=== PATIENT | female | born 1950 | race Caucasian/White ===

== ENCOUNTER → 2018-01-09 08:54 | Outpatient (CLI) | payer MEDICARE, OTHER, SELFPAY ==
--- NOTE | 2018-01-09 08:55 | RAD_ITS ---
STUDY: X-RAY - LEFT KNEE REASON FOR EXAM: Female, 67 years old. Pain after fall TECHNIQUE: Four view(s) of the knee were obtained. COMPARISON: None. FINDINGS: The distal femur is unremarkable. The proximal tibia is unremarkable. There is mild narrowing of the medial femorotibial compartment. Normal lateral femorotibial compartment. Normal patellofemoral articulation. There is no fullness above the patella. The soft tissue structures are unremarkable. RAD/Knee 4 or More Views IMPRESSION: No acute abnormalities are seen in the left knee. There are mild degenerative changes in the medial compartment. Electronically Signed: Yessi Scales MD at 20:01 EDT Tel Direct: [phone], Service support ,
== END ==
PROVIDERS: Family Provider Internal Medicine; PCP Internal Medicine; Visit Provider Physician Assistant
DX: M17.12 Unilateral primary osteoarthritis, left knee (principal)
CPT/HCPCS: 73564

== ENCOUNTER 2021-08-29 14:46 | Emergency (ER) | payer MEDICARE, OTHER, SELFPAY ==
[2021-08-29 14:46] VITALS: BP 181/82; PULSE 114; RESP 20; TEMP 36.3; O2SAT 100; BMI 19.8
--- NOTE | 2021-08-29 15:04 | RAD_ITS ---
STUDY: X-RAY CHEST REASON FOR EXAM: Female, 71 years old. cough TECHNIQUE: PA and lateral views of the chest. COMPARISON: None. FINDINGS: The lungs are clear and expanded. There is no demonstrated pleural abnormality. Normal size heart. Normal mediastinum and katherin. Normal visualized pulmonary arteries. Normal visualized aortic arch and descending thoracic aorta. Normal visualized thoracic spine. Normal visualized ribs, clavicles, and shoulders. There is no demonstrated abnormality of the visualized soft tissue structures of the upper abdomen. RAD/Chest PA and Lateral IMPRESSION: Normal x-ray examination of the chest. Electronically Signed: Bill Salcido MD at 16:09 EDT ,
--- NOTE | 2021-08-29 15:04 | EKG12_ITS ---
Test Reason : SOB Blood Pressure : / mmHG Vent. Rate : 103 BPM Atrial Rate : 103 BPM P-R Int : 170 ms QRS Dur : 090 ms QT Int : 326 ms P-R-T Axes : 039 046 045 degrees QTc Int : 427 ms Sinus tachycardia Abnormal ECG Confirmed by TABATHA DE LEON, LAM ([id number]), features editor NEVA CANNON ([id number]) on 09/02/2021 9:19:08 AM Referred By: ES/PL Confirmed By:LAM MAYS MD
--- NOTE | 2021-08-29 15:07 | EX.ED.DYSGE1 ---
HPI History of Present Illness Chief Complaint: Shortness of Breath Informant: patient Narrative Narrative: Patient presents with cough. 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 The child and siblings have a cold with nasal congestion runny nose and cough. She caught this about a week ago. She felt as though she was getting better. But the last few days she has had sense of fever. She has not checked her temperature. She is coughing occasionally. But she is not actually short of breath. She is bringing up a small amount of clear phlegm only. No blood. No chest pain. She states she has some soreness of the muscles but it is very mild. No leg swelling or pain. No recent travel, surgery, immobilization, personal family history of DVT or PE. She does report a history of bronchiectasis for which she takes guaifenesin routinely. She has had 2 episodes of pneumonia. One was in May 2019 that they think may have been Covid. The other was in 2017. Patient does not feel acutely ill. She is not having any trouble eating or drinking or carrying on ADLs. She saw a nurse practitioner earlier today who stated they would just be more comfortable with her being seen and may be getting a chest x-ray. [facility] Medical History Arthritis Cataracts, bilateral Chronic bronchiectasis not affecting current episode of care Coronary atherosclerosis due to severely calcified coronary lesion Depression GERD (gastroesophageal reflux disease) Hiatal hernia Kidney stones Osteopenia Pneumonia Von Willebrand disease Home Medications calcium carbonate 600 mg calcium (1,500 mg) tablet 600 mg PO DAILY 01/22/21 [History Last Taken Unknown] multivitamin 1 tab PO DAILY 01/22/21 [History Last Taken Unknown] Lactobacillus acidophil,plantar-Bifido no.7 25 billion cell capsule cap PO DAILY 01/25/21 [History Last Taken Unknown] acetaminophen 500 mg tablet 500 mg PO Q6H PRN 01/25/21 [History Last Taken Unknown] guaifenesin 600 mg tablet, extended release 12 hr 600 mg PO Q12H PRN 01/25/21 [History Last Taken Unknown] sertraline 50 mg tablet 75 mg PO DAILY tab 01/25/21 [History Last Taken Unknown] tumeric curcumin PO DAILY 01/25/21 [History Last Taken Unknown] albuterol sulfate [Ventolin HFA] 2 puff INHALATION Q4H PRN PRN #1 inhaler 08/29/21 [Rx Last Taken Unknown] doxycycline monohydrate 100 mg PO BID #20 cap 08/29/21 [Rx Last Taken Unknown] Allergy/AdvReac Type Severity Reaction Status Date / Time latex Allergy unknown Verified 08/29/21 14:48 Penicillins Allergy Unknown Verified 08/29/21 14:48 Sulfa (Sulfonamide Allergy unknown Verified 08/29/21 14:48 Antibiotics) Family History Father Cancer Brother CVA (cerebral vascular accident) Cancer Mother H/O ulcer disease Alzheimer disease Other Bleeding disorder COPD (chronic obstructive pulmonary disease) Cancer of bone Hypertension Myocardial infarction Osteoporosis Surgical History bilateral trigger finger release H/O: hysterectomy Hx of cholecystectomy Social History Smoking Status: Never smoker alcohol intake: current substance use type: does not use what type of physical activity do you participate in: walking frequency: 5-6 times per week ROS ROS ED Constitutional Constitutional ED: Reports subjective Eyes Eyes: Denies blurry vision ENT ENT ED: Denies rhinorrhea or sore throat Cardiovascular Cardiovascular: Denies chest pain, palpitations or racing heartbeat Respiratory/Chest Respiratory/Chest: Reports cough, sputum and other Details: Clear sputum only. ; Denies dyspnea or dyspnea on exertion Gastrointestinal Gastrointestinal: Denies abdominal pain, diarrhea, nausea or vomiting Musculoskeletal Musculoskeletal: Reports myalgias Integumentary Denies rash Neurologic Neurologic: Denies headache(s) Psychiatric Psychiatric: Denies depression Endocrine Endocrinology: Denies polydipsia or polyuria Allergic/Immunologic Allergic/Immunologic ED: Denies urticaria EXAM Physical Exam Const Vital Signs: 08/29/21 14:46 08/29/21 15:13 08/29/21 15:34 Temperature 97.4 F L Temperature Source Temporal Pulse Rate 114 H 103 H Respiratory Rate 20 H 18 Respiratory Effort Normal Non-Labored Respiratory Depth Normal Respiratory Pattern Normal Blood Pressure 181/82 H Blood Pressure Mean 115 Pulse Ox 100 Oxygen Delivery Method Room Air Positive well nourished and well developed General Appearance ED: well developed and NAD; Negative for cyanotic or diaphoretic HEENT Reports moist mucous membranes Eyes General Eye ED: Negative for pale conjunctiva or scleral icterus Chest Wall inspection of chest normal and palpation of chest normal Resp normal respiratory effort Resp Narrative: No pain to deep breaths. Breath sounds are overall clear but she does have prolonged expiration and slightly reduced breath sounds throughout. No actual wheezes. No rhonchi. Deep breath does occasionally produce a dry cough. Auscultation: Negative for rales, rhonchi or wheezes Cardio regular rate and regular rhythm GI normal to inspection, nondistended, normoactive bowel sounds and non-tender Back/Spine no CVA tenderness Extremity normal to inspection General Extremety ED: Negative for edema or tenderness General Extremity: Negative for edema Neuro Sensorium / Orientation: alert Psych mental status grossly normal Skin no rashes or lesions noted MDM MDM MDM Narrative Medical decision making narrative: Patient's electrolytes show no marked abnormalities. Troponin is negative. CBC does show elevated white count at 14.9. X-ray is not showing focal pneumonia. Patient is rechecked. She feels much better after the DuoNeb. She felt that that opened her up quite a bit. My concern is that she has been having now fevers chills worsening cough and a white count. She has responded well to doxycycline. This patient is higher risk with a history of bronchiectasis. Lab Data Attestation: I reviewed the patient's lab results. Labs: Laboratory Results - last 24 hr 08/29/21 08/29/21 15:30 15:30 WBC 14.9 H RBC 4.30 Hgb 14.2 Hct 42.0 MCV 97.7 MCH 33.0 H MCHC 33.8 RDW Std Deviation 46.5 H RDW Coeff of Darin 12.9 Plt Count 390 MPV 9.5 Immature Gran % (Auto) 0.500 Neut % (Auto) 79.8 H Lymph % (Auto) 12.3 L [place] % (Auto) 6.8 Eos % (Auto) 0.3 Baso % (Auto) 0.3 Absolute Neuts (auto) 11.9 H Absolute Lymphs (auto) 1.83 Nucleated RBC % 0 Sodium 135 L Potassium 3.8 Chloride 102 Carbon Dioxide 28.0 Anion Gap 5 BUN 11 Creatinine 0.54 L Estim Creat Clear Calc 35.72 Est GFR (MDRD) Af Amer 142 Est GFR (MDRD) Non-Af 117 BUN/Creatinine Ratio 20.3 H Glucose 126 H Calcium 9.4 Troponin I High Sens 6 Radiography Diagnostic Testing: Clinical Impression(s) from Imaging Studies Chest X-Ray 08/29/21 15:04 IMPRESSION: Normal x-ray examination of the chest. Electronically Signed: Bill Salcido MD at 16:09 EDT , EKG Initial EKG: Comments: EKG done for cough and borderline quick heart rate. EKG read by me shows sinus rhythm with mildly tachycardic rate at 103. No ventricular ectopy. There is some J-point elevation mostly in V2. It is not seen in V3. There is minimal in V1. No reciprocal change. HI interval, QRS duration, QTc normal. There is no old for comparison. With this EKG and symptoms, we have added further blood work. Discharge Plan Triage Chief Complaint: Shortness of Breath ED Provider: Golden Kay Dx/Rx/DC Orders Clinical Impression: Community acquired pneumonia Instructions: ED Pneumonia (Adult) Prescriptions: New albuterol sulfate [Ventolin HFA] 1 INHALER inhaler 2 puff inhalation Q4H PRN PRN (Reason: Wheezing) Qty: 1 RF: 0 doxycycline monohydrate 100 MG capsule 100 mg PO BID Qty: 20 RF: 0 No Action calcium carbonate 600 mg calcium (1,500 mg) tablet 600 mg PO DAILY RF: 0 multivitamin Tablet 1 tab PO DAILY RF: 0 sertraline [Zoloft] 50 mg tablet 75 mg PO DAILY RF: 0 tumeric curcumin 500 mg tablet PO DAILY RF: 0 guaifenesin [Mucinex] 600 mg tablet extended release 12hr 600 mg PO Q12H PRN (Reason: Congestion) RF: 0 acetaminophen [Tylenol Extra Strength] 500 mg tablet 500 mg PO Q6H PRN (Reason: Pain) RF: 0 up4 Probiotics Adult 50 Plus 25 billion cell capsule PO DAILY RF: 0 Primary Care Provider: Jennifer Solorio Referrals: Jennifer Solorio MD [Primary Care Provider] - 1 Week if not improving Disposition Disposition: Home, Self Care
[2021-08-29] MEDS: Ipratropium/Albuterol Sulfate 3 ML AMPUL.NEB INHALATION (15:12)
[2021-08-29 15:13] VITALS: PULSE 103; RESP 18
[2021-08-29 15:34] VITALS: O2SAT 98
[2021-08-29 15:38] LABS: Absolute Lymphocyte Count 1.83 X10^3/uL (0.83-4.51); Absolute Neutrophil Count 11.9 X10^3/uL (2.0-7.7); Basophil# 0.04 X10^3/uL; Basophil% 0.3 % (0-1); Eosinophil# 0.04 X10^3/uL; Eosinophils% 0.3 % (0-5); Hemoglobin 14.2 g/dL (12.0-15.0); Lymphocyte # 1.83 X10^3/ul (0.83-4.51); Lymphocyte % 12.3 % (19-41); Mean Corp Hgb Conc 33.8 g/dL (32-36); Mean Corpuscular Volume 97.7 fL (81-99); Mean Platelet Vol. 9.5 fl (6.2-12.0); Monocyte# 1.02 X10^3/uL; Monocyte% 6.8 % (0-10); NRBC Flagged by Analyzer 0 % (0-5); Neutrophil % 79.8 % (47-70); Platelet Count 390 K/mm3 (150-450); RBC Distribution Width CV 12.9 % (11.6-14.6); RBC Distribution Width SD 46.5 fl (35.1-43.9); White Blood Count 14.9 K/mm3 (4.4-11.0)
[2021-08-29 15:57] LABS: Anion Gap 5 (5-15); BUN 11 mg/dL (7-18); BUN/Creat Ratio 20.3 RATIO (10-20); Calcium,Total 9.4 mg/dL (8.5-10.1); Chloride 102 mmol/L (98-107); Creatinine, Serum 0.54 mg/dL (0.55-1.02); EST Glomerular Filtration Rate 117 mL/min (>60); Est Glom Filt Rate - Afr Amer 142 mL/min (>60); Estimated Creatinine Clearance 35.72 ml/min; Glucose 126 mg/dL (74-106); Potassium 3.8 mmol/L (3.5-5.1); Sodium Level 135 mmol/L (136-145); Troponin-I HS 6 pg/mL (3.0-54.0)
[2021-08-29 17:21] VITALS: BP 124/88; PULSE 76; RESP 14; O2SAT 99
--- NOTE | 2021-09-01 11:56 | CM.ED ---
ER RNCM DC F/u Call: Called patient listed cell phone number, patient answered and this jingle writer introduced self/role. Patient states not feeling worse but not a whole lot better and going to take time. Has a f/u with [facility] 3 and Internal Med doctor 09.09.21. No further issues or concerns voiced at this time. Lizbeth Carter RNCM
== END 2021-08-29 17:22 | disposition home or self-care (01) ==
PROVIDERS: Emergency Provider Emergency Medicine; PCP Internal Medicine; Visit Provider Emergency Medicine
DX: J18.9 Pneumonia, unspecified organism (principal); I25.10 Atherosclerotic heart disease of native coronary artery without angina pectoris; F32.A Depression, unspecified; M19.90 Unspecified osteoarthritis, unspecified site; Z79.899 Other long term (current) drug therapy
CPT/HCPCS: 71046; 80048; 84484; 85025; 93005; 94640; 99284

== ENCOUNTER 2022-04-20 10:09 | Emergency (ER) | payer MEDICARE, OTHER, SELFPAY ==
[2022-04-20 10:10] VITALS: BP 187/91; PULSE 101; RESP 18; TEMP 36.6; O2SAT 99; BMI 19.5
--- NOTE | 2022-04-20 10:40 | EKG12_ITS ---
Test Reason : PALPS Blood Pressure : / mmHG Vent. Rate : 097 BPM Atrial Rate : 097 BPM P-R Int : 158 ms QRS Dur : 092 ms QT Int : 338 ms P-R-T Axes : 047 042 056 degrees QTc Int : 429 ms Sinus rhythm with frequent Premature ventricular complexes Possible Left atrial enlargement Possible Anterior infarct , age undetermined Abnormal ECG Confirmed by FADIA DE LEON, RICKY ([id number]), editor department NEVA CANNON ([id number]) on 04/26/2022 9:27:38 A M Referred By: BLAKE Confirmed By:ELADIO LOAIZA MD
--- NOTE | 2022-04-20 10:40 | EX.ED.DYSGE1 ---
HPI History of Present Illness Chief Complaint: Weakness Detail of Chief Complaint: Generalized weakness, palpitations, bradycardia Informant: patient Narrative Narrative: Patient presents to the emergency department with complaint of not feeling well for about 3 days. Patient states that she started feeling an irregular heartbeat and palpitations about 2 nights ago. Patient was seen at urgent care because she thought maybe she had COVID because she did not feel well and they noted that her heart rate was in the 40s so they referred her to the emergency department. Patient denies fever or cough. She denies chest pain. She denies dyspnea. She denies blood in her stool or black tarry stool. She denies urinary symptoms. Patient denies excessive caffeine intake. [facility] Medical History (Updated 04/20/22 @ 12:[address] Yuliya Mackey, ) Arthritis Cataracts, bilateral Chronic bronchiectasis not affecting current episode of care Coronary atherosclerosis due to severely calcified coronary lesion Depression GERD (gastroesophageal reflux disease) Hiatal hernia Kidney stones Osteopenia Pneumonia Von Willebrand disease Home Medications calcium carbonate 600 mg calcium (1,500 mg) tablet 600 mg PO DAILY 01/22/21 [History Last Taken Unknown] multivitamin 1 tab PO DAILY 01/22/21 [History Last Taken Unknown] Lactobacillus acidophil,plantar-Bifido no.7 25 billion cell capsule (up4 Probiotics Adult 50 Plus) cap PO DAILY 01/25/21 [History Last Taken Unknown] acetaminophen 500 mg tablet (Tylenol Extra Strength) 500 mg PO Q6H PRN Pain 01/25/21 [History Last Taken Unknown] guaifenesin 600 mg tablet, extended release 12 hr (Mucinex) 600 mg PO Q12H PRN Congestion 01/25/21 [History Last Taken Unknown] sertraline 50 mg tablet (Zoloft) 75 mg PO DAILY 01/25/21 [History Last Taken Unknown] tumeric curcumin PO DAILY 01/25/21 [History Last Taken Unknown] albuterol sulfate 90 mcg/actuation aerosol inhaler (Ventolin HFA) 2 puff inhalation Q4H PRN PRN Wheezing ##1 08/29/21 [Rx Last Taken Unknown] doxycycline monohydrate 100 mg capsule 100 mg PO BID #20 caps 08/29/21 [Rx Last Taken Unknown] Allergy/AdvReac Type Severity Reaction Status Date / Time latex Allergy unknown Verified 04/20/22 10:12 Penicillins Allergy Unknown Verified 04/20/22 10:12 Sulfa (Sulfonamide Allergy unknown Verified 04/20/22 10:12 Antibiotics) Family History Father Cancer Brother CVA (cerebral vascular accident) Cancer Mother H/O ulcer disease Alzheimer disease Other Bleeding disorder COPD (chronic obstructive pulmonary disease) Cancer of bone Hypertension Myocardial infarction Osteoporosis Surgical History bilateral trigger finger release H/O: hysterectomy Hx of cholecystectomy Social History Smoking Status: Never smoker alcohol intake: current substance use type: does not use what type of physical activity do you participate in: walking frequency: 5-6 times per week ROS ROS ED Review of Systems ROS Unobtainable: other Constitutional Constitutional ED: Reports lethargy; Denies chills, fever(s), sweats or weight loss Eyes Eyes: Denies blurry vision, change in vision or diplopia ENT ENT ED: Denies rhinorrhea or sore throat Cardiovascular Cardiovascular: Reports palpitations; Denies chest pain, orthopnea or racing heartbeat Respiratory/Chest Respiratory/Chest: Denies cough, dyspnea, dyspnea on exertion, orthopnea or sputum Gastrointestinal Gastrointestinal: Denies abdominal pain, diarrhea, nausea or vomiting Genitourinary Genitourinary ED: Denies dysuria, hematuria or urinary frequency Musculoskeletal Musculoskeletal: Denies arthralgias, back pain, myalgias or neck pain Integumentary Denies abscess, Abrasions or rash Neurologic Neurologic: Denies headache(s) or weakness Psychiatric Psychiatric: Denies anxiety, depression or suicidal thoughts Endocrine Endocrinology: Denies polydipsia, polyphagia or polyuria Hematologic/Lymphatic Hematologic/Lymphatic: Denies easy bleeding, easy bruising or lymphadenopathy Allergic/Immunologic Allergic/Immunologic ED: Denies mouth swelling, tongue swelling or urticaria EXAM Physical Exam Const Vital Signs: 04/20/22 10:10 04/20/22 10:18 Temperature 98 F Temperature Source Temporal Pulse Rate 101 H Respiratory Rate 18 Respiratory Pattern Irregular Blood Pressure 187/91 H Blood Pressure Mean 123 Pulse Ox 99 Oxygen Delivery Method Room Air Positive well nourished and well developed General Appearance ED: well developed and NAD HEENT Reports TM's clear and moist mucous membranes normocephalic and atraumatic; Negative for trauma or tenderness Tympanic Membrane ED: Yes TM's clear Eyes PERRL and EOMs intact bilaterally General Eye ED: Negative for pale conjunctiva or scleral icterus Neck no lymphadenopathy, supple and no JVD General: Negative for tenderness Chest Wall inspection of chest normal and palpation of chest normal Chest: Negative for tenderness Resp normal respiratory effort and clear to auscultation bilaterally Effort and Inspection: Negative for respiratory distress or pain with movement Auscultation: Negative for rhonchi, wheezes or diminished lung sounds Cardio regular rate, regular rhythm, S1 normal heart sound, S2 normal heart sound and no murmurs Rate: other Other Details: Ectopy Peripheral Pulses: pulses 2+ throughout GI normal to inspection, nondistended, normoactive bowel sounds, soft to palpation, non-tender, non-distended and no masses Back/Spine no CVA tenderness and no thoracic nor lumbar tenderness Extremity normal to inspection General Extremety ED: Negative for edema General Extremity: Negative for edema Neuro oriented x3, CN's II-XII intact bilaterally, no sensory deficits noted and gait normal Sensorium / Orientation: awake, alert, oriented to person, oriented to place and oriented to time Motor Exam: strength 5/5 throughout and strength abnormal Psych mental status grossly normal Skin no rashes or lesions noted and no wounds MDM MDM MDM Narrative Medical decision making narrative: IV line established on arrival. EKG obtained showed a sinus rhythm with no acute ST segment changes. Patient has slightly elevated white count of 13.6. Chemistries were unremarkable. Troponin was normal and TSH was normal at 1.45. Urinalysis was normal. At this point I suspect the palpitations she is feeling are secondary to PVCs although the etiology is unclear. Patient will be referred to cardiology for follow-up. I do not feel she is having acute coronary syndrome. I advised to decrease caffeine intake. Lab Data Attestation: I reviewed the patient's lab results. Labs: Laboratory Results - last 24 hr 04/20/22 04/20/22 04/20/22 11:25 11:25 11:33 WBC 13.6 H RBC 4.49 Hgb 14.3 Hct 43.6 MCV 97.1 MCH 31.8 MCHC 32.8 RDW Std Deviation 46.3 H RDW Coeff of Darin 12.9 Plt Count 457 H MPV 9.7 Immature Gran % (Auto) 0.700 Neut % (Auto) 78.4 H Lymph % (Auto) 13.5 L [place] % (Auto) 6.6 Eos % (Auto) 0.4 Baso % (Auto) 0.4 Absolute Neuts (auto) 10.6 H Absolute Lymphs (auto) 1.83 Nucleated RBC % 0 Sodium 137 Potassium 4.5 Chloride 104 Carbon Dioxide 29.0 Anion Gap 4 L BUN 10 Creatinine 0.61 Estim Creat Clear Calc 34.80 Est GFR (MDRD) Af Amer 124 Est GFR (MDRD) Non-Af 102 BUN/Creatinine Ratio 16.4 Glucose 87 Calcium 10.0 Troponin I High Sens 8 TSH 1.45 Urine Color Yellow Urine Clarity Sl. Cloudy Urine pH 7.0 Ur Specific [place] 1.005 Urine Protein Negative Urine Glucose (UA) Normal Urine Ketones Negative Urine Occult Blood Negative Urine Nitrite Negative Urine Bilirubin Negative Urine Urobilinogen Normal Ur Leukocyte Esterase Negative Urine RBC 0 SEEN Urine WBC 0 SEEN Ur Squamous Epith Cells 0-5 SEEN Urine Bacteria 0 SEEN Urine Mucus 0 SEEN EKG Initial EKG: Attestation: I personally reviewed and interpreted this EKG as follows: Comments: Sinus rhythm with a rate of 97 bpm with frequent PVCs Discharge Plan Triage Chief Complaint: Weakness ED Provider: Yuliya Mackey Dx/Rx/DC Orders Clinical Impression: Palpitation, Frequent PVCs Instructions: PVCs, ED Palpitations Prescriptions: No Action calcium carbonate 600 mg calcium (1,500 mg) tablet 600 mg PO DAILY multivitamin Tablet 1 tab PO DAILY sertraline [Zoloft] 50 mg tablet 75 mg PO DAILY tumeric curcumin 500 mg tablet PO DAILY guaifenesin [Mucinex] 600 mg tablet extended release 12hr 600 mg PO Q12H PRN (Reason: Congestion) acetaminophen [Tylenol Extra Strength] 500 mg tablet 500 mg PO Q6H PRN (Reason: Pain) up4 Probiotics Adult 50 Plus 25 billion cell capsule PO DAILY albuterol sulfate [Ventolin HFA] 1 INHALER inhaler 2 puff inhalation Q4H PRN PRN (Reason: Wheezing) Qty: 1 0RF Rx Instructions: Dispense with spacer doxycycline monohydrate 100 MG capsule 100 mg PO BID Qty: 20 0RF Primary Care Provider: Jennifer Solorio Referrals: Jennifer Solorio MD [Primary Care Provider] - Will Perez MD [Med Staff - Active Staff] - 3-5 Days Disposition Disposition: Home, Self Care
[2022-04-20] MEDS: 0.9% Normal Saline 1,000 ML 150 ML IV (11:30)
[2022-04-20 11:37] LABS: Bacteria 0 SEEN /hpf (None Seen); Mucous, Urine 0 SEEN /hpf (<or=2+); Red Blood Cells-Urine 0 SEEN /hpf (0-5); White Blood Cells 0 SEEN /hpf (0-5)
[2022-04-20 11:38] LABS: Color, Urine Yellow (Yellow); Glucose, Dipstick Normal (Normal); Ketone-Dipstick Negative (Negative); Leukocyte Esterase-Dipstick Negative /ul (Negative); Nitrite-Dipstick Negative (Negative); Occult Blood-Urine Negative /ul (Negative); Protein-Dipstick Negative (Negative); Specific Gravity, Urine 1.005 (1.002-1.030); Urine Bilirubin Dipstick Negative (Negative); Urine Clarity Sl. Cloudy (Clear); Urine Urobilinogen Normal (Normal)
[2022-04-20 11:42] LABS: Absolute Lymphocyte Count 1.83 X10^3/uL (0.83-4.51); Absolute Neutrophil Count 10.6 X10^3/uL (2.0-7.7); Basophil# 0.05 X10^3/uL; Basophil% 0.4 % (0-1); Eosinophil# 0.06 X10^3/uL; Eosinophils% 0.4 % (0-5); Hematocrit 43.6 % (37-47); Hemoglobin 14.3 g/dL (12.0-15.0); Lymphocyte # 1.83 X10^3/ul (0.83-4.51); Lymphocyte % 13.5 % (19-41); Mean Corp Hgb Conc 32.8 g/dL (32-36); Mean Corpuscular Hgb 31.8 pg (27.0-32.0); Mean Corpuscular Volume 97.1 fL (81-99); Mean Platelet Vol. 9.7 fl (6.2-12.0); Monocyte% 6.6 % (0-10); NRBC Flagged by Analyzer 0 % (0-5); Neutrophil # 10.64 X10^3/uL (2.7-7.7); Neutrophil % 78.4 % (47-70); Platelet Count 457 K/mm3 (150-450); RBC Distribution Width CV 12.9 % (11.6-14.6); RBC Distribution Width SD 46.3 fl (35.1-43.9); Red Blood Count 4.49 M/mm3 (4.2-5.4); White Blood Count 13.6 K/mm3 (4.4-11.0)
[2022-04-20 11:44] LABS: Squamous Epithelial Cells - UA 0-5 SEEN /hpf (5-10)
[2022-04-20 12:03] LABS: Anion Gap 4 (5-15); BUN 10 mg/dL (7-18); BUN/Creat Ratio 16.4 RATIO (10-20); Chloride 104 mmol/L (98-107); Creatinine, Serum 0.61 mg/dL (0.55-1.02); EST Glomerular Filtration Rate 102 mL/min (>60); Est Glom Filt Rate - Afr Amer 124 mL/min (>60); Glucose 87 mg/dL (74-106); Potassium 4.5 mmol/L (3.5-5.1); Sodium Level 137 mmol/L (136-145); Thyroid Stim Hormone (TSH) 1.45 uIU/mL (0.358-3.74); Troponin-I HS 8 pg/mL (3.0-54.0)
[2022-04-20 12:28] VITALS: BP 118/67; PULSE 78; RESP 18; O2SAT 98
== END 2022-04-20 12:30 | disposition home or self-care (01) ==
PROVIDERS: Emergency Provider Emergency Medicine; PCP Internal Medicine; Visit Provider Emergency Medicine
DX: R00.2 Palpitations (principal); I49.3 Ventricular premature depolarization; I25.10 Atherosclerotic heart disease of native coronary artery without angina pectoris
CPT/HCPCS: 80048; 81001; 84443; 84484; 85025; 93005; 99283; J7030

== ENCOUNTER → 2022-06-23 | Outpatient (CLI) | payer MEDICARE, OTHER, SELFPAY ==
--- NOTE | 2022-06-23 08:52 | AAVD_ITS ---
Reason For Study: Abdominal Bruit Aorta Measurements Aorta Doppler Measurements Proximal aorta measures1.70 x 1.67cm. in cross- Peak systolic flow velocities within the proximal sectional axis. aorta measure 100.8 cm/sec. Proximal aorta measures1.65cm. in longitudinal Peak systolic flow velocities within the mid aorta axis. measure 103.1 cm/sec. Mid aorta measures1.28 x 1.35cm. in cross- Peak systolic flow velocities within the distal sectional axis. aorta measure 112.7 cm/sec. Mid aorta measures1.34cm. in longitudinal axis. Distal aorta measures1.09 x 1.09cm. in cross- sectional axis. Distal aorta measures1.08cm. in longitudinal axis. Left Iliac Artery Left iliac artery measures 0.87 x 0.90 cm. in the cross-sectional axis. Left iliac artery measures 0.81 cm. in the longitudinal axis. Peak systolic velocity in the left iliac artery measures 104.9 cm/sec. Right Iliac Artery Right iliac artery measures 0.74 x 0.80 cm. in the cross-sectional axis. Right iliac artery measures 0.72 cm. in the longitudinal axis. Peak systolic velocity in the right iliac artery measures 109.5 cm/sec. Procedure Aorta IVC Iliac vasculature or bypass grafts [id number]. The exam was diagnostic. Exam performed in department. VL/Abd Aortic/IVC Duplex scan Interpretation Summary Aorta patent with normal caliber and no evidence of stenosis. Bilateral iliac arteries patent with normal caliber and no evidence of stenosis . Ordering Physician: Will Perez Referring Physician: Will Perez MD Performed By: Flavio Paulson, RVT
== END | disposition home or self-care (01) ==
LOC: CVS 08:50
PROVIDERS: PCP Internal Medicine; Referring Provider Internal Medicine Cardiovascular Disease; Visit Provider Internal Medicine Cardiovascular Disease
DX: R09.89 Other specified symptoms and signs involving the circulatory and respiratory systems (principal); I72.8 Aneurysm of other specified arteries
CPT/HCPCS: 93978

== ENCOUNTER → 2022-07-01 | Outpatient (CLI) | payer MEDICARE, OTHER, SELFPAY ==
--- NOTE | 2022-07-01 09:23 | STRESSREP ---
Stress Test Report Date: 07-01-2022 Procedure: Exercise tolerance test/imaging study Indications: Palpitations; ventricular ectopy/PVCs; coronary artery calcification Consent: Per the patient Procedure: The patient exercised on a Denzel protocol for 6 minutes completing Stage II achieving a peak heart rate of 181 bpm (123% predicted maximal heart rate) with resting blood pressure of 150/82 mmHg and a peak blood pressure 164/58 mmHg and a peak MET capacity of 7 METs. The baseline ECG demonstrated normal sinus rhythm; occasional PVCs. The peak exercise ECG demonstrated somatic/motion artifact with no obvious ECG changes. There were occasional PVCs pretest, during exercise, and recovery. The functional capacity was considered good. There was no complaint of chest discomfort during exercise or recovery. The examination was discontinued secondary to dyspnea. Impression: 1. Technically adequate (percent predicted maximal heart rate greater than 85%) exercise tolerance test 2. Peak exercise ECG with somatic/motion artifact with no obvious ECG changes 3. There were occasional PVCs pretest, during exercise, and recovery 4. Nuclear images pending Myocardial perfusion imaging study: Technique: The patient was injected with 11.1 mCi of technetium 99m Cardiolite and subsequently rest SPECT Cardiolite nuclear imaging was obtained in the horizontal long, vertical long, and short axis views. The patient exercised on a Denzel protocol for 6 minutes completing Stage II achieving a peak heart rate of 181 bpm (123% predicted maximal heart rate) with resting blood pressure of 150/82 mmHg and a peak blood pressure 164/58 mmHg and a peak MET capacity of 7 METs. The patient was injected with 33.4 mCi of technetium 99m Cardiolite and subsequently stress SPECT Cardiolite nuclear imaging was obtained in the horizontal long, vertical long, and short axis views. A gated Cardiolite study at peak stress was obtained. Interpretation: Rest and stress SPECT Cardiolite nuclear imaging status post realignment, normalization, and attenuation correction, demonstrates the appearance of relative uniform tracer uptake and myocardial perfusion appearing within normal limits. There is end systolic thickening and brightening. The gated Cardiolite study demonstrates myocardial thickening and inward wall motion. The reported LVEF is 63%. Impression: 1. Rest and stress SPECT Cardiolite nuclear imaging demonstrate relative uniform tracer uptake and myocardial perfusion appearing within normal limits. 2. The gated Cardiolite study reports an LVEF of 63%. This note was generated with [employer] software. It may contain incorrect words, spelling, and punctuation that were not noted in checking the note before signing.
== END | disposition home or self-care (01) ==
LOC: CVS 07:09
PROVIDERS: PCP Internal Medicine; Visit Provider Internal Medicine Cardiovascular Disease
DX: I25.10 Atherosclerotic heart disease of native coronary artery without angina pectoris (principal); I25.84 Coronary atherosclerosis due to calcified coronary lesion; I49.49 Other premature depolarization; I49.3 Ventricular premature depolarization; R00.2 Palpitations
CPT/HCPCS: 78452; 93017; A9500; A4216

== ENCOUNTER → 2023-07-27 | Outpatient (CLI) | payer MEDICARE, OTHER, SELFPAY ==
--- OUTSIDE RECORDS SUMMARY | 2023-07-27 08:24 | XMS RPT_ITS | CCD ---
Author Name Unknown Address [address] [place] [address] Organization [facility] Care Team Providers Care Home Care Associate Name Role Phone Osmin DE LEON, Christ Primary Care Provider [phone] GANTA, CHRIST Primary Care Unavailable CHIRAG, SANDRA Referring Unavailable YAIMA, RHONDA BELL Admitting Unavailab le GANTA, CHRIST Primary Care Unavailable YAIMA, RHONDA BELL Attending Unavailab le YAIMA, RHONDA BELL Attending Unavailab le YAIMA, RHONDA BELL Admitting Unavailab le GANTA, CHRIST Primary Care Unavailable Osmin DE LEON Christ Primary Care Provider GANTA, CHRIST Primary Care Unavailable KETURAH WALLACE Consulting Unavailable CHACE ROSSI Attending Unavaila ble YAIMA, RHONDA BELL Attending Unavailab le GANTA, CHRIST Primary Care Unavailable GANTA, CHRIST Primary Care Unavailable YAIMA, RHONDA BELL Attending Unavailab le YAIMA, RHONDA BELL Attending Unavailab le GANTA, CHRIST Primary Care Unavailable GANTA, CHRIST Primary Care Unavailable ADRIANA FRANCO Attending Unavailable YAIMA, RHONDA BELL Attending Unavailab le GANTA, CHRIST Primary Care Unavailable YAIMA, RHONDA BELL Attending Unavailab le GANTA, CHRIST Primary Care Unavailable GANTA, CHRIST Primary Care Unavailable ADRIANA FRANCO Attending Unavailable YAIMARHONDA Referring Unavailab le O'YUDIADRIANNE Attending Unavailable GANTA, CHRIST Primary Care Unavailable O'YUDIADRIANNE Attending Unavailable YAIMARHONDA Referring Unavailab le GANTA, CHRIST Primary Care Unavailable GANTA, CHRIST Primary Care Unavailable O'YUDIADRIANNE Attending Unavailable GANTA, CHRIST Primary Care Unavailable O'UYDIADRIANNE Attending Unavailable YAIMARHONDA Referring Unavailab le O'YUDI, ADRIANNE Attending Unavailable YAIMARHONDA Referring Unavailab le GANTA, CHRIST Primary Care Unavailable O'YUDI, ADRIANNE Attending Unavailable YAIMA, RHONDA BELL Referring Unavailab le GANTA, CHRIST Primary Care Unavailable GANTA, CHRIST Primary Care Unavailable O'YUDI, ADRIANNE Attending Unavailable YAIMA, RHONDA BELL Referring Unavailab le GANTA, CHRIST Primary Care Unavailable O'YUDI, ADRIANNE Attending Unavailable YAIMA, RHONDA BELL Referring Unavailab le GANTA, CHRIST Primary Care Unavailable O'YUDI, ADRIANNE Attending Unavailable YAIMA, RHONDA BELL Referring Unavailab le BOGNER, SURI Attending Unavailable GANTA, CHRIST Primary Care Unavailable GANTA, CHRIST Primary Care Unavailable SHAMIKA BALBUENA Attending Unavailable GANTA, CHRIST Primary Care Unavailable OLDER, SANDRA Attending Unavailable GANTA, CHRIST Primary Care Unavailable OLDERSANDRA Referring Unavailable SHAMIKA BALBUENA Attending Unavailable GANTA, CHRIST Primary Care Unavailable OLDERSANDRA Referring Unavailable GANTA, CHRIST Primary Care Unavailable YAIMA, RHONDA BELL Referring Unavailab le GANTA, CHRIST Primary Care Unavailable O'YUDI, ADRIANNE Attending Unavailable YAIMA, RHONDA BELL Referring Unavailab le GANTA, CHRIST Primary Care Unavailable O'YUDI, ADRIANNE Attending Unavailable YAIMA, RHONDA BELL Referring Unavailab le GANTA, CHRIST Primary Care Unavailable O'YUDI, ADRIANNE Attending Unavailable YAIMA, RHONDA BELL Referring Unavailab le GANTA, CHRIST Primary Care Unavailable O'YUDI, ADRIANNE Attending Unavailable YAIMA, RHONDA BELL Referring Unavailab le GANTA, CHRIST Primary Care Unavailable GANTA, CHRIST Primary Care Unavailable O'YUDI, ADRIANNE Attending Unavailable YAIMA, RHONDA BELL Referring Unavailab le GANTA, CHRIST Primary Care Unavailable O'YUDI, ADRIANNE Attending Unavailable GANTA, CHRIST Primary Care Unavailable O'YUDI, ADRIANNE Attending Unavailable YAIMA, RHONDA BELL Referring Unavailab le O'YUDI, ADRIANNE Attending Unavailable YAIMARHONDA Referring Unavailab le GANTA, CHRIST Primary Care Unavailable O'YUDI, ADRIANNE Attending Unavailable YAIMA, RHONDA BELL Referring Unavailab le GANTA, CHRIST Primary Care Unavailable GANTA, CHRIST Primary Care Unavailable O'YUDI, ADRIANNE Attending Unavailable YAIMA, RHONDA BELL Referring Unavailab le O'YUDI, ADRIANNE Attending Unavailable YAIMA, RHONDA BELL Referring Unavailab le GANTA, CHRIST Primary Care Unavailable GANTA, CHRIST Primary Care Unavailable O'YUDI, ADRIANNE Attending Unavailable YAIMA, RHONDA BELL Referring Unavailab le GANTA, CHRIST Primary Care Unavailable O'YUDI, ADRIANNE Attending Unavailable YAIMA, RHONDA BELL Referring Unavailab le GANTA, CHRIST Primary Care Unavailable O'YUDI, ADRIANNE Attending Unavailable YAIMA, RHONDA BELL Referring Unavailab le GANTA, CHRIST Primary Care Unavailable YAIMA, RHONDA BELL Referring Unavailab le GANTA, CHRIST Primary Care Unavailable O'YUDI, ADRIANNE Attending Unavailable YAIMA, RHONDA BELL Referring Unavailab le GANTA, CHRIST Primary Care Unavailable O'YUDI, ADRIANNE Attending Unavailable YAIMA, RHONDA BELL Referring Unavailab le GANTA, CHRIST Primary Care Unavailable O'YUDI, ADRIANNE Attending Unavailable YAIMA, RHONDA BELL Referring Unavailab le GANTA, CHRIST Primary Care Unavailable O'YUDI, ADRIANNE Attending Unavailable YAIMA, RHONDA BELL Referring Unavailab le YAIMA, RHONDA BELL Referring Unavailab le GANTA, CHRIST Primary Care Unavailable YAIMA, RHONDA BELL Referring Unavailab le GANTA, CHRIST Primary Care Unavailable YAIMA, RHONDA BELL Referring Unavailab le O'YUDI, ADRIANNE Attending Unavailable GANTA, CHRIST Primary Care Unavailable O'YUDI, ADRIANNE Attending Unavailable YAIMA, RHONDA BELL Referring Unavailab le GANTA, CHRIST Primary Care Unavailable YAIMA, RHONDA BELL Referring Unavailab le GANTA, CHRIST Primary Care Unavailable SURI EATON Referring Unavailable GANTA, CHRIST Primary Care Unavailable GANTA, CHRIST Primary Care Unavailable YESSI FINE Referring Unavailable GANTA, CHRIST Primary Care Unavailable YESSI FINE Attending Unavailable GANTA, CHRIST Primary Care Unavailable O'YUDI, ADRIANNE Attending Unavailable YAIMA, RHONDA BELL Referring Unavailab le GANTA, CHRIST Primary Care Unavailable O'YUDI, ADRIANNE Attending Unavailable GANTA, CHRIST Primary Care Unavailable YAIMA, RHONDA BELL Referring Unavailab le O'YUDI, ADRIANNE Attending Unavailable GANTA, [facility] Primary Care Unavailable YAIMA, RHONDA BELL Referring Unavailab le O'YUDI, ADRIANNE Attending Unavailable GANTA, CHRIST Primary Care Unavailable YAIMA, RHONDA BELL Referring Unavailab le O'YUDI, ADRIANNE Attending Unavailable GANTA, [facility] Primary Care Unavailable YAIMA, RHONDA BELL Referring Unavailab le GANTA, [facility] Primary Care Unavailable O'YUDI, ADRIANNE Attending Unavailable YAIMA, RHONDA BELL Referring Unavailab le GANTA, CHRIST Primary Care Unavailable GANTA, [facility] Primary Care Unavailable WHIT ELENA Attending Unavailable YAIMA, RHONDA BELL Referring Unavailab le O'YUDI, ADRIANNE Attending Unavailable GANTA, [facility] Primary Care Unavailable GANTA, CHRIST Primary Care Unavailable O'YUDI, ADRIANNE Attending Unavailable YAIMA, RHONDA BELL Referring Unavailab le GANTA, [facility] Primary Care Unavailable O'YUDI, ADRIANNE Attending Unavailable YAIMA, RHONDA BELL Referring Unavailab le YAIMA, RHONDA BELL Referring Unavailab le O'YUDI, ADRIANNE Attending Unavailable GANTA, [facility] Primary Care Unavailable YAIMA, RHONDA BELL Referring Unavailab le O'YUDI, ADRIANNE Attending Unavailable GANTA, [facility] Primary Care Unavailable Allergies Allergy Classification Reported Allergen(s) Allergy Type Date of Onset Reaction(s) Facility (20 sources) Latex; Translations: [LATEX] Drug Allergy 03-03-2014 [facility] (9 sources) Penicillins; Translations: [PENICILLINS] Propensity to adverse reactions 12-20-2005 [facility] Work Phone: (20 sources) sulfabenzamide; Translations: [SULFABENZAMIDE] Drug Allergy 12-20-2005 [facility] Work Phone: (20 sources) Penicillins Propensity to adverse reactions 12-20-2005 [facility] Work Phone: Medications Current Medications Medication Drug Class(es) Dates Sig (Normalized) Sig (Original) levoFLOXacin 750 mg oral tablet (1 source) Quinolone Antimicrobial Start: 04-21-2022 End: 04-28-2022 take 1 tablet by mouth once daily levoFLOXacin (LEVAQUIN) 750 mg tablet Take 1 tablet by mouth once daily for 7 days. 7 tablet 0 04/21/2022 04/28/2022 Active Completed/Discontinued Medications Medication Drug Class(es) Dates Sig (Normalized) Sig (Original) acetaminophen 500 mg oral tablet (20 sources) take 1 tablet by mouth every eight hours as needed acetaminophen (TYLENOL) 500 mg tablet Take 500 mg by mouth every 8 hours as needed. 0 Active Problems Active Problems Problem Classification Problem Date Documented Date Episodic/Chronic Adjustment disorders (2 sources) Adjustment disorder with depressed mood; Translations: [Adjustment disorder with depressed mood] Chronic Anxiety disorders (1 source) Mixed anxiety and depressive disorder; Translations: [Anxiety disorder, unspecified] Chronic Aortic; peripheral; and visceral artery aneurysms (20 sources) Aneurysm of splenic artery; Translations: [Aneurysm of other specified arteries] Onset: 12-19-2022 12-19-2022 Chronic Cardiac dysrhythmias (4 sources) Cardiac arrhythmia; Translations: [Cardiac arrhythmia, unspecified] Onset: 12-19-2022 Chronic Chronic obstructive pulmonary disease and bronchiectasis (20 sources) Bronchiectasis; Translations: [Bronchiectasis, uncomplicated] Onset: 12-24-2018 Chronic Coagulation and hemorrhagic disorders (20 sources) von Willebrand disorder; Translations: [Von Willebrand disease (HCC)] Onset: 12-28-2022 Chronic Diseases of white blood cells (1 source) Leukocytosis; Translations: [Elevated white blood cell count, unspecified] Chronic Disorders of lipid metabolism (1 source) Hyperlipidemia, unspecified; Translations: [Hyperlipidemia, unspecified hyperlipidemia type] Onset: 12-19-2022 Chronic E Codes: Fall (1 source) Fall; Translations: [Unspecified fall, initial encounter] Episodic Essential hypertension (3 sources) Essential hypertension; Translations: [Essential (primary) hypertension] Chronic Immunizations and screening for infectious disease (3 sources) Needs influenza immunization; Translations: [Encounter for immunization] Episodic Malaise and fatigue (1 source) Fatigue; Translations: [Other fatigue] Episodic Mood disorders (20 sources) Depressive disorder; Translations: [Depression] Onset: 06-08-2016 06-08-2016 Chronic Nausea and vomiting (1 source) Nausea; Translations: [Nausea] Episodic Nutritional deficiencies (2 sources) Vitamin D deficiency; Translations: [Vitamin D deficiency, unspecified] Onset: 09-23-2022 Chronic Osteoarthritis (13 sources) Osteoarthritis of joint of right shoulder region; Translations: [Primary osteoarthritis, right shoulder] Onset: 08-02-2022 Chronic Other circulatory disease (1 source) Elevated blood-pressure reading without diagnosis of hypertension; Translations: [Elevated blood-pressure reading, without diagnosis of hypertension] Episodic Other connective tissue disease (20 sources) History of reverse prosthetic total arthroplasty of right shoulder; Translations: [Presence of right artificial shoulder joint] Onset: 10-14-2022 Chronic Other connective tissue disease (2 sources) Presence of left artificial shoulder joint; Translations: [S/P reverse total shoulder arthroplasty, left] Onset: 01-20-2023 Chronic Other connective tissue disease (2 sources) Presence of right artificial shoulder joint; Translations: [S/P reverse total shoulder arthroplasty, right] Onset: 10-14-2022 Chronic Other connective tissue disease (20 sources) History of reverse prosthetic total arthroplasty of left shoulder; Translations: [Presence of left artificial shoulder joint] Onset: 01-27-2023 01-27-2023 Chronic Other lower respiratory disease (2 sources) Multiple nodules of lung; Translations: [Other nonspecific abnormal finding of lung field] Episodic Other lower respiratory disease (2 sources) Cough; Translations: [Acute cough] Episodic Other lower respiratory disease (4 sources) Dyspnea on exertion; Translations: [Shortness of breath] Episodic Other lower respiratory disease (1 source) H/O: pneumonia; Translations: [Personal history of pneumonia (recurrent)] Episodic Other nervous system disorders (2 sources) Chronic pain; Translations: [Other chronic pain] Chronic Other screening for suspected conditions (not mental disorders or infectious disease) (1 source) CT of chest abnormal; Translations: [Abnormal findings on diagnostic imaging of other specified body structures] Chronic Other screening for suspected conditions (not mental disorders or infectious disease) (7 sources) Platelet count above reference range; Translations: [Other specified abnormal findings of blood chemistry] Onset: 12-19-2022 Episodic Other upper respiratory disease (20 sources) Allergic rhinitis due to pollen; Translations: [Allergic rhinitis due to pollen] Onset: 12-20-2005 12-20-2005 Chronic Other upper respiratory infections (4 sources) Viral upper respiratory tract infection; Translations: [Acute upper respiratory infection, unspecified] Onset: 05-22-2023 Episodic Pneumonia (except that caused by tuberculosis or sexually transmitted disease) (1 source) Infective pneumonia; Translations: [Pneumonia, unspecified organism] Episodic Unclassified (1 source) Cough, unspecified type; Translations: [Cough, unspecified type] Onset: 01-11-2023 Unclassified (1 source) Von Willebrand disease (HCC); Translations: [Von Willebrand disease (HCC)] Onset: 09-16-2022 Past or Other Problems Problem Classification Problem Date Documented Da te Episodic/Chronic Cardiac dysrhythmias (20 sources) Palpitations; Translations: [Palpitations] Onset: 06-16-2022 Episodic Other bone disease and musculoskeletal deformities (20 sources) Osteopenia; Translations: [Other specified disorders of bone density and structure, unspecified site] Onset: 03-09-2012 03-09-2012 Episodic Other lower respiratory disease (1 source) Other nonspecific abnormal finding of lung field; Translations: [Lung nodules] Onset: 01-02-2023 Episodic Other non-traumatic joint disorders (1 source) Pain in right shoulder; Translations: [Acute pain of right shoulder] Onset: 11-07-2022 Episodic Other nutritional; endocrine; and metabolic disorders (20 sources) Underweight; Translations: [Underweight] Onset: 12-28-2022 12-28-2022 Episodic Results Test Name Value Interpretation Reference Range Facil ity Vital Signs Date Time Vital Sign Value Performing Clinician Blanco thorne 07-24-2023 09:05-0500 Body temperature 96.91 [degF] Krislyn Aberegg PA Work Phone: [facility] [place] 07-24-2023 09:05-0500 Body weight 45.81 kg Krislyn Aberegg PA Work Phone: [facility] [place] 07-24-2023 09:05-0500 Diastolic blood pressure 68 mm[Hg] Krislyn Aberegg PA Work Phone: [facility] [place] 07-24-2023 09:05-0500 Heart rate 80 /min Krislyn Aberegg PA Work Phone: [facility] 07-24-2023 09:05-0500 Respiratory rate 16 /min Krislyn Aberegg PA Work Phone: [facility] [place] 07-24-2023 09:05-0500 SaO2% (BldA) [Mass fraction] 98 % Ken Swain PA Work Phone: [facility] [place] 07-24-2023 09:05-0500 Systolic blood pressure 122 mm[Hg] Ken Swain PA Work Phone: [facility] [place] 05-22-2023 12:51-0500 Body height 149.9 cm Shamika Balbuena MD Work Phone: [facility] [place] 05-22-2023 12:51-0500 Body weight 44.63 kg Shamika Balbuena MD Work Phone: [facility] [place] 05-22-2023 12:51-0500 Diastolic blood pressure 62 mm[Hg] Shamika Balbuena MD Work Phone: [facility] [place] 05-22-2023 12:51-0500 Heart rate 85 /min Shamika Balbuena MD Work Phone: [facility] [place] 05-22-2023 12:51-0500 SaO2% (BldA) [Mass fraction] 96 % Shamika Balbuena MD Work Phone: [facility] [place] 05-22-2023 12:51-0500 Systolic blood pressure 126 mm[Hg] Shamika Balbuena MD Work Phone: [facility] [place] 04-18-2023 13:27-0500 Body height 149.9 cm Rhonda Erwin MD Work Phone: [facility] [place] 04-18-2023 13:27-0500 Body temperature 98.29 [degF] Rhonda Erwin MD Work Phone: [facility] [place] 04-18-2023 13:27-0500 Body weight 44.45 kg Rhonda Erwin MD Work Phone: [facility] [place] 03-07-2023 13:05-0400 Body height 149.9 cm Adriana Franco PA-C Work Phone: [facility] [place] 03-07-2023 13:05-0400 Body weight 44.45 kg Adriana Salvador PA-C Work Phone: [facility] [place] 03-07-2023 13:05-0400 Respiratory rate 16 /min Adriana Salvador PA-C Work Phone: [facility] [place] 02-20-2023 12:58-0400 Body weight 44.73 kg Yessi Mee PA-C Work Phone: [facility] [place] 02-20-2023 12:58-0400 Diastolic blood pressure 70 mm[Hg] Yessi Mee PA-C Work Phone: [facility] [place] 02-20-2023 12:58-0400 Heart rate 83 /min Yessi Mee PA-C Work Phone: [facility] [place] 02-20-2023 12:58-0400 Respiratory rate 18 /min Yessi Mee PA-C Work Phone: [facility] [place] 02-20-2023 12:58-0400 SaO2% (BldA) [Mass fraction] 98 % Yessi Mee PA-C Work Phone: [facility] [place] 02-20-2023 12:58-0400 Systolic blood pressure 132 mm[Hg] Yessi Mee PA-C Work Phone: [facility] [place] 02-02-2023 13:33-0400 Body height 149.9 cm Rhonda Erwin MD Work Phone: [facility] [place] 02-02-2023 13:33-0400 Body weight 44 kg Rhonda Erwin MD Work Phone: [facility] [place] 02-02-2023 13:33-0400 Respiratory rate 18 /min Rhodna Erwin MD Work Phone: [facility] [place] 01-12-2023 08:48-0400 Diastolic blood pressure 60 mm[Hg] Whitpaola Barrowbow PA-C Work Phone: [facility] [place] 01-12-2023 08:48-0400 Systolic blood pressure 140 mm[Hg] Whit Denbow PA-C Work Phone: [facility] [place] 01-12-2023 08:45-0400 Body height 149.9 cm Whit Denbow PA-C Work Phone: [facility] [place] 01-12-2023 08:45-0400 Body temperature 97 [degF] Whit Denbow PA-C Work Phone: [facility] [place] 01-12-2023 08:45-0400 Body weight 44 kg Whit Denbow PA-C Work Phone: [facility] [place] 01-12-2023 08:45-0400 Heart rate 85 /min Whit Denbow PA-C Work Phone: [facility] [place] 01-12-2023 08:45-0400 Respiratory rate 12 /min Whit Denbow PA-C Work Phone: [facility] [place] 01-12-2023 08:45-0400 SaO2% (BldA) [Mass fraction] 98 % Whit Denbow PA-C Work Phone: [facility] [place] 01-10-2023 14:03-0400 Body height 149.9 cm Rhonda Erwin MD Work Phone: [facility] [place] 01-10-2023 14:03-0400 Body temperature 98.2 [degF] Rhonda Erwin MD Work Phone: [facility] [place] 01-10-2023 14:03-0400 Body weight 44 kg Rhonda Erwin MD Work Phone: [facility] [place] 12-28-2022 08:34-0400 Body height 149.9 cm Pacc 1 Work Phone: [facility] [place] 12-28-2022 08:34-0400 Body temperature 98.01 [degF] Pacc 1 Work Phone: [facility] [place] 12-28-2022 08:34-0400 Body weight 43.09 kg Pacc 1 Work Phone: [facility] [place] 12-28-2022 08:34-0400 Diastolic blood pressure 64 mm[Hg] Pacc 1 Work Phone: [facility] [place] 12-28-2022 08:34-0400 Heart rate 87 /min Pacc 1 Work Phone: [facility] [place] 12-28-2022 08:34-0400 Respiratory rate 14 /min Pacc 1 Work Phone: [facility] [place] 12-28-2022 08:34-0400 SaO2% (BldA) [Mass fraction] 98 % Pacc 1 Work Phone: [facility] [place] 12-28-2022 08:34-0400 Systolic blood pressure 118 mm[Hg] Pacc 1 Work Phone: [facility] [place] 11-29-2022 13:33-0400 Body height 149.9 cm Adriana Salvador PA-C Work Phone: [facility] [place] 11-29-2022 13:33-0400 Body weight 43.55 kg Adriana Salvador PA-C Work Phone: [facility] [place] 11-29-2022 13:33-0400 Respiratory rate 20 /min Adriana Salvador PA-C Work Phone: [facility] [place] 09-16-2022 13:48-0400 Diastolic blood pressure 66 mm[Hg] Sandra Older COMPANION.BUDGET OFFICER Work Phone: [facility] [place] 09-16-2022 13:48-0400 Systolic blood pressure 138 mm[Hg] Sandra Older COMPANION.BUDGET OFFICER Work Phone: [facility] [place] 09-16-2022 12:56-0400 Body temperature 97.59 [degF] Sandra Older COMPANION.BUDGET OFFICER Work Phone: [facility] [place] 09-16-2022 12:56-0400 Body weight 44.45 kg Sandra Older COMPANION.BUDGET OFFICER Work Phone: [facility] [place] 09-16-2022 12:56-0400 Heart rate 60 /min Sandra Older COMPANION.BUDGET OFFICER Work Phone: [facility] [place] 09-16-2022 12:56-0400 Respiratory rate 16 /min Sandra Older COMPANION.BUDGET OFFICER Work Phone: [facility] [place] 09-16-2022 12:56-0400 SaO2% (BldA) [Mass fraction] 98 % Sandra Older COMPANION.BUDGET OFFICER Work Phone: [facility] [place] 08-02-2022 09:07-0500 Body height 149.9 cm Rhonda Erwin MD Work Phone: [facility] [place] 08-02-2022 09:07-0500 Body temperature 98.2 [degF] Rhonda Erwin MD Work Phone: [facility] [place] 08-02-2022 09:07-0500 Body weight 44 kg Rhonda Erwin MD Work Phone: [facility] [place] 07-11-2022 10:19-0500 Diastolic blood pressure 66 mm[Hg] Mi Nurse Work Phone: [facility] [place] 07-11-2022 10:19-0500 Heart rate 76 /min Mi Nurse Work Phone: [facility] [place] 07-11-2022 10:19-0500 Systolic blood pressure 142 mm[Hg] Mi Nurse Work Phone: [facility] [place] 06-27-2022 13:52-0500 Diastolic blood pressure 63 mm[Hg] Christ Solorio MD Work Phone: [facility] [place] 06-27-2022 13:52-0500 Systolic blood pressure 162 mm[Hg] Christ Solorio MD Work Phone: [facility] [place] 06-27-2022 12:42-0500 Body height 149.9 cm Christ Solorio MD Work Phone: [facility] [place] 06-27-2022 12:42-0500 Body temperature 97.7 [degF] Christ Solorio MD Work Phone: [facility] [place] 06-27-2022 12:42-0500 Body weight 43.55 kg Christ Solorio MD Work Phone: [facility] 06-27-2022 12:42-0500 Heart rate 87 /min Christ Solorio MD Work Phone: [facility] [place] 06-27-2022 12:42-0500 Respiratory rate 12 /min Christ Solorio MD Work Phone: [facility] [place] 06-27-2022 12:42-0500 SaO2% (BldA) [Mass fraction] 97 % Christ Solorio MD Work Phone: [facility] [place] 05-19-2022 11:30-0500 Body weight 43.5 kg Shamika Balbuena MD Work Phone: [facility] [place] 05-19-2022 11:30-0500 Diastolic blood pressure 72 mm[Hg] Shamika Balbuena MD Work Phone: [facility] [place] 05-19-2022 11:30-0500 Heart rate 83 /min Shamika Balbuena MD Work Phone: [facility] [place] 05-19-2022 11:30-0500 Respiratory rate 17 /min Shamika Balbuena MD Work Phone: [facility] [place] 05-19-2022 11:30-0500 SaO2% (BldA) [Mass fraction] 98 % Shamika Balbuena MD Work Phone: [facility] [place] 05-19-2022 11:30-0500 Systolic blood pressure 128 mm[Hg] Shamika Balbuena MD Work Phone: [facility] [place] 05-16-2022 09:22-0500 Body temperature 98.91 [degF] Sandra Older COMPANION.BUDGET OFFICER Work Phone: [facility] [place] 05-16-2022 09:22-0500 Body weight 43.55 kg Sandra Older COMPANION.BUDGET OFFICER Work Phone: [facility] [place] 05-16-2022 09:22-0500 Diastolic blood pressure 60 mm[Hg] Sandra Older COMPANION.BUDGET OFFICER Work Phone: [facility] [place] 05-16-2022 09:22-0500 Heart rate 52 /min Sandra Older COMPANION.BUDGET OFFICER Work Phone: [facility] [place] 05-16-2022 09:22-0500 Respiratory rate 16 /min Sandra Older COMPANION.BUDGET OFFICER Work Phone: [facility] [place] 05-16-2022 09:22-0500 SaO2% (BldA) [Mass fraction] 99 % Sandra Older COMPANION.BUDGET OFFICER Work Phone: [facility] [place] 05-16-2022 09:22-0500 Systolic blood pressure 112 mm[Hg] Sandra Older COMPANION.BUDGET OFFICER Work Phone: [facility] [place] 05-09-2022 09:13-0500 Body temperature 98.4 [degF] Sandra Older COMPANION.BUDGET OFFICER Work Phone: [facility] [place] 05-09-2022 09:13-0500 Body weight 44 kg Sandra Older COMPANION.BUDGET OFFICER Work Phone: [facility] [place] 05-09-2022 09:13-0500 Diastolic blood pressure 68 mm[Hg] Sandra Older COMPANION.BUDGET OFFICER Work Phone: [facility] [place] 05-09-2022 09:13-0500 Heart rate 90 /min Sandra Older COMPANION.BUDGET OFFICER Work Phone: [facility] [place] 05-09-2022 09:13-0500 Respiratory rate 16 /min Sandra Older COMPANION.BUDGET OFFICER Work Phone: [facility] [place] 05-09-2022 09:13-0500 SaO2% (BldA) [Mass fraction] 97 % Sandra Older COMPANION.BUDGET OFFICER Work Phone: [facility] [place] 05-09-2022 09:13-0500 Systolic blood pressure 106 mm[Hg] Sandra Older COMPANION.BUDGET OFFICER Work Phone: [facility] [place] 04-21-2022 10:57-0500 Body weight 43.55 kg Sandra Older COMPANION.BUDGET OFFICER Work Phone: [facility] [place] 04-21-2022 10:57-0500 Diastolic blood pressure 60 mm[Hg] Sandra Older COMPANION.BUDGET OFFICER Work Phone: [facility] [place] 04-21-2022 10:57-0500 Heart rate 53 /min Sandra Older COMPANION.BUDGET OFFICER Work Phone: [facility] [place] 04-21-2022 10:57-0500 Respiratory rate 14 /min Sandra Older COMPANION.BUDGET OFFICER Work Phone: [facility] [place] 04-21-2022 10:57-0500 SaO2% (BldA) [Mass fraction] 98 % Sandra Older COMPANION.BUDGET OFFICER Work Phone: [facility] [place] 04-21-2022 10:57-0500 Systolic blood pressure 144 mm[Hg] Sandra Older COMPANION.BUDGET OFFICER Work Phone: [facility] [place] 04-19-2022 14:18-0500 Body height 149.9 cm Christ Solorio MD Work Phone: [facility] [place] 04-19-2022 14:18-0500 Body weight 43.55 kg Christ Solorio MD Work Phone: [facility] [place] 04-19-2022 14:18-0500 Diastolic blood pressure 56 mm[Hg] Christ Solorio MD Work Phone: [facility] [place] 04-19-2022 14:18-0500 Heart rate 54 /min Christ Solorio MD Work Phone: [facility] [place] 04-19-2022 14:18-0500 Respiratory rate 12 /min Christ Solorio MD Work Phone: [facility] [place] 04-19-2022 14:18-0500 SaO2% (BldA) [Mass fraction] 97 % Christ Solorio MD Work Phone: [facility] [place] 04-19-2022 14:18-0500 Systolic blood pressure 120 mm[Hg] Christ Solorio MD Work Phone: [facility] [place] 04-13-2022 10:37-0400 Body weight 43.55 kg Sandra Older COMPANION.BUDGET OFFICER Work Phone: [facility] [place] 04-13-2022 10:37-0400 Diastolic blood pressure 72 mm[Hg] Sandra Older COMPANION.BUDGET OFFICER Work Phone: [facility] [place] 04-13-2022 10:37-0400 Heart rate 60 /min Sandra Older COMPANION.BUDGET OFFICER Work Phone: [facility] [place] 04-13-2022 10:37-0400 Respiratory rate 16 /min Sandra Older COMPANION.BUDGET OFFICER Work Phone: [facility] [place] 04-13-2022 10:37-0400 Systolic blood pressure 132 mm[Hg] Sandra Older COMPANION.BUDGET OFFICER Work Phone: [facility] [place] 03-11-2022 14:28-0400 Body weight 43.55 kg Shamika Balbuena MD Work Phone: [facility] [place] 03-11-2022 14:28-0400 Diastolic blood pressure 76 mm[Hg] Shamika Balbuena MD Work Phone: [facility] [place] 03-11-2022 14:28-0400 Heart rate 50 /min Shamika Balbuena MD Work Phone: [facility] [place] 03-11-2022 14:28-0400 Respiratory rate 12 /min Shamika Balbuena MD Work Phone: [facility] [place] 03-11-2022 14:28-0400 SaO2% (BldA) [Mass fraction] 96 % Shamika Balbuena MD Work Phone: [facility] [place] 03-11-2022 14:28-0400 Systolic blood pressure 132 mm[Hg] Shamika Balbuena MD Work Phone: [facility] [place] 03-11-2022 14:23-0400 Body height 149.9 cm Respiratory Wstr Work Phone: [facility] [place] 03-11-2022 14:23-0400 Body weight 43.73 kg Respiratory Wstr Work Phone: [facility] [place] 03-11-2022 14:23-0400 Heart rate 50 /min Respiratory Wstr Work Phone: [facility] [place] 03-11-2022 14:23-0400 Respiratory rate 12 /min Respiratory Wstr Work Phone: [facility] [place] 03-11-2022 14:23-0400 SaO2% (BldA) [Mass fraction] 96 % Respiratory Wstr Work Phone: [facility] [place] 03-11-2022 10:07-0400 Body weight 43.55 kg Sandra Older COMPANION.BUDGET OFFICER Work Phone: [facility] [place] 03-11-2022 10:07-0400 Diastolic blood pressure 76 mm[Hg] Sandra Older COMPANION.BUDGET OFFICER Work Phone: [facility] [place] 03-11-2022 10:07-0400 Heart rate 68 /min Sandra Older COMPANION.BUDGET OFFICER Work Phone: [facility] [place] 03-11-2022 10:07-0400 Respiratory rate 16 /min Sandra Older COMPANION.BUDGET OFFICER Work Phone: [facility] [place] 03-11-2022 10:07-0400 Systolic blood pressure 132 mm[Hg] Sandra Older COMPANION.BUDGET OFFICER Work Phone: [facility] [place] 03-08-2022 14:15-0400 Body height 149.9 cm Rhonda Erwin MD Work Phone: [facility] [place] 03-08-2022 14:15-0400 Body temperature 98.2 [degF] Rhonda Eriwn MD Work Phone: [facility] [place] 03-08-2022 14:15-0400 Body weight 44.45 kg Rhonda Erwin MD Work Phone: [facility] [place] 09-06-2021 14:31-0400 Body temperature 98.01 [degF] Yessi Mee PA-C Work Phone: [facility] [place] 09-06-2021 14:31-0400 Body weight 44 kg Yessi Mee PA-C Work Phone: [facility] [place] 09-06-2021 14:31-0400 Diastolic blood pressure 70 mm[Hg] Yessi Mee PA-C Work Phone: [facility] [place] 09-06-2021 14:31-0400 Heart rate 101 /min Yessi Mee PA-C Work Phone: [facility] [place] 09-06-2021 14:31-0400 SaO2% (BldA) [Mass fraction] 97 % Yessi Fine PA-C Work Phone: [facility] [place] 09-06-2021 14:31-0400 Systolic blood pressure 158 mm[Hg] Yessi Fine PA-C Work Phone: [facility] [place] Encounters Encounter Date Encounter Type Care Provider Facility Start: 07-24-2023 End: 07-24-2023 ambulatory [facility] Facility:[facility] Start: 07-24-2023 End: 07-24-2023 Patient encounter procedure Ken LOZANO Work Phone: [facility] Procedures Date Procedure Procedure Detail Performing Clinician Start: 07-24-2023 STREP A MOLECULAR (POC) [facility] Provider Start: 01-20-2023 Antibody screen [facility] Plan of Treatment Date Care Activity Detail Author Start: 12-29-2027 Lipid 1996 panel - S evelyne or Plasma Lipid Screening [facility] [place] Start: 12-29-2027 Lipid panel Lipid Screening [facility] Start: 12-29-2027 LIPID SCREEN LIPID SCREEN [facility] Start: 09-24-2026 LIPID SCREEN LIPID SCREEN [facility] Start: 12-28-2025 DIABETES SCREEN DIABETES SCREEN [facility] Start: 12-28-2025 Diabetes Screening Diabetes Screenin g [facility] Start: 11-07-2025 DIABETES SCREEN DIABETES SCREEN [facility] Start: 09-16-2025 DIABETES SCREEN DIABETES SCREEN [facility] Start: 05-09-2025 DIABETES SCREEN DIABETES SCREEN [facility] Start: 04-17-2025 Urine microalbumin profile [facility] Start: 09-24-2024 DIABETES SCREEN DIABETES SCREEN [facility] Start: 07-24-2024 BP Controlled (<130/80) BP Controlle d (<130/80) [facility] Start: 05-30-2024 Screening for malign ant neoplasm of breast Mammogram Screening [facility] Start: 05-22-2024 BP Controlled (<130/80) BP Controlle d (<130/80) [facility] Start: 01-13-2024 ANNUAL PCP TEAM LOBBYIST TEENA DISEASE VISIT ANNUAL PCP TEAM CHRONIC DISEASE VISIT [facility] Start: 12-29-2023 BP CONTROLLED (<130/80) BP CONTROLLE D (<130/80) [facility] [place] Start: 12-20-2023 ANNUAL PCP TEAM LOBBYIST TEENA DISEASE VISIT ANNUAL PCP TEAM CHRONIC DISEASE VISIT [facility] [place] Start: 09-17-2023 ANNUAL PCP TEAM LOBBYIST TEENA DISEASE VISIT ANNUAL PCP TEAM CHRONIC DISEASE VISIT [facility] [place] Start: 08-22-2023 DIAB[facility] Start: 06-12-2023 Advance Directive Discussion Advance Directive Discussion [facility] Start: 06-10-2023 Mammography [facility] Start: 05-09-2023 COVID-19 VACCINE (5 - Booster for Moderna series) COVID-19 VACCINE (5 - Booster for Moderna series) [facility] Immunizations Immunization Date Immunization Notes Care Provider Kandice chandler 04-05-2023 respiratory syncytia l virus (RSV) vaccine, bivalent (ABRYSVO) Shamika Balbuena MD Work Phone: [facility] [place] Work Phone: 02-20-2023 pneumococcal (PCV20) vaccine, 20 valent (PREVNAR 20) Yessi Fine PA-C Work Phone: [facility] [place] 02-20-2023 pneumococcal Conjuga te, unspecified formulation Yessi Fine PA-C Work Phone: [facility] Work Phone: 03-11-2022 influenza, high-dose , quadrivalent vaccine (FLUZONE HIGH DOSE QUADRIVALENT) Sandra Morales APRN.CNP Work Phone: [facility] [place] 03-11-2022 influenza virus vacc ine, unspecified formulation Adrianne Pacheco PT [facility] 03-06-2021 influenza, high-dose , quadrivalent vaccine (FLUZONE HIGH DOSE QUADRIVALENT) Yessi Fine PA-C Work Phone: [facility] [place] Work Phone: 08-13-2020 COVID-19 vaccine, fu ll dose (MODERNA) Yessi Fine PA-C Work Phone: [facility] [place] Work Phone: 07-16-2020 COVID-19 vaccine, fu ll dose (MODERNA) Yessi Mee PA-C Work Phone: [facility] [place] Work Phone: 02-27-2020 influenza, injectabl e, quadrivalent, preservative free Yessi Mee PA-C Work Phone: [facility] [place] Work Phone: 12-25-2019 zoster vaccine recombinant Yessi Mee PA-C Work Phone: [facility] [place] 03-19-2019 influenza, high dose seasonal, preservative-free Yessi Mee PA-C Work Phone: [facility] [place] 03-16-2018 influenza, high dose seasonal, preservative-free Yessi Mee PA-C Work Phone: [facility] [place] Work Phone: 03-17-2017 influenza, high dose seasonal, preservative-free Yessi Mee PA-C Work Phone: [facility] [place] 04-20-2016 pneumococcal polysaccharide vaccine, 23 valent Yessi Mee PA-C Work Phone: [facility] [place] Work Phone: 04-02-2016 influenza, high dose seasonal, preservative-free Yessi Mee PA-C Work Phone: [facility] [place] 04-17-2015 tetanus toxoid, redu migdalia diphtheria toxoid, and acellular pertussis vaccine, adsorbed Yessi Mee PA-C Work Phone: [facility] [place] 04-02-2015 influenza, high dose seasonal, preservative-free Yessi Mee PA-C Work Phone: [facility] [place] 02-27-2015 pneumococcal conjuga te vaccine, 13 valent Yessi Mee PA-C Work Phone: [facility] [place] 03-19-2014 influenza, seasonal, injectable Yessi Mee PA-C Work Phone: [facility] [place] Work Phone: 02-28-2013 influenza virus vacc ine, unspecified formulation Yessi Mee PA-C Work Phone: [facility] [place] 03-03-2012 influenza virus vacc ine, unspecified formulation Yessi Mee PA-C Work Phone: [facility] [place] Work Phone: 04-22-2011 influenza virus vacc ine, unspecified formulation Yessi Mee PA-C Work Phone: [facility] [place] 03-16-2010 influenza virus vacc ine, unspecified formulation Yessi Mee PA-C Work Phone: [facility] [place] 03-26-2009 influenza virus vacc ine, unspecified formulation Yessi Mee PA-C Work Phone: [facility] [place] 04-17-2008 influenza virus vacc ine, unspecified formulation Yessi Mee PA-C Work Phone: [facility] [place] Work Phone: 2007 influenza virus vacc ine, unspecified formulation Yessi Mee PA-C Work Phone: [facility] [place] Work Phone: 04-07-2006 influenza virus vacc ine, unspecified formulation Yessi Mee PA-C Work Phone: [facility] [place] Payers Date Payer Category Payer Medicare MEDICARE MEDICAR E A AND B [id number] 2014-Present [phone] [place] [address] Medicare [id number] 2014 Medicare MEDICARE MEDICAR E A AND B [id number] 2014-Present [phone] [place] [address] Medicare [id number] 2014 Medicare [id number] 2013 Private Health Insurance [facility] AARP SUPPLEMENT [id number] 2013-Present [phone] [address] [place] [address] Indemnity [id number] 2013 Private Health Insurance [id number] 2013 Unknown [id number] Social History Date Type Detail Facility Start: 08-23-2018 End: 03-08-2022 Tobacco smoking status NHIS Never smoked tobacco [facility] Work Phone: Start: 09-06-2021 End: 07-24-2023 Alcohol intake Current drinker of alcohol (finding) [facility] Start: 09-06-2021 End: 10-14-2022 Alcohol intake [facility] Start: 06-08-2016 History SDOH Alcohol Comment wine twice weekly [facility] Start: 08-23-2018 End: 03-08-2022 Tobacco Comment Father smoked in childhood home. [facility] Start: 1950 Sex Assigned At Not on file [facility] Start: 08-27-2021 End: 05-16-2022 Exposure to SARS-CoV-2 (event) Not sure [facility] Start: 08-23-2018 End: 03-08-2022 Tobacco use and exposure Smokeless tobacco non-user [facility] Work Phone: Start: 03-08-2022 History SDOH Alcohol Comment wine twice weekly very occ [facility] Start: 03-01-2022 End: 03-11-2022 Exposure to SARS-CoV-2 (event) Unable to assess [facility] Start: 09-16-2022 End: 10-25-2022 Alcohol intake Ex-drinker (finding) [facility] Start: 10-14-2022 End: 12-19-2022 Tobacco use panel [facility] Adult Depression Screening Assessment 0 [facility] Start: 04-18-2023 Alcohol Comment very occ [facility] Medical Equipment Procedure Code Equipment Code Equipment Origin al Text Equipment Identifier Dates Insert Ar Small [id number] Neutral Eplus - [id number] Start: 10-07-2022 Stem Humeral Alt ivate Reverse Small Shell Sz [id number] - [id number] Start: 10-07-2022 Baseplate Rsp P2 30mm Glenoid Sterile - [id number] Start: 10-07-2022 Screw Rsp 5mm 18 mm Bone Lock Glenoid Baseplate Shoulder - [id number] Start: 10-07-2022 Insert Ar Small [id number] Semi Constrained Eplus - [id number] Start: 01-20-2023 Head Rsp 36mm Ne utral Glenoid Retain Screw - [id number] Start: 01-20-2023 Stem Humeral Alt ivate Reverse Small Shell Sz [id number] - [id number] Start: 01-20-2023 Baseplate Rsp P2 30mm Glenoid Sterile - [id number] Start: 01-20-2023 Screw Rsp 5mm 26 mm Bone Lock Glenoid Baseplate Shoulder - [id number] Start: 01-20-2023 Reverse Shoulder System Imp Shldr Jin Hd Mns4 32mm [id number] Start: 10-07-2022 Screw Rsp 5mm 22 mm Bone Lock Glenoid Baseplate Shoulder - [id number] Start: 10-07-2022 Screw Rsp 5mm 18 mm Bone Lock Glenoid Baseplate Shoulder - [id number] Start: 10-07-2022 Screw Rsp 5mm 26 mm Bone Lock Glenoid Baseplate Shoulder - [id number] Start: 10-07-2022 Screw Rsp 5mm 18 mm Bone Lock Glenoid Baseplate Shoulder - [id number] Start: 01-20-2023 Screw Rsp 5mm 18 mm Bone Lock Glenoid Baseplate Shoulder - [id number] Start: 01-20-2023 Screw Rsp 5mm 22 mm Bone Lock Glenoid Baseplate Shoulder - [id number] Start: 01-20-2023 Clinical Notes 02-19-2021 to 07-24-2023 Patient InstructionsKen Swain PA - 07/24/2023 9:10 AM Shamika Barton MD - 05/22/2023 12:45 PM ESTTelephone Encounter - Adrianne Guy - 05/19/2023 2:32 PM ESTPatient Instructions Note Date & Type Note [facility] 07-24-2023 Note [facility] 07-24-2023 Instructions Ken Swain PA - 07/24/2023 9:13 AM EST PHARYNGITIS PATIENT INSTRUCTIONS DESCRIPTION: Inflammation and infection of the pharynx that can be caused by a variety of germs. SIGNS AND SYMPTOMS: -Sore throat. -Swallowing difficulty. -Tickle or lump in the throat. -Fever. -Swollen glands in the neck (sometimes). -Throat may be red or covered with a grayish membrane (sometimes). -Generalized aching. CAUSES: Infection from bacteria, viruses or fungi. PREVENTIVE MEASURES: -Avoid close contact with anyone with a sore throat. -Keep immunizations, including diphtheria, up to date. TREATMENT: -Laboratory throat culture and blood count may be done to determine type of infection. -Home care is usually sufficient. -Use gargles to relieve throat pain. Prepare double strength tea, hot or cold, or a salt-water solution (1 teaspoon salt in 8 oz. warm water). Use to gargle as often as you wish. -Use a cool-mist ultrasonic humidifier to increase air moisture. This will relieve the dry, tight feeling in the throat. Clean humidifier daily. -If the glands are large and tender, apply moist, warm soaks at least 4 times a day for 30 to 60 minutes. The compresses will be more effective if they are kept warm. Be careful not to burn the skin. -Replace your toothbrush. It may be harboring germs. -Until infection is gone, don't share washcloths; or food. MEDICATIONS: -For minor discomfort you may use non-prescription drugs such as acetaminophen. Don't give aspirin to a child for any viral illness. -Non-prescription throat lozenges may help ease discomfort. -Antibiotics or antifungal agents to fight bacterial or fungal infections. Be sure to finish entire course of prescribed antibiotics to avoid complications. ACTIVITY: Limited activity is necessary until symptoms disappear. DIET: Extra fluids are necessary. Drink at least 8 glasses of fluid daily, more for high fevers. If swallowing solid food is painful, try a liquid or soft diet for a few days. NOTIFY OFFICE: -The following occur during treatment: Breathing or swallowing difficulty. Fever; severe headache. Thick mucus drainage from the nose. Productive cough that is discolored. Skin rash. Dark urine. Chest pain. documented in this encounter [facility] [place] 07-24-2023 History of Present illness Narrative This note was created using [employer]. Subjective Mindy Cantu is a 73 year old female. HPI 73-year-old female presents for sore throat left ear pain. Patient states sore throat started about 3 days ago. She has mild left ear pain. She is still able to eat and drink. No fevers. No cough. She has had a little bit of postnasal drip, sneezing and runny nose. She states that her niece recently tested positive for strep and she was around her this weekend. No other complaint. PAST MEDICAL HISTORY Diagnosis Date Bronchiectasis (HCC) Depression (emotion) GERD (gastroesophageal reflux disease) Hiatal hernia Need for prophylactic hormone replacement therapy (postmenopausal) ESTROPIATE 0.625 Osteoarthritis Pneumonia 04/2018 Von Willebrand's disease (HCC) 2002 PAST SURGICAL HISTORY Procedure Laterality Date ARTHROPLASTY TOTAL SHOULDER Right 10/07/2022 ARTHROPLASTY TOTAL SHOULDER 01/20/2023 COLONOSCOPY INCISE FINGER TENDON SHEATH Left 05/09/2018 Left ring trigger finger release and prior multiple LAPAROSCOPY SURG CHOLECYSTECTOMY 06/13/2018 Cholecystectomy, lap PAST SURGICAL HISTORY OF trigger finger relase x3 SKIN BX, 1 LESION 2000 AT PELVIC AREA. TOTAL ABDOMINAL HYSTERECT W/WO RMVL TUBE OVARY Hysterectomy, CHAKA left oophorectomy for fibroids ALLERGIES Latex, Penicillins, and Sulfabenzamide MEDICATIONS sertraline (ZOLOFT) 50 mg tablet 75 mg. (Patient taking differently: Take 75 mg by mouth once daily. 75 mg.) diphenhydrAMINE HCl (CHILDREN'S BENADRYL ALLERGY) 12.5 mg chewable tablet Take 12.5 mg by mouth at bedtime as needed for sedation. guaiFENesin (MUCINEX) 600 mg 12 hr tablet Take 1 tablet by mouth once daily. dilTIAZem CD (CARDIZEM CD, CARTIA XT) 120 mg 24 hr capsule Take 1 capsule by mouth once daily. COLLAGEN MISC BIOTIN, BULK, MISC acetaminophen (TYLENOL) 500 mg tablet Take 500 mg by mouth every 8 hours as needed. turm/ging/mera/yuc/basil/shailesh/hor (TUMERSAID ORAL) Take 500 mg by mouth twice daily. DAILY MULTI-VITAMIN ORAL Take 1 tablet by mouth once daily. Calcium Carb-Cholecalciferol (CALCIUM 600 + D(3)) 600 (1,500)-200 mg-unit ORAL Tab Take one(1) tablet twice daily. VITAMIN C 1,000 MG TAB Take one(1) tablet daily. oxyCODONE-acetaminophen (PERCOCET) 5-325 mg tablet Take 1-2 tablets by mouth every 4 hours as needed for pain. (Patient not taking: Reported on 05/22/2023) docusate sodium (COLACE) 100 mg capsule Take 1 capsule by mouth twice daily. (Patient not taking: Reported on 05/22/2023) ondansetron orally disintegrating (ZOFRAN ODT) 4 mg disintegrating tablet Take 1 tablet by mouth every 8 hours as needed for nausea/vomiting. (Patient not taking: Reported on 05/22/2023) cyclobenzaprine (FLEXERIL) 10 mg tablet Take 1 tablet by mouth three times daily as needed for muscle spasm or pain. (Patient not taking: Reported on 05/22/2023) FAMILY HISTORY Problem Relation Age of Onset Alzheimer's Disease Mother Heart Attack Mother Cancer Father Right pneumonectomy, 12 year survival. Hypertension Father Stroke Maternal Grandfather Cancer Maternal Grandmother bone cancer COPD Brother Cancer Brother kidney cancer Aneurysm Brother brain Social History Tobacco Use Smoking status: Never Smokeless tobacco: Never Tobacco comments: Father smoked in childhood home. Vaping Use Vaping Use: Never used Substance Use Topics Alcohol use: Yes Comment: very occ Drug use: No Review of Systems Constitutional: Negative for chills and fever. HENT: Positive for ear pain, postnasal drip, rhinorrhea, sneezing and sore throat. Negative for congestion. Respiratory: Negative for cough and shortness of breath. Cardiovascular: Negative for chest pain. Gastrointestinal: Negative for diarrhea and vomiting. Objective BP 122/68 Pulse 80 Temp 36.1 C (96.9 F) Resp 16 Wt 45.8 kg (101 lb) SpO2 98% BMI 20.40 kg/m Physical Exam Vitals and nursing note reviewed. Constitutional: General: She is not in acute distress. Appearance: Normal appearance. She is not toxic-appearing. HENT: Right Ear: Tympanic membrane, ear canal and external ear normal. Left Ear: Tympanic membrane, ear canal and external ear normal. Nose: Nose normal. Mouth/Throat: Mouth: Mucous membranes are moist. Pharynx: Uvula midline. Posterior oropharyngeal erythema present. No oropharyngeal exudate. Tonsils: No tonsillar exudate or tonsillar abscesses. 1+ on the right. 1+ on the left. Eyes: Conjunctiva/sclera: Conjunctivae normal. Cardiovascular: Rate and Rhythm: Normal rate and regular rhythm. Pulmonary: Effort: Pulmonary effort is normal. Breath sounds: Normal breath sounds. Neurological: Mental Status: She is alert. Assessment and Plan ASSESSMENT/PLAN: 1. Sore throat - ICD9: 462, ICD10: J02.9 (primary diagnosis) - suspect viral - Group A strep molecular testing negative - Discussed supportive care treatment with fluids, rest and analgesia. - The patient may also use warm salt water gargles, throat lozenges and/or OTC throat spray as needed. 2. Exposure to strep throat - ICD9: V01.89, ICD10: Z20.818 - see above . Strep negative Diagnosis and treatment plan were discussed and questions were answered to the patient's satisfaction. Pt acknowledged understanding of concepts and follow up plan. Specific signs and symptoms that would indicate the need for higher level of care were discussed in detail warranting prompt ER evaluation. MARTA Coy documented in this encounter [facility] [place] 05-30-2023 Note [facility] 05-22-2023 Note [facility] 05-22-2023 History of Present illness Narrative Images from the original note were not included. . [facility] [place] Note Patient name: Mindy Cantu PCP: Christ Solorio MD CC: Acute visit HPI: Mindy Cantu 73 year old female non-smoker with PMH significant for GERD, hiatal hernia, von Willebrand's factor, bronchiectasis. Current therapy for her bronchiectasis consists of mucus clearance techniques with Acapella device and chest vest. She has not required inhaler therapy. Chest CT concerning for MAC but she has not been symptomatic. In past, she has not had significant sputum production to produce a specimen for AFB testing. Patient was just recently seen by [facility]. Sputum culture negative for staph or Pseudomonas and AFB culture negative for NTM. She presents today for an acute visit. Started 7 days ago with low grade fever and chills for two days. Home COVID testing x 2 negative. Went on to develop a cough productive of significant amounts of slightly discolored phlegm. No chest pain or SOB. May have heard some wheezing over the weekend and had nightsweats. Cough has improved. Scant mucus production that is clear in color. No hemoptysis. Overall feeling better but was concerned enough to request a visit. DATA: Sputum 01/11/2023 Culture Moderate normal respiratory cece Abnormal No Staphylococcus aureus isolated. No Pseudomonas aeruginosa isolated. Culture No Acid Fast Bacilli isolated after 42 days Smear Result No acid fast bacilli seen by flurochrome stain PAST MEDICAL HISTORY Diagnosis Date Bronchiectasis (HCC) Depression (emotion) GERD (gastroesophageal reflux disease) Hiatal hernia Need for prophylactic hormone replacement therapy (postmenopausal) ESTROPIATE 0.625 Osteoarthritis Pneumonia 04/2018 Von Willebrand's disease (HCC) 2001 ALLERGIES Allergen Reactions Latex Rash Dermatitis rash Penicillins Rash Sulfabenzamide Rash sertraline (ZOLOFT) 50 mg tablet^75 mg.^Disp: 90 tablet^Rfl: 3 (Patient taking differently: Take 75 mg by mouth once daily. 75 mg.) diphenhydrAMINE HCl (CHILDREN'S BENADRYL ALLERGY) 12.5 mg chewable tablet^Take 12.5 mg by mouth at bedtime as needed for sedation.^Disp: ^Rfl: guaiFENesin (MUCINEX) 600 mg 12 hr tablet^Take 1 tablet by mouth once daily.^Disp: ^Rfl: dilTIAZem CD (CARDIZEM CD, CARTIA XT) 120 mg 24 hr capsule^Take 1 capsule by mouth once daily.^Disp: ^Rfl: COLLAGEN MISC^^Disp: ^Rfl: BIOTIN, BULK, MISC^^Disp: ^Rfl: acetaminophen (TYLENOL) 500 mg tablet^Take 500 mg by mouth every 8 hours as needed.^Disp: ^Rfl: turm/ging/mera/yuc/basil/shailesh/hor (TUMERSAID ORAL)^Take 500 mg by mouth twice daily. ^Disp: ^Rfl: DAILY MULTI-VITAMIN ORAL^Take 1 tablet by mouth once daily.^Disp: ^Rfl: Calcium Carb-Cholecalciferol (CALCIUM 600 + D(3)) 600 (1,500)-200 mg-unit ORAL Tab^Take one(1) tablet twice daily.^Disp: 0^Rfl: 0 VITAMIN C 1,000 MG TAB^Take one(1) tablet daily.^Disp: ^Rfl: 0 oxyCODONE-acetaminophen (PERCOCET) 5-325 mg tablet^Take 1-2 tablets by mouth every 4 hours as needed for pain.^Disp: 28 tablet^Rfl: 0 (Patient not taking: Reported on 05/22/2023) docusate sodium (COLACE) 100 mg capsule^Take 1 capsule by mouth twice daily.^Disp: 30 capsule^Rfl: 0 (Patient not taking: Reported on 05/22/2023) ondansetron orally disintegrating (ZOFRAN ODT) 4 mg disintegrating tablet^Take 1 tablet by mouth every 8 hours as needed for nausea/vomiting.^Disp: 20 tablet^Rfl: 1 (Patient not taking: Reported on 05/22/2023) cyclobenzaprine (FLEXERIL) 10 mg tablet^Take 1 tablet by mouth three times daily as needed for muscle spasm or pain.^Disp: 42 tablet^Rfl: 2 (Patient not taking: Reported on 05/22/2023) Social History Tobacco Use Smoking status: Never Smokeless tobacco: Never Tobacco comments: Father smoked in childhood home. Vaping Use Vaping Use: Never used Substance Use Topics Alcohol use: Yes Comment: very occ Drug use: No FAMILY HISTORY Problem Relation Age of Onset Alzheimer's Disease Mother Heart Attack Mother Cancer Father Right pneumonectomy, 12 year survival. Hypertension Father Stroke Maternal Grandfather Cancer Maternal Grandmother bone cancer COPD Brother Cancer Brother kidney cancer Aneurysm Brother brain PAST SURGICAL HISTORY Procedure Laterality Date ARTHROPLASTY TOTAL SHOULDER Right 10/07/2022 ARTHROPLASTY TOTAL SHOULDER 01/20/2023 COLONOSCOPY INCISE FINGER TENDON SHEATH Left 05/09/2018 Left ring trigger finger release and prior multiple LAPAROSCOPY SURG CHOLECYSTECTOMY 06/13/2018 Cholecystectomy, lap PAST SURGICAL HISTORY OF trigger finger relase x3 SKIN BX, 1 LESION 2001 AT PELVIC AREA. TOTAL ABDOMINAL HYSTERECT W/WO RMVL TUBE OVARY Hysterectomy, CHAKA left oophorectomy for fibroids PMH, Social history, family history and surgical history reviewed and updated in EMR REVIEW OF SYSTEMS: CONSTITUTIONAL: Fevers, chills, nightsweats. HEENT: Denies current nasal congestion/sinus symptoms, allergy problems. No loss of taste or smell CARDIOVASCULAR: No chest pain, dyspnea, palpitations, orthopnea, edema. PULM: See HPI GI: No diarrhea. Poor appetite MUSC-SKEL: No arthralgias or myalgias INTEGUMENTARY: No rash PHYSICAL EXAMINATION: BP 126/62 Pulse 85 Ht 4' 11 (1.50m) Wt 98 lb 6.4 oz (44.6kg) SpO2 96% BMI 19.86 kg/(m^2). General Appearance: Age appropriate, NAD. Skin: Skin color, texture, turgor normal, no suspicious rashes or lesions. Head: Normocephalic, no masses, lesions, tenderness or abnormalities. Eyes: Sclera without injection. Oropharynx: No oral lesions or erythema. Neck: No JVD, no masses or adenopathy. Lungs: Not labored, normal to percussion, no wheezes or crackles. Heart: RRR, no murmur. Extremities: No edema, no clubbing. Assessment/Plan: URI -Appears to be improving -No intervention required. No need for antibiotics Bronchiectasis without complication -Continue current mucus clearance techniques Shamika Balbuena MD [facility] [place] documented in this encounter [facility] [place] 05-19-2023 Miscellaneous Notes Left message for patient to schedule Mammogram. 1st attempt. EDUARDO Zhao Ordered. Please assist with scheduling. Sandra Morales APRN.CNP Patient calling to schedule [facility] mammography please place new order as current order will and patient not due until 06/10/2023. Please route to ink printer to assist with scheduling. documented in this encounter [facility] [place] 04-26-2023 Note [facility] 04-26-2023 History of Present illness Narrative Episode Visit Count: 20 Therapist That Will Accept/Oversee The Plan Of Care: Adrianne Pacheco Start of Care Date: 01/27/23 Onset Date: 01/20/23 Plan of Care Certification Date: 04/07/23 Next Certification Due Date: 05/12/23 REHABILITATION AND SPORTS THERAPY PHYSICAL THERAPY TREATMENT NOTE ASSESSMENT: Mindy Cantu tolerated the session with expected muscle soreness. She demonstrated improvements in B shoulder strength and endurance demonstrating improved tolerance with TIY AROM using #1 DB from 8 reps to 12 reps. The patient will continue to benefit from ongoing skilled physical therapy to progress toward set goals. Current Frequency: 1x/week PLAN FOR NEXT VISIT: DC upon POC expiration SUBJECTIVE: Pt. had xrays taken which were good. Pt. was seen by ortho who discharged her. Pain: Pain Pain Level: 0 Pain Location: Shoulder - Left Post Treatment Pain Post Treatment Pain Level: 0 Post Treatment Pain Location: Shoulder - Left OBJECTIVE MEASURES WITH LEVEL OF FUNCTION: UE AROM L Shoulder Flex: 150 Degrees (155) L Shoulder Internal Rotation (Functional): L4 UE PROM L Shoulder Flex: 157 Degrees (seated carolann) TREATMENT: Therapeutic Exercise: 1: standing L shoulder flexion AROM 2x 2: seated pulleys 1x10, 10 sec hold L shoulder 3: standing B scapular circles forward and reverse 2x10 each direction 4: standing B shoulder scaption to 180 degrees #1 2x12 5: Standing B Shoulder Flexion to 180 Degrees with Dumbbells - 1 x daily - 3-5 x weekly - 2 sets - 12 reps - 1 hold, #1 DB 6: *Shoulder Abduction with Dumbbells - Thumbs Up - 1 x daily - 3-5x weekly - 2 sets - 12 reps - 1 hold , #1 DB (pt. also has option to complete 3 sets of 12 reps, with #2 DB to 90 degrees of elevation) Skilled Intervention: Patient was educated in proper exercise technique and purpose for exercises. Skilled judgment was used in selection of appropriate interventions. Provided written instruction for home exercise program to facilitate proper performance and compliance. Correct performance of therapeutic exercises was facilitated with verbal, visual, and tactile cuing. Educated patient on rationale for performing exercises in regards to decreasing fatigue , increase ease of ADL, increase lymphatic fluid dynamics, and ROM and function . Patient education as noted. Billing Therapeutic Exercise Treatment Minutes: 30 Skilled Treatment Time Minutes (timed and untimed codes): 30 Total Session Time (minutes): 30 Session Start Time : 1328 Session Stop Time : 1358 Adrianne Pacheco PT documented in this encounter [facility] [place] 04-18-2023 Note HNO ID: [id number] Author: Rhonda Erwin MD Service: ? Author Type: Physician Type: Progress Notes Filed: 05/09/2023 11:10 AM Note Text: PAIN EVALUATION 04/18/2023 1327 Description: Sore Frequency: Intermittent Mindy Cantu returns follow-up 3 months from reverse arthroplasty. Range of motion and strength of been improving. Pain is well tolerated and minimal most of the time. On examination today range of motion is 170 in elevation and 60 in external rotation. There is improved ability to reach behind the back. Strength is good and there is no pain with resisted elevation or rotation. There is no crepitation with movement. AP, outlet, axillary views of the shoulder taken in the office today demonstrate unchanged alignment of reverse arthroplasty components without any evidence of loosening or fracture. This is unchanged from previous imaging in my office. Today we discussed progress 3 months following reverse arthroplasty. There is no pain with most use of the shoulder and range of motion and strength are improving. At this point the shoulder may be used for all activities as tolerated and return to see me on an as-needed basis. Rhonda Erwin MD Shoulder AND Elbow Surgeon Department [facility]opaedic [facility] 04-18-2023 Note HNO ID: [id number] Author: Adal Willett Tech Service: ? Author Type: Soft Boarder Type: Progress Notes Filed: 05/09/2023 11:10 AM Note Text: REVIEW OF SYSTEMS: GENERAL: Well developed, well nourished. No acute distress PAIN: Negative for pain, history of chronic pain or current treatment for chronic pain conditions CARDIOVASCULAR: Negative for chest pain, leg swelling and palpations. MSK: Negative for joint swelling SKIN: Negative for lesions, rash, itching, metal sensitivity NEURO: Negative for seizure, trauma, numbness/tingling of extremities. ENDOCRINE: Negative for diabetic associated symptoms HEMATOLOGY: Negative for excessive bleeding, clots, bleeding disorders. [facility] 04-18-2023 History of Present illness Narrative PAIN EVALUATION 04/18/2023 1327 Description: Sore Frequency: Intermittent Mindy Cantu returns follow-up 3 months from reverse arthroplasty. Range of motion and strength of been improving. Pain is well tolerated and minimal most of the time. On examination today range of motion is 170 in elevation and 60 in external rotation. There is improved ability to reach behind the back. Strength is good and there is no pain with resisted elevation or rotation. There is no crepitation with movement. AP, outlet, axillary views of the shoulder taken in the office today demonstrate unchanged alignment of reverse arthroplasty components without any evidence of loosening or fracture. This is unchanged from previous imaging in my office. Today we discussed progress 3 months following reverse arthroplasty. There is no pain with most use of the shoulder and range of motion and strength are improving. At this point the shoulder may be used for all activities as tolerated and return to see me on an as-needed basis. Rhonda Erwin MD Shoulder & Elbow Surgeon Department of Orthopaedic Surgery [facility] REVIEW OF SYSTEMS: GENERAL: Well developed, well nourished. No acute distress PAIN: Negative for pain, history of chronic pain or current treatment for chronic pain conditions CARDIOVASCULAR: Negative for chest pain, leg swelling and palpations. MSK: Negative for joint swelling SKIN: Negative for lesions, rash, itching, metal sensitivity NEURO: Negative for seizure, trauma, numbness/tingling of extremities. ENDOCRINE: Negative for diabetic associated symptoms HEMATOLOGY: Negative for excessive bleeding, clots, bleeding disorders. documented in this encounter [facility] [place] 04-17-2023 Miscellaneous Notes Patient has been identified by name and date of : No Patient phones for refill(s): Requested Prescriptions Pending Prescriptions Disp Refills sertraline (ZOLOFT) 50 mg tablet 90 tablet 3 Si mg. Date of last office visit in primary care: 01/12/2023 Date of next office visit in primary care: Visit date not found Last 2 Encounter Wt Readings: Date: Wt: 03/07/2023 44.5 kg (98 lb) 02/20/2023 44.7 kg (98 lb 9.6 oz) Previous labs/tests for medication: Not applicable Please advise. Thank you. Gisele Carty. documented in this encounter [facility] [place] 04-14-2023 Note [facility] 04-14-2023 History of Present illness Narrative Episode Visit Count: 19 Therapist That Will Accept/Oversee The Plan Of Care: Adrianne Pacheco Start of Care Date: 01/27/23 Onset Date: 01/20/23 Plan of Care Certification Date: 04/07/23 Next Certification Due Date: 05/12/23 REHABILITATION AND SPORTS THERAPY PHYSICAL THERAPY TREATMENT NOTE ASSESSMENT: Mindy Cantu tolerated the session with expected muscle soreness. She demonstrated improvements in AROM IR equal to the CL side. The patient will continue to benefit from ongoing skilled physical therapy to progress toward set goals. Current Frequency: 1x/week PLAN FOR NEXT VISIT: hold pt. chart until may 12. Pt. may return Apr 26 SUBJECTIVE: Pt. just has soreness with ADLs. She has much improved IR of the L shoulder today but reports she had much soreness working toward this improvement. Pain: Pain Pain Level: 0 Pain Location: Shoulder - Left Post Treatment Pain Post Treatment Pain Level: 0 Post Treatment Pain Location: Shoulder - Left OBJECTIVE MEASURES WITH LEVEL OF FUNCTION: TREATMENT: Therapeutic Exercise: 1: UE erg 2 min forward and 2 min reverse attempted - not able to complete due to weakness 2: standing B shoulder mid rows 1x20 GTB 3: standing B shoulder ER GTB 1x20 4: *Shoulder extension with GTB resistance - Neutral - 1 x daily -3-5 x weekly - 3 sets - 12 reps - 1 hold - 5: *Standing B Shoulder Flexion to 180 Degrees with Dumbbells - 1 x daily - 3-5 x weekly - 3 sets - 8 reps - 1 hold, #1 DB (pt. also has option to complete 3 sets of 12 reps, with #2 DB to 90 degrees of elevation) 6: *Shoulder Abduction with Dumbbells - Thumbs Up - 1 x daily - 3-5x weekly - 3 sets - 8 reps - 1 hold , #1 DB (pt. also has option to complete 3 sets of 12 reps, with #2 DB to 90 degrees of elevation) 7: *Corner Pec Major Stretch - 2 x daily - 7 x weekly - 3 sets - 1 reps - 30 hold 8: *Shoulder Flexion Wall Slide with Towel - 3 x daily - 7 x weekly - 2 sets - 10 reps - 10 hold - 9: *Upper Trapezius Stretch - 3 x daily - 7 x weekly - 3 sets - 1 reps - 30 hold - (cues for correct technique today) Skilled Intervention: Patient was educated in proper exercise technique and purpose for exercises. Reviewed and educated patient on additions/changes for home exercise program as above (*). Skilled judgment was used in selection of appropriate interventions. Provided written instruction for home exercise program to facilitate proper performance and compliance. Educated patient on rationale for performing exercises in regards to decreasing fatigue , increase ease of ADL, and ROM and function . Patient education as noted. Billing Therapeutic Exercise Treatment Minutes: 40 Total Session Time (minutes): 40 Session Start Time : 952 Session Stop Time : 1032 Adrianne Pacheco PT documented in this encounter [facility] [place] 04-07-2023 Note [facility] 04-07-2023 History of Present illness Narrative Episode Visit Count: 18 Therapist That Will Accept/Oversee The Plan Of Care: Adrianne Pacheco Start of Care Date: 01/27/23 Onset Date: 01/20/23 Plan of Care Certification Date: 04/07/23 Next Certification Due Date: 05/12/23 REHABILITATION AND SPORTS THERAPY PHYSICAL THERAPY PROGRESS REPORT PLAN OF CARE UPDATE: Assessment: Mindy Cantu demonstrates difficulty with lifting and reaching behind back. She has progressed toward goals. Patient continues to present with impairments in ADL's, flexibility, independence in exercise, joint mobility, overall function, patient reported outcome measures, range of motion, and strength that interfere with reaching behind back, carrying, weight bearing, bed mobility, pushing, pulling, gripping, lifting, reaching overhead . Current prognosis is Excellent due to: current objective clinical presentation, good overall health status, positive past response to therapy . She will benefit from continued skilled therapy services to meet the updated goals for this plan of care as noted below. Goals for Episode of Care: created on 01/27/23 through 03/24/23 Goals updated on 03/03/2023 through 04/07/2023 Goals updated on 04/07/2023 through 05/12/23 [place] in home exercise program. -- MET Patient will decrease pain to 1-2/10 with functional activities to allow patient to improve tolerance for ADLs.-- MET Patient will increase active ROM of left shoulder forward elevation to 150 degrees or greater to allow pt to to improve performance of ADLs. -- MET Patient will demonstrate increase in left shoulder flexion, ER, IR, abduction strength to 4/5 during manual muscle testing in order to improve function for prior functional tasks. -- PROGRESSING Patient will increase flexibility of left UT to equal unaffected extremity/side to improve ability to maintain proper posture. -- PROGRESSING pt still reports increased tightness in L UT with R cervical SB Improve postural awareness. -- PROGRESSING Patient Goals: restore functional mobility and strength of LUE -- PROGRESSING Patient Goals: restore functional mobility and strength of LUE Planned Interventions, Frequency, and Duration: 1x/week, 5 weeks Total Number of Visits Planned: 5 Patient to be seen for Therapeutic exercise (94292), Neuromuscular re-education (00012), Manual therapy (92604), Therapeutic activities (06367), Self-senior living management (51301), Gait Training ([id number]) PLAN FOR NEXT VISIT: Progress strengthening. Re-assess IR AROM SUBJECTIVE: Pt. would like to continue PT to restore strength. Shoulder does not hurt, but she continues to have trouble with reaching behind the back.. Patient Goals: restore functional mobility and strength of LUE Functional Limitations: reaching behind back, carrying, weight bearing, bed mobility, pushing, pulling, gripping, lifting, reaching overhead Pain: Pain Pain Level: 0 Pain Location: Shoulder - Left Description: Stiffness Post Treatment Pain Post Treatment Pain Level: Better Post Treatment Pain Location: Shoulder - Left PROMIS Scales Higher is Better 02/28/2023 01/27/2023 12/23/2022 Phys Func - Score 47 (within normal limits) 35 (moderate dysfunction) 41 (mild dysfunction) Phys Func - Percentile 38 % 7 % 18 % Self-Eff Symptom - Score 48 (Average) 41 (Average) 48 (Average) Self-Eff Symptom - Percentile 42 % 18 % 42 % T-scores: mean of general population = 50. 5 points is clinically meaningfully difference Percentiles provide an indication of how the patient's score ranks in relation to the general population. Higher percentile rankings indicate better function/quality of life. 50th percentile is the average of the general population and indicates half of respondents had a worse score. OBJECTIVE MEASURES WITH LEVEL OF FUNCTION: UE AROM L Shoulder Flex: 150 Degrees L Shoulder Internal Rotation (Functional): L4 (must assist with RUE) UE PROM L Shoulder Flex: 166 Degrees (pain at endrange, pt. supine) UE and Cervical Strength Strength Tested: Myotome Cervical/Shoulder L Shoulder Abduction (C5): 4-/5 L Shoulder Internal Rotation: 4/5 L Shoulder External Rotation: 3+/5 L Elbow Flexion (C6): 4+/5 TREATMENT: Therapeutic Exercise: 1: seated carolann L shoulder 10x 2: seated cervical retraction 1x10 3: seated scapular squeezes 1x10 4: *Upper Trapezius Stretch - 3 x daily - 7 x weekly - 3 sets - 1 reps - 30 hold - Shoulder Flexion Wall Slide with Towel - 3 x daily - 7 x weekly - 2 sets - 10 reps - 10 hold - Shoulder extension with resistance - Neutral - 1 x daily - 7 x weekly - 3 sets - 12 reps - 1 hold - Shoulder Abduction with Dumbbells - Thumbs Up - 1 x daily - 7 x weekly - 3 sets - 12 reps - 1 hold - Standing Shoulder Flexion to 90 Degrees with Dumbbells - 1 x daily - 7 x weekly - 3 sets - 12 reps - 1 hold - Corner Pec Major Stretch - 2 x daily - 7 x weekly - 3 sets - 1 reps - 30 hold 5: *dc and throw away old HEP Skilled Intervention: Patient was educated in proper exercise technique and purpose for exercises. Skilled judgment was used in selection of appropriate interventions. Provided written instruction for home exercise program to facilitate proper performance and compliance. Correct performance of therapeutic exercises was facilitated with verbal, visual, and tactile cuing. Additional time necessary for assessing progress toward goals due to PN today. Educated patient on rationale for performing exercises in regards to decreasing fatigue , increase ease of ADL, and ROM and function . Patient education as noted. Billing Therapeutic Exercise Treatment Minutes: 40 Total Session Time (minutes): 40 Session Start Time : 909 Session Stop Time : 949 Adrianne Pacheco PT documented in this encounter [facility] [place] 03-30-2023 Note [facility] 03-30-2023 History of Present illness Narrative Episode Visit Count: 17 Therapist That Will Accept/Oversee The Plan Of Care: Adrianne Pacheco Start of Care Date: 01/27/23 Onset Date: 01/20/23 Plan of Care Certification Date: 03/03/23 Next Certification Due Date: 04/07/23 REHABILITATION AND SPORTS THERAPY PHYSICAL THERAPY TREATMENT NOTE ASSESSMENT: Mindy Cantu tolerated the session with fatigue. She demonstrated difficulty with bilateral scapulohumeral rhythm with shoulder elevation repeated reps. She demonstrates improved neck stiffness following UT stretch. Equal AROM IR RUE as compared to LUE shoulder. The patient will continue to benefit from ongoing skilled physical therapy to progress toward set goals. PLAN FOR NEXT VISIT: Continue progressing AROM FE, consider adding thoracic extension SUBJECTIVE: She has some neck stiffness she attributes to stress. She continues to have difficulty with IR AROM, but it is equal ROM to the R side. She would like to begin coming once a week for strengthening. Pain: Pain Pain Level: 1 Pain Location: Neck Description: Stiffness Post Treatment Pain Post Treatment Pain Level: Better Post Treatment Pain Location: Shoulder - Left Post Treatment Pain Description: Sore OBJECTIVE MEASURES WITH LEVEL OF FUNCTION: TREATMENT: Therapeutic Exercise: 1: standing cervical spine retraction 3x10 (cues to not elevated the shoulder) 2: cervical retraction with rotation R and L 5x 3: cervical side flexion with rotation R and L 5x 4: *UT stretch 3x30 sec each side 5: TIY to 90 degrees of elevation 12 reps 2 sets, #2 DB 6: TIY to 180 no weight 1x12 each (tactile cues to engage the scapualr muscles) 7: wand AAROM B shoulder flexion, back at wall 30 sec hold Skilled Intervention: Patient was educated in proper exercise technique and purpose for exercises. Skilled judgment was used in selection of appropriate interventions. Provided written instruction for home exercise program to facilitate proper performance and compliance. Correct performance of therapeutic exercises was facilitated with verbal, visual, and tactile cuing. Educated patient on rationale for performing exercises in regards to decreasing fatigue , increase ease of ADL, and ROM and function. Patient education as noted. Billing Therapeutic Exercise Treatment Minutes: 40 Total Session Time (minutes): 40 Session Start Time : 839 Session Stop Time : 919 Adrianne Pacheco PT documented in this encounter [facility] [place] 03-24-2023 Note [facility] 03-24-2023 History of Present illness Narrative Episode Visit Count: 16 Therapist That Will Accept/Oversee The Plan Of Care: Adrianne Pacheco Start of Care Date: 01/27/23 Onset Date: 01/20/23 Plan of Care Certification Date: 03/03/23 Next Certification Due Date: 04/07/23 REHABILITATION AND SPORTS THERAPY PHYSICAL THERAPY TREATMENT NOTE ASSESSMENT: Mindy Cantu tolerated the session with fatigue and expected muscle soreness. She demonstrated difficulty with IR behind the back and improvements in L shoulder abduction strength. The patient will continue to benefit from ongoing skilled physical therapy to progress toward set goals and to continue with post-operative protocol. PLAN FOR NEXT VISIT: Continue deltoid strengthening and IR AAROM. reduce to once a week. SUBJECTIVE: pt reports thats the shoulder is good. HEP is going well. Pain: Pain Pain Level: 0 Pain Location: Shoulder - Left Post Treatment Pain Post Treatment Pain Level: 0 Post Treatment Pain Location: Shoulder - Left OBJECTIVE MEASURES WITH LEVEL OF FUNCTION: TREATMENT: Therapeutic Exercise: 1: Towel L shoulder stretch into flexion 2x5 10 sec hold 2: Towel L shoulder wall slides into abduction 2 x5 10 sec hold 3: Seated shoulder ER with YTB 3x12 4: standing at table, BUE shoulder IR at 0 add isometric squeeze into 55 cm physioball 2x10 5 sec hold 5: AAROM IR with pulleys 2x15 (DC 3rd set due to pt. discomfort) 6: Standing BUE shoulder extension w GTB 3x12 7: Standing L shoulder abduction to 90 degrees 3x10 with 1 pound weight 8: Pec strecth in doorway 3x30 L shoulder Skilled Intervention: Patient was educated in proper exercise technique and purpose for exercises. Skilled judgment was used in selection of appropriate interventions. Correct performance of therapeutic exercises was facilitated with verbal, visual, and tactile cuing. Patient education as noted. Billing Therapeutic Exercise Treatment Minutes: 40 Total Session Time (minutes): 40 Session Start Time : 1115 Session Stop Time : 1155 ARMANDO Hale Supervising therapist was present and guided the care of the patient for the entire session on this date. All documentation was reviewed and agreed upon. Adrianne Pacheco PT documented in this encounter [facility] [place] 03-21-2023 Note [facility] 03-21-2023 History of Present illness Narrative Episode Visit Count: 15 Therapist That Will Accept/Oversee The Plan Of Care: Adrianne Pacheco Start of Care Date: 01/27/23 Onset Date: 01/20/23 Plan of Care Certification Date: 03/03/23 Next Certification Due Date: 04/07/23 REHABILITATION AND SPORTS THERAPY PHYSICAL THERAPY TREATMENT NOTE ASSESSMENT: Mindy Cantu tolerated the session with fatigue and expected muscle soreness. She demonstrated improvements in L shoulder functional IR. The patient will continue to benefit from ongoing skilled physical therapy to progress toward set goals and to continue with post-operative protocol. PLAN FOR NEXT VISIT: Continue deltoid strengthening and IR AAROM SUBJECTIVE: pt has been doing well. She feels that her shoulder gets tired quickly Pain: Pain Pain Level: 0 Pain Location: Shoulder - Left Post Treatment Pain Post Treatment Pain Level: 0 Post Treatment Pain Location: Shoulder - Left Post Treatment Symptoms: pt. reports tiredness OBJECTIVE MEASURES WITH LEVEL OF FUNCTION: UE AROM L Shoulder Internal Rotation (Functional): 3rd MCP to L2 TREATMENT: Therapeutic Exercise: 1: Towel L shoulder stretch into flexion 2x5 10 sec hold 2: Towel L shoulder wall slides into abduction 2 x5 10 sec hold 3: standing at table, BUE shoulder IR at 0 add isometric squeeze into 55 cm physioball 2x8 5 sec hold 4: AAROM IR with pulleys 3x15 5: Pec strecth in doorway 3x30 L shoulder 6: Standing BUE shoulder extension w GTB 3x12 7: Standing L shoulder abduction to 90 degrees 3x12 Skilled Intervention: Patient was educated in proper exercise technique and purpose for exercises. Skilled judgment was used in selection of appropriate interventions. Correct performance of therapeutic exercises was facilitated with verbal, visual, and tactile cuing. Patient education as noted. Billing Therapeutic Exercise Treatment Minutes: 39 Skilled Treatment Time Minutes (timed and untimed codes): 39 Total Session Time (minutes): 39 Session Start Time : 1030 Session Stop Time : 1109 ARMANDO Hale Supervising therapist was present and guided the care of the patient for the entire session on this date. All documentation was reviewed and agreed upon. Adrianne Pacheco PT documented in this encounter [facility] [place] 03-17-2023 Note [facility] 03-14-2023 Note [facility] 03-14-2023 History of Present illness Narrative Episode Visit Count: 13 Therapist That Will Accept/Oversee The Plan Of Care: Adrianne Pacheco Start of Care Date: 01/27/23 Onset Date: 01/20/23 Plan of Care Certification Date: 03/03/23 Next Certification Due Date: 04/07/23 REHABILITATION AND SPORTS THERAPY PHYSICAL THERAPY TREATMENT NOTE ASSESSMENT: Mindy Cantu tolerated the session with no issues. She demonstrated improvements in L shoulder IR ROM as demonstrated by performance during PROM IR. The patient will continue to benefit from ongoing skilled physical therapy to progress toward set goals and to continue with post-operative protocol. PLAN FOR NEXT VISIT: Continue ER and IR strengtheniung. Continue AAROM in all planes SUBJECTIVE: pt. is doing great. HEP is going well. Pain: Pain Pain Level: 0 Pain Location: Shoulder - Left Post Treatment Pain Post Treatment Pain Level: 0 Post Treatment Pain Location: Shoulder - Left OBJECTIVE MEASURES WITH LEVEL OF FUNCTION: UE AROM L Shoulder Internal Rotation (Functional): 3rd MCP to L3 TREATMENT: Therapeutic Exercise: 1: seated carolann PROM 2x15 L UE shoulder flexion, 1 sec hold 2: B scapular retractions 2x15 3: Standing IR behind back with carolann 3x15 4: AAROM standing extension with cane 3x15 5: AAROM standing flexion 3x15 6: Standing abduction isometric 3x30 sec 7: Supine IR stretch 3x30 8: Supine ER stretch 3x30 sec 9: Standing IR isometric 3x15 1 sec hold 10: Standing ER isometric 3x15 1 sec hold 11: Standing shoulder extension w YTB 3x15 12: Standing ER with YTB 3x10 R UE stable and L UE moving Skilled Intervention: Patient was educated in proper exercise technique and purpose for exercises. Skilled judgment was provided in selection of appropriate interventions. Correct performance of therapeutic exercises was facilitated with verbal, visual, and tactile cuing. Patient education as noted. Billing Therapeutic Exercise Treatment Minutes: 40 Skilled Treatment Time Minutes (timed and untimed codes): 40 Total Session Time (minutes): 40 Session Start Time : 1025 Session Stop Time : 1105 ARMANDO Hale Supervising therapist was present and guided the care of the patient for the entire session on this date. All documentation was reviewed and agreed upon. Adrianne Pacheco PT documented in this encounter [facility] [place] 03-07-2023 Note HNO ID: [id number] Author: Adriana Franco PA-C Service: ? Author Type: Physician Parts Specialist Type: Progress Notes Filed: 03/07/2023 1:26 PM Note Text: Adriana Franco PA-C Department of Orthopaedics March 07, 2023 SURGERY: Reverse total shoulder arthroplasty - left SUBJECTIVE: Returns to clinic now 6 weeks status post the above procedure. Progressing with PT. Exam: Well healed anterior incision. Active forward elevation to 160. Strong deltoid contraction against resistance. Nontender along scapular spine or acromion. Imaging: I did order and interpret radiographs today, 3 views left shoulder. Reverse total shoulder arthroplasty intact without evidence of mechanical loosening or periprosthetic fracture. ASSESSMENT: Z96.612 S/P reverse total shoulder arthroplasty, left (primary encounter diagnosis) SUMMARY/PLAN: Patient is progressing with PT. Continue to use arm for activity as tolerates. Recheck in 6 weeks with repeat xrays of shoulder at that time. Adriana Franco PA-C [facility] 03-07-2023 History of Present illness Narrative Adriana Franco PA-C Department of Orthopaedics March 07, 2023 SURGERY: Reverse total shoulder arthroplasty - left SUBJECTIVE: Returns to clinic now 6 weeks status post the above procedure. Progressing with PT. Exam: Well healed anterior incision. Active forward elevation to 160. Strong deltoid contraction against resistance. Nontender along scapular spine or acromion. Imaging: I did order and interpret radiographs today, 3 views left shoulder. Reverse total shoulder arthroplasty intact without evidence of mechanical loosening or periprosthetic fracture. ASSESSMENT: Z96.612 S/P reverse total shoulder arthroplasty, left (primary encounter diagnosis) SUMMARY/PLAN: Patient is progressing with PT. Continue to use arm for activity as tolerates. Recheck in 6 weeks with repeat xrays of shoulder at that time. Adriana Franco PA-C documented in this encounter [facility] [place] 03-07-2023 Note [facility] 03-07-2023 History of Present illness Narrative Episode Visit Count: 12 Therapist That Will Accept/Oversee The Plan Of Care: Adrianne Pacheco Start of Care Date: 01/27/23 Onset Date: 01/20/23 Plan of Care Certification Date: 03/03/23 Next Certification Due Date: 04/07/23 Patient Identified by Name and Date of : Yes REHABILITATION AND SPORTS THERAPY PHYSICAL THERAPY TREATMENT NOTE ASSESSMENT: Mindy Cam VillelaCantu tolerated the session with fatigue and expected muscle soreness. She demonstrated difficulty with ER isometric with wand due to fatigue. The patient will continue to benefit from ongoing skilled physical therapy to progress toward set goals. PLAN FOR NEXT VISIT: Continue deltoid strengthening. Contiue AAROM training. Add supine IR strengthening. SUBJECTIVE: Pt reports that her L shoulder is feeling good today. Pt states no paion to start today. Pt has 6 week follow-up today. Pain: Pain Pain Level: 0 Pain Location: Shoulder - Left Post Treatment Pain Post Treatment Pain Level: 0 Post Treatment Pain Location: Shoulder - Left OBJECTIVE MEASURES WITH LEVEL OF FUNCTION: Pt self-aware of proper technique with exercises. TREATMENT: Therapeutic Exercise: 1: seated carolann PROM 2x15 L UE shoulder flexion, 1 sec hold 2: B scapular retractions 2x15 3: Standing IR behind back with carolann 2x15 4: AAROM standing extension with cane 3x15 5: AAROM standing flexion 3x15 6: AAROM standing scaption 3x15 7: AAROM standing IR with wand 3x15 8: Seated IR without weight 2x15 9: *Seated ER isometric with wand 10 x 10 second holds 10: *Seated IR iso with wand 10x10 second holds 11: Wall alphabet A-Z x 1 Skilled Intervention: Patient was educated in proper exercise technique and purpose for exercises. Reviewed and educated patient on additions/changes for home exercise program as above (*). Skilled judgment was provided in selection of appropriate interventions. Correct performance of therapeutic exercises was facilitated with verbal and visual cuing. Billing Therapeutic Exercise Treatment Minutes: 41 Skilled Treatment Time Minutes (timed and untimed codes): 41 Total Session Time (minutes): 41 Session Start Time : 1013 Session Stop Time : 1054 WINSOME Mcdowell, PT, DPT. documented in this encounter [facility] [place] 03-03-2023 Note [facility] 03-03-2023 History of Present illness Narrative Episode Visit Count: 11 Therapist That Will Accept/Oversee The Plan Of Care: Adrianne Pacheco Start of Care Date: 01/27/23 Onset Date: 01/20/23 Plan of Care Certification Date: 03/03/23 Next Certification Due Date: 04/07/23 REHABILITATION AND SPORTS THERAPY PHYSICAL THERAPY PROGRESS REPORT PLAN OF CARE UPDATE: Assessment: Mindy Cantu demonstrates significant improvement in physical activities, reaching behind back, reaching overhead, use hand with arm at shoulder level, driving, cleaning, cooking, dressing, grooming, and feeding self . She has progressed toward goals. Patient continues to present with impairments in ADL's, flexibility, joint mobility, range of motion, strength, and symptom management that interfere with reaching behind back, reaching overhead, use hand with arm at shoulder level, carrying, weight bearing, bed mobility, pushing, pulling, gripping, dressing, cleaning, driving, cooking, grooming, sleeping, lifting . Current prognosis is Excellent due to: current objective clinical presentation, good overall health status, positive past response to therapy . She will benefit from continued skilled therapy services to meet the updated goals for this plan of care as noted below. Goals for Episode of Care: created on 01/27/23 through 03/24/23 Goals updated on 03/03/2023 through 04/07/2023 [place] in home exercise program. -- PROGRESSING Patient will decrease pain to 1-2/10 with functional activities to allow patient to improve tolerance for ADLs.-- PROGRESSING, pt. Normally presents with 0/10 pain. Had increased pain today due to overuse yesterday. Patient will increase active ROM of left shoulder forward elevation to 150 degrees or greater to allow pt to to improve performance of ADLs. -- PROGRESSING 136 Patient will demonstrate increase in left shoulder flexion, ER, IR, abduction strength to 4/5 during manual muscle testing in order to improve function for prior functional tasks. -- PROGRESSING, MMT not tested due to lack of full AROM Patient will increase flexibility of left UT to equal unaffected extremity/side to improve ability to maintain proper posture. -- PROGRESSING pt still reports increased tightness in L UT with R SB Improve postural awareness. -- PROGRESSING Patient Goals: restore functional mobility and strength of LUE -- PROGRESSING Patient Goals: restore functional mobility and strength of LUE Planned Interventions, Frequency, and Duration: 2x/week, 6 weeks Total Number of Visits Planned: 12 Patient to be seen for Therapeutic exercise (11417), Neuromuscular re-education (55529), Manual therapy (79837), Therapeutic activities (15446), Self-senior living management (77894), Gait Training ([id number]) PLAN FOR NEXT VISIT: Continue deltoid strengthening. Contiue AAROM training. Add supine IR strengthening. SUBJECTIVE: pt. reports that arm got very sore after working on computer after an hour. She has been icing and took a break from HEP to reduce soreness.. Patient Goals: restore functional mobility and strength of LUE Functional Limitations: reaching behind back, reaching overhead, use hand with arm at shoulder level, carrying, weight bearing, bed mobility, pushing, pulling, gripping, dressing, cleaning, driving, cooking, grooming, sleeping, lifting Prior Level of Function: Independent without limitations Pain: Pain Pain Level: 3 Pain Location: Shoulder - Left Description: Sore Frequency: At rest Post Treatment Pain Post Treatment Pain Level: Better Post Treatment Pain Location: Shoulder - Left PROMIS Scales Higher is Better 02/28/2023 01/27/2023 12/23/2022 Phys Func - Score 47 (within normal limits) 35 (moderate dysfunction) 41 (mild dysfunction) Phys Func - Percentile 38 % 7 % 18 % Self-Eff Symptom - Score 48 (Average) 41 (Average) 48 (Average) Self-Eff Symptom - Percentile 42 % 18 % 42 % T-scores: mean of general population = 50. 5 points is clinically meaningfully difference Percentiles provide an indication of how the patient's score ranks in relation to the general population. Higher percentile rankings indicate better function/quality of life. 50th percentile is the average of the general population and indicates half of respondents had a worse score. OBJECTIVE MEASURES WITH LEVEL OF FUNCTION: UE AROM L Shoulder Flex: 136 Degrees L Shoulder Internal Rotation: 52 Degrees (45 degrees abduction) L Shoulder External Rotation: 53 Degrees (45 degrees abduction) UE Flexibility L Upper Trapezius Flexibility Comments: Increased tightness and lack of ROM with R side bend TREATMENT: Therapeutic Exercise: 1: B scapular retractions 2x15 2: seated carolann PROM 2x15 L UE shoulder flexion, 1 sec hold 3: AAROM standing extension with cane 3x15 4: YTB standing IR 1x5 DC due to difficulty 5: Standing IR with no weight 1x15 DC due to elbow pain 6: Seated IR with no weight 2x15 7: AAROM standing IR with strap 1x15 1x15 w carolann (cues to decrease wrist flexion) 8: AAROM standing flexion 3x15 9: Supine PROM IR stretch 2x30 sec Skilled Intervention: Patient was educated in proper exercise technique and purpose for exercises. Skilled judgment was provided in selection of appropriate interventions. Correct performance of therapeutic exercises was facilitated with verbal, visual, and tactile cuing. Patient education as noted. Billing Therapeutic Exercise Treatment Minutes: 40 Skilled Treatment Time Minutes (timed and untimed codes): 40 Total Session Time (minutes): 40 Session Start Time : 1000 Session Stop Time : 1040 ARMANDO Hale Supervising therapist was present and guided the care of the patient for the entire session on this date. All documentation was reviewed and agreed upon. Adrianne Pacheco PT documented in this encounter [facility] [place] 02-28-2023 Note [facility] 02-28-2023 History of Present illness Narrative Episode Visit Count: 10 Therapist That Will Accept/Oversee The Plan Of Care: Adrianne Pacheco Start of Care Date: 01/27/23 Onset Date: 01/20/23 Plan of Care Certification Date: 01/27/23 Next Certification Due Date: 03/10/23 REHABILITATION AND SPORTS THERAPY PHYSICAL THERAPY TREATMENT NOTE ASSESSMENT: Mindy Cantu tolerated the session with fatigue and expected muscle soreness. She demonstrated improvements in L shoulder flexion ROM and strength as evidences by AROM measurement and performance during L UE flexion isometric. The patient will continue to benefit from ongoing skilled physical therapy to progress toward set goals and to continue with post-operative protocol. PLAN FOR NEXT VISIT: Continue deltoid stengthening and AROM in all planes with focus on internal rotation. PN Consider adding resistance to IR strengthening such as isometric or theraband. SUBJECTIVE: pt. is doing well with HEP. Feels she sometimes overdoes the ER AAROM exercise at home. Pain: Pain Pain Level: 0 Pain Location: Shoulder - Left Description: Aching Frequency: At rest Post Treatment Pain Post Treatment Pain Level: No Change Post Treatment Pain Location: Shoulder - Left OBJECTIVE MEASURES WITH LEVEL OF FUNCTION: UE AROM L Shoulder Flex: 137 Degrees TREATMENT: Therapeutic Exercise: 1: B scapular retractions 2x15 2: seated carolann PROM 2x15 L UE shoulder flexion, 1 sec hold 3: seated carolann PROM L UE abduction 2x15 1 sec hold 4: AAROM standing IR strap stretch 3x15 5: AAROM standing extension with cane 3x15 6: Supine IR stretch by PT 4x30 sec hold 7: Standing flexion isometic 135 degrees 3x30 sec 8: Standing abduction 90 degrees isometric 3x30 sec 9: Standing flexion AAROM with cane 3x15 (verbal cues for completion) 10: Standing extension into towel at wall 3x15 11: Supine ER stretch Skilled Intervention: Patient was educated in proper exercise technique and purpose for exercises. Skilled judgment was provided in selection of appropriate interventions. Correct performance of therapeutic exercises was facilitated with verbal, visual, and tactile cuing. Patient education as noted. Billing Therapeutic Exercise Treatment Minutes: 40 Skilled Treatment Time Minutes (timed and untimed codes): 40 Total Session Time (minutes): 40 Session Start Time : 1025 Session Stop Time : 1105 ARMANDO Hale Supervising therapist was present and guided the care of the patient for the entire session on this date. All documentation was reviewed and agreed upon. Adrianne Pacheco PT documented in this encounter [facility] [place] 02-24-2023 Note [facility] 02-24-2023 History of Present illness Narrative Episode Visit Count: 9 Therapist That Will Accept/Oversee The Plan Of Care: Adrianne Pacheco Start of Care Date: 01/27/23 Onset Date: 01/20/23 Plan of Care Certification Date: 01/27/23 Next Certification Due Date: 03/10/23 REHABILITATION AND SPORTS THERAPY PHYSICAL THERAPY TREATMENT NOTE ASSESSMENT: Mindy Cantu tolerated the session with no issues. She demonstrated improvements in L shoulder flexion ROM and strength. The patient will continue to benefit from ongoing skilled physical therapy to progress toward set goals and to continue with post-operative protocol. PLAN FOR NEXT VISIT: Continue deltoid stengthening and AROM in all planes with focus on internal rotation. Add passive AAROM for abduction on pulleys SUBJECTIVE: pt. is doing good. HEP is going well. pt. called doctors office about area of redness on the anterior shoulder and is waiting for a call back. Pain: Pain Pain Level: 1 Pain Location: Shoulder - Left Description: Aching Frequency: At rest Post Treatment Pain Post Treatment Pain Level: Better Post Treatment Pain Location: Shoulder - Left OBJECTIVE MEASURES WITH LEVEL OF FUNCTION: UE AROM L Shoulder Flex: 137 Degrees TREATMENT: Therapeutic Exercise: 1: B scapular retractions 2x15 2: seated carolann PROM 2x15 L UE shoulder flexion, 1 sec hold 3: AAROM standing extension with cane 3x15 4: AAROM standing IR strap stretch 2x15 5: Supine IR stretch by PT 4x30 sec hold 6: Standing flexion isometric at 130 degrees 3x30 sec 7: Standing abduction isometric 3x30 sec 8: Standing flexion AAROM with cane 3x15 9: Standing extension isometric with towel at wall 3x8 5 sec hold 10: Standing ER isometric with YTB 3x5 5 sec hold 11: AAROM supine L shoulder ER at 45 degrees abduction with cane 1 sets 15 reps one sec hold Skilled Intervention: Patient was educated in proper exercise technique and purpose for exercises. Skilled judgment was provided in selection of appropriate interventions. Correct performance of therapeutic exercises was facilitated with verbal, visual, and tactile cuing. Patient education as noted. Billing Therapeutic Exercise Treatment Minutes: 40 Skilled Treatment Time Minutes (timed and untimed codes): 40 Total Session Time (minutes): 40 Session Start Time : 1110 Session Stop Time : 1150 ARMANDO Hale Supervising therapist was present and guided the care of the patient for the entire session on this date. All documentation was reviewed and agreed upon. Adrianne Pacheco PT documented in this encounter [facility] [place] 02-24-2023 Miscellaneous Notes Patient called requesting the following refill: Post-op pain medication. Looks like this is first time she asked for refill Patients last known Refill Date: 01-20-2023, date of surgery Patient Phone numbers: [phone] (home) Request is for script(s) to be escript to pharmacy. Amada Johnson documented in this encounter [facility] [place] 02-21-2023 Note [facility] 02-21-2023 History of Present illness Narrative Episode Visit Count: 8 Therapist That Will Accept/Oversee The Plan Of Care: Adrianne Pacheco Start of Care Date: 01/27/23 Onset Date: 01/20/23 Plan of Care Certification Date: 01/27/23 Next Certification Due Date: 03/10/23 REHABILITATION AND SPORTS THERAPY PHYSICAL THERAPY TREATMENT NOTE ASSESSMENT: Mindy Cantu tolerated the session with no issues. She demonstrated improvements in L shoulder flexion ROM. The patient will continue to benefit from ongoing skilled physical therapy to progress toward set goals and to continue with post-operative protocol. PLAN FOR NEXT VISIT: Continue deltoid stengthening and AROM in all planes with focus on internal rotation. Add passive IR stretch at 90 degrees abduction SUBJECTIVE: pt. is doing really well. pt. feels she is recovering quicker this time as compared to R should repair. Pain: Pain Pain Level: 1 Pain Location: Shoulder - Left Description: Aching Frequency: At rest Post Treatment Pain Post Treatment Pain Level: ( not bad. ) Post Treatment Pain Location: Shoulder - Left OBJECTIVE MEASURES WITH LEVEL OF FUNCTION: UE AROM L Shoulder Internal Rotation: 29 Degrees (atj 90 degrees of abduction, empty end feel) L Shoulder External Rotation: 22 Degrees (at 45 degrees of abd) TREATMENT: Therapeutic Exercise: 1: B scapular retractions 2x15 2: seated carolann PROM 2x15 L UE shoulder flexion, 1 sec hold 3: AAROM standing extension with cane 3x15 4: AAROM standing IR with cane 1x15 5: AAROM standing IR towel stretch 2x15 6: Standing flexion isometric 3x30 sec 7: Standing abduction isometric 3x30 sec 8: Standing flexion AAROM with cane 3x15 9: Standing extension isometric 3x8 5 sec hold (cues to not use trunnk t push towel into wall) 10: AAROM supine L shoulder ER at 45 degrees abduction with cane 1 sets 15 reps one sec hold 11: SL IR stretch at 90 degrees abduction 1x2 5 sec hold Skilled Intervention: Patient was educated in proper exercise technique and purpose for exercises. Skilled judgment was provided in selection of appropriate interventions. Correct performance of therapeutic exercises was facilitated with verbal, visual, and tactile cuing. Patient education as noted. Billing Therapeutic Exercise Treatment Minutes: 40 Skilled Treatment Time Minutes (timed and untimed codes): 40 Total Session Time (minutes): 40 Session Start Time : 1115 Session Stop Time : 1155 Ramiro Mahesh, SPT Supervising therapist was present and guided the care of the patient for the entire session on this date. All documentation was reviewed and agreed upon. Adrianne Pacheco PT documented in this encounter [facility] [place] 02-20-2023 Note [facility] 02-20-2023 History of Present illness Narrative Patient: Mindy Cantu PCP: Christ Solorio MD CC: follow up HPI: Mindy Cantu 72 year old female non-smoker with PMH significant for GERD, hiatal hernia VWF, and bronchiectasis. 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 Sputum culture with AFB pending. Preliminary results show no MAC. Using Acapella, chest vest and Mucinex. Today, patient reports no cough, sputum production, or hemoptysis. No significant SOB. No fevers, chills or night sweats. No unintended weight loss. No lower extremity edema. PAST MEDICAL HISTORY Diagnosis Date Bronchiectasis (HCC) Depression (emotion) GERD (gastroesophageal reflux disease) Hiatal hernia Need for prophylactic hormone replacement therapy (postmenopausal) ESTROPIATE 0.625 Osteoarthritis Pneumonia 04/2018 Von Willebrand's disease (HCC) 2001 Allergies: Latex Rash Comment:Dermatitis rash Penicillins Rash Sulfabenzamide Rash docusate sodium (COLACE) 100 mg capsule^Take 1 capsule by mouth twice daily.^Disp: 30 capsule^Rfl: 0 ondansetron orally disintegrating (ZOFRAN ODT) 4 mg disintegrating tablet^Take 1 tablet by mouth every 8 hours as needed for nausea/vomiting.^Disp: 20 tablet^Rfl: 1 oxyCODONE-acetaminophen (PERCOCET) 5-325 mg tablet^Take 1-2 tablets by mouth every 4 hours as needed for pain.^Disp: 28 tablet^Rfl: 0 cyclobenzaprine (FLEXERIL) 10 mg tablet^Take 1 tablet by mouth three times daily as needed for muscle spasm or pain.^Disp: 42 tablet^Rfl: 2 diphenhydrAMINE HCl (CHILDREN'S BENADRYL ALLERGY) 12.5 mg chewable tablet^Take 12.5 mg by mouth at bedtime as needed for sedation.^Disp: ^Rfl: guaiFENesin (MUCINEX) 600 mg 12 hr tablet^Take 1 tablet by mouth once daily.^Disp: ^Rfl: sertraline (ZOLOFT) 50 mg tablet^75 mg.^Disp: 90 tablet^Rfl: 3 dilTIAZem CD (CARDIZEM CD, CARTIA XT) 120 mg 24 hr capsule^Take 1 capsule by mouth once daily.^Disp: ^Rfl: COLLAGEN MISC^^Disp: ^Rfl: BIOTIN, BULK, MISC^^Disp: ^Rfl: acetaminophen (TYLENOL) 500 mg tablet^Take 500 mg by mouth every 8 hours as needed.^Disp: ^Rfl: turm/ging/mera/yuc/basil/shailesh/hor (TUMERSAID ORAL)^Take 500 mg by mouth twice daily. ^Disp: ^Rfl: DAILY MULTI-VITAMIN ORAL^Take 1 tablet by mouth once daily.^Disp: ^Rfl: Calcium Carb-Cholecalciferol (CALCIUM 600 + D(3)) 600 (1,500)-200 mg-unit ORAL Tab^Take one(1) tablet twice daily.^Disp: 0^Rfl: 0 VITAMIN C 1,000 MG TAB^Take one(1) tablet daily.^Disp: ^Rfl: 0 Social History Tobacco Use Smoking status: Never Smokeless tobacco: Never Tobacco comments: Father smoked in childhood home. Vaping Use Vaping Use: Never used Substance Use Topics Alcohol use: Not Currently Drug use: No Family History Problem Relation Age of Onset Alzheimer's Disease Mother Heart Attack Mother Cancer Father Right pneumonectomy, 12 year survival. Hypertension Father Stroke Maternal Grandfather Cancer Maternal Grandmother bone cancer COPD Brother Cancer Brother kidney cancer Aneurysm Brother brain PAST SURGICAL HISTORY Procedure Laterality Date COLONOSCOPY INCISE FINGER TENDON SHEATH Left 05/09/2018 Left ring trigger finger release and prior multiple LAPAROSCOPY SURG CHOLECYSTECTOMY 06/13/2018 Cholecystectomy, lap PAST SURGICAL HISTORY OF trigger finger relase x3 SKIN BX, 1 LESION 2001 AT PELVIC AREA. TOTAL ABDOMINAL HYSTERECT W/WO RMVL TUBE OVARY Hysterectomy, CHAKA left oophorectomy for fibroids I reviewed the past medical history, family history, social history and surgical history with changes noted above and updated in EMR. IMMUNIZATIONS Prevnar 13 - 02/27/2015 Pneumovax 23 - 04/20/2016 Influenza - 2021 COVID-19 - most recent 10/2021 ROS: CONSTITUTIONAL: No fevers, chills, nightsweats, unintended weight loss HEENT: Denies nasal congestion/sinus symptoms, allergy problems. CARDIOVASCULAR: No chest pain, dyspnea, palpitations, orthopnea, edema. PULM: See HPI GI: No dysphagia/odynophagia, problematic reflux MUSC-SKEL: Recent shoulder surgery PSY: No concerns regarding depression, anxiety INTEGUMENTARY: No new skin changes or rashes PHYSICAL EXAMINATION: BP 132/70 Pulse 83 Resp 18 Wt 44.7 kg (98 lb 9.6 oz) SpO2 98% BMI 19.91 kg/m Gen: No acute distress. Cooperative with examination. HEENT: Normocephalic. Sclera, conjunctiva clear. Oral hygeine and dentition good. Resp: No stridor, accessory respiratory muscle use, supra-sternal or intercostal retractions. No wheezes, crackles. CV: Regular rythm. Heart tones normal. Radial pulses normal. Abd: Non distended. MSK: No kyphoscoliosis. Ext: Warm and well perfused. No clubbing, cyanosis, edema. Skin: No rash, ecchymoses. Neuro: Mental status normal. Affect normal. No tremor. 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 Abdominal findings as described above. Comparison: CT chest on 07/11/2022 RESULT: Limitations: None. Lines, tubes, and devices: None. Lung parenchyma and airways: The central airways are patent. Triangular consolidative opacities demonstrated in the right middle lobe and lingula, with bronchiectasis and volume loss. Cluster of centrilobular nodules with or without calcifications seen in the right upper lobe and right lower lobe. There is bronchiectasis in the right lower lobe with mucoid impaction. No new consolidations. No masses. Pleural space: No pleural effusion. No pleural thickening. Lower neck, lymph nodes, and mediastinum: The imaged thyroid gland is normal. No lymphadenopathy in the supraclavicular, axillary, mediastinal, or hilar regions. Heart, pericardium, and thoracic vessels: The thoracic aorta and main pulmonary artery are normal in caliber. The cardiac chambers are normal in size. No coronary artery atherosclerotic calcifications are noted, although the study is not optimized for coronary assessment. There is trace pericardial effusion or thickening. Bones and soft tissues: Stable chest wall soft tissue. The spine shows mild degenerative changes. Interval right shoulder arthroplasty. Upper abdomen: Limited study through the upper abdomen demonstrates a 2 mm left renal calculus. There is a partially visualized low-attenuation lesion or cyst in the left kidney. 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 Sputum Component Latest Ref Rng & Units 01/11/2023 01/11/2023 01/11/2023 7:30 AM 7:30 AM 7:30 AM Culture No Acid Fast Bacilli isolated after 35 days Moderate normal respiratory cece (A) Smear Result No acid fast bacilli seen by flurochrome stain Moderate Mixed oral cece (A) No Polymorphonuclear Leukocytes (A) ASSESSMENT/PLAN: 1. Bronchiectasis without complication (HCC) - ICD9: 494.0, ICD10: J47.9 (primary diagnosis) Symptomatically doing well. Continue mucus clearing techniques. CT chest consistent with MAC. AFB pending. However, patient is asymptomatic and would most likely not treat at this point. 2. Need for vaccination - ICD9: V05.9, ICD10: Z23 - PNEUMOCOCCAL VACCINE (PREVNAR 20) Portions of this documentation were copied and pasted from previous office visit notes in order to provide a cohesive continuity of the history. The note has been reviewed and edited and updated as necessary. Yessi Fine PA-C documented in this encounter [facility] [place] 02-17-2023 Note [facility] 02-17-2023 History of Present illness Narrative Episode Visit Count: 7 Therapist That Will Accept/Oversee The Plan Of Care: Adrianne Pacheco Start of Care Date: 01/27/23 Onset Date: 01/20/23 Plan of Care Certification Date: 01/27/23 Next Certification Due Date: 03/10/23 REHABILITATION AND SPORTS THERAPY PHYSICAL THERAPY TREATMENT NOTE ASSESSMENT: Mindy Cantu tolerated the session with no issues. She demonstrated improvements in shoulder ROM and strength in all planes. The patient will continue to benefit from ongoing skilled physical therapy to continue with post-operative protocol. PLAN FOR NEXT VISIT: Continue deltoid stengthening and AROM in all planes with focus on internal rotation SUBJECTIVE: pt. is doing well. Pt. questions whether she is able to drive after consulting physician. Pain: Pain Pain Level: 2 Pain Location: Shoulder - Left Description: Aching Frequency: At rest Post Treatment Pain Post Treatment Pain Level: Better Post Treatment Pain Location: Shoulder - Left OBJECTIVE MEASURES WITH LEVEL OF FUNCTION: UE AROM L Shoulder Flex: 135 Degrees TREATMENT: Therapeutic Exercise: 1: B scapular retractions 2x15 2: Standing PROM with cane UE shoulder flexion 3x15, 1 sec hold (cues for decreasing trunk lean) 3: AAROM standing extension with cane 3x12 4: AAROM standing IR with cane 3x12 5: Standin abduction isometric at 90degrees 3x 20 sec 6: Standing flexion isometric at 90 degrees [id number]: Standing ER with elbow bent AAROM with wand 3x15 8: AAROM supine L shoulder ER at 45 degrees abduction with cane 3 sets 15 reps one sec hold 9: AAROM supine L shoulder flexion with cane 3x15 one sec hold 10: Standing extension isometric 3x10 5 sec hold Skilled Intervention: Patient was educated in proper exercise technique and purpose for exercises. Skilled judgment was provided in selection of appropriate interventions. Correct performance of therapeutic exercises was facilitated with verbal, visual, and tactile cuing. Patient education as noted. Self-Skilled Nursing Management: 1: *discussed that pt. should follow physician recommendation for when to resume driving Skilled Intervention: Skilled judgment in the selection of proper modification for activity of daily living/home management based on clinical presentation, deficits, and needs. Reviewed patient specific diagnosis in relation to activities of daily living/home management. Activity progression based on professional judgement. Billing Therapeutic Exercise Treatment Minutes: 38 Self-Care/Home Management Treatment Minutes: 2 Total Session Time (minutes): 40 Session Start Time : 1400 Session Stop Time : 1440 ARMANDO Hale Supervising therapist was present and guided the care of the patient for the entire session on this date. All documentation was reviewed and agreed upon. Adrianne Pacheco PT documented in this encounter [facility] [place] 02-14-2023 Note [facility] 02-14-2023 History of Present illness Narrative Episode Visit Count: 6 Therapist That Will Accept/Oversee The Plan Of Care: Adrianne Pacheco Start of Care Date: 01/27/23 Onset Date: 01/20/23 Plan of Care Certification Date: 01/27/23 Next Certification Due Date: 03/10/23 REHABILITATION AND SPORTS THERAPY PHYSICAL THERAPY TREATMENT NOTE ASSESSMENT: Mindy Cantu tolerated the session with fatigue and expected muscle soreness. She demonstrated improvements in L shoulder flexion and ER ROM. The patient will continue to benefit from ongoing skilled physical therapy to continue with post-operative protocol. PLAN FOR NEXT VISIT: Continue ER strengthening and ROM in alll planes SUBJECTIVE: pt. feels she overdid AAROM ER over the weekend. Pain: Pain Pain Level: 2 Pain Location: Shoulder - Left Description: Aching Frequency: At rest Post Treatment Pain Post Treatment Pain Level: Better Post Treatment Pain Location: Shoulder - Left OBJECTIVE MEASURES WITH LEVEL OF FUNCTION: TREATMENT: Therapeutic Exercise: 1: B scapular retractions 2x15 2: seated carolann PROM 2x15 L UE shoulder flexion, 1 sec hold (cues for decreases neck involvement) 3: AAROM supine L shoulder ER at 10 degrees abduction with cane 3 sets 15 reps one sec hold 4: AAROM standing extension with cane 3x12 5: AAROM standing IR with cane 3x12 6: Standing biceps curl with yardstick 2x15 7: Standin abduction isometric at 70 degrees 3x 30 sec 8: Standing flexion isometric at 70 degrees [id number]: Standing ER into wall with purple ball 2x8 (Pain in anterior shoulder. Likes Er without the ball better.) 10: Standing ER with elbow bent 2x12 11: AAROM supine L shoulder flexion with cane 1x15 one sec hold Skilled Intervention: Patient was educated in proper exercise technique and purpose for exercises. Reviewed and educated patient on additions/changes for home exercise program as above (*). Skilled judgment was provided in selection of appropriate interventions. Correct performance of therapeutic exercises was facilitated with verbal, visual, and tactile cuing. Patient education as noted. Billing Therapeutic Exercise Treatment Minutes: 40 Skilled Treatment Time Minutes (timed and untimed codes): 40 Total Session Time (minutes): 40 Session Start Time : 1115 Session Stop Time : 1155 ARMANDO Hale Supervising therapist was present and guided the care of the patient for the entire session on this date. All documentation was reviewed and agreed upon. Adrianne Pacheco PT documented in this encounter [facility] [place] 02-10-2023 Note [facility] 02-07-2023 Note [facility] 02-07-2023 History of Present illness Narrative Episode Visit Count: 4 Therapist That Will Accept/Oversee The Plan Of Care: Adrianne Pacheco Start of Care Date: 01/27/23 Onset Date: 01/20/23 Plan of Care Certification Date: 01/27/23 Next Certification Due Date: 03/10/23 REHABILITATION AND SPORTS THERAPY PHYSICAL THERAPY TREATMENT NOTE ASSESSMENT: Mindy Cantu tolerated the session with no issues. She demonstrated improvements in shoulder flexion and ER ROM. The patient will continue to benefit from ongoing skilled physical therapy to continue with post-operative protocol. PLAN FOR NEXT VISIT: Continue AAROM and deltoid strengthening. Add new AAROM for IR and extension. SUBJECTIVE: pt. feels that new medication has made her too sleepy. Discontinued use last night and reports improvement. She feels that muscles are too tight and feels knots behind the shoulder blade. pt. has used ice and heat to relieve symptoms. Still doing well with HEP. Pain: Pain Pain Level: 4 Pain Location: Shoulder - Left Description: Aching Frequency: At rest Post Treatment Pain Post Treatment Pain Level: (pt. did not rate) Post Treatment Pain Location: Shoulder - Left OBJECTIVE MEASURES WITH LEVEL OF FUNCTION: TREATMENT: Therapeutic Exercise: 1: B scapular retractions 2x15 2: seated carolann PROM 2x15 L UE shoulder flexion, 1 sec hold (cues for decreases neck involvement) 3: AAROM supine L shoulder ER at 10 degrees abduction with cane 3 sets 15 reps one sec hold 4: AAROM supine L shoulder flexion with cane 1x20 one sec hold (max cues for correct tech) 5: *Shoulder abduction wall iso metric into wall with towel 3x8 5 sec hold 6: *Shoulder extension isometric at wall with towel 3x8 5 second hold 7: supine PROM should flexion 110 degrees flexion 3 X 20 second hold 8: supine PROM L should ER at 45 ABD to 15 degree ER 3 x 20 second hold Skilled Intervention: Patient was educated in proper exercise technique and purpose for exercises. Reviewed and educated patient on additions/changes for home exercise program as above (*). Skilled judgment was provided in selection of appropriate interventions. Provided written instruction for home exercise program to facilitate proper performance and compliance. Patient education as noted. Billing Therapeutic Exercise Treatment Minutes: 40 Total Treatment Time Minutes (timed/untimed): 40 Session Start Time : 1330 Session Stop Time : 1410 ARMANDO Hale Supervising therapist was present and guided the care of the patient for the entire session on this date. All documentation was reviewed and agreed upon. Adrianne Pacheco PT documented in this encounter [facility] [place] 02-03-2023 Note [facility] 02-03-2023 History of Present illness Narrative Episode Visit Count: 3 Therapist That Will Accept/Oversee The Plan Of Care: Adrianne Pacheco Start of Care Date: 01/27/23 Onset Date: 01/20/23 Plan of Care Certification Date: 01/27/23 Next Certification Due Date: 03/10/23 REHABILITATION AND SPORTS THERAPY PHYSICAL THERAPY TREATMENT NOTE ASSESSMENT: Mindy Cantu tolerated the session with no issues. She demonstrated improvements in L shoulder flexion and ER ROM. The patient will continue to benefit from ongoing skilled physical therapy to continue with post-operative protocol. PLAN FOR NEXT VISIT: Continue AAROM and isometrci strengthening. Potential add isometmetric shoulder flexion. Add isometrics to hEP next visit. SUBJECTIVE: Pt. report a little stiffness this morning. States doctor said everything looked good at her visit yesterday. Has been taking pain medication due to an increase in muscle spasm and soreness. Pain: Pain Pain Level: 4 Pain Location: Shoulder - Left Description: Aching Frequency: At rest Post Treatment Pain Post Treatment Pain Level: 3 Post Treatment Pain Location: Shoulder - Left OBJECTIVE MEASURES WITH LEVEL OF FUNCTION: TREATMENT: Therapeutic Exercise: 1: B scapular retractions 2x15 2: seated carolann PROM 2x15 L UE shoulder flexion, 1 sec hold 3: AAROM supine L shoulder ER at 10 degrees abduction with cane 3 sets 12 reps one sec hold 4: AAROM supine L shoulder flexion with cane 2x12 one sec hold 5: Shoulder abduction wall iso metric into wall with towel 3x5 5 sec hold 6: Shoulde extension isometric at wall with towel 3x5 5 second hold 7: supine PROM should flexion 95 degrees 3 X 20 second hold 8: supine PROM L should ER at 45 ABD to 0 3 x 20 second hold Skilled Intervention: Patient was educated in proper exercise technique and purpose for exercises. Reviewed and educated patient on additions/changes for home exercise program as above (*). Skilled judgment was provided in selection of appropriate interventions. Correct performance of therapeutic exercises was facilitated with verbal, visual, and tactile cuing. Patient education as noted. Billing Therapeutic Exercise Treatment Minutes: 40 Total Treatment Time Minutes (timed/untimed): 40 Session Start Time : 829 Session Stop Time : 909 Adrianne Pacheco PT documented in this encounter [facility] [place] 02-02-2023 Note HNO ID: [id number] Author: Rhonda Erwin MD Service: ? Author Type: Physician Type: Progress Notes Filed: 02/02/2023 1:49 PM Note Text: PAIN EVALUATION 02/02/2023 1331 Pain Level: 4 Pain Location: Shoulder-Left Description: Aching;Sore;Radiating Duration Amount of Time: 2 Duration Units: Weeks Frequency: Continuous Mindy Villelaight comes in today for first postoperative visit following reverse total shoulder arthroplasty. Pain has been well controlled with medication. On exam the incision is healing with no surrounding erythema and no drainage. Sensation over the lateral deltoid is normal. There is a strong deltoid contraction to command. Range of motion testing today demonstrates mild discomfort with overhead and rotational testing appropriate for level of recovery. Radiographs taken of the shoulder today demonstrate expected position of reverse total shoulder arthroplasty components without any sign of component malalignment or breakage. There is no fracture. Today we discussed early progress following reverse total shoulder arthroplasty. The arm may be used for all activities as tolerated within limits of pain. Sling use is optional. Postoperative pain medication should be transitioned to a regimen of Tylenol and ibuprofen if possible. Return to see me in 4 weeks with repeat imaging of the shoulder at that time, sooner if problems arise. Rhonda Erwin MD Shoulder AND Elbow Surgeon Department of Orthopaedic Surgery [facility] 02-02-2023 History of Present illness Narrative PAIN EVALUATION 02/02/2023 1331 Pain Level: 4 Pain Location: Shoulder-Left Description: Aching;Sore;Radiating Duration Amount of Time: 2 Duration Units: Weeks Frequency: Continuous Mindy Cantu comes in today for first postoperative visit following reverse total shoulder arthroplasty. Pain has been well controlled with medication. On exam the incision is healing with no surrounding erythema and no drainage. Sensation over the lateral deltoid is normal. There is a strong deltoid contraction to command. Range of motion testing today demonstrates mild discomfort with overhead and rotational testing appropriate for level of recovery. Radiographs taken of the shoulder today demonstrate expected position of reverse total shoulder arthroplasty components without any sign of component malalignment or breakage. There is no fracture. Today we discussed early progress following reverse total shoulder arthroplasty. The arm may be used for all activities as tolerated within limits of pain. Sling use is optional. Postoperative pain medication should be transitioned to a regimen of Tylenol and ibuprofen if possible. Return to see me in 4 weeks with repeat imaging of the shoulder at that time, sooner if problems arise. Rhonda Erwin MD Shoulder & Elbow Surgeon Department of Orthopaedic Surgery [facility] documented in this encounter [facility] [place] 01-31-2023 Note [facility] 01-31-2023 History of Present illness Narrative Episode Visit Count: 2 Therapist That Will Accept/Oversee The Plan Of Care: Adrianne Pacheco Start of Care Date: 01/27/23 Onset Date: 01/20/23 Plan of Care Certification Date: 01/27/23 Next Certification Due Date: 03/10/23 REHABILITATION AND SPORTS THERAPY PHYSICAL THERAPY TREATMENT NOTE ASSESSMENT: Mindy Cantu tolerated the session with expected muscle soreness and reduced swelling/bruising. She demonstrated difficulty with AAROM flexion and ER of the L shoulder which improved with repeated reps in the supine position. The patient will continue to benefit from ongoing skilled physical therapy to continue with post-operative protocol. PLAN FOR NEXT VISIT: Continue AAROM flexion and ER. Begin deltoid isometrics. SUBJECTIVE: Pt. reports that swelling down significantly since last visit. Believes therapy is going better on the left sholder than the right because she knows what to expect. Pain: Pain Pain Level: 3 Pain Location: Shoulder - Left Description: Aching Frequency: At rest Post Treatment Pain Post Treatment Pain Level: 3 Post Treatment Pain Location: Shoulder - Left OBJECTIVE MEASURES WITH LEVEL OF FUNCTION: UE AROM L Shoulder Flex: 95 Degrees (seated with carolann AAROM) TREATMENT: Therapeutic Exercise: 1: B scapular retractions 2x15 2: seated carolann PROM 2x10 L UE shoulder flexion, 1 sec hold 3: supine PROM should flexion 95 degrees 3 X 15 second hold 4: supine PROM L should ER at 45 ABD to 0 3 x 15 second hold 5: AAROM supine L shoulder ER at 45 abduction with cane 2 sets 15 reps one sec hold 6: AAROM supine L shoulder flexion with cane 2x15 one sec hold Skilled Intervention: Patient was educated in proper exercise technique and purpose for exercises. Skilled judgment was provided in selection of appropriate interventions. Provided written instruction for home exercise program to facilitate proper performance and compliance. Correct performance of therapeutic exercises was facilitated with verbal, visual, and tactile cuing. Education in use of heat and ice and parameters for each. Educated patient on rationale for performing exercises in regards to decreasing fatigue , increase ease of ADL, and ROM and function . Patient education as noted. Billing Therapeutic Exercise Treatment Minutes: 40 Total Treatment Time Minutes (timed/untimed): 40 Session Start Time : 1330 Session Stop Time : 1410 Adrianne Pacheco PT documented in this encounter [facility] [place] 01-27-2023 Note [facility] 01-27-2023 History of Present illness Narrative Episode Visit Count: 1 Therapist That Will Accept/Oversee The Plan Of Care: Adrianne Pacheco Start of Care Date: 01/27/23 Onset Date: 01/20/23 Plan of Care Certification Date: 01/27/23 Next Certification Due Date: 03/10/23 Patient Identified by Name and Date of : Yes REHABILITATION AND SPORTS THERAPY PHYSICAL THERAPY EVALUATION PLAN OF CARE: Assessment: Mindy Cantu presents with diagnosis of s/p reverse total shoulder arthroplasty that interferes with reaching behind back, reaching overhead, use hand with arm at shoulder level, carrying, weight bearing, bed mobility, pushing, pulling, gripping, dressing, cleaning, driving, cooking, grooming, sleeping, lifting . She presents with impairments in ADL's, independence in exercise, joint mobility, overall function, patient reported outcome measures, posture, range of motion, and symptom management. PROMIS (Patient-Reported Outcomes Measurement Information System) scores were reviewed and physical function domain and self efficacy domain identified as a rehabilitation concern. Prognosis for therapy is Good due to: positive past response to therapy, acuteness of condition, good overall health status, current objective clinical presentation, good support system/ coping skills, within-session changes . She will benefit from skilled therapy services to meet the goals established for this plan of care as noted below. Goals for Episode of Care: created on 01/27/23 through 03/24/23 [place] in home exercise program. Patient will decrease pain to 1-2/10 with functional activities to allow patient to improve tolerance for ADLs. Patient will increase active ROM of left shoulder forward elevation to 150 degrees or greater to allow pt to to improve performance of ADLs. Patient will demonstrate increase in left shoulder flexion, ER, IR, abduction strength to 4/5 during manual muscle testing in order to improve function for prior functional tasks. Patient will increase flexibility of left UT to equal unaffected extremity/side to improve ability to maintain proper posture. Improve postural awareness. Patient Goals: restore functional mobility and strength of LUE Planned Interventions, Frequency, and Duration: Current Frequency: 2x/week Duration: 8 weeks Total Number of Visits Planned: 16 Planned Treatment Interventions: Therapeutic exercise (32500), Neuromuscular re-education (66589), Manual therapy (53396), Therapeutic activities (94798), Self-senior living management (03132), Gait Training (33352) PLAN FOR NEXT VISIT: begin scapular isometrics, emphasis on deltoid, wand FE, ER, IR. continue carolann and PROM with PT FE and ER Patient demonstrates good understanding of plan of care and treatment. The above goals and plan of care were discussed and agreed upon by patient/family. SUBJECTIVE: for s/p L RTSA 01/20/23. Pt. recently completed PT for R RTSA and continues to report no pain on the right dominant side. Patient Goals: restore functional mobility and strength of LUE Functional Limitations: reaching behind back, reaching overhead, use hand with arm at shoulder level, carrying, weight bearing, bed mobility, pushing, pulling, gripping, dressing, cleaning, driving, cooking, grooming, sleeping, lifting Prior Level of Function: Independent without limitations Relevant History Right or Left Handed: Right Intake Information: Prescription present Previous Treatment: Surgery Falls Interview: No positive findings with falls interview Pain: Pain Pain Level: 4 Pain Location: Shoulder - Left Description: Aching Frequency: At rest Post Treatment Pain Post Treatment Pain Level: No Change Post Treatment Pain Location: Shoulder - Left PROMIS Scales Higher is Better 01/27/2023 12/23/2022 10/14/2022 Phys Func - Score 35 (moderate dysfunction) 41 (mild dysfunction) 36 (moderate dysfunction) Phys Func - Percentile 7 % 18 % 8 % Self-Eff Symptom - Score 41 (Average) 48 (Average) 38 (Low) Self-Eff Symptom - Percentile 18 % 42 % 12 % T-scores: mean of general population = 50. 5 points is clinically meaningfully difference Percentiles provide an indication of how the patient's score ranks in relation to the general population. Higher percentile rankings indicate better function/quality of life. 50th percentile is the average of the general population and indicates half of respondents had a worse score. OBJECTIVE MEASURES WITH LEVEL OF FUNCTION: Posture / Alignment Posture: Forward head, Increased thoracic kyphosis L Shoulder Alignment: Rounded shoulder, Humeral internal rotation Shoulder Observations L Shoulder Presents with: Swelling, Ecchymosis, Incision Sensation - Upper Extremity UE Light Touch Sensation: Grossly Intact UE PROM L Shoulder Flex: 90 Degrees L Shoulder External Rotation: 45 Degrees (at 0 abd.) UE Flexibility Flexibility: Upper Trapezius L Upper Trapezius Flexibility Comments: limited UE and Cervical Strength L UE Strength: NT post-op Education: Education Learning Preferences: Demonstration, Explanation, Performance, Printed Materials Barriers: Acuity of Illness Learning/educational needs: Plan of Care, Home exercise program, Posture Education Provided: Yes, see treatment interventions for education provided Education Provided To: Patient Education Mode/Type: Demonstration, Explanation/Discussion, Literature/Printed Materials, Performance Response to Education/Teach Back: States/Identifies, Return Demonstration TREATMENT: PT Treatment Interventions: Therapeutic Exercise, Self-Skilled Nursing Management Evaluation Therapeutic Exercise: 1: *B scapular retractions 2x15 2: *seated carolann PROM 2x10 L UE shoulder flexion, 1 sec hold 3: *supine FE 5x to 90 PROM L shoulder flexion 4: *supine PROM L shoulder ER to 45 at 0 abd 5x Skilled Intervention: Patient was educated in proper exercise technique and purpose for exercises. Skilled judgment was provided in selection of appropriate interventions. Provided written instruction for home exercise program to facilitate proper performance and compliance. Correct performance of therapeutic exercises was facilitated with verbal, visual, and tactile cuing. Educated patient on rationale for performing exercises in regards to decreasing fatigue , increase ease of ADL, and ROM and function . Patient education as noted. Self-Skilled Nursing Management: 1: *reviewed precautions 2: *discussed dc shoulder HEP exercises for the R shoulder that require both UEs Skilled Intervention: Skilled judgment in the selection of proper modification for activity of daily living/home management based on clinical presentation, deficits, and needs. Provided written instruction for activities of daily living techniques to facilitate proper performance and compliance. Reviewed patient specific diagnosis in relation to activities of daily living/home management. Activity progression based on professional judgement. Moderate verbal cues for maintaining neutral spine alignment. Provided written instruction for home program to facilitate proper performance and compliance. Correct performance of home program was facilitated with verbal, visual, and tactile cueing. Billing * Evaluation Low Complexity: 1 Unit Therapeutic Exercise Treatment Minutes: 15 Self-Care/Home Management Treatment Minutes: 10 Total Treatment Time Minutes (timed/untimed): 45 Session Start Time : 1315 Session Stop Time : 1400 Adrianne Pacheco PT documented in this encounter [facility] [place] 01-20-2023 Note HNO ID: [id number] Author: Esthela Landon APRN.CAPITAL PROJECT ENGINEER Service: Anesthesiology Author Type: Nurse Supervisor Building Maintenance Type: Anesthesia Procedure Notes Filed: 01/20/2023 8:09 AM Note Text: ANESTHESIOLOGY PROCEDURE NOTE Airway General Information Procedure Start Time/Medication Administration: 01/20/2023 7:43 AM Patient location during procedure: OR Timeout Performed Pre-procedure: timeout performed Consent Obtained: Yes Patient identity confirmed: arm band, care cylinder steamer and patient Staffing CAPITAL PROJECT ENGINEER: Esthela Landon APRN.CAPITAL PROJECT ENGINEER Performed by: SOLE Indications and Patient Condition Indications for airway management: anesthesia Preoxygenated: yes anesthesia circuit Patient position: sniffing Method: asleep Cricoid Pressure: No Manual In-Line Stabilization: No Difficult Mask: No Final Airway Details Final airway type: endotracheal airway Final Endotracheal Airway: ETT Cuffed: yes Successful intubation technique: direct laryngoscopy Endotracheal tube insertion site: oral Blade: Motta Blade size: #2 ETT size (mm): 7.0 Measured from: lips Measurement (cm): 21 Placement verified by: capnometry Cormack-Lehane Classification: grade I - full view of glottis Number of attempts at approach: 1 Failed airway: no Unrecognized esophageal intubation: no Airway not difficult SIGNATURE: Esthela Landon APRN.CAPITAL PROJECT ENGINEER PATIENT NAME: Mindy Cantu DATE: January 20, 2023 TIME: 8:09 AM CSN: [id number] [facility] 01-20-2023 Note HNO ID: [id number] Author: Juan A Piña DO Service: Anesthesiology Author Type: Physician Type: Anesthesia Procedure Notes Filed: 01/20/2023 8:08 AM Note Text: ANESTHESIOLOGY PROCEDURE NOTE Peripheral Nerve Block General Information Procedure Start Time/Medication Administration: 01/20/2023 7:33 AM Procedure End time: 01/20/2023 7:35 AM Patient location during procedure: OR Timeout Performed Pre-procedure: timeout performed Consent Obtained: Yes Patient identity confirmed: arm band, care cylinder steamer and patient Reason for block: post-op pain management/at surgeon's request Staffing Anesthesiologist: Juan A Piña DO Performed by: anesthesiologist Preparation Sterility Preparation: hand hygiene performed prior to procedure, sterile gloves, drapes, and procedure tray, surgical cap used, mask used, sterile drape used during line insertion, skin prep agent completely dried prior to procedure Site Prep: Chloraprep Pre-Procedure Neuro Exam Location: LUE Sensory: intact Motor: intact Procedure Details Patient Position: supine Monitoring: Pulse OX, EKG and NIBP Block Type Upper Extremity: brachial plexus Approach: interscalene Laterality: left Injection Technique: single-shot Ultrasound Guided: Yes Image in Chart: yes Local Infiltration: Yes Needle Needle Type: echogenic Needle Gauge: 21 G Needle Length: 100 mm Needle Localization: ultrasound and anatomical landmarks Assessment Injection assessment: negative aspiration, no paresthesia on injection, incremental injection and local visualized surrounding nerve on ultrasound Paresthesia: none Post-Procedure Neuro Exam Expected Regional Anesthesia: Yes Medications Administered ropivacaine (PF) 5 mg/mL (0.5 %) injection (NAROPIN) - peripheral nerve block 15 mL - 01/20/2023 7:33:00 AM dexamethasone sodium phosphate injection (DECADRON) - peripheral nerve block 4 mg - 01/20/2023 7:33:00 AM Comments Patient tolerated procedure well without any apparent complications. Aspiration negative prior to injection. SIGNATURE: Juan A Piña DO PATIENT NAME: Mindy Cantu DATE: January 20, 2023 TIME: 8:07 AM CSN: [id number] [facility] 01-18-2023 Note HNO ID: [id number] Author: Rhonda Erwin MD Service: ? Author Type: Physician Type: Progress Notes Filed: 01/18/2023 11:20 AM Note Text: PAIN EVALUATION 01/10/2023 1402 Pain Level: 0 great pain 3/10 Description: Sore Frequency: Intermittent Encounter Diagnosis ICD-10-CM 1. Primary osteoarthritis of left shoulder M19.012 2. 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 She is here to discuss her upcoming surgery. She has been doing very well with recovery from the right shoulder. On exam today right shoulder is doing very well with good mobility and strength. Left shoulder continues to demonstrate pain and weakness with any attempted lifting and rotating the arm with restriction and crepitation with all movement. I reviewed radiographs of her right shoulder taken in the office at today's visit showing stable appearance of her reverse arthroplasty. Also reviewed previous radiographs of the left shoulder showing end-stage osteoarthritis with loss of joint space and sclerosis and significant osteophyte formation on the inferior humeral head. We discussed both shoulders today. Right shoulder is doing very well following reverse arthroplasty. She has questions about the left shoulder. We discussed the timing of surgery today and we will make arrangements for her. Rhonda Erwin MD Shoulder AND Elbow Surgeon Department of Orthopaedic Surgery [facility] 01-18-2023 History of Present illness Narrative Images from the original note were not included. PAIN EVALUATION 01/10/2023 1402 Pain Level: 0 great pain 08/19 Description: Sore Frequency: Intermittent Encounter Diagnosis ICD-10-CM 1. Primary osteoarthritis of left shoulder M19.012 2. 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 She is here to discuss her upcoming surgery. She has been doing very well with recovery from the right shoulder. On exam today right shoulder is doing very well with good mobility and strength. Left shoulder continues to demonstrate pain and weakness with any attempted lifting and rotating the arm with restriction and crepitation with all movement. I reviewed radiographs of her right shoulder taken in the office at today's visit showing stable appearance of her reverse arthroplasty. Also reviewed previous radiographs of the left shoulder showing end-stage osteoarthritis with loss of joint space and sclerosis and significant osteophyte formation on the inferior humeral head. We discussed both shoulders today. Right shoulder is doing very well following reverse arthroplasty. She has questions about the left shoulder. We discussed the timing of surgery today and we will make arrangements for her. Rhonda Erwin MD Shoulder & Elbow Surgeon Department of Orthopaedic Surgery [facility] REVIEW OF SYSTEMS: GENERAL: Well developed, well nourished. No acute distress PAIN: Negative for pain, history of chronic pain or current treatment for chronic pain conditions CARDIOVASCULAR: Negative for chest pain, leg swelling and palpations. MSK: Negative for joint swelling SKIN: Negative for lesions, rash, itching, metal sensitivity NEURO: Negative for seizure, trauma, numbness/tingling of extremities. ENDOCRINE: Negative for diabetic associated symptoms HEMATOLOGY: Negative for excessive bleeding, clots, bleeding disorders. documented in this encounter [facility] 01-13-2023 Note [facility] 01-13-2023 History of Present illness Narrative Episode Visit Count: 24 Therapist That Will Accept/Oversee The Plan Of Care: Adrianne Pacheco Start of Care Date: 10/14/22 Onset Date: 10/07/22 Plan of Care Certification Date: 12/09/22 Next Certification Due Date: 01/13/23 REHABILITATION AND SPORTS THERAPY PHYSICAL THERAPY DISCONTINUANCE OF CARE PLAN OF CARE UPDATE: Assessment: Mindy Cantu is discontinued from Physical Therapy services due to goal achievement.. Patient was seen for 24 visits from Start of Care Date: 10/14/22 to 01/13/2023 and treatment included: Therapeutic exercise, Neuromuscular re-education, Manual therapy, and Self-senior living management. Goals for Episode of Care: created on 10/14/22 through 12/09/22 Goals updated on 11/10/2022 through 12/15/22 Goals updated on 12/09/2022 through 01/13/23 Goals updated on 01/13/2023. [place] in home exercise program. -- MET Patient will decrease pain to 1-2/10 with functional activities to allow patient to improve tolerance for ADLs. -- MET Patient will increase active ROM of R shoulder forward flexion and scaption 160 or greater to allow pt to to improve performance of ADLs. -- MET Patient will demonstrate increase in R shoulder flexion, abduction, ER, IR, and extension strength to 4/5 during manual muscle testing in order to improve function for prior functional tasks.-- MET Perform dressing with decreased report of symptoms/pain in 8 weeks. -- MET Improve postural awareness. -- MET Patient Goals: ADLs with dominant RUE as PLOF -- MET SUBJECTIVE: Right shoulder has no pain, she continues to have pain with certain movements in the left shoulder. RTSA for the left shoulder scheduled a week from today per pt. report.. Patient Goals: ADLs with dominant RUE as PLOF Pain: Pain Pain Level: 0 Pain Location: Shoulder - Right Additional Pain Information : Location 2 Pain Level 2: 3 Pain Location 2: Shoulder - Left Post Treatment Pain Post Treatment Pain Level: No Change Post Treatment Pain Location: Shoulder - Right Post Treatment Pain Score 2: No Change Post Treatment Pain Location 2: Shoulder - Left PROMIS Scales Higher is Better 12/23/2022 10/14/2022 Phys Func - Score 41 (mild dysfunction) 36 (moderate dysfunction) Phys Func - Percentile 18 % 8 % Self-Eff Symptom - Score 48 (Average) 38 (Low) Self-Eff Symptom - Percentile 42 % 12 % T-scores: mean of general population = 50. 5 points is clinically meaningfully difference Percentiles provide an indication of how the patient's score ranks in relation to the general population. Higher percentile rankings indicate better function/quality of life. 50th percentile is the average of the general population and indicates half of respondents had a worse score. OBJECTIVE MEASURES WITH LEVEL OF FUNCTION: UE AROM R Shoulder Flex: 167 Degrees R Shoulder ABduction: 175 Degrees R Shoulder Internal Rotation (Functional): L3 R Shoulder External Rotation (Functional): C7 TREATMENT: Therapeutic Exercise: 1: standing R shoulder extension 1x10, 5 sec hold 2: standing R shoulder AAROM flexion 1x10, 5 sec hold 3: standing R shoulder abd wand 1x10, 5 sec hold 4: standing R shoulder 0 abd, ER AAROM wand 1x10, 5 sec hold 5: standing B shoulder IR with wand 1x10, 5 sec hold 6: standing #1 DB R shoulder flexion 2x5 7: standing #2 DB R shoulder flexion 1x5 8: standing #2 DB R shoulder scaption 1x5 -- unable to complete 9: standing #1 DB R shoulder abduction to 90 degrees 2x8 -- unable to complete 10: standing #2 DB R shoulder scaption to 90 degrees 1x5-- unable to complete 11: standing #1 DB R shoulder abduction to 180 degrees 2x5 -- unable to complete 12: prone R shoulder extension 3x10, #1 DB Skilled Intervention: Patient was educated in proper exercise technique and purpose for exercises. Skilled judgment was provided in selection of appropriate interventions. Correct performance of therapeutic exercises was facilitated with verbal, visual, and tactile cuing. Educated patient on rationale for performing exercises in regards to decreasing fatigue , increase ease of ADL, and ROM and function . Patient education as noted. Self-Skilled Nursing Management: 1: *discussed that HEP will need to be modfied to the right shoulder exercises only immediately following surgery for the left shoudler -- left shoulder will be progressed per physician's protocol Skilled Intervention: Skilled judgment in the selection of proper modification for activity of daily living/home management based on clinical presentation, deficits, and needs. Provided written instruction for activities of daily living techniques to facilitate proper performance and compliance. Reviewed patient specific diagnosis in relation to activities of daily living/home management. Activity progression based on professional judgement. Reviewed and educated patient on additions/changes for home program as noted above with an (*). Billing Therapeutic Exercise Treatment Minutes: 35 Self-Care/Home Management Treatment Minutes: 5 Total Treatment Time Minutes (timed/untimed): 40 Session Start Time : 1100 Session Stop Time : 1140 Adrianne Pacheco PT documented in this encounter [facility] [place] 01-12-2023 Note [facility] 01-12-2023 Note [facility] 01-12-2023 History of Present illness Narrative CC: Patient presents with: Pre-Op Exam: surgery on left shoulder 01/20/23 at [facility] Surgeon: Dr. Erwin Type of surgery: Reverse total left athroplasty Patient scheduled for surgery on 01/20/23. Diagnosis: Primary osteoarthritis of left shoulder Had reverse total R athroplasty in 10/02 LATEX ALLERGY: Yes Medication and allergies reviewed. HISTORY: Von Willebrand Disease-last seen by Dr. Stein in 2018 prior to cholecystectomy. Had normal blood work at the time. Pretreatment was not indicated, and patient tolerated the procedure well without complications. In the past, she did have 2 prior surgeries many years ago that resulted in large hematomas. Patient states she was told by orthopedist that she does not require preoperative clearance by hematology. Denies any easy bruising, abnormal bleeding, dark sticky stools/melena, hematochezia, hematuria, abnormal vaginal bleeding,. Bronchiectasis/MAC infection: Dx of bronchiectasis in 2018 after having bilateral pneumonia. 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 Basically chronic colonizer without acute infection. 3 weeks after R shoulder surgery (which was in 10/02), patient ended up in the ER with worsening shoulder pain and had shoulder XR and CT chest - which showed worsening lung disease (bronchiectasis, chronic infiltrate, and nodularity involving the right lung), so she was advised to have repeat CT in 3 months. She then had it performed again at 2 months, as she was told she needed to get it done prior to upcoming shoulder surgery. Has pending sputum cultures, for which pt will see pulm next month. Officially received documentation today from pulmonology clearing her for shoulder replacement. PVCS/Palpitations: Followed by cardio through [facility]. Extensive cardiac workup in 07/04 - and was told her heart was that of a 56 year old. Last visit with them in 10/02, and expressed no reservations regarding R shoulder replacement that she had in 10/02. Will see cardio back in 07/05. PATIENT CAN PERFORM THE FOLLOWING: Participate in moderate recreational activities, such as golf, bowling, dancing, doubles tennis, or throwing a baseball or football (6.00 METs) 1. Diabetes: None 2. Hypertension requiring medication: No 3. Congestive Heart Failure: No 4. Current Smoker within 1 Year: No 5. History of COPD: Bronchiectasis- see above re: pulmonary clearance 6. History of CHUNG: No 7. Dialysis: No Preoperative Review of Systems, (A-H) negative: No abnormal bleeding or bruising, no allergies, no corticosteroid use. No diabetes. No personal or family hx of embolic dse. No family hx of anesthesia reactions. No glaucoma and no hepatitis or HIV. In past 6 months, has had no chest pain, palpatations, or SOB. Exercise tolerance is good and could easily carry bag of groceries up 1 flight of stairs. 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 RESP:+ dyspnea at exertion d/t bronchiectasis but no changes from baseline CARD: Patient denies any recent CT, angina, arrhythmias, or valvular disease, and Denies h/o DVT or PE. GI: Patient denies any hx of PUD, liver problems or ETOH abuse., Patient denies any history of IBD, IBS, colitis, colorectal cancer, or diarrheal states. : No history of disease. RENAL: Denies history of renal insufficiency., Has a cyst and a stone that don't cause any issues ENDO: no history of diabetes, no history of thyroid problems, no history of steroid use HEME: See HPI PSYCHIATRIC: denies history of psychiatric illness and denies eating disorders, denies a history of abuse ANESTHESIA COMPLICATIONS: no reported complications PAST SURGICAL HISTORY: S/P cholecystectomy - 2017, [id number], R shoulder 10/02 3 trigger finger rocedures PAST MEDICAL HISTORY Diagnosis Date Bronchiectasis (HCC) Depression (emotion) GERD (gastroesophageal reflux disease) Hiatal hernia Need for prophylactic hormone replacement therapy (postmenopausal) ESTROPIATE 0.625 Osteoarthritis Pneumonia 04/2018 Von Willebrand's disease (HCC) 2002 PAST SURGICAL HISTORY Procedure Laterality Date COLONOSCOPY INCISE FINGER TENDON SHEATH Left 05/09/2018 Left ring trigger finger release and prior multiple LAPAROSCOPY SURG CHOLECYSTECTOMY 06/13/2018 Cholecystectomy, lap PAST SURGICAL HISTORY OF trigger finger relase x3 SKIN BX, 1 LESION 2001 AT PELVIC AREA. TOTAL ABDOMINAL HYSTERECT W/WO RMVL TUBE OVARY Hysterectomy, CHAKA left oophorectomy for fibroids ALLERGIES Latex, Penicillins, and Sulfabenzamide MEDICATIONS cyclobenzaprine (FLEXERIL) 10 mg tablet^Take 1 tablet by mouth three times daily as needed for muscle spasm or pain.^Disp: 42 tablet^Rfl: 2 diphenhydrAMINE HCl (CHILDREN'S BENADRYL ALLERGY) 12.5 mg chewable tablet^Take 12.5 mg by mouth at bedtime as needed for sedation.^Disp: ^Rfl: ondansetron orally disintegrating (ZOFRAN ODT) 4 mg disintegrating tablet^Take 1 tablet by mouth every 8 hours as needed for nausea/vomiting.^Disp: 20 tablet^Rfl: 1 docusate sodium (COLACE) 100 mg capsule^Take 1 capsule by mouth twice daily.^Disp: 30 capsule^Rfl: 0 (Patient taking differently: Take 100 mg by mouth as needed.) guaiFENesin (MUCINEX) 600 mg 12 hr tablet^Take 1 tablet by mouth once daily.^Disp: ^Rfl: sertraline (ZOLOFT) 50 mg tablet^75 mg.^Disp: 90 tablet^Rfl: 3 dilTIAZem CD (CARDIZEM CD, CARTIA XT) 120 mg 24 hr capsule^Take 1 capsule by mouth once daily.^Disp: ^Rfl: VENTOLIN HFA 90 mcg/actuation inhaler^^Disp: ^Rfl: COLLAGEN MISC^^Disp: ^Rfl: BIOTIN, BULK, MISC^^Disp: ^Rfl: acetaminophen (TYLENOL) 500 mg tablet^Take 500 mg by mouth every 8 hours as needed.^Disp: ^Rfl: turm/ging/mera/yuc/basil/shailesh/hor (TUMERSAID ORAL)^Take 500 mg by mouth twice daily. ^Disp: ^Rfl: DAILY MULTI-VITAMIN ORAL^Take 1 tablet by mouth once daily.^Disp: ^Rfl: Calcium Carb-Cholecalciferol (CALCIUM 600 + D(3)) 600 (1,500)-200 mg-unit ORAL Tab^Take one(1) tablet twice daily.^Disp: 0^Rfl: 0 VITAMIN C 1,000 MG TAB^Take one(1) tablet daily.^Disp: ^Rfl: 0 FAMILY HISTORY Problem Relation Age of Onset Alzheimer's Disease Mother Heart Attack Mother Cancer Father Right pneumonectomy, 12 year survival. Hypertension Father Stroke Maternal Grandfather Cancer Maternal Grandmother bone cancer COPD Brother Cancer Brother kidney cancer Aneurysm Brother brain Social History Tobacco Use Smoking status: Never Smokeless tobacco: Never Tobacco comments: Father smoked in childhood home. Vaping Use Vaping Use: Never used Substance Use Topics Alcohol use: Not Currently Drug use: No PHYSICAL EXAM BP 140/84 (BP Site: Right Arm, BP Position: Sitting, BP Cuff Size: Regular Adult) Pulse 85 Temp 36.1 C (97 F) Resp 12 Ht 149.9 cm (4' 11 ) Wt 44 kg (97 lb) SpO2 98% BMI 19.59 kg/m PHYSICAL EXAM: GENERAL: Healthy, alert, no distress, cooperative, Smiling SKIN: Skin color, texture, turgor normal. No rashes or lesions. HEENT: moist mucus membranes. JVD: No jugulovenous distention, Supple, No thyromegaly CARDIAC: Normal S1 and S2; no rubs, murmurs, or gallops LUNGS: Lungs clear to auscultation, Good diaphragmatic excursion ABDOMEN: Abdomen soft, non-tender, BS normal, No masses or organomegaly EXTREMITIES: Extremities normal, no deformities, edema, clubbing or skin discoloration. Good capillary refill. NEURO: Gait normal. No focal neurological deficits sensation grossly intact EKG: Date: 09/16/2022 results: Sinus rhythm with frequent PVCs, possible left atrial enlargement - ASSESSMENT/PLAN: 1. Primary osteoarthritis of left shoulder - ICD9: 715.11, ICD10: M19.012 (primary diagnosis) Mindy Cantu is a 72 year old female functional class of I-II Patient has no clinical predictors of increased perioperative cardiovascular risk. Patient is scheduled for a low-risk procedure. Recent CBC, CMP, TSH all WNL Patient has the following medical conditions: Bronchiectasis- cleared by pulm Von Willebrand's disease-CBC WNL, hematology referral deemed not necessary by orthopedist during previous total shoulder Frequent PVCs/palpitations-complete cardiac clearance performed 10/02, following extensive cardiac testing 07/04 OLVIN risk: Patient is scheduled for a low-risk procedure. Risk of 0.0% calculated using the NSQIP surgical risk calculator The patient is CLEARED for surgery Patient's with estimated risk of 1 percent or higher may need additional cardiac testing unless METS > or = to 4 2. Preoperative clearance - ICD9: V72.84, ICD10: Z01.818 See above Potential red flag symptoms discussed with the patient. Reviewed appropriate action plan to take if red flag symptoms occur. Patient agreeable to treatment plan. 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 Abdominal findings as described above. Comparison: CT chest on 07/11/2022 RESULT: Limitations: None. Lines, tubes, and devices: None. Lung parenchyma and airways: The central airways are patent. Triangular consolidative opacities demonstrated in the right middle lobe and lingula, with bronchiectasis and volume loss. Cluster of centrilobular nodules with or without calcifications seen in the right upper lobe and right lower lobe. There is bronchiectasis in the right lower lobe with mucoid impaction. No new consolidations. No masses. Pleural space: No pleural effusion. No pleural thickening. Lower neck, lymph nodes, and mediastinum: The imaged thyroid gland is normal. No lymphadenopathy in the supraclavicular, axillary, mediastinal, or hilar regions. Heart, pericardium, and thoracic vessels: The thoracic aorta and main pulmonary artery are normal in caliber. The cardiac chambers are normal in size. No coronary artery atherosclerotic calcifications are noted, although the study is not optimized for coronary assessment. There is trace pericardial effusion or thickening. Bones and soft tissues: Stable chest wall soft tissue. The spine shows mild degenerative changes. Interval right shoulder arthroplasty. Upper abdomen: Limited study through the upper abdomen demonstrates a 2 mm left renal calculus. There is a partially visualized low-attenuation lesion or cyst in the left kidney. 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 Sputum culture with AFB pending. If positive for mycobacterium will require 2 positive AFB sputums to make a decision to treat. If patient is asymptomatic, will hold off on treatment and proceed with watchful waiting. Patient may proceed with planned orthopedic surgery. She is encouraged to use mucus clearance techniques pre and post op, including, Mucinex and Acapella device. Yessi Fine PA-C documented in this encounter [facility] [place] 01-10-2023 Note HNO ID: [id number] Author: Adal Willett Tech Service: ? Author Type: Soft Boarder Type: Progress Notes Filed: 01/18/2023 11:20 AM Note Text: REVIEW OF SYSTEMS: GENERAL: Well developed, well nourished. No acute distress PAIN: Negative for pain, history of chronic pain or current treatment for chronic pain conditions CARDIOVASCULAR: Negative for chest pain, leg swelling and palpations. MSK: Negative for joint swelling SKIN: Negative for lesions, rash, itching, metal sensitivity NEURO: Negative for seizure, trauma, numbness/tingling of extremities. ENDOCRINE: Negative for diabetic associated symptoms HEMATOLOGY: Negative for excessive bleeding, clots, bleeding disorders. [facility] 01-10-2023 Note [facility] 01-10-2023 History of Present illness Narrative Episode Visit Count: 23 Therapist That Will Accept/Oversee The Plan Of Care: Adrianne Pacheco Start of Care Date: 10/14/22 Onset Date: 10/07/22 Plan of Care Certification Date: 12/09/22 Next Certification Due Date: 01/13/23 [facility]ERAPY PHYSICAL THERAPY TREATMENT NOTE ASSESSMENT: Mindy Cantu tolerated the session with fatigue and expected muscle soreness. She demonstrated difficulty with ER stabilization strengthening when attempted using pink theraband with the R shoulder, however she is able to complete through full ROM with yellow band. Mid rows and B shoulder extension was progressed to pink band resistance. The patient will continue to benefit from ongoing skilled physical therapy to progress toward set goals. PLAN FOR NEXT VISIT: PN next visit SUBJECTIVE: Patient Reason for Visit: L shoulder is more sore today. Continues to have no pain in the right shoulder. Patient Goals: ADLs with dominant RUE as PLOF Pain: Pain Pain Level: 0 Pain Location: Shoulder - Right Additional Pain Information : Location 2 Pain Level 2: 3 Pain Location 2: Shoulder - Left Post Treatment Pain Post Treatment Pain Level: No Change Post Treatment Pain Location: Shoulder - Right Post Treatment Pain Score 2: No Change Post Treatment Pain Location 2: Shoulder - Left OBJECTIVE MEASURES WITH LEVEL OF FUNCTION: TREATMENT: Therapeutic Exercise: 1: standing R wand AAROM flexion, scaption 1x10 each, 5 sec hold progressing to endrange dorsal hand in contact with wall 2: standing R UE wall crawls 2x10 (pt. not fatigued.) 3: standing wand R shoulder AAROM abd 5 sec hold at endrange 1x10 4: R shoulder ER and IR with pink elastic band, 1x12 each - dc due to unable to complete through full ROM 5: R shoulder ER and IR 2x12 each, yellow elastic band 6: B scapular mid rows 2x12 pink elastic band 7: B shoulder ext 2x12 pink elastic band 8: standing B shoulder ER isometric with yellow band at 0 abd 3x30 sec, 2x/day 9: B shoulder IR AAROM with wand 1x10, 5 sec hold each 10: towel R shoulder IR stretch with LUE assist, 5x10 sec (demonstrates IR R shoulder to L4-L5 central spinous process) 11: #1 DB hold overhead flexion 1x30 sec 12: #1 DB ER 90, abd 90 hold 1x30 sec Skilled Intervention: Patient was educated in proper exercise technique and purpose for exercises. Skilled judgment was provided in selection of appropriate interventions. Correct performance of therapeutic exercises was facilitated with verbal, visual, and tactile cuing. Educated patient on rationale for performing exercises in regards to decreasing fatigue , increase ease of ADL, and ROM and function . Patient education as noted. Neuromuscular Re-Education: 1: body blade R shoulder at side 3x30 sec 2: body blade R shoulder IR/ER 3x30 sec (cues to avoid movement of the distal joints) Skilled Intervention: Skilled judgment used to assess appropriate program for balance and coordination activity. Education in proprioceptive/kinesthetic awareness during body blade with R shoulder. Reviewed and educated patient on additions/changes for home program as noted above with an (*). Patient education as noted. Billing Therapeutic Exercise Treatment Minutes: 32 Neuromuscular Re-Education Treatment Minutes: 8 Total Treatment Time Minutes (timed/untimed): 40 Session Start Time : 854 Session Stop Time : 834 Adrianne Pacheco PT documented in this encounter [facility] [place] 01-06-2023 Note [facility] 01-06-2023 History of Present illness Narrative Episode Visit Count: 22 Therapist That Will Accept/Oversee The Plan Of Care: Adrianne Pacheco Start of Care Date: 10/14/22 Onset Date: 10/07/22 Plan of Care Certification Date: 12/09/22 Next Certification Due Date: 01/13/23 REHABILITATION AND SPORTS THERAPY PHYSICAL THERAPY TREATMENT NOTE ASSESSMENT: Mindy Cantu tolerated the session with decreased symptoms. She demonstrated difficulty with B shoulder ER isometric and concentric strengthening exercises with yellow theraband. She reported reduced L shoulder pain following B shoulder ER isometric with yellow band. The patient will continue to benefit from ongoing skilled physical therapy to progress toward set goals. PLAN FOR NEXT VISIT: Continue stabilization strengthening in ranges as tolerated, modify for the L shoulder. DC R shoulder 01/13/23 SUBJECTIVE: Patient Reason for Visit: Only 3/10 left shoulder pain. Pt. will have L RTSA 01/20/23. Pain: Pain Pain Level: 0 Pain Location: Shoulder - Right Description: Sore Additional Pain Information : Location 2 Pain Level 2: 3 Pain Location 2: Shoulder - Left Post Treatment Pain Post Treatment Pain Level: 0 Post Treatment Pain Location: Shoulder - Right Post Treatment Pain Score 2: (better) Post Treatment Pain Location 2: Shoulder - Left OBJECTIVE MEASURES WITH LEVEL OF FUNCTION: TREATMENT: Therapeutic Exercise: 1: supine wand press 1x20 2: supine wand B shoulder flexion 1x20, 1-2 sec hold 3: supine wand B ER alt 1x20 4: supine wand B shoulder scaption 1x7, 1-2 sec hold dc due to L shoulder unable to tolerate 5: biceps stretch at wall 3x30 sec each side 6: seated B shoulder flexion wand hold 10x10 sec 7: seated B shoulder scaption wand hold 10x10 sec 8: *seated B shoulder ER isometric with yellow band at 0 abd 3x30 sec, 2x/day 9: seated YTB B shoulder ER 2x10 10: seated B scapular circles forward and reverse 1x20 each direction 11: *yellow band issued Skilled Intervention: Patient was educated in proper exercise technique and purpose for exercises. Skilled judgment was provided in selection of appropriate interventions. Correct performance of therapeutic exercises was facilitated with verbal, visual, and tactile cuing. Educated patient on rationale for performing exercises in regards to decreasing fatigue , increase ease of ADL, and ROM and function . Patient education as noted. Billing Therapeutic Exercise Treatment Minutes: 40 Total Treatment Time Minutes (timed/untimed): 40 Session Start Time : 904 Session Stop Time : 944 Adrianne Pacheco PT documented in this encounter [facility] [place] 01-03-2023 Note [facility] 01-02-2023 Note [facility] 12-30-2022 Note [facility] 12-28-2022 History and physical note Images from the original note were not included. HISTORY AND PHYSICAL EXAMINATION SERVICE DATE: 12/26/2022 SERVICE TIME: 9:41 AM PRIMARY CARE PHYSICIAN: Christ Solorio MD REASON FOR VISIT: Mnidy Cantu is a 72 year old female who is scheduled for Procedure(s): REVERSE TOTAL LEFT SHOULDER ARTHROPLASTY (Left) at the request of Dr. Rhonda Erwin for consultation. My final recommendation will be communicated back to the requesting physician by way of shared medical record or letter. Subjective The patient has the following: ACTIVE PROBLEM LIST RHINITIS ALLERGIC, DUE TO POLLEN Osteopenia Depression Bronchiectasis Without Complication (Hcc) S/P Reverse Total Shoulder Arthroplasty, Right Aneurysm of Splenic Artery (Hcc) Palpitations Von Willebrand Disease (Hcc) Underweight COVID-19 Immunization Status Postponed - COVID-19 VACCINE (5 - Moderna series) Postponed until 05/09/2023 05/09/2022 Postponed until 05/09/2023 by Sandra Morales APRN.BUDGET OFFICER (Declined at this time) 11/05/2021 Imm Admin: COVID-19 original vaccine, full dose, monovalent (MODERNA) 04/14/2021 Imm Admin: COVID-19 original vaccine, full dose, monovalent (MODERNA) Only the first 3 history entries have been loaded, but more history exists. CHIEF COMPLAINT: Pre-anesthesia optimization HPI: Mindy Cantu is a 72 year old female presenting for pre-anesthesia consultation. Pt has history of shoulder pain, had right shoulder replaced earlier this year. Reports difficulty with movement and sleeping. Above procedure recommended to manage symptoms. Procedure scheduled on 01/20/2023 at [place]. REVIEW OF SYSTEMS: General: No weight loss, malaise or fevers. 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 No neurological symptoms or problems. Respiratory: + allergic rhinitis, + Bronchiectasis- follows with Dr. Balbuena, uses pulm vest daily for phlegm Positive for: COPD and dyspnea (chronic, stable, exertional). Negative for: asthma, current cough, tobacco use, URI < 2 weeks and obstructive sleep apnea. Cardiovascular: + aneurysm of the splenic artery Positive for: arrhythmia (palpitations) Negative for: atrial fibrillation, CAD, chest pain, DVT/PE, hyperlipidemia, hypertension and murmur/valvular heart disease. GI: Positive for: GERD (+ hiatal hernia) Negative for: dysphagia, irritable bowel syndrome, inflammatory bowel disease, liver disease and ETOH >2 drinks/day. : Positive for: nocturia >1 time per night (2+). Negative for: dysuria, frequent urination, urinary incontinence, nephrolithiasis, urgency and urinary tract infection. BIRD TRAPPER: S/p hysterectomy Endocrine: No history of diabetes. Has not taken steroids within the past 30 days. No history of endocrinological symptoms or problems. Hematology: Positive for: bruises/bleeds easily and von Willebrand disease (dx in 's due to retroperitoneal hematoma after hyster, hematology work up negative). Oncology: + pre-melanoma on chest. No history of CA metastasis, chemo within 30 days, or radiotherapy within 90 days. No history of oncological symptoms or problems. Psych: Positive for: depression. Negative for: anxiety. Musculoskeletal: See HPI. Positive for: back pain (neck pain, relates to shoulders). Skin: Negative for lesions, rash and itching. PAST MEDICAL HISTORY Diagnosis Date Bronchiectasis (HCC) Depression (emotion) GERD (gastroesophageal reflux disease) Hiatal hernia Need for prophylactic hormone replacement therapy (postmenopausal) ESTROPIATE 0.625 Osteoarthritis Pneumonia 04/2018 Von Willebrand's disease (HCC) 2002 PAST SURGICAL HISTORY Procedure Laterality Date COLONOSCOPY INCISE FINGER TENDON SHEATH Left 05/09/2018 Left ring trigger finger release and prior multiple LAPAROSCOPY SURG CHOLECYSTECTOMY 06/13/2018 Cholecystectomy, lap PAST SURGICAL HISTORY OF trigger finger relase x3 SKIN BX, 1 LESION 2000 AT PELVIC AREA. TOTAL ABDOMINAL HYSTERECT W/WO RMVL TUBE OVARY Hysterectomy, CHAKA left oophorectomy for fibroids FAMILY HISTORY Problem Relation Age of Onset Alzheimer's Disease Mother Heart Attack Mother Cancer Father Right pneumonectomy, 12 year survival. Hypertension Father Stroke Maternal Grandfather Cancer Maternal Grandmother bone cancer COPD Brother Cancer Brother kidney cancer Aneurysm Brother brain Social History Tobacco Use Smoking status: Never Smokeless tobacco: Never Tobacco comments: Father smoked in childhood home. Vaping Use Vaping Use: Never used Substance Use Topics Alcohol use: Not Currently Drug use: No Prior to Admission medications as of 12/28/22 0838 Medication Sig Last Dose Taking diphenhydrAMINE HCl (CHILDREN'S BENADRYL ALLERGY) 12.5 mg chewable tablet Take 12.5 mg by mouth at bedtime as needed for sedation. Taking Yes ondansetron orally disintegrating (ZOFRAN ODT) 4 mg disintegrating tablet Take 1 tablet by mouth every 8 hours as needed for nausea/vomiting. Taking Yes docusate sodium (COLACE) 100 mg capsule Take 1 capsule by mouth twice daily. Patient taking differently: Take 100 mg by mouth as needed. Taking Yes guaiFENesin (MUCINEX) 600 mg 12 hr tablet Take 1 tablet by mouth once daily. Taking Yes sertraline (ZOLOFT) 50 mg tablet 75 mg. Taking Yes dilTIAZem CD (CARDIZEM CD, CARTIA XT) 120 mg 24 hr capsule Take 1 capsule by mouth once daily. Taking Yes COLLAGEN MISC Taking Yes BIOTIN, BULK, MISC Taking Yes acetaminophen (TYLENOL) 500 mg tablet Take 500 mg by mouth every 8 hours as needed. Taking Yes turm/ging/mera/yuc/basil/shailesh/hor (TUMERSAID ORAL) Take 500 mg by mouth twice daily. Taking Yes DAILY MULTI-VITAMIN ORAL Take 1 tablet by mouth once daily. Taking Yes Calcium Carb-Cholecalciferol (CALCIUM 600 + D(3)) 600 (1,500)-200 mg-unit ORAL Tab Take one(1) tablet twice daily. Taking Yes VITAMIN C 1,000 MG TAB Take one(1) tablet daily. Taking Yes VENTOLIN HFA 90 mcg/actuation inhaler inhale 2 puffs by mouth and INTO THE LUNGS every 4 hours if needed for wheezing (WITH SPACER) Patient not taking: Reported on 12/28/2022 Not Taking Medication Comments documented by Layla Lewis MD on 12/24/2010 at 1542. ALLERGIES Allergen Reactions Latex Rash Dermatitis rash Penicillins Rash Sulfabenzamide Rash Objective PHYSICAL EXAM: General: alert and oriented and healthy appearance. Pertinent negatives noted - not distressed. Skin: normal color, no rash or lesions. HEENT: EOM intact and pupils equal round. Pertinent negatives noted - no carotid bruit. Cardiovascular: Pulse characterized as irregular.Pertinent negatives noted - no murmur, no rub and no gallop. Respiratory: normal breath sounds, no wheezes or crackles. No chest wall deformity or tenderness. Abdomen: soft. Pertinent negatives noted - not tender. Extremities: no deformity, no edema or tenderness, no joint swelling or clubbing. Neurological: normal cognition and motor skills. Gait normal. No weakness or sensory deficit. PAIN ASSESSMENT: Pain Pain Level: 3 Pain Location: Shoulder-Left Description: Sharp (rubbing) Duration Units: Years Frequency: Intermittent (with movement) Intervention/Comfort measure: Medication VITALS: BP 118/64 Pulse 87 Temp (Src) 98 (Temporal) Resp 14 Ht 4' 11 (1.50m) Wt 95 lb (43.1kg) SpO2 98% BMI 19.18 kg/(m^2). Diagnostic tests reviewed for today's visit: Lab Value Units Date High Low HB 13.8 g/dL 11/07/2022 15.5 11.5 HCT 41.7 % 11/07/2022 46.0 36.0 WBC 8.00 k/uL 11/07/2022 11.00 3.70 PLT 480 k/uL 11/07/2022 400 150 NA 138 mmol/L 11/07/2022 144 136 K 4.2 mmol/L 11/07/2022 5.1 3.7 GLUC 96 mg/dL 11/07/2022 99 74 BUN 9 mg/dL 11/07/2022 21 7 CREAT 0.50 mg/dL 11/07/2022 0.96 0.58 PTSEC 10.8 sec 09/16/2022 13.0 9.7 INR 1.0 no uni* 09/16/2022 1.3 0.9 APTT 29.9 sec 09/16/2022 32.4 23.0 ALT 25 U/L 09/16/2022 38 7 AST 31 U/L 09/16/2022 35 13 TBILI 0.5 mg/dL 09/16/2022 1.3 0.2 TSH No results within date range. Lab Value Units Date High Low HCGQT No results within date range. UHCG No results within date range. HCG, BODY* No results within date range. Lab Value Units Date High Low ABORHD No results within date range. ABSCREEN No results within date range. No results found for: HBA1C Recent Results (from the past 8760 hour(s)) ECG COMPLETE Collection Time: 09/16/22 12:33 PM Result Value Ventricular Rate 84 Atrial Rate 84 P-R Interval 182 QRS Duration 100 QT Interval 372 QTC Calculation (Bazett) 439 Calculated P Orlando 53 Calculated R Orlando 50 Calculated T Orlando 58 Impression SINUS RHYTHM WITH FREQUENT PREMATURE VENTRICULAR COMPLEXES POSSIBLE LEFT ATRIAL ENLARGEMENT BORDERLINE ECG Confirmed by FERN CRUMP D.O. ([id number]) on 09/28/2022 4:21:22 PM Recent Results (from the past 53619 hour(s)) ECHO Collection Time: 04/26/22 1:45 PM Impression CONCLUSIONS: - Technically difficult exam due to body habitus. - Exam indication: Palpitations - The left ventricle is small. Left ventricular systolic function is normal. EF = 65 5% (2D 4-ch.) Grade I left ventricular diastolic dysfunction. - The right ventricle was not well visualized, on limited views there appears to be normal function. - There are no significant valvular abnormalities. - There is a trivial pericardial effusion noted of no hemodynamic consequence. - Exam was compared with the prior echocardiographic exam performed on 05/22/2018. There has been no significant change. * * * Final * * * Assessment Patient has the following medical conditions which may affect jordy-operative course: Aneurysm of splenic artery (HCC) Assessment: monitored by CT, last was 05/29, 1.9cm in diameter Bronchiectasis without complication (HCC) Assessment: follows with Dr. Balbuena, has CT scheduled 01/02 to monitor. Will follow. No inhalers, uses pulmonary vest daily. CTAB Depression Assessment: Stable on RX. Denies concerning symptoms Palpitations Assessment: Follows with [facility]. BRITTNEY 09/15/22. Stable on RX, echo 07/04, ekg 09/16/22 Von Willebrand disease (HCC) Assessment: history of significant bleeding or bruising with surgery or trauma. Had work up in (per patient report) and dx with mild vWd. States had work up with hematology in 2018 and was told work up was negative. Reports that Dr. Erwin is aware and did additional injections to help with clotting during last shoulder surgery (tranexamic acid per anesthesia report). Did not require blood transfusion. Underweight Assessment: Body mass index is 19.19 kg/m . Pichardo Activity Status Index: METS: Climb a flight of stairs or walk up a hill (5.50 METs) DASI Score: 5.5 Patient denies any chest pain or undue shortness of breath with the above physical activity. Clinical Frailty Scale: 3. Well, with treated comorbid disease STOP-Bang Score: Snores loudly Patient over 50 years old Denies feeling tired, fatigued, or sleepy during the daytime Has not been observed to stop breathing or choking/gasping during sleep Denies having high blood pressure BMI less than or equal to 35 kg/m^2 Does not have a large neck Non-male patient STOP-Bang Score: 2 [id number] Score: Age: 65-74 Sex: female CHF history: No Stroke/TIA/thromboembolism history: No Vascular disease history: No Diabetes history: No [id number] Score: 2 ARISCAT Score: Age: 51-80 Preoperative SpO2: >=96% Respiratory infection in the last month: No Preoperative anemia: Yes Surgical incision: peripheral Duration of surgery: 2-3 hrs Emergency procedure: No ARISCAT Score: 30 ASA Class: 3 ANESTHESIA FINDINGS: Intubation History: No history of difficult intubation. No abnormal airway history Significant Anesthesia Considerations: corneal abrasion after surgery none Airway History: No history of difficult airway No abnormal airway history 10/07/22: I - PHYSICAL EVALUATION AIRWAY Patient intubated: No. Tracheostomy tube not present Mallampati: II. TM distance: >3 FB. Neck ROM: full ROM without neurological symptoms. Mouth opening: adequate. Short neck: no. Thick neck: no Lip Bite Test: I DENTAL Additional comments: Permanent bridge. II - ANESTHESIA PLAN ASA Score: 3 Anesthetic Plan: general Beta Ronald Monitoring Plan Post Procedure Analgesic Plan Prepared for Surgery: optimally prepared for surgery, pending [see comment]. Labs, CT chest 01/02 CONSULTS: Patient does not require consults for optimization at this time Planned Anesthetic: general The Following Tests/Procedures Have Been Initiated: No orders of the defined types were placed in this encounter. Instructions Given to Patient: Instructions located in the after visit summary. Patient given verbal and written preop instructions and voices comprehension and compliance. SIGNATURE: Dipti Hodges PA-C PATIENT NAME: Mindy Cantu DATE: December 26, 2022 TIME: 2:26 PM PAGER/CONTACT #: documented in this encounter [facility] [place] 12-28-2022 Instructions Dipti Hodges PA-C - 12/28/2022 8:37 AM EDT PATIENT PREOPERATIVE INSTRUCTIONS Rhonda Erwin,* has scheduled you for your procedure at this surgery center: [facility]: [phone] -- [address] [facility] [address] [address]. Please read below carefully for your personalized instructions. Arrival Time for Surgery: - The Surgery Center or hospital where you are having surgery will call the afternoon before surgery (or Monday for Monday surgery) with a scheduled arrival time. - If you have not heard by 4 pm, please contact the surgery center above. Please be aware that emergency situations arise, which may delay or change your surgical time. If this happens, we will notify you as soon as possible and regret any inconvenience. Dietary Restrictions: - No solid food after midnight. - You may have 12 ounces of clear liquids (water, clear juices such as apple juice or gatorade, carbonated beverages, clear tea, black coffee, jello) until 2 hours before scheduled arrival at facility. - Do not drink any alcohol after midnight the night before your surgery. Medications: Unless instructed differently below, stay on all of your medications until your surgery. Approved medications to take the morning of surgery with a sip of water: sertraline (ZOLOFT), diltiazem CD (CARDIZEM CD, CARTIA XT) If you start any new medications after today's visit, please contact the surgeon's office. Blood Thinning Medications: - Stop NSAIDS (Ibuprofen, Advil, Aleve, Motrin, Celebrex, Mobic, etc.) 7 days before surgery, as directed by your surgeon. - Stop Aspirin 7 days before surgery, as directed by your surgeon. - Stop Vitamin E, ALL multi-vitamins, herbals and dietary supplements 7 days before surgery. - You may take Tylenol (Acetaminophen) or any of your pain medications that do not contain aspirin or NSAIDS as needed. Important Reminders: - If you use CPAP/BIPAP, bring the machine with you to the surgery center. - If you are prescribed inhalers for breathing, continue using them. - Candy, mints, and tobacco products are NOT permitted the morning of surgery. - Hearing aids, dentures and glasses may be worn the morning of surgery. - NO jewelry, body piercings, makeup, hairpins or contacts are to be worn the day of surgery. If you develop symptoms such as a fever, cold, or flu, or have other changes to your health within TWO DAYS of scheduled surgery or the morning of surgery, please contact the surgery center above. Personal Belongings: -Please have photo ID and insurance cards. -If you do not have a copy of advance directives on file with us, please bring a copy with you on the day of surgery. - Leave ALL valuables and money at home or with family members. For Outpatient Procedures: - YOU MUST HAVE A RESPONSIBLE WARP TIER TAKE YOU HOME. A HOME CARE NURSE OR SECURITY INTELLIGENCE ANALYST CANNOT BE MADE A RESPONSIBLE WARP TIER. - We recommend that a responsible person stays with you overnight to take care of you. - You cannot stay in a hotel alone after outpatient surgery. You will not be permitted to have your surgery, if you do not have someone to take care of you. If you already have an Advance Directive, please fax a copy to [phone] or email to for it to be added to your chart. If you do not have an Advance Directive, you can find the appropriate form and more information at [email or web address]. We recommend that you complete the Advance Directive form found on the website and bring it with you the day of your surgery. It can be witnessed and scanned into your chart that day. Dipti Hodges PA-C documented in this encounter [facility] [place] 12-27-2022 Note [facility] 12-27-2022 History of Present illness Narrative Episode Visit Count: 19 Therapist That Will Accept/Oversee The Plan Of Care: Adrianne Pacheco Start of Care Date: 10/14/22 Onset Date: 10/07/22 Plan of Care Certification Date: 12/09/22 Next Certification Due Date: 01/13/23 REHABILITATION AND SPORTS THERAPY PHYSICAL THERAPY TREATMENT NOTE ASSESSMENT: Mindy Cantu tolerated the session with expected muscle soreness. She demonstrated improvements in left shoulder AAROM tolerance and able to complete through full ROM with wand in the supine position as compared to the seated or standing position. Similar presentation when TIY B shoulder dumbell strengthening exercises were also modified to the supine positions was observed. The patient will continue to benefit from ongoing skilled physical therapy to progress toward set goals. PLAN FOR NEXT VISIT: continue strengthening B shoulders, modify for the left shoulder as needed to avoid increased pain. Consider progressing to a pink theraband. SUBJECTIVE: Patient Reason for Visit: Pt. thinks PT exercises have been improving her left shoulder and that she is in better shape for L shoulder surgery. Pt. states that she often forgets she had a bum right shoulder. She has soreness with increased activity or attempting to lifft/carrying something heavier. Patient Goals: ADLs with dominant RUE as PLOF Functional Limitations: lifting, use hand with arm at shoulder level, reaching behind back, carrying, gripping, sleeping Pain: Pain Pain Level: 2 Pain Location: Shoulder - Right Description: Sore Pain Level 2: 3 Pain Location 2: Shoulder - Left Description 2: Aching Post Treatment Pain Post Treatment Pain Level: 0 Post Treatment Pain Location: Shoulder - Right OBJECTIVE MEASURES WITH LEVEL OF FUNCTION: TREATMENT: Therapeutic Exercise: 1: magnum erg attempted unable to tolerate 2: supine wand B shoulder flexion to 180 - tolerates well 2x10 3: supine wand B shoulder scaption to 180 - tolerates well 2x10 4: supine wand alt B UE shoulder ER/IR 1x20 5: supine wand press 1x20 6: standing wand B shoulder extension 1x20 7: supine BUE press with DB #1 2x10 8: supine B shoulder flexion, #1 DBs 2x10 9: supine B shoulder scaption #1 DBs 2x10 10: supine B shoulder abduction to 90 degrees #1 DBs 2x10 (limited due to L shoulder weakness - denies pain limiting her mobility) 11: R SL, left shoulder ER AROM to neutral at 0 abd 2x10 (tactile cues for correct technqiue) 12: seated R shoulder ER AROM at 0 abd 2x10 (completes without pain) 13: seated YTB B shoulder ER at 0 abd 2x10 14: seated YTB B shoulder ER hold at 0 abd 3x30 sec Skilled Intervention: Patient was educated in proper exercise technique and purpose for exercises. Reviewed and educated patient on additions/changes for home exercise program as above (*). Skilled judgment was provided in selection of appropriate interventions. Provided written instruction for home exercise program to facilitate proper performance and compliance. Correct performance of therapeutic exercises was facilitated with verbal, visual, and tactile cuing. Educated patient on rationale for performing exercises in regards to decreasing fatigue , increase ease of ADL, and ROM and function . Patient education as noted. Billing Therapeutic Exercise Treatment Minutes: 40 Total Treatment Time Minutes (timed/untimed): 40 Adrianne Pacheco PT documented in this encounter [facility] [place] 12-23-2022 Note [facility] 12-23-2022 History of Present illness Narrative Episode Visit Count: 18 Therapist That Will Accept/Oversee The Plan Of Care: Adrianne Pacheco Start of Care Date: 10/14/22 Onset Date: 10/07/22 Plan of Care Certification Date: 12/09/22 Next Certification Due Date: 01/13/23 REHABILITATION AND SPORTS THERAPY PHYSICAL THERAPY TREATMENT NOTE ASSESSMENT: Mindy Cantu tolerated the session with decreased symptoms. She demonstrated difficulty with L shoulder elevation >90 degrees, but was able to complete a high volume of reps to 90 degrees of elevation with #1 DB suggesting improved L shoulder strength. She is able to complete R shoulder elevation through full 180 scaption and flexion using #1 DB. She continues to have trouble with AROM abduction R shoulder with #1 DB but can complete with increased rest between reps. The patient will continue to benefit from ongoing skilled physical therapy to progress toward set goals. PLAN FOR NEXT VISIT: Continue strengthening RUE through full AROM. Stabilization strengthening at ranges as tolerated with increased resistance BUE SUBJECTIVE: Patient Reason for Visit: L shoulder continues to have crepitus but pt. states I just go with it. She notices improved strength of the R shoulder. Pain: Pain Pain Level: 0 Pain Location: Shoulder - Right Pain Level 2: 1 Pain Location 2: Shoulder - Left Post Treatment Pain Post Treatment Pain Level: 0 Post Treatment Pain Location: Shoulder - Right Post Treatment Symptoms: fatigued OBJECTIVE MEASURES WITH LEVEL OF FUNCTION: TREATMENT: Therapeutic Exercise: 1: magnum erg 3 min fwd/3 min rev level 0, 1:1 throughout, subjective taken 2: wall alphabet R UE 1x through with towel (overhead) 3: *standing B shoulder TIY to 90 degrees with #1 DB 2x20 each, 1x/day (unable to AROM LUE >90 degrees of elevation in each plane) 4: wall alphabet L UE 1x through with towel (at <90 degrees of elevation) 5: *standing R shoulder TIY to 180 degrees with #1 DB 2x10 each (1x/day) 6: standing B bicep curls with #1 DBs 2x10 Skilled Intervention: Patient was educated in proper exercise technique and purpose for exercises. Skilled judgment was provided in selection of appropriate interventions. Correct performance of therapeutic exercises was facilitated with verbal, visual, and tactile cuing. Educated patient on rationale for performing exercises in regards to decreasing fatigue , increase ease of ADL, and ROM and function . Patient education as noted. Billing Therapeutic Exercise Treatment Minutes: 40 Total Treatment Time Minutes (timed/untimed): 40 Adrianne Pacheco PT documented in this encounter [facility] [place] 12-21-2022 Note [facility] 12-21-2022 History of Present illness Narrative Episode Visit Count: 17 Therapist That Will Accept/Oversee The Plan Of Care: Adrianne Pacheco Start of Care Date: 10/14/22 Onset Date: 10/07/22 Plan of Care Certification Date: 12/09/22 Next Certification Due Date: 01/13/23 REHABILITATION AND SPORTS THERAPY PHYSICAL THERAPY TREATMENT NOTE ASSESSMENT: Mindy Cantu tolerated the session with decreased symptoms. She demonstrated improvements in IR AAROM using wand following IR strengthening with yellow theraband. Pt. Did require cues to avoid trunk rotation with IR. The patient will continue to benefit from ongoing skilled physical therapy to progress toward set goals. Current Frequency: 2x/week Duration: 5 weeks PLAN FOR NEXT VISIT: Continue PT until Pt. has surgery LUE SUBJECTIVE: Patient Reason for Visit: L shoulder continues to be painful but she notices improved ROM. She knows that it will take time to strengthen the RUE. Patient Goals: ADLs with dominant RUE as PLOF Functional Limitations: lifting, use hand with arm at shoulder level, reaching behind back, carrying, gripping, sleeping Pain: Pain Pain Level: 0 Pain Location: Shoulder - Right Pain Location 2: Shoulder - Left Post Treatment Pain Post Treatment Pain Level: Better Post Treatment Pain Location: Shoulder - Right Post Treatment Symptoms: I feel loosened up. OBJECTIVE MEASURES WITH LEVEL OF FUNCTION: TREATMENT: Therapeutic Exercise: 1: B shoulder IR with wand 3x10 10 sec 2: wand IR alt each shoulder side to side behind the back 3x10 3: yellow band IR R shoulder 3x12 (max cues for technique, tactile cues at trunk to avoid rotation) 4: IR AROM at 0 abd without resistance 2x15 5: standing carolann IR AAROM R shoulder R PSIS to R TVP ~L4-L5 2x10 6: alt thoracic rotation lift offs 2x5 each side (limited elevation LUE due to pain, emphasis on thoracic rotation) 7: body blade IR/ER 3x30 sec each shoulder 8: body blade forward and back at chest, B shoulders 3x30 sec 9: body blade at waist, held horizontal 3x30 sec 10: tricep pull down with hoist 1x12 plate 1 + 1 small round 11: tricep pull down with hoist 2x10 plate 1 + 2 small round (requires much encouragement to complete through full AROM) 12: seated hoist scap rows plate 1 + 1 small round 2x10 Skilled Intervention: Patient was educated in proper exercise technique and purpose for exercises. Reviewed and educated patient on additions/changes for home exercise program as above (*). Skilled judgment was provided in selection of appropriate interventions. Correct performance of therapeutic exercises was facilitated with verbal, visual, and tactile cuing. Educated patient on rationale for performing exercises in regards to decreasing fatigue , increase ease of ADL, and ROM and function . Patient education as noted. Billing Therapeutic Exercise Treatment Minutes: 55 Total Treatment Time Minutes (timed/untimed): 55 Adrianne Pacheco PT documented in this encounter [facility] [place] 12-19-2022 Note [facility] 12-14-2022 Note [facility] 12-14-2022 History of Present illness Narrative Episode Visit Count: 16 Therapist That Will Accept/Oversee The Plan Of Care: Adrianne Pacheco Start of Care Date: 10/14/22 Onset Date: 10/07/22 Plan of Care Certification Date: 12/09/22 Next Certification Due Date: 01/13/23 REHABILITATION AND SPORTS THERAPY PHYSICAL THERAPY TREATMENT NOTE ASSESSMENT: Mindy Cantu tolerated the session with expected muscle soreness. She demonstrated improvements in correct technique with using the body blade when given instruction to complete with reducing crystallographer and shorter AROM. She continues to have left shoulder pain with elevation and requires some modifications for strengthening exercises to strengthening the right shoulder without increasing left shoulder pain. The patient will continue to benefit from ongoing skilled physical therapy to progress toward set goals. PLAN FOR NEXT VISIT: continue functional strengthening SUBJECTIVE: Patient Reason for Visit: L shoulder continues to bother her more. She is able to sleep on the right side, Reports 90% improvement overall of the right shoulder. She just continues to notice improved strenghtening. Pain: Pain Pain Location: Shoulder - Right Pain Location 2: Shoulder - Left Post Treatment Pain Post Treatment Pain Location: Shoulder - Right OBJECTIVE MEASURES WITH LEVEL OF FUNCTION: TREATMENT: Therapeutic Exercise: 1: seated pully IR, unable to tolerate due to left shoulder limited elevation 2: standing B shoulder IR with wand 2x10, 5 sec hold each 3: standing B shoulder ext with wand 2x10, 5 sec hold each 4: ABC on wall, R shoulder, full AROM 26 letters 5: R shoulder overhead flexion hold 5x10 sec hold 6: ball on the wall, 0 abd 30 sec CW, 30 sec CCW 2 sets, each shoulder 7: body blade IR/ER 3x30 sec R shoulder 8: body blade forward and back at chest, B shoulders 3x30 sec 9: R shoulder single arm OH press #1 ball 2x5 reps (L shoulder painful- attempted but not completed) 10: R biceps curls with #1 ball 2x5 Skilled Intervention: Patient was educated in proper exercise technique and purpose for exercises. Reviewed and educated patient on additions/changes for home exercise program as above (*). Skilled judgment was provided in selection of appropriate interventions. Correct performance of therapeutic exercises was facilitated with verbal, visual, and tactile cuing. Educated patient on rationale for performing exercises in regards to decreasing fatigue , increase ease of ADL, and ROM and function . Patient education as noted. Billing Therapeutic Exercise Treatment Minutes: 40 Total Treatment Time Minutes (timed/untimed): 40 Adrianne Pacheco PT documented in this encounter [facility] [place] 12-09-2022 Note [facility] 12-09-2022 History of Present illness Narrative Episode Visit Count: 15 Therapist That Will Accept/Oversee The Plan Of Care: Adrianne Pacheco Start of Care Date: 10/14/22 Onset Date: 10/07/22 Plan of Care Certification Date: 12/09/22 Next Certification Due Date: 01/13/23 REHABILITATION AND SPORTS THERAPY PHYSICAL THERAPY PROGRESS REPORT PLAN OF CARE UPDATE: Assessment: Mindy Cantu demonstrates improvements in reaching overhead, use hand with arm at shoulder level, driving, cleaning, cooking, dressing, grooming, pulling, and pushing. She has progressed toward goals. Patient continues to present with impairments in ADL's, flexibility, independence in exercise, joint mobility, overall function, patient reported outcome measures, posture, range of motion, strength, symptom management, and tissue tenderness that interfere with lifting, use hand with arm at shoulder level, reaching behind back, carrying, gripping, sleeping . Current prognosis is Good due to: current objective clinical presentation . She will benefit from continued skilled therapy services to meet the updated goals for this plan of care as noted below. Goals for Episode of Care: created on 10/14/22 through 12/09/22 Goals updated on 11/10/2022 through 12/15/22 Goals updated on 12/09/2022 through 01/13/23 [place] in home exercise program. -- MET Patient will decrease pain to 1-2/10 with functional activities to allow patient to improve tolerance for ADLs. -- PROGRESSING Patient will increase active ROM of R shoulder forward flexion and scaption 160 or greater to allow pt to to improve performance of ADLs. -- MET Patient will demonstrate increase in R shoulder flexion, abduction, ER, IR, and extension strength to 4/5 during manual muscle testing in order to improve function for prior functional tasks.-- PROGRESSING Perform dressing with decreased report of symptoms/pain in 8 weeks. -- PROGRESSING, must modify due to due to left shoulder pain (denies R shoulder pain with UE dressing and applying deodorant.) Improve postural awareness. -- MET Patient Goals: ADLs with dominant RUE as PLOF -- PROGRESSING, continues to have trouble with lifting Patient Goals: ADLs with dominant RUE as PLOF Planned Interventions, Frequency, and Duration: 2x/week, 5 weeks Total Number of Visits Planned: 10 Patient to be seen for Therapeutic exercise (60446), Neuromuscular re-education (26636), Manual therapy (08565), Therapeutic activities (22112), Self-senior living management (18754), Gait Training (27968), Patient/Family/Caregiver Education PLAN FOR NEXT VISIT: continue scapular strengthening as tolerated. Modify as needed to avoid increased L shoulder pain SUBJECTIVE: Patient Reason for Visit: Pt. reports soreness following her last visit. She notices much more soreness on Fridays as compared to wednesdays due to less recovery time between visits.. Patient Goals: ADLs with dominant RUE as PLOF Functional Limitations: lifting, use hand with arm at shoulder level, reaching behind back, carrying, gripping, sleeping Pain: Pain Pain Level: 3 Pain Location: Shoulder - Right Description: Sore Pain Location 2: Shoulder - Left Post Treatment Pain Post Treatment Pain Level: 0 Post Treatment Pain Location: Shoulder - Right PROMIS Scales Higher is Better 10/14/2022 Phys Func - Score 36 (moderate dysfunction) Phys Func - Percentile 8 % Self-Eff Symptom - Score 38 (Low) Self-Eff Symptom - Percentile 12 % T-scores: mean of general population = 50. 5 points is clinically meaningfully difference Percentiles provide an indication of how the patient's score ranks in relation to the general population. Higher percentile rankings indicate better function/quality of life. 50th percentile is the average of the general population and indicates half of respondents had a worse score. OBJECTIVE MEASURES WITH LEVEL OF FUNCTION: UE AROM R Shoulder Flex: 170 Degrees R Shoulder ABduction: 141 Degrees (improved mobility in the frontal plane) R Shoulder Internal Rotation (Functional): R PSIS R Shoulder External Rotation (Functional): 3rd MCP at C7 spinous process UE PROM R Shoulder Flex: 150 Degrees (seated carolann AAROM - requires tactile cue for scapulohumeral rhythm) UE and Cervical Strength Strength Tested: Scapula, Shoulder Functional Strength R Shoulder Flexion: 3+/5 R Shoulder Abduction (C5): 3/5 R Shoulder Internal Rotation: 3/5 R Shoulder External Rotation: 3-/5 R Serratus Anterior: 4-/5 TREATMENT: Therapeutic Exercise: 1: seated carolann flexion, scaption, and abduction 1x10 each, 10 sec hold 2: wand AAROM supine flexion and scaption 1x10 each (scapulohumeral rhythm demonstration provided with scapula model) 3: standing AROM flexion, scaption, and abduction 1x5, measurements taken 4: AROM ER and IR 1x each R shoulder funcitonal reach measurement 5: AAROM wand ER 1x10, 10 sec hold 6: AAROM wand IR 2x10, 10 sec hold -- AROM improved to 3rd MC of the R hand to the L5 central spinous process (hands closer together on 2nd set) 7: AROM prone R shoulder flexion 1x5 - dc due to complaints of L shoulder pain. Skilled Intervention: Patient was educated in proper exercise technique and purpose for exercises. Reviewed and educated patient on additions/changes for home exercise program as above (*). Skilled judgment was provided in selection of appropriate interventions. Correct performance of therapeutic exercises was facilitated with verbal, visual, and tactile cuing. Additional time necessary for assessing progress toward goals due to PN today. Educated patient on rationale for performing exercises in regards to decreasing fatigue , increase ease of ADL, and ROM and function . Patient education as noted. Billing Therapeutic Exercise Treatment Minutes: 40 Total Treatment Time Minutes (timed/untimed): 40 Adrianne Pacheco PT documented in this encounter [facility] [place] 12-07-2022 Note [facility] 12-07-2022 History of Present illness Narrative Episode Visit Count: 14 Therapist That Will Accept/Oversee The Plan Of Care: Adrianne Pacheco Start of Care Date: 10/14/22 Onset Date: 10/07/22 Plan of Care Certification Date: 11/10/22 Next Certification Due Date: 12/15/22 REHABILITATION AND SPORTS THERAPY PHYSICAL THERAPY TREATMENT NOTE ASSESSMENT: Mindy Cantu tolerated the session with fatigue. She demonstrated improvements in R shoulder elevation AROM. She continues to have limited tolerance with wand AAROM L shoulder elevation, therefore R shoulder AAROM wand exercises are modified. Requires cues to fully elevate the right shoulder, she is able to do so without increased symptoms, just reports of tightness. The patient will continue to benefit from ongoing skilled physical therapy to progress toward set goals. PLAN FOR NEXT VISIT: PN Monday SUBJECTIVE: Patient Reason for Visit: Pt. reports that the left shoulder may be a little better. She even states that she feels that she could manage her left shoulder pain for some time if she had to. Her biceps stretch continues to be effective for reducing right anterior shoulder soreness. Pain: Pain Pain Level: 0 Pain Location: Shoulder - Right Pain Level 2: 3 Pain Location 2: Shoulder - Left Post Treatment Pain Post Treatment Pain Location: Shoulder - Right OBJECTIVE MEASURES WITH LEVEL OF FUNCTION: UE AROM R Shoulder Flex: 156 Degrees R Shoulder ABduction: 158 Degrees R Shoulder Internal Rotation (Functional): R PSIS R Shoulder External Rotation (Functional): 3rd MCP at C7 spinous process TREATMENT: Therapeutic Exercise: 1: seated wand AAROM R shoulder flexion and scaption with wand 1x10, 10 sec hold each (cues to fully extend the elbow) 2: seated wand AAROM R & L shoulder ER 2x10 each side, tactile cues for correct technique and for towel placement at medial R elbow 3: standing wand B shoulder IR 2x10 4: standing wand B shoulder extension AAROM 2x10 ( my shoulders are loosening up. ) 5: facing wall R shoulder arcs 2x5 with towel on wall (tactile cues for scapulohumeral rhythm, improved with verbal cues to relax and move the shoulder blade with the shoulder. ) 6: AROM R shoulder abd arcs 1x10 7: AROM R shoulder flex arcs 1x10 8: AROM right shoulder flexion to 90 degrees #1 DB 1x5 9: AROM right shoulder abd to 90 degrees #1 DB 1x5 Skilled Intervention: Patient was educated in proper exercise technique and purpose for exercises. Reviewed and educated patient on additions/changes for home exercise program as above (*). Skilled judgment was provided in selection of appropriate interventions. Provided written instruction for home exercise program to facilitate proper performance and compliance. Correct performance of therapeutic exercises was facilitated with verbal, visual, and tactile cuing. Educated patient on rationale for performing exercises in regards to decreasing fatigue , increase ease of ADL, and ROM and function . Patient education as noted. Billing Therapeutic Exercise Treatment Minutes: 40 Total Treatment Time Minutes (timed/untimed): 40 Adrianne Pacheco PT documented in this encounter [facility] [place] 12-02-2022 Note [facility] 12-02-2022 History of Present illness Narrative Episode Visit Count: 13 Therapist That Will Accept/Oversee The Plan Of Care: Adrianne Pacheco Start of Care Date: 10/14/22 Onset Date: 10/07/22 Plan of Care Certification Date: 11/10/22 Next Certification Due Date: 12/15/22 REHABILITATION AND SPORTS THERAPY PHYSICAL THERAPY TREATMENT NOTE ASSESSMENT: Mindy Cantu tolerated the session with expected muscle soreness. She demonstrated improvements in scapulohumeral rhythm following manual scapulothoracic mobilizations in side lying. This translated to less symptoms with right shoulder elevation. Pt. Continues to have limited tolerance with left shoulder elevation, but demonstrates improved mobility/strength. The patient will continue to benefit from ongoing skilled physical therapy to progress toward set goals. PLAN FOR NEXT VISIT: Continue progressing R shoulder elevation TIY without resistance, but add reps SUBJECTIVE: Patient Reason for Visit: HEP is more challenging with strengthening exercises, she has some stiffness in the bilateral neck this am. Pain: Pain Pain Level: 0 Pain Location: Shoulder - Right Pain Location 2: Shoulder - Left Post Treatment Pain Post Treatment Pain Level: 0 Post Treatment Pain Location: Shoulder - Right Post Treatment Symptoms: much better, my right shoulder feels lower. OBJECTIVE MEASURES WITH LEVEL OF FUNCTION: TREATMENT: Therapeutic Exercise: 1: seated scapular circles forward and reverse 2x15 each direction 2: thoracic rotation and reach back on wall 2x10 each side 3: seated carolann FE 1x5 each shoulder, 10 sec hold, tactile cues at scapula for scapulohumeral rhythem 4: wall FE to abd arc slides with tactile assistance for scapulohumeral rhythm, 2x8 each side (crepitus palpated L shoulder, pt. feels looser after this exercise.) 5: B shoulder FE to 90 degrees elevation 1x8 (tactile cues to avoid B scapular elevation) 6: B shoulder FE to 130 degrees of elevation (tactile cues to avoid B scapular elevation) 7: R shoulder FE to full AROM with tactile cues to avoid scapular elevation 1x8 8: R shoulder ABCs with scapulohumeral rhythm, A-Z 9: seated B shoulder FE with #1 DB TIY 1x8 (no weight Rx'd for home. Increase reps to 10-12) Skilled Intervention: Patient was educated in proper exercise technique and purpose for exercises. Skilled judgment was provided in selection of appropriate interventions. Correct performance of therapeutic exercises was facilitated with verbal, visual, and tactile cuing. Educated patient on rationale for performing exercises in regards to decreasing fatigue , increase ease of ADL, and ROM and function . Patient education as noted. Manual Therapy: Joint Mobilizations: Body Region Treated, Patient Position, Joint, Grade, Repetitions Body Region Treated: scapulothoracic Patient Position: L SL Joint: R scapula on R ribs Grade: depression and upward rotation mobilization with PROM of R shoulder elevation Repetitions: 2x10 elevation/depression mobs, medial and lateral glides 2x10, 3x10 mobilization with movement Skilled Intervention: Manual skills to improve joint mobility, ROM, and decrease pain. Utilized anatomy knowledge of the therapist, and assessment of patient's response to intervention. Billing Therapeutic Exercise Treatment Minutes: 30 Manual TherapyTreatment Minutes: 8 Total Treatment Time Minutes (timed/untimed): 38 Adrianne Pacheco PT documented in this encounter [facility] [place] 11-30-2022 Note [facility] 11-30-2022 History of Present illness Narrative Episode Visit Count: 12 Therapist That Will Accept/Oversee The Plan Of Care: Adrianne Pacheco Start of Care Date: 10/14/22 Onset Date: 10/07/22 Plan of Care Certification Date: 11/10/22 Next Certification Due Date: 12/15/22 REHABILITATION AND SPORTS THERAPY PHYSICAL THERAPY TREATMENT NOTE ASSESSMENT: Mindy Cantu tolerated the session with decreased symptoms. She demonstrated improvements in strength of right and left shoulders with YTB ER and IR resistance exercises. The patient will continue to benefit from ongoing skilled physical therapy to progress toward set goals. PLAN FOR NEXT VISIT: continue progressive scapular strengthening. TIY without resistance, scapulohumeral rhythm NMRE SUBJECTIVE: Patient Reason for Visit: Right shoulder continues to improve daily. The left shoulder is getting stronger. Compliant with HEP. Pain: Pain Pain Level: 0 Pain Location: Shoulder - Right Description: Sore Additional Pain Information : Location 2 Pain Level 2: ( not as bad today ) Pain Location 2: Shoulder - Left Post Treatment Pain Post Treatment Pain Level: No Change Post Treatment Pain Location: Shoulder - Right Post Treatment Symptoms: soreness in the bilateral biceps following TIY OBJECTIVE MEASURES WITH LEVEL OF FUNCTION: TREATMENT: Therapeutic Exercise: 1: seated carolann 1x10 each side, hold 5 seconds 2: IR and ER YTB 2x12 each UE, each direction 3: wand AAROM ER each shoulder 2x10 4: B biceps curls #1 DB 2x12 5: wand biceps stretch 3x30 sec each side 6: standing B TIY to 90 with #1 DBs BUE 2x8 each, tactile cues for scpaulohumeral rhythm (limited AROM due to L shoulder pain, mirror for visual feed back) 9: B wand IR AAROM 2x5 pull up behind the back Skilled Intervention: Patient was educated in proper exercise technique and purpose for exercises. Reviewed and educated patient on additions/changes for home exercise program as above (*). Provided written instruction for home exercise program to facilitate proper performance and compliance. Correct performance of therapeutic exercises was facilitated with verbal, visual, and tactile cuing. Educated patient on rationale for performing exercises in regards to decreasing fatigue , increase ease of ADL, and ROM and function . Patient education as noted. Billing Therapeutic Exercise Treatment Minutes: 38 Total Treatment Time Minutes (timed/untimed): 38 Adrianne Pacheco PT documented in this encounter [facility] [place] 11-29-2022 Note HNO ID: [id number] Author: Adriana Franco PA-C Service: ? Author Type: Physician Parts Specialist Type: Progress Notes Filed: 11/29/2022 2:39 PM Note Text: Adriana Franco PA-C Department of Orthopaedics November 29, 2022 SURGERY: Reverse total shoulder arthroplasty - right SUBJECTIVE: Returns to clinic now 6 weeks status post the above procedure. Progressing with PT. Has had some worsening lung symptoms since her surgery. She was seen in the emergency room and CT of chest and shoulder performed which showed enlarging regions of endobronchial nodularity . She was prescribed Flexeril, which helped the spasms. These are no longer happening. Exam: Well healed anterior incision. Active forward elevation to 150. Strong deltoid contraction against resistance. Nontender along scapular spine or acromion. Imaging: I did order and interpret radiographs today, 3 views right shoulder. Reverse total shoulder arthroplasty intact without evidence of mechanical loosening or periprosthetic fracture. 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 Continue to use arm for activity as tolerates. Recheck in 6 weeks with repeat xrays of shoulder at that time. She is scheduled for her left reverse total shoulder arthroplasty on 01/20/2023. Recommend she have the follow-up CT of her chest prior to that to ensure she is okay to undergo general anesthesia. Adriana Franco PA-C [facility] 11-29-2022 History of Present illness Narrative Adriana Franco PA-C Department of Orthopaedics November 29, 2022 SURGERY: Reverse total shoulder arthroplasty - right SUBJECTIVE: Returns to clinic now 6 weeks status post the above procedure. Progressing with PT. Has had some worsening lung symptoms since her surgery. She was seen in the emergency room and CT of chest and shoulder performed which showed enlarging regions of endobronchial nodularity . She was prescribed Flexeril, which helped the spasms. These are no longer happening. Exam: Well healed anterior incision. Active forward elevation to 150. Strong deltoid contraction against resistance. Nontender along scapular spine or acromion. Imaging: I did order and interpret radiographs today, 3 views right shoulder. Reverse total shoulder arthroplasty intact without evidence of mechanical loosening or periprosthetic fracture. 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 Continue to use arm for activity as tolerates. Recheck in 6 weeks with repeat xrays of shoulder at that time. She is scheduled for her left reverse total shoulder arthroplasty on 01/20/2023. Recommend she have the follow-up CT of her chest prior to that to ensure she is okay to undergo general anesthesia. Adriana Franco PA-C documented in this encounter [facility] [place] 11-25-2022 Note [facility] 11-25-2022 History of Present illness Narrative Episode Visit Count: 11 Therapist That Will Accept/Oversee The Plan Of Care: Adrianne Pacheco Start of Care Date: 10/14/22 Onset Date: 10/07/22 Plan of Care Certification Date: 11/10/22 Next Certification Due Date: 12/15/22 REHABILITATION AND SPORTS THERAPY PHYSICAL THERAPY TREATMENT NOTE ASSESSMENT: Mindy Cantu tolerated the session with expected muscle soreness. She demonstrated difficulty with scapular retraction and ER activation requiring tactile cues. The patient will continue to benefit from ongoing skilled physical therapy to progress toward set goals. PLAN FOR NEXT VISIT: SUBJECTIVE: Patient Reason for Visit: She has some soreness from the theraband resistance exercises. Pain: Pain Pain Level: 1 Pain Location: Shoulder - Right Description: Sore Additional Pain Information : Location 2 Pain Location 2: Shoulder - Left Post Treatment Pain Post Treatment Pain Level: No Change Post Treatment Pain Location: Shoulder - Right OBJECTIVE MEASURES WITH LEVEL OF FUNCTION: UE PROM R Shoulder Flex: 143 Degrees (carolann) TREATMENT: Therapeutic Exercise: 1: seated carolann 2x10 each side 2: seated scapular circles reverse and forward 2x10 3: B mid rows 2x12 GTB (tactile cues to retract the scaplae) 4: B shoulder extension 2x10 PTB (tactile cues to retract the scapulae together) 5: IR 2x12 each R shoulder YTB, once daily (towel roll at medial elbow) 6: ER 2x12 each shoulder YTB, once daily (towel roll at medial elbow) 7: standing wand B shoulder flexion 2x5 8: standing wand B shoulder scaption 2x5 9: B wans IR AAROM 2x5 pull up behind the back 10: B wan IR AAROM 2x5 (side to side 11: ball on wall 30 sec CW, 30 sec CCW 3x each side Skilled Intervention: Patient was educated in proper exercise technique and purpose for exercises. Skilled judgment was provided in selection of appropriate interventions. Correct performance of therapeutic exercises was facilitated with verbal, visual, and tactile cuing. Educated patient on rationale for performing exercises in regards to decreasing fatigue , increase ease of ADL, and ROM and function . Patient education as noted. Billing Therapeutic Exercise Treatment Minutes: 40 Total Treatment Time Minutes (timed/untimed): 40 Adrianne Pacheco PT documented in this encounter [facility] [place] 11-23-2022 Note [facility] 11-23-2022 History of Present illness Narrative Episode Visit Count: 10 Therapist That Will Accept/Oversee The Plan Of Care: Adrianne Pacheco Start of Care Date: 10/14/22 Onset Date: 10/07/22 Plan of Care Certification Date: 11/10/22 Next Certification Due Date: 12/15/22 REHABILITATION AND SPORTS THERAPY PHYSICAL THERAPY TREATMENT NOTE ASSESSMENT: Mindy Cantu tolerated the session with fatigue and expected muscle soreness. She demonstrated difficulty with ER using YTB. The patient will continue to benefit from ongoing skilled physical therapy to progress toward set goals. PLAN FOR NEXT VISIT: Continue scapular strengthening, progress AROM, Consider TIY AROM B shoulders while standing SUBJECTIVE: Patient Reason for Visit: Pt. reports no R shoulder pain. She presents today with L shoulder pain and some questions regarding her L shoulder. She is able to sleep on the right side, not the left. Patient Goals: ADLs with dominant RUE as PLOF Pain: Pain Pain Level: 0 Pain Location: Shoulder - Right Additional Pain Information : Location 2 Pain Level 2: 4 Pain Location 2: Shoulder - Left Description 2: Aching Frequency 2: With movement Post Treatment Pain Post Treatment Pain Level: 0 Post Treatment Pain Location: Shoulder - Right OBJECTIVE MEASURES WITH LEVEL OF FUNCTION: UE PROM R Shoulder Flex: 157 Degrees (seated carolann) L Shoulder Flex: 153 Degrees (seated carolann) TREATMENT: Therapeutic Exercise: 1: seated carolann 2x10 eac 2: standing wand AAROM flexion with wand 2x10 each shoulder (instructed pt. to go to the first point of discomfort and progress AAROM as tolerated with each rep on L side) 3: B mid rows 2x12 GTB (tactile cues to retract the scaplae) 4: B shoulder extension 2x10 GTB 5: *IR 2x12 each shoulder YTB, once daily (towel roll at medial elbow) 6: *ER 2x12 each shoulder YTB, once daily (towel roll at medial elbow) 7: *YTB issued Skilled Intervention: Patient was educated in proper exercise technique and purpose for exercises. Reviewed and educated patient on additions/changes for home exercise program as above (*). Skilled judgment was provided in selection of appropriate interventions. Provided written instruction for home exercise program to facilitate proper performance and compliance. Correct performance of therapeutic exercises was facilitated with verbal, visual, and tactile cuing. Educated patient on rationale for performing exercises in regards to decreasing fatigue , increase ease of ADL, and ROM and function . Patient education as noted. Billing Therapeutic Exercise Treatment Minutes: 40 Total Treatment Time Minutes (timed/untimed): 40 Adrianne Pacheco PT documented in this encounter [facility] [place] 11-17-2022 Note [facility] 11-17-2022 History of Present illness Narrative Episode Visit Count: 9 Therapist That Will Accept/Oversee The Plan Of Care: Adrianne Pacheco Start of Care Date: 10/14/22 Onset Date: 10/07/22 Plan of Care Certification Date: 11/10/22 Next Certification Due Date: 12/15/22 REHABILITATION AND SPORTS THERAPY PHYSICAL THERAPY TREATMENT NOTE ASSESSMENT: Mindy Cantu tolerated the session with decreased symptoms. She demonstrated improvements in reduced L biceps pain and improved tolerance with AAROM elevation stretching. The patient will continue to benefit from ongoing skilled physical therapy to progress toward set goals. PLAN FOR NEXT VISIT: add scapular IR and ER with GTB SUBJECTIVE: Patient Reason for Visit: Pt. is post-op week 6.She is no longer having spasms in the shoulder and has dc the flexeril. Supine wand AAROM B flexion stretch with wand is causing L shoulder pain. Patient Goals: ADLs with dominant RUE as PLOF Functional Limitations: lifting, use hand with arm at shoulder level, reaching overhead, reaching behind back, driving, dressing, grooming, cooking, weight bearing, carrying, pushing, pulling, gripping, cleaning Pain: Pain Pain Level: 4 Pain Location: Shoulder - Right Post Treatment Pain Post Treatment Pain Level: Better Post Treatment Pain Location: Shoulder - Right OBJECTIVE MEASURES WITH LEVEL OF FUNCTION: TREATMENT: Therapeutic Exercise: 1: 2 min fwd, 2 min rev on UE erg, 1:1 throughout, subjective collected 2: supine, R shoulder AAROM elevation with assist of LUE 10x10 sec hold (dc B wand AAROM shoulder elevation due to L shoulder pain increased) 3: supine wand press 2x10 4: standing wand AAROM B shoulder elevation to 90 degrees of elevation 2x5 5: standing R shoulder biceps stretch with wand 3x30 sec (cues to avoid trunk rotation) 6: *B shoulder mid rows with pink band 3x15 (tactile cues for correct technique, demo provided) 7: *B shoulder extension 3x15 pink band (tactile cues for correct technique, demo provided) Skilled Intervention: Patient was educated in proper exercise technique and purpose for exercises. Reviewed and educated patient on additions/changes for home exercise program as above (*). Skilled judgment was provided in selection of appropriate interventions. Provided written instruction for home exercise program to facilitate proper performance and compliance. Correct performance of therapeutic exercises was facilitated with verbal, visual, and tactile cuing. Educated patient on rationale for performing exercises in regards to decreasing fatigue , increase ease of ADL, and ROM and function . Patient education as noted. Self-Skilled Nursing Management: 1: *tactile cues, demonstration, and print out of AAROM flexion R shoulder stretch that avoids elevation of the left shoulder 2: *pink band provided 3: *Reviewed HEP, added written notes to HEP to remind pt .of technique cues Skilled Intervention: Skilled judgment in the selection of proper modification for activity of daily living/home management based on clinical presentation, deficits, and needs. Provided written instruction for activities of daily living techniques to facilitate proper performance and compliance. Reviewed patient specific diagnosis in relation to activities of daily living/home management. Activity progression based on professional judgement. Reviewed and educated patient on additions/changes for home program as noted above with an (*). Provided written instruction for home program to facilitate proper performance and compliance. Correct performance of home program was facilitated with verbal, visual, and tactile cueing. Billing Therapeutic Exercise Treatment Minutes: 35 Self-Care/Home Management Treatment Minutes: 5 Total Treatment Time Minutes (timed/untimed): 40 Adrianne Pacheco PT documented in this encounter [facility] [place] 11-10-2022 Note [facility] 11-10-2022 History of Present illness Narrative Episode Visit Count: 8 Therapist That Will Accept/Oversee The Plan Of Care: Adrianne Pacheco Start of Care Date: 10/14/22 Onset Date: 10/07/22 Plan of Care Certification Date: 11/10/22 Next Certification Due Date: 12/15/22 REHABILITATION AND SPORTS THERAPY PHYSICAL THERAPY PROGRESS REPORT PLAN OF CARE UPDATE: Assessment: Mindy Cantu demonstrates improvements in sleeping, reaching behind back, reaching overhead, and use hand with arm at shoulder level. She has progressed toward goals. Patient continues to present with impairments in ADL's, flexibility, independence in exercise, joint mobility, overall function, patient reported outcome measures, posture, range of motion, soft tissue healing, strength, symptom management, and tissue tenderness that interfere with lifting, use hand with arm at shoulder level, reaching overhead, reaching behind back, driving, dressing, grooming, cooking, weight bearing, carrying, pushing, pulling, gripping, cleaning . Current prognosis is Good due to: current objective clinical presentation . She will benefit from continued skilled therapy services to meet the updated goals for this plan of care as noted below. Goals for Episode of Care: created on 10/14/22 through 12/09/22 Goals updated on 11/10/2022 through 12/15/22 [place] in home exercise program. -- PROGRESSING Patient will decrease pain to 1-2/10 with functional activities to allow patient to improve tolerance for ADLs. -- PROGRESSING Patient will increase active ROM of R shoulder forward flexion and scaption 160 or greater to allow pt to to improve performance of ADLs. Patient will demonstrate increase in R shoulder flexion, abduction, ER, IR, and extension strength to 4/5 during manual muscle testing in order to improve function for prior functional tasks.-- PROGRESSING Perform dressing with decreased report of symptoms/pain in 8 weeks. -- PROGRESSING Improve postural awareness. -- PROGRESSING Patient Goals: ADLs with dominant RUE as PLOF -- PROGRESSING Patient Goals: ADLs with dominant RUE as PLOF Planned Interventions, Frequency, and Duration: 2x/week, 8 weeks Total Number of Visits Planned: 16 Patient to be seen for Therapeutic exercise (04583), Neuromuscular re-education (84477), Manual therapy (23098), Therapeutic activities (09815), Self-senior living management (72930), Gait Training ([id number]), Patient/Family/Caregiver Education PLAN FOR NEXT VISIT: assess symptom respoonse to biceps stretching and AAROM modifications for HEP SUBJECTIVE: Patient Reason for Visit: Pt. had muscle spasms of the R anterior shoulder. SYmptoms become worse with reaching forward or across. She went to the ED 11/07/22 and was Rx'd flexeril which she reports is improving her sleep. Pt. reports CT and x-rays taken which did show possible greater tuberosity fx. Flexeril has been very effective for reducing her symptoms.. Patient Goals: ADLs with dominant RUE as PLOF Functional Limitations: lifting, use hand with arm at shoulder level, reaching overhead, reaching behind back, driving, dressing, grooming, cooking, weight bearing, carrying, pushing, pulling, gripping, cleaning Prior Level of Function: Independent without limitations Pain: Pain Pain Level: 5 Pain Location: Shoulder - Right Description: Aching Post Treatment Pain Post Treatment Pain Level: Better Post Treatment Pain Location: Shoulder - Right Post Treatment Symptoms: much better. following biceps stretch PROMIS Scales Higher is Better 10/14/2022 Phys Func - Score 36 (moderate dysfunction) Phys Func - Percentile 8 % Self-Eff Symptom - Score 38 (Low) Self-Eff Symptom - Percentile 12 % T-scores: mean of general population = 50. 5 points is clinically meaningfully difference Percentiles provide an indication of how the patient's score ranks in relation to the general population. Higher percentile rankings indicate better function/quality of life. 50th percentile is the average of the general population and indicates half of respondents had a worse score. OBJECTIVE MEASURES WITH LEVEL OF FUNCTION: UE AROM R Shoulder Flex: (unable to tolerate due to R anterior shoulder pain) UE PROM R Shoulder Flex: 153 Degrees (seated carolann) TREATMENT: Therapeutic Exercise: 1: Seated pulleys 2x10, 1x10 with 10 second holds (cues to start slowly, increased ROM 2nd set of 10) 2: seated wand flexion 2x10 (repositioned hands to avoid L shoulder pain with elevation 2nd set) 3: seated wand scaption 2x10 4: seated wand ER R shoulder 2x10 5: seated wand R shoulder and elbow extension 3x30 sec 6: seated scapular retractions 2x15 7: attempted AROM right shoulder elevation, unable to tolerate Skilled Intervention: Patient was educated in proper exercise technique and purpose for exercises. Reviewed and educated patient on additions/changes for home exercise program as above (*). Skilled judgment was provided in selection of appropriate interventions. Provided written instruction for home exercise program to facilitate proper performance and compliance. Educated patient on rationale for performing exercises in regards to decreasing fatigue , increase ease of ADL, and ROM and function . Patient education as noted. Self-Skilled Nursing Management: 1: modify HEP to only AAROM at this time due to pain with active R shoulder movements 2: encouraged pt. to seek the opinion of surgeon before acupuncture 3: encouraged ice and heat application in addition to taking medication as prescribed by ER to reduce R anteiror shoulder pain 4: discussed continued PT visits Skilled Intervention: Skilled judgment in the selection of proper modification for activity of daily living/home management based on clinical presentation, deficits, and needs. Provided written instruction for activities of daily living techniques to facilitate proper performance and compliance. Reviewed patient specific diagnosis in relation to activities of daily living/home management. Activity progression based on professional judgement. Reviewed and educated patient on additions/changes for home program as noted above with an (*). Provided written instruction for home program to facilitate proper performance and compliance. Correct performance of home program was facilitated with verbal, visual, and tactile cueing. Billing Therapeutic Exercise Treatment Minutes: 30 Self-Care/Home Management Treatment Minutes: 10 Total Treatment Time Minutes (timed/untimed): 40 Adrianne Pacheco PT documented in this encounter [facility] [place] 11-08-2022 Miscellaneous Notes Patient called in stated that she was in ED yesterday at [facility] for spasm following shoulder surgery. Patient states a CT was preformed of shoulder and was told that abnormalities were found in Lungs. Patient was advised to have repeat CT of lungs in 3 months, would like to know if she needs seen sooner than February and if lungs have progressively got worse. Please advise. Twyla Calderon LPN documented in this encounter [facility] [place] 11-02-2022 Note [facility] 10-31-2022 Note [facility] 10-27-2022 Note [facility] 10-26-2022 Note HNO ID: [id number] Author: Rhonda Erwin MD Service: ? Author Type: Physician Type: Progress Notes Filed: 10/28/2022 7:48 AM Note Text: PAIN EVALUATION 10/25/2022 1015 Pain Level: 2 Description: Aching;Sore;Throbbing Frequency: Intermittent Encounter Diagnosis ICD-10-CM 1. Primary osteoarthritis of left shoulder M19.012 2. 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 She is very well and has almost no pain. She is lifting the arm without difficulty and is very pleased with her early covering. Today she wants to talk about scheduling reverse arthroplasty for her left shoulder as this continues to for painful restriction of use and all right she is that the right shoulder is more functional than the left. She has gone through multiple rounds of conservative treatment including medical management and activity modification as well as physical therapy for the left shoulder without improvement. I examined both shoulders today. Her right shoulder there is a healing incision and mild edema. She neck to elevate 160 degrees and side abduction 160 degrees without difficulty. External rotation is 30 degrees and internal rotation is to the low lumbar region. He has good strength. There are no scapular spine tenderness. Examination of her left shoulder demonstrates severe restriction of mobility with full crepitation and elevation and rotation similar to previous exam my office without change. I reviewed radiographs of her right shoulder showing stable appearance of her reverse arthroplasty. There is no fracture or sign of loosening of her components. As reviewed radiographs of her left shoulder showing severe osteoarthritis with loss of joint space and osteophyte formation. Today discussed her progress following surgery on the right shoulder and she may advance use as tolerated. We will continue to do daily stretching. She would like scheduled for left reverse total shoulder arthroplasty for later this summer. We discussed the procedure and outlined the recovery for her which would be similar to what she is currently going through on her right shoulder. Significant risks of surgery including those of General anesthesia, and those from surgery including infection, nerve injury, bleeding, procedure failure and possible need for repeat procedure were all discussed at the time of consent. No guarantees as to the outcome of surgery were given or implied. Surgery scheduled for later in the summer. She will continue routine follow-up for the right shoulder and see again in 4 weeks. Rhonda Erwin MD Shoulder AND Elbow Surgeon Department of Orthopaedic Surgery [facility] 10-24-2022 Note [facility] 10-24-2022 History of Present illness Narrative Episode Visit Count: 4 Therapist That Will Accept/Oversee The Plan Of Care: Adrianne Pacheco Start of Care Date: 10/14/22 Onset Date: 10/07/22 Plan of Care Certification Date: 10/14/22 Next Certification Due Date: 11/18/22 REHABILITATION AND SPORTS THERAPY PHYSICAL THERAPY TREATMENT NOTE ASSESSMENT: Mindy Cantu tolerated the session with increased symptoms. She demonstrated improvements in symptom intensity following UT stretches, scapular AROM and scapular isometrics using a wand. The patient will continue to benefit from ongoing skilled physical therapy to progress toward set goals. PLAN FOR NEXT VISIT: continue progressing AAROM FE of R shoulder SUBJECTIVE: Patient Reason for Visit: Visit began 7 min early due to pt. early arrival. Pt. has tapered herself off using Rx'd pain medication. Now managing with tylenol XS and ibuprofen 200 mg throughout the day. She does not get adequate relief to sleep. Pain: Pain Pain Level: 5 Pain Location: Shoulder - Right Description: Aching Post Treatment Pain Post Treatment Pain Level: No Change Post Treatment Pain Location: Shoulder - Right OBJECTIVE MEASURES WITH LEVEL OF FUNCTION: UE PROM R Shoulder Flex: 130 Degrees (feeling tighter today) TREATMENT: Therapeutic Exercise: 1: seated scapular retractions 2x20 2: seated scapular circles forward and reverse 2x15 each 3: carolann FE R shoulder 2 sets of 10, 10 sec hold (encouraged progressing to first point of discomfort, reports a stretch felt in the tricep) 4: UT stretch 3x30 sec each side 5: *seated wand IR and ER isometrics holds 5x10 sec, 0 abd B shoulders, elbows flexed 90, once daily 6: seated R shoulder 2x5 AROM to endrange 7: seated wand B shoulder flexion to 90 (complains of increased L shoulder pain limiting ROM) 8: seated wand ER at 0 abd 2x10 Skilled Intervention: Patient was educated in proper exercise technique and purpose for exercises. Reviewed and educated patient on additions/changes for home exercise program as above (*). Skilled judgment was provided in selection of appropriate interventions. Correct performance of therapeutic exercises was facilitated with verbal, visual, and tactile cuing. Educated patient on rationale for performing exercises in regards to decreasing fatigue , increase ease of ADL, and ROM and function . Patient education as noted. Self-Skilled Nursing Management: 1: *encouraged pt. to discuss pain medication tapering with physician. Skilled Intervention: Skilled judgment in the selection of proper modification for activity of daily living/home management based on clinical presentation, deficits, and needs. Provided written instruction for activities of daily living techniques to facilitate proper performance and compliance. Reviewed patient specific diagnosis in relation to activities of daily living/home management. Activity progression based on professional judgement. Moderate verbal cues for maintaining neutral spine alignment. Reviewed and educated patient on additions/changes for home program as noted above with an (*). Provided written instruction for home program to facilitate proper performance and compliance. Correct performance of home program was facilitated with verbal, visual, and tactile cueing. Billing Therapeutic Exercise Treatment Minutes: 38 Self-Care/Home Management Treatment Minutes: 2 Total Treatment Time Minutes (timed/untimed): 40 Adrianne Pacheco PT documented in this encounter [facility] [place] 10-20-2022 Miscellaneous Notes Patient called requesting the following refill. Patients last known Refill Date: Patient Phone numbers: [phone] (home) Request is for script(s) to be escript to pharmacy. Amada Hogue Material [employer]inator [employer] documented in this encounter [facility] [place] 10-20-2022 Note [facility] 10-20-2022 History of Present illness Narrative Episode Visit Count: 3 Therapist That Will Accept/Oversee The Plan Of Care: Adrianne Pacheco Start of Care Date: 10/14/22 Onset Date: 10/07/22 Plan of Care Certification Date: 10/14/22 Next Certification Due Date: 11/18/22 REHABILITATION AND SPORTS THERAPY PHYSICAL THERAPY TREATMENT NOTE ASSESSMENT: Mindy Cantu tolerated the session with expected muscle soreness. She demonstrated improvements in AAROM. Increased R shoulder symptoms with ER AAROM using wand, so pt. Was advised to only progress ROM to the first point of discomfort/pain. The patient will continue to benefit from ongoing skilled physical therapy to progress toward set goals. PLAN FOR NEXT VISIT: Continue wand AAROM, add IR AAROM and isometrics with wand SUBJECTIVE: Patient Reason for Visit: Visit began 10 minutes ealry due to pt. early arrival. It's coming along, I really like the exercises you gave me last visit. Pain: Pain Pain Level: 4 Pain Location: Shoulder - Right Description: Aching Post Treatment Pain Post Treatment Pain Location: Shoulder - Right OBJECTIVE MEASURES WITH LEVEL OF FUNCTION: UE PROM R Shoulder Flex: 137 Degrees (carolann seated) TREATMENT: Therapeutic Exercise: 1: seated scapular retractions 2x20 2: carolann FE R shoulder 2 sets of 10, 10 sec hold 3: supine B shoulder wand press 2x10 4: supine wand B shoulder flexion 2x10, on wedge start 90 and then to endrange progressing AAROM as tolearated 5: supine wand B shoulder scaption 2x10, on wedge start 90 and then to endrange progressing AAROM as tolearated 6: *supine on wedge, wand R shoulder ER AAROM, towel roll at medial R elbow 2x10 (to first point of discomfort, tactile cues to maintain 90 elbow flexion) 7: seated wand AAROM B shoulder flexion to 90 2x10 8: seated scapular circles forward and reverse 2x15 each Skilled Intervention: Patient was educated in proper exercise technique and purpose for exercises. Reviewed and educated patient on additions/changes for home exercise program as above (*). Skilled judgment was provided in selection of appropriate interventions. Provided written instruction for home exercise program to facilitate proper performance and compliance. Correct performance of therapeutic exercises was facilitated with verbal and visual cuing. Education in use of heat and ice and parameters for each. Educated patient on rationale for performing exercises in regards to decreasing fatigue , increase ease of ADL, and ROM and function . Patient education as noted. Self-Skilled Nursing Management: 1: *discussed avoiding applying moist heat directly on the incision area. Recommended ice 10-20 minutes but no longer to reduce swelling. It is ok to apply moist heat distal to the R shoulder at the distal insertion of the bicep if this helps relax the muscle Skilled Intervention: Skilled judgment in the selection of proper modification for activity of daily living/home management based on clinical presentation, deficits, and needs. Provided written instruction for activities of daily living techniques to facilitate proper performance and compliance. Activity progression based on professional judgement. Reviewed and educated patient on additions/changes for home program as noted above with an (*). Provided written instruction for home program to facilitate proper performance and compliance. Correct performance of home program was facilitated with verbal and visual cueing. Billing Therapeutic Exercise Treatment Minutes: 38 Self-Care/Home Management Treatment Minutes: 2 Total Treatment Time Minutes (timed/untimed): 40 Adrianne Pacheco PT documented in this encounter [facility] [place] 10-18-2022 Note [facility] 10-18-2022 History of Present illness Narrative Episode Visit Count: 2 Therapist That Will Accept/Oversee The Plan Of Care: Adrianne Pacheco Start of Care Date: 10/14/22 Onset Date: 10/07/22 Plan of Care Certification Date: 10/14/22 Next Certification Due Date: 11/18/22 REHABILITATION AND SPORTS THERAPY PHYSICAL THERAPY TREATMENT NOTE ASSESSMENT: Mindy Cantu tolerated the session with fatigue and expected muscle soreness. She demonstrated difficulty with avoiding scapular shrugging with carolann. The patient will continue to benefit from ongoing skilled physical therapy to progress toward set goals. PLAN FOR NEXT VISIT: Continue progressing AAROM FE SUBJECTIVE: Patient Reason for Visit: Pt. reports soreness. Visit began 25 min early due to pt. early arrival. She attributes the soreness to daily use. She is compliant with the HEP. Pain: Pain Pain Level: 5 Pain Location: Shoulder - Right Description: Aching Post Treatment Pain Post Treatment Pain Level: 5 Post Treatment Pain Location: Shoulder - Right Post Treatment Pain Description: Aching Post Treatment Symptoms: feels looser - pt. OBJECTIVE MEASURES WITH LEVEL OF FUNCTION: TREATMENT: Therapeutic Exercise: 1: carolann FE 2 sets of 10 2: seated scapular retractions 2x15 3: *supine wand press 2x10 4: *supine wand flexion 2x10, on wedge start wand at eyes and then to endrange progressing AAROM as tolearated 5: wand biceps stretch 3x30 seconds RUE 6: *seated wand AAROM 2x5 to 90 degrees of flexion 7: scapular circles forward and reverse 2x15 each Skilled Intervention: Patient was educated in proper exercise technique and purpose for exercises. Reviewed and educated patient on additions/changes for home exercise program as above (*). Skilled judgment was provided in selection of appropriate interventions. Provided written instruction for home exercise program to facilitate proper performance and compliance. Correct performance of therapeutic exercises was facilitated with verbal, visual, and tactile cuing. Educated patient on rationale for performing exercises in regards to decreasing fatigue , increase ease of ADL, and ROM and function . Patient education as noted. Self-Skilled Nursing Management: 1: *discussed avoiding prolonged R elbow flexion guarding or scapular shrugging to avoid anterior R shoulder pain Skilled Intervention: Skilled judgment in the selection of proper modification for activity of daily living/home management based on clinical presentation, deficits, and needs. Provided written instruction for activities of daily living techniques to facilitate proper performance and compliance. Reviewed patient specific diagnosis in relation to activities of daily living/home management. Reviewed and educated patient on additions/changes for home program as noted above with an (*). Provided written instruction for home program to facilitate proper performance and compliance. Billing Therapeutic Exercise Treatment Minutes: 38 Self-Care/Home Management Treatment Minutes: 2 Total Treatment Time Minutes (timed/untimed): 40 Adrianne Pacheco PT documented in this encounter [facility] [place] 10-14-2022 Note [facility] 10-14-2022 History of Present illness Narrative Episode Visit Count: 1 Therapist That Will Accept/Oversee The Plan Of Care: Adrianne Pacheco Start of Care Date: 10/14/22 Onset Date: 10/07/22 Plan of Care Certification Date: 10/14/22 Next Certification Due Date: 11/18/22 Patient Identified by Name and Date of : Yes REHABILITATION AND SPORTS THERAPY PHYSICAL THERAPY EVALUATION PLAN OF CARE: Assessment: Mindy Cantu presents with diagnosis of s/p reverse total shoulder arthroplasty, right that interferes with lifting, use hand with arm at shoulder level, reaching overhead, reaching behind back, driving, dressing, grooming, cleaning, cooking, weight bearing, carrying, pushing, pulling, gripping, sleeping . She presents with impairments in ADL's, flexibility, independence in exercise, joint mobility, overall function, patient reported outcome measures, posture, range of motion, soft tissue healing, strength, symptom management, and tissue tenderness. PROMIS (Patient-Reported Outcomes Measurement Information System) scores were reviewed and physical function domain and self efficacy domain identified as a rehabilitation concern. Prognosis for therapy is Good due to: current objective clinical presentation . She will benefit from skilled therapy services to meet the goals established for this plan of care as noted below. Goals for Episode of Care: created on 10/14/22 through 12/09/22 [place] in home exercise program. Patient will decrease pain to 1-2/10 with functional activities to allow patient to improve tolerance for ADLs. Patient will increase active ROM of R shoulder forward flexion and scaption 160 or greater to allow pt to to improve performance of ADLs. Patient will demonstrate increase in R shoulder flexion, abduction, ER, IR, and extension strength to 4/5 during manual muscle testing in order to improve function for prior functional tasks. Perform dressing with decreased report of symptoms/pain in 8 weeks. Improve postural awareness. Patient Goals: ADLs with dominant RUE as PLOF Planned Interventions, Frequency, and Duration: Current Frequency: 2x/week Duration: 8 weeks Total Number of Visits Planned: 16 Planned Treatment Interventions: Therapeutic exercise (37687), Neuromuscular re-education (67769), Manual therapy (41737), Therapeutic activities (00081), Self-senior living management (48439), Gait Training (31552), Patient/Family/Caregiver Education PLAN FOR NEXT VISIT: Continue per protocol Patient demonstrates good understanding of plan of care and treatment. The above goals and plan of care were discussed and agreed upon by patient/family. SUBJECTIVE: Mindy Cantu is a 72 year old female seen today for s/p R TSA by Dr. Erwin 10/07/22. Pt. sleeps in a recliner at this time. Taking prescribed pain medication as directed. Pt. mentions having chronic L shoulder pain without hx of surgery. Patient Goals: ADLs with dominant RUE as PLOF Functional Limitations: lifting, use hand with arm at shoulder level, reaching overhead, reaching behind back, driving, dressing, grooming, cleaning, cooking, weight bearing, carrying, pushing, pulling, gripping, sleeping Prior Level of Function: Independent without limitations Relevant History Past Relevant Medical Conditions: Depression Past Relevant Surgical Conditions: Total Shoulder Replacement-Right Right or Left Handed: Right Hobbies / Interests: walking Intake Information: Prescription present Previous Treatment: Surgery , Pain meds , Injections , Steroids , Acupuncture , Massage Falls Interview: No positive findings with falls interview Pain: Pain Pain Level: 5 Pain Location: Shoulder - Right Description: Aching Post Treatment Pain Post Treatment Pain Level: 5 Post Treatment Pain Location: Shoulder - Right Post Treatment Pain Description: Aching PROMIS Scales Higher is Better 10/14/2022 Phys Func - Score 36 (moderate dysfunction) Phys Func - Percentile 8 % Self-Eff Symptom - Score 38 (Low) Self-Eff Symptom - Percentile 12 % T-scores: mean of general population = 50. 5 points is clinically meaningfully difference Percentiles provide an indication of how the patient's score ranks in relation to the general population. Higher percentile rankings indicate better function/quality of life. 50th percentile is the average of the general population and indicates half of respondents had a worse score. OBJECTIVE MEASURES WITH LEVEL OF FUNCTION: Posture / Alignment Posture: Forward head, Increased thoracic kyphosis Shoulder Observations R Shoulder Presents with: Ecchymosis, Swelling, Incision Sensation - Upper Extremity UE Light Touch Sensation: Grossly Intact UE PROM R Shoulder Flex: 90 Degrees (guarding) Education: Education Learning Preferences: Demonstration, Explanation, Performance, Printed Materials Barriers: Acuity of Illness Learning/educational needs: Posture, Changes in Plan of Care, Plan of Care, Home exercise program Education Provided: Yes, see treatment interventions for education provided Education Provided To: Patient Education Mode/Type: Demonstration, Explanation/Discussion, Literature/Printed Materials, Performance Response to Education/Teach Back: States/Identifies, Return Demonstration TREATMENT: PT Treatment Interventions: Therapeutic Exercise, Self-Skilled Nursing Management Evaluation Therapeutic Exercise: 1: *carolann FE 2 sets of 10, 3-5 times a day 2: *seated scapular retractions 2x15, 3-5 times a day 3: *carolann issued Skilled Intervention: Patient was educated in proper exercise technique and purpose for exercises. Skilled judgment was provided in selection of appropriate interventions. Provided written instruction for home exercise program to facilitate proper performance and compliance. Educated patient on rationale for performing exercises in regards to decreasing fatigue , increase ease of ADL, and ROM and function . Patient education as noted. Self-Skilled Nursing Management: 1: *postural education 2: *discussed physician's protocol fpr R TSA 3: *discussed carolann set up, adjustment, and issued carolann with handout to pt. 4: *discussed use of medication as Rx'd by physician, suggested taking at least 1 hour prior to PT visits initially to best manage pain with exercises 5: *discussed the correct parameters with use of ice to reduce swelling and pain Skilled Intervention: Skilled judgment in the selection of proper modification for activity of daily living/home management based on clinical presentation, deficits, and needs. Provided written instruction for activities of daily living techniques to facilitate proper performance and compliance. Reviewed patient specific diagnosis in relation to activities of daily living/home management. Activity progression based on professional judgement. Moderate verbal cues for maintaining neutral spine alignment. Reviewed and educated patient on additions/changes for home program as noted above with an (*). Provided written instruction for home program to facilitate proper performance and compliance. Correct performance of home program was facilitated with verbal, visual, and tactile cueing. Billing * Evaluation Low Complexity: 1 Unit Therapeutic Exercise Treatment Minutes: 15 Self-Care/Home Management Treatment Minutes: 10 Total Treatment Time Minutes (timed/untimed): 45 Adrianne Pacheco PT documented in this encounter [facility] [place] 10-12-2022 Miscellaneous Notes Patient called requesting the following refill: Percocet. Patients last known Refill Date: 10-07-2022 Patient Phone numbers: [phone] (home) Request is for script(s) to be escript to pharmacy. Amada Hogue Material Coordinator Ppg documented in this encounter [facility] [place] 10-07-2022 Note HNO ID: [id number] Author: Himanshu Buck APRN.CAPITAL PROJECT ENGINEER Service: Anesthesiology Author Type: Nurse Supervisor Building Maintenance Type: Anesthesia Procedure Notes Filed: 10/07/2022 11:51 AM Note Text: ANESTHESIOLOGY PROCEDURE NOTE Airway General Information Procedure Start Time/Medication Administration: 10/07/2022 11:26 AM Procedure End Time: 10/07/2022 11:29 AM Patient location during procedure: OR Timeout Performed Pre-procedure: timeout performed Consent Obtained: Yes Patient identity confirmed: arm band and patient Staffing CAPITAL PROJECT ENGINEER: Himanshu Buck APRN.CAPITAL PROJECT ENGINEER Indications and Patient Condition Indications for airway management: anesthesia Preoxygenated: yes anesthesia circuit Patient position: sniffing Method: asleep Cricoid Pressure: No Manual In-Line Stabilization: No Difficult Mask: No Final Airway Details Final airway type: endotracheal airway Final Endotracheal Airway: ETT Successful intubation technique: direct laryngoscopy Endotracheal tube insertion site: oral Blade: Alex Blade size: #3 ETT size (mm): 7.0 Measured from: teeth Measurement (cm): 21 Placement verified by: chest auscultation and capnometry Cormack-Lehane Classification: grade I - full view of glottis Number of attempts at approach: 1 Failed airway: no Unrecognized esophageal intubation: no Airway not difficult SIGNATURE: Himanshu Buck APRN.CRNA PATIENT NAME: Mindy Cantu DATE: October 07, 2022 TIME: 11:51 AM CSN: [id number] [facility] 10-07-2022 Note HNO ID: [id number] Author: Yessi Hunt MD Service: Anesthesiology Author Type: Anesthesiologist Type: Anesthesia Procedure Notes Filed: 10/07/2022 10:46 AM Note Text: ANESTHESIOLOGY PROCEDURE NOTE Peripheral Nerve Block General Information Procedure Start Time/Medication Administration: 10/07/2022 10:37 AM Procedure End time: 10/07/2022 10:40 AM Patient location during procedure: induction room Timeout Performed Pre-procedure: timeout performed Consent Obtained: Yes Patient identity confirmed: arm band and patient Reason for block: post-op pain management/at surgeon's request Staffing Anesthesiologist: Yessi Hunt MD Performed by: anesthesiologist Preparation Sterility Preparation: hand hygiene performed prior to procedure, sterile gloves, drapes, and procedure tray, surgical cap used, mask used, sterile drape used during line insertion, skin prep agent completely dried prior to procedure Site Prep: Chloraprep Pre-Procedure Neuro Exam Location: RUE Sensory: intact Motor: intact Procedure Details Patient Position: supine Monitoring: Pulse OX, EKG and NIBP Block Type Upper Extremity: brachial plexus Approach: interscalene Laterality: right Injection Technique: single-shot Ultrasound Guided: Yes Image in Chart: yes Local Infiltration: Yes Needle Needle Gauge: 22 G Needle Length: 50 mm Needle Localization: ultrasoundNo Test Dose Response: negative test dose Assessment Injection assessment: negative aspiration, no paresthesia on injection, incremental injection and local visualized surrounding nerve on ultrasound Paresthesia: none Post-Procedure Neuro Exam Expected Regional Anesthesia: Yes Medications Administered dexamethasone sodium phosphate injection (DECADRON) - peripheral nerve block 10 mg - 10/07/2022 10:37:00 AM ropivacaine (PF) 5 mg/mL (0.5 %) injection (NAROPIN) - peripheral nerve block 17 mL - 10/07/2022 10:37:00 AM SIGNATURE: Yessi Hunt MD PATIENT NAME: Mindy Cantu DATE: October 07, 2022 TIME: 10:45 AM CSN: [id number] [facility] 09-16-2022 Note [facility] 09-16-2022 History of Present illness Narrative CC: Patient presents with: Pre-Op Exam: Pre- Op Clearance HPI Mindy Cantu is a 72 year old female who presents today for pre-op evaluation. Surgical Procedure: Reverse total right shoulder arthroplasty Date of Procedure: 10/07/22 Surgeon: Dr. Yaiam DUMONT date: not scheduled Von willebrand disease: Saw Dr. Stein in 2018 prior to cholecystectomy with normal blood work. No pretreatment given and tolerated procedure well. Did have 2 previous surgeries resulting in large hematomas many years ago. Per patient surgeon did not feel she needed preop-clearance from hematology. No current abnormal bleeding or bruising, dark sticky stools, blood in stools, blood in urine, abnormal vaginal bleeding, or abnormal bruising. HTN: Ms. Cantu indicates that she is feeling well and denies any symptoms referable to elevated blood pressure. Specifically denies headache, chest pain, palpitations, dyspnea, and peripheral edema. Patient denies any side effects of her medication(s) and is compliant with their regimen. Last 3 Encounter BP Readings: Date: BP: 09/16/2022 138/66 08/19/2022 126/54 07/11/2022 142/66[BP Christy average[ Palpitations and frequent PVCs: On diltiazem as prescribed by [facility]. Last seen yesterday 09/15/22. Normal Stress Echo this past June with LVEF of 63% Bronchiectasis: Not needed albuterol inhaler since last Spring with pneumonia. No cough, wheezing, or shortness of breath. METS: Walk indoors, such as around the house (1.75 METs): YES Do light work around the house, such as dusting or washing dishes (2.70 METs): YES Take care of self; that is eating, dressing, bathing, using the toilet (2.75 METs): YES Walk a block or two on level ground (2.75 METs): YES Do moderate work around the house such as vacuuming, sweeping floors, or carrying in groceries (3.50 METs): YES Do yardwork, such as raking leaves, weeding,or pushing a power mower (4.50 METs): YES Climb a flight of stairs or walk up a hill (5.50 METs): YES Participate in moderate recreational activities, such as golf, bowling, dancing, doubles tennis, or throwing a baseball or football (6.00 METs): NO With shoulder pain unable to do many physical activities. Is a power walker and walks quickly for at least 30 minutes every day without difficulty Participate in strenuous sport, such as swimming, singles tennis, football, basketball, or skiing (7.50 METs): NO Do heavy work around the house, such as scrubbing floors, lifting or moving heavy furniture (8.00 METs): NO Run a short distance (8.00 METs): NO Total: 5.5 Patient denies any chest pain or undue shortness of breath with the above physical activity. 1. Diabetes: None 2. Hypertension requiring medication: Yes 3. Congestive Heart Failure: No 4. Current Smoker within 1 Year: No 5. History of COPD: No 6. History of CHUNG: No 7. Dialysis: No REVIEW OF SYSTEMS General: no fevers, no chills, no night sweats, no recurrent infections, no change in appetite, no change in energy, and no significant changes in weight HEENT: no frequent or significant headaches, no changes in hearing, no visual changes, no nose bleeds, no sinus or nasal problems Neck: no lumps, no pain , and no swelling Respiratory: no cough, no wheezing, no shortness of breath, no hemoptysis Cardiovascular: no chest pain, no chest pressure, no palpitations, and no swelling GI: No nausea, vomiting, or diarrhea : No history of dysuria, frequency or incontinence Neurologic: No headache, weakness, numbness, dizziness, memory loss, syncope. PAST MEDICAL HISTORY Diagnosis Date Bronchiectasis (HCC) Depression (emotion) GERD (gastroesophageal reflux disease) Hiatal hernia Need for prophylactic hormone replacement therapy (postmenopausal) ESTROPIATE 0.625 Osteoarthritis Pneumonia 04/2018 Von Willebrand's disease (HCC) 2002 PAST SURGICAL HISTORY Procedure Laterality Date COLONOSCOPY INCISE FINGER TENDON SHEATH Left 05/09/2018 Left ring trigger finger release and prior multiple LAPAROSCOPY SURG CHOLECYSTECTOMY 06/13/2018 Cholecystectomy, lap PAST SURGICAL HISTORY OF trigger finger relase x3 SKIN BX, 1 LESION 2000 AT PELVIC AREA. TOTAL ABDOMINAL HYSTERECT W/WO RMVL TUBE OVARY Hysterectomy, CHAKA left oophorectomy for fibroids ALLERGIES Latex, Penicillins, and Sulfabenzamide MEDICATIONS sertraline (ZOLOFT) 50 mg tablet^75 mg.^Disp: 90 tablet^Rfl: 3 dilTIAZem CD (CARDIZEM CD, CARTIA XT) 120 mg 24 hr capsule^Take 1 capsule by mouth once daily.^Disp: ^Rfl: VENTOLIN HFA 90 mcg/actuation inhaler^inhale 2 puffs by mouth and INTO THE LUNGS every 4 hours if needed for wheezing (WITH SPACER)^Disp: ^Rfl: COLLAGEN MISC^^Disp: ^Rfl: BIOTIN, BULK, MISC^^Disp: ^Rfl: acetaminophen (TYLENOL) 500 mg tablet^Take 500 mg by mouth every 8 hours as needed.^Disp: ^Rfl: turm/ging/mera/yuc/basil/shailesh/hor (TUMERSAID ORAL)^Take 500 mg by mouth twice daily. ^Disp: ^Rfl: DAILY MULTI-VITAMIN ORAL^Take 1 tablet by mouth once daily.^Disp: ^Rfl: Calcium Carb-Cholecalciferol (CALCIUM 600 + D(3)) 600 (1,500)-200 mg-unit ORAL Tab^Take one(1) tablet twice daily.^Disp: 0^Rfl: 0 VITAMIN C 1,000 MG TAB^Take one(1) tablet daily.^Disp: ^Rfl: 0 guaiFENesin (MUCINEX) 600 mg 12 hr tablet^Take 1 tablet by mouth once daily.^Disp: ^Rfl: FAMILY HISTORY Problem Relation Age of Onset Alzheimer's Disease Mother Heart Attack Mother Cancer Father Right pneumonectomy, 12 year survival. Hypertension Father Stroke Maternal Grandfather Cancer Maternal Grandmother bone cancer COPD Brother Cancer Brother kidney cancer Aneurysm Brother brain Social History Tobacco Use Smoking status: Never Smokeless tobacco: Never Tobacco comments: Father smoked in childhood home. Vaping Use Vaping Use: Never used Substance Use Topics Alcohol use: Not Currently Drug use: No PHYSICAL EXAM BP 138/66 Pulse 60 Temp 36.4 C (97.6 F) (Temporal) Resp 16 Wt 44.5 kg (98 lb) SpO2 98% BMI 19.79 kg/m General Appearance: well appearing, in no acute distress, alert Neck: Thyroid normal size and symmetric without palpable nodules, No adenopathy Oropharynx: tongue midline and normal, soft palate, uvula, and tonsils normal, palpation of salivary glands negative Lungs: Lungs clear to auscultation. No wheezing, rhonchi, rales. Heart: RRR without murmur, gallop, or rubs. No ectopy Abdomen: soft, nondistended, nontender, no hepatosplenomegaly or masses Extremities: No deformities, edema, skin discoloration, clubbing or cyanosis. Good capillary refill. EKG Interpretation: RHYTHM: Normal sinus rhythm at 84 beats per minute and frequent PVCs and possible left atrial enlargement AXIS: Normal axis INTERVALS: Normal NE interval QRS COMPLEX: Normal ST SEGMENT: Normal ST-T segments QT INTERVAL: Normal COMPARED WITH PRIOR: unchanged Diagnoses/Plan 1. Pre-operative evaluation Check Complete Metabolic Panel CBC/Differential but also checking Von Willebrand panel and if abnormal will recommend patient see hematology prior to surgery. There is no known pertinent medical condition which may affect jordy-operative course BAH risk: Patient is scheduled for a low-risk procedure. Risk of less than 0.2% calculated using the NSQIP surgical risk calculator The patient is optimized for surgery 1. Preop exam for internal medicine - ICD9: V72.83, ICD10: Z01.818 (primary diagnosis) As above - ECG COMPLETE - PROTHROMBIN TIME/PT - ACTIVATED PTT - FACTOR VIII:C ASSAY - RISTOCETIN CO-FACTOR - VON WILLEBRAND AG - VON WILLEBRAND MULT - CBC + DIFF - COMP METABOLIC PANEL - PLATELET FUNCTION SCREEN 2. Bronchiectasis without complication (HCC) - ICD9: 494.0, ICD10: J47.9 Stable and controlled at this time - GUAIFENESIN ER 600 MG TABLET, EXTENDED RELEASE 12 HR 3. PVC's (premature ventricular contractions) - ICD9: 427.69, ICD10: I49.3 No change, unconcerning cardiac workup earlier this year - ECG COMPLETE 4. Von Willebrand disease (HCC) - ICD9: 286.4, ICD10: D68.00 - has not had issues since earlier adulthood. Will re-evaluate - PROTHROMBIN TIME/PT - ACTIVATED PTT - FACTOR VIII:C ASSAY - RISTOCETIN CO-FACTOR - VON WILLEBRAND AG - VON WILLEBRAND MULT - CBC + DIFF - PLATELET FUNCTION SCREEN 5. Essential hypertension - ICD9: 401.9, ICD10: I10 - good control - Continue current medication(s) - Encouraged dietary sodium restriction/DASH diet - Recommended regular aerobic exercise. - Recommend home blood pressure monitoring, to bring results in on next visit - Goal of BP <130/80 6. Vitamin D deficiency - ICD9: 268.9, ICD10: E55.9 - VITAMIN D 25 HYDROXY Prescription instructions reviewed with patient as applicable. Potential red flag symptoms discussed with the patient. Reviewed appropriate action plan to take if red flag symptoms occur. Patient agreeable to treatment plan. Sandra Morales APRN.YELENA documented in this encounter [facility] [place] 08-19-2022 Note [facility] 08-19-2022 Miscellaneous Notes Patient has been identified by name and date of : No Patient phones for refill(s): Requested Prescriptions Pending Prescriptions Disp Refills sertraline (ZOLOFT) 50 mg tablet 90 tablet 3 Si mg. Date of last office visit in primary care: 06/27/22 Last 2 Encounter Wt Readings: Date: Wt: 08/02/2022 44 kg (97 lb) 06/27/2022 43.5 kg (96 lb) Previous labs/tests for medication: Not applicable Please advise. Thank you. Gisele Lindo LPN Patient has been identified by name and date of : Yes Requested Prescriptions Pending Prescriptions Disp Refills sertraline (ZOLOFT) 50 mg tablet 90 tablet 3 Si mg. Patient switching pharmacy to [facility] instead of mail order. RX INSTRUCTIONS: Patient aware RX will be sent to pharmacy. No need to notify patient. Karine Almeida documented in this encounter [facility] [place] 08-04-2022 Miscellaneous Notes Patient has been identified by name and date of : Yes Requested Prescriptions Pending Prescriptions Disp Refills sertraline (ZOLOFT) 50 mg tablet 90 tablet 3 Si mg. RX INSTRUCTIONS: Patient aware RX escripted to mail away pharmacy. No need to notify patient. Whit Mckeon Pss documented in this encounter [facility] [place] 08-02-2022 Note HNO ID: [id number] Author: Rhonda Erwin MD Service: ? Author Type: Physician Type: Progress Notes Filed: 08/08/2022 9:31 AM Note Text: PAIN EVALUATION 08/02/2022 0906 Pain Level: 6 Description: Burning;Aching;Sharp;Sore Frequency: Continuous Intervention/Comfort measure: Medication Encounter Diagnosis ICD-10-CM 1. Primary osteoarthritis of right shoulder M19.011 2. Primary osteoarthritis of left shoulder M19.012 Mindy Cantu returns to follow-up on bilateral shoulder osteoarthritis. She is here to discuss surgical intervention for the right shoulder and she feels conservative measures have failed. On exam today she demonstrates severe difficulty with lifting and rotating the right arm from the shoulder as previously demonstrated my office. There is no change in her exam today. Today I reviewed radiographs of the right shoulder as well as the left shoulder. These were taken to update her previously obtained films showing severe osteoarthritis of the bilateral glenohumeral joints. By today's imaging there is essentially no change with severe loss of joint space and osteophyte formation on the humeral heads bilaterally with flattening of the articular surfaces. Mindy Cantu presents today with persistent pain and difficulty using her right shoulder as a result of severe osteoarthritis not responsive to conservative measures.. After thorough review of history, examination findings, and imaging, we discussed surgical intervention today which would be reverse total shoulder arthroplasty. I described the procedure in detail as well as the expected healing time of 3-6 months and physical therapy regimen following surgery, likely for much of this time. Informed consent was discussed in detail and signed in the office today. Significant risks of surgery including those of general anesthesia, and those from surgery including infection, nerve injury, bleeding, procedure failure and possible need for repeat procedure were all discussed at the time of consent. No guarantees as to the outcome of surgery were given or implied. Surgery will be scheduled for the next available date. Rhonda Erwin MD Shoulder AND Elbow Surgeon Department of Orthopaedic Surgery [facility] 08-02-2022 Note HNO ID: [id number] Author: Emily Rayo Service: ? Author Type: Soft Boarder Type: Progress Notes Filed: 08/08/2022 9:31 AM Note Text: REVIEW OF SYSTEMS: GENERAL: Well developed, well nourished. No acute distress PAIN: Negative for pain, history of chronic pain or current treatment for chronic pain conditions CARDIOVASCULAR: Palpitations yes MSK: Negative for joint swelling SKIN: Metal sensitivity yes NEURO: Negative for seizure, trauma, numbness/tingling of extremities. ENDOCRINE: Negative for diabetic associated symptoms HEMATOLOGY: Bleeding disorders yes [facility] 08-02-2022 History of Present illness Narrative PAIN EVALUATION 08/02/2022 0906 Pain Level: 6 Description: Burning;Aching;Sharp;Sore Frequency: Continuous Intervention/Comfort measure: Medication Encounter Diagnosis ICD-10-CM 1. Primary osteoarthritis of right shoulder M19.011 2. Primary osteoarthritis of left shoulder M19.012 Mindy Cantu returns to follow-up on bilateral shoulder osteoarthritis. She is here to discuss surgical intervention for the right shoulder and she feels conservative measures have failed. On exam today she demonstrates severe difficulty with lifting and rotating the right arm from the shoulder as previously demonstrated my office. There is no change in her exam today. Today I reviewed radiographs of the right shoulder as well as the left shoulder. These were taken to update her previously obtained films showing severe osteoarthritis of the bilateral glenohumeral joints. By today's imaging there is essentially no change with severe loss of joint space and osteophyte formation on the humeral heads bilaterally with flattening of the articular surfaces. Mindy Cantu presents today with persistent pain and difficulty using her right shoulder as a result of severe osteoarthritis not responsive to conservative measures.. After thorough review of history, examination findings, and imaging, we discussed surgical intervention today which would be reverse total shoulder arthroplasty. I described the procedure in detail as well as the expected healing time of 3-6 months and physical therapy regimen following surgery, likely for much of this time. Informed consent was discussed in detail and signed in the office today. Significant risks of surgery including those of general anesthesia, and those from surgery including infection, nerve injury, bleeding, procedure failure and possible need for repeat procedure were all discussed at the time of consent. No guarantees as to the outcome of surgery were given or implied. Surgery will be scheduled for the next available date. Rhonda Erwin MD Shoulder & Elbow Surgeon Department of Orthopaedic Surgery [facility] REVIEW OF SYSTEMS: GENERAL: Well developed, well nourished. No acute distress PAIN: Negative for pain, history of chronic pain or current treatment for chronic pain conditions CARDIOVASCULAR: Palpitations yes MSK: Negative for joint swelling SKIN: Metal sensitivity yes NEURO: Negative for seizure, trauma, numbness/tingling of extremities. ENDOCRINE: Negative for diabetic associated symptoms HEMATOLOGY: Bleeding disorders yes documented in this encounter [facility] 07-11-2022 Miscellaneous Notes patient notified and verbalized understanding. Gisele Lindo LPN The last bp was normal so continue the current medication as is. Regards, Christ Solorio MD Manual Readin/79 Pulse: 76 BP Christy average: 142/66 P: 76 Repeat BP Check: 155/65 P77 #1 139/66 P74 #2 144/65 P73 #3 143/66 P74 #4 142/63 P76 #5 129/70 P79 #6 Reason for blood pressure check - Last BP elevated Patient is: Taking medication as prescribed Yes Took medication today Yes If no, date medication last taken N/A Experiencing side effects No BP was elevated at last appt 06/27/22. No BP medication changes were made at that time. Taking all medications as prescribed. Denies any chest pain, unusual shortness of breath, dizziness, or headaches. Drinks decaf. No personal history of tobacco use; no current exposure. Alert and oriented. Pt has been identified by name and birthdate: Yes Allergies reviewed: Yes Latex allergy: no. Medication - prescribed and OTC reviewed and updated: Yes Do you need any prescription refills prior to your next visit: No Health Maintenance: Reviewed and not up to date and provider notified Patient advised that she would be contacted after review by PCP. Rhea Herrera LPN documented in this encounter [facility] 07-11-2022 History of Present illness Narrative Manual Readin/79 Pulse: 76 BP Christy average: 142/66 P: 76 Repeat BP Check: 155/65 P77 #1 139/66 P74 #2 144/65 P73 #3 143/66 P74 #4 142/63 P76 #5 129/70 P79 #6 Reason for blood pressure check - Last BP elevated Patient is: Taking medication as prescribed Yes Took medication today Yes If no, date medication last taken N/A Experiencing side effects No BP was elevated at last appt 06/27/22. No BP medication changes were made at that time. Taking all medications as prescribed. Denies any chest pain, unusual shortness of breath, dizziness, or headaches. Drinks decaf. No personal history of tobacco use; no current exposure. Alert and oriented. Pt has been identified by name and birthdate: Yes Allergies reviewed: Yes Latex allergy: no. Medication - prescribed and OTC reviewed and updated: Yes Do you need any prescription refills prior to your next visit: No Health Maintenance: Reviewed and not up to date and provider notified Patient advised that she would be contacted after review by PCP. Rhea Herrera LPN documented in this encounter [facility] 06-27-2022 History of Present illness Narrative Reason for Visit Patient presents with: Follow Up: questions about shoulder surgery Mindy Cantu is a 72 year old female who presents here today for Above Complaints.. Health Maintenance ADVANCE DIRECTIVE DISCUSSION HPI Saw me in April for palpitations, we thought it was from cymbalta so went back to [facility]. The next day she had gone to the ER, for feeling faint, palpitations and chest discomfort. Her white blood count was elevated , ekg was normal, so she was sent him Came to see Sandra and she worked her up for the wbc, with chest xr and other tests. Xr showed ? Pneumonia and she was given the levaquin and she did well on it. But then in 2 weeks had rsv. She had been seeing Dr Balbuena for Bronchiesctasis, likely from the [place]. Or some other infection she got on the cruise. Right now she is tired but she overall feels better. Her shoulders are still hurting her. The patient notes she is on the upswing at this time. She had been seen by Dr Perez, for her palpitations, which were mainly pvcs, patient has stopped her caffeine. Today her bp is still on the higher side. We will recheck her bp. Exercise tolerance is not as good but she is still doing 5 miles, broken up. No problem-specific Assessment & Plan notes found for this encounter. PAST MEDICAL HISTORY Diagnosis Date Bronchiectasis (HCC) Depression (emotion) GERD (gastroesophageal reflux disease) Hiatal hernia Need for prophylactic hormone replacement therapy (postmenopausal) ESTROPIATE 0.625 Osteoarthritis Pneumonia 04/2018 Von Willebrand's disease 2002 PAST SURGICAL HISTORY Procedure Laterality Date COLONOSCOPY INCISE FINGER TENDON SHEATH Left 05/09/2018 Left ring trigger finger release and prior multiple LAPAROSCOPY SURG CHOLECYSTECTOMY 06/13/2018 Cholecystectomy, lap PAST SURGICAL HISTORY OF trigger finger relase x3 SKIN BX, 1 LESION 2000 AT PELVIC AREA. TOTAL ABDOMINAL HYSTERECT W/WO RMVL TUBE OVARY Hysterectomy, CHAKA left oophorectomy for fibroids FAMILY HISTORY Problem Relation Age of Onset Alzheimer's Disease Mother Heart Attack Mother Cancer Father Right pneumonectomy, 12 year survival. Hypertension Father Stroke Maternal Grandfather Cancer Maternal Grandmother bone cancer COPD Brother Cancer Brother kidney cancer Aneurysm Brother brain Social History Tobacco Use Smoking status: Never Smokeless tobacco: Never Tobacco comments: Father smoked in childhood home. Vaping Use Vaping Use: Never used Substance Use Topics Alcohol use: Yes Comment: wine twice weekly very occ Drug use: No Past medical history, appointments, medications, allergies reviewed. Pertinent Lab/Diagnostic Studies are reviewed and discussed today Current Outpatient Medications: dilTIAZem CD (CARTIA XT) 120 mg 24 hr capsule sertraline (ZOLOFT) 50 mg tablet VENTOLIN HFA 90 mcg/actuation inhaler guaiFENesin (MUCINEX) 600 mg 12 hr tablet COLLAGEN MISC BIOTIN, BULK, MISC acetaminophen (TYLENOL) 500 mg tablet turm/ging/mera/yuc/basil/shailesh/hor (TUMERSAID ORAL) DAILY MULTI-VITAMIN ORAL Calcium Carb-Cholecalciferol (CALCIUM 600 + D(3)) 600 (1,500)-200 mg-unit ORAL Tab VITAMIN C 1,000 MG TAB Current Facility-Administered Medications: perflutren lipid microspheres 1.3 mL in NaCl (PF) 0.9% 10 mL injection (DEFINITY) sodium chloride 0.9 % (flush) 10 mL (BD POSIFLUSH) Review of Systems CONSTITUTIONAL: No fevers, chills night sweats, unintended weight loss CARDIOVASCULAR: No chest pain, dyspnea, palpitations, orthopnea, PND, ankle edema. PULM: No dyspnea, unexplained cough. GI: No dysphagia/odynophagia, problematic reflux, constipation, diarrhea, changes in stool habits, hematochezia, melena. : No new urinary complaints, including dysuria, gross hematuria or pyuria. NEURO: No new balance problems, peripheral weakness/paresthesias or numbness of concern. Physical Exam BP 160/84 (BP Site: Left Arm, BP Position: Sitting, BP Cuff Size: Regular Adult) Pulse 87 Temp 36.5 C (97.7 F) Resp 12 Ht 149.9 cm (4' 11 ) Wt 43.5 kg (96 lb) SpO2 97% BMI 19.39 kg/m General appearance: Well appearing, alert, in no acute distress, well nourished. Skin: Skin color, texture, turgor normal, no suspicious rashes or lesions Head: Normocephalic, no masses, lesions, tenderness or abnormalities Eyes: Anicteric sclera. Pupils are equally round and reactive to light. Extraocular movements are intact. Lungs: Lungs clear to auscultation. No wheezing, rhonchi, rales Heart: RRR without murmur, gallop, or rubs. Extremities: No deformities, edema, skin discoloration, clubbing or cyanosis. Good capillary refill. ASSESSMENT/PLAN: 1. Bronchiectasis without complication (HCC) - ICD9: 494.0, ICD10: J47.9 (primary diagnosis) She is slowly getting her strength up. 2. PVC's (premature ventricular contractions) - ICD9: 427.69, ICD10: I49.3 She needs to cont the cartia as discussed. Till she sees ana. 3. Essential hypertension - ICD9: 401.9, ICD10: I10 - good control - Recommended regular aerobic exercise. - Recommend home blood pressure monitoring, to bring results in on next visit - Goal of BP <130/80 4. Episode of recurrent major depressive disorder, unspecified depression episode severity (HCC) - ICD9: 296.30, ICD10: F33.9 She is on zoloft. Christ Solorio MD documented in this encounter [facility] 06-15-2022 Miscellaneous Notes Patient calls and notified of results and providers instructions. Patient verbalizes understanding. Appointment is tomorrow with Dr. Perez. Preliminary results faxed to [facility] at [phone]. Anaid Miller RN VM left for patient to call PCP office for provider's message. Jenn Gonzalez RN Please let patient know the preliminary result does not show anything too concerning but still waiting for a marketing underwriter to review. I will update her once final result is available. Continue with scheduled appointment with cardiology. Please fax preliminary results to [facility] as her upcoming appointment is with them Thank you Sandra Morales APRN.YELENA Patient calling and asking Sandra Morales CNP to advise on recent zio monitor results. Thank you. documented in this encounter [facility] 06-14-2022 Miscellaneous Notes June 14, 2022 PID: [id number] Mindy Cantu [address] [place] [id number] Dear Ms. Cantu, We are pleased to inform you that the results of your recent breast imaging exam on 06/10/2022 are normal. Your mammogram demonstrates that you have dense breast tissue, which could hide abnormalities. Dense breast tissue, in and of itself, is a relatively common condition. Therefore, this information is not provided to cause undue concern; rather, it is to raise your awareness and promote discussion with your health care provider regarding the presence of dense breast tissue in addition to other risk factors. Early detection of cancer is very important. We also understand recommendations regarding breast cancer screening are controversial. Please discuss with your primary care provider which strategy is best for you and whether a mammogram is right for you. Your imaging studies and report will be kept on file at [facility] as part of your permanent medical record and are available for your continuing care. Thank you for allowing us to help in meeting your health care needs. Sincerely, Dr. De León Interpreting Radiologist [facility] ([place] over 40) documented in this encounter [facility] 05-19-2022 History of Present illness Narrative Images from the original note were not included. . Respiratory [place] Note Patient name: Mindy Cantu PCP: Christ Solorio MD HPI: Mindy Cantu 71 year old female non-smoker with PMH significant for GERD/hiatal hernia, Von Willebrand's disease, bronchiectasis. Bronchiectasis treated with mucus clearance techniques. Recently ill with pneumonia. Symptoms consistent of productive cough, no hemoptysis, no chest pain no wheezing. Some shortness of breath and fatigue. Also had concomitant more frequent palpitations. Chest x-ray showed right middle lobe infiltrate. Patient was treated with antibiotics but had persistent infiltrate by follow-up chest x-ray. This prompted CT of the chest which showed bronchiectasis in the right middle lobe and lingula as well as patchy infiltrates tree-in-bud pattern concerning for NTM disease. Sputum culture showed normal oral cece. AFB culture was not done. Today she states she is feeling better from a respiratory standpoint. She is no longer expectorating phlegm. Still has some mild dyspnea on exertion and fatigue. Her main concern is frequent palpitations. No night sweats, fevers or weight loss. DATA: PFT 02/2022: Spirometry shows minimal small airways obstruction Labs: Culture Many normal respiratory cece Abnormal No Staphylococcus aureus isolated. No Pseudomonas aeruginosa isolated. Smear Result Abnormal Moderate Mixed oral cece Few Polymorphonuclear leukocytes Imaging / Diagnostic Studies: DATE OF EXAM: May 10 2022 3:06PM [facility] 0540 - CT CHEST W IVCON PE / EXAMINATION: CHEST CT WITH CONTRAST (PULMONARY EMBOLISM PROTOCOL) RESULT: Limitations: None. Evaluation for thromboembolic disease: - Right heart chambers: No thromboembolic disease. - Main pulmonary arteries: No thromboembolic disease. - Lobar pulmonary arteries: No thromboembolic disease. - Segmental pulmonary arteries: No thromboembolic disease. - Subsegmental pulmonary arteries: No thromboembolic disease. - Additional pulmonary artery findings: The main pulmonary artery is normal in caliber. Lines, tubes, and devices: None. Lung parenchyma and airways: There are a few calcified cranial hematomas in the right middle lobe. There is bronchiectasis in the right middle lobe and to a lesser extent lingula and right lower lobe. There is bronchial wall thickening which may be seen with small airways inflammation. There is centrilobular tree-in-bud configuration nodular opacities with patchy opacities within the periphery of the right upper lobe most compatible with an infectious/inflammatory process. There is chronic atelectasis and/or scarring in the right middle lobe and to a lesser extent lingula. There is a 9 mm nodular opacity in the right lower lobe which may be related to mucous plugging as it appears to be branching slightly more superiorly and is without large change when compared with prior CT though close continued attention on follow-up is advised (6, 163). There is an indeterminant irregular 1.5 cm patchy opacity in the left lower lobe (6, 192). There are cluster of less than 5 mm nodules in the posterior right lower lobe which are without appreciable interval change. Pleural space: No pleural effusion. No pleural thickening. Lower neck, lymph nodes, and mediastinum: The imaged thyroid gland is normal. No suspect lymphadenopathy in the supraclavicular, axillary, mediastinal, or hilar regions. Heart, pericardium, and thoracic vessels: The thoracic aorta is normal in caliber. The cardiac chambers are stable in size. Coronary artery atherosclerotic calcifications are noted, although the study is not optimized for coronary assessment. Small pericardial effusion, not substantially changed. Bones and soft tissues: No destructive bone lesion. Chest wall is unremarkable. Upper abdomen: Stable appearance of the upper abdomen with stable biliary ductal dilation. Stable 2.1 cm peripherally calcified splenic artery aneurysm. IMPRESSION: 1. No CT evidence of pulmonary embolism. 2. Bronchiectasis which appears most pronounced in the right middle lobe and lingula with chronic atelectasis/scarring. Sequela of prior granulomatous exposure in the right middle lobe. Clinical correlation for an underlying atypical infection such as BAHMAN is also advised. 3. Nodular opacities with suggestion of tree-in-bud configuration in the periphery of the right upper lobe most compatible with an infectious/inflammatory process. 4. Probable mucous plugging in the right lower lobe without significant interval change, however continued attention on follow-up imaging is advised. 5. 1.5 cm indeterminant patchy irregular opacity in the left lower lobe which may be infectious/inflammatory in etiology, however close attention on short-term follow-up imaging is advised. I personally reviewed the images as well as with the patient with description as per HPI PAST MEDICAL HISTORY Diagnosis Date Bronchiectasis (HCC) Depression (emotion) GERD (gastroesophageal reflux disease) Hiatal hernia Need for prophylactic hormone replacement therapy (postmenopausal) ESTROPIATE 0.625 Osteoarthritis Pneumonia 04/2018 Von Willebrand's disease 2002 ALLERGIES Allergen Reactions Latex Rash Dermatitis rash Penicillins Rash Sulfabenzamide Rash sertraline (ZOLOFT) 50 mg tablet^75 mg.^Disp: ^Rfl: VENTOLIN HFA 90 mcg/actuation inhaler^inhale 2 puffs by mouth and INTO THE LUNGS every 4 hours if needed for wheezing (WITH SPACER)^Disp: ^Rfl: guaiFENesin (MUCINEX) 600 mg 12 hr tablet^Take 2 tablets by mouth once daily.^Disp: ^Rfl: COLLAGEN MISC^^Disp: ^Rfl: BIOTIN, BULK, MISC^^Disp: ^Rfl: turm/ging/mera/yuc/basil/shailesh/hor (TUMERSAID ORAL)^Take 500 mg by mouth twice daily. ^Disp: ^Rfl: DAILY MULTI-VITAMIN ORAL^Take 1 tablet by mouth once daily.^Disp: ^Rfl: VITAMIN C 1,000 MG TAB^Take one(1) tablet daily.^Disp: ^Rfl: 0 acetaminophen (TYLENOL) 500 mg tablet^Take 500 mg by mouth every 8 hours as needed.^Disp: ^Rfl: Calcium Carb-Cholecalciferol (CALCIUM 600 + D(3)) 600 (1,500)-200 mg-unit ORAL Tab^Take one(1) tablet twice daily.^Disp: 0^Rfl: 0 Social History Tobacco Use Smoking status: Never Smokeless tobacco: Never Tobacco comments: Father smoked in childhood home. Vaping Use Vaping Use: Never used Substance Use Topics Alcohol use: Yes Comment: wine twice weekly very occ Drug use: No PMH, Social history, family history and surgical history reviewed and updated in EMR REVIEW OF SYSTEMS: CONSTITUTIONAL: No fevers, chills, nightsweats, unintended weight loss. Fatigue HEENT: Denies nasal congestion/sinus symptoms, postnasal drip CARDIOVASCULAR: No chest pain, edema. Mild shortness of breath, palpitations but no dizziness PULM: See HPI GI: No dysphagia/odynophagia, problematic reflux NEURO: No new balance problems, peripheral weakness/paresthesias or numbness of concern. INTEGUMENTARY: No new skin changes or rashes PHYSICAL EXAMINATION: BP 128/72 Pulse 83 Resp 17 Wt 95 lb 14.4 oz (43.5kg) SpO2 98% General Appearance: Thin elderly female, NAD Skin: Skin color, texture, turgor normal, no suspicious rashes or lesions. Head: Normocephalic, no masses, lesions, tenderness or abnormalities. Oropharynx: No oral lesions, thrush, erythema Neck: No JVD, no masses, no adenopathy Lungs: Not labored, normal to percussion, no wheezes or crackles Heart: Intermittently irregular rhythm, no murmurs Extremities: No edema clubbing Assessment/Plan: 1. Pneumonia right middle lobe -Findings on CT suggestive of MAC. Current symptoms would not warrant therapy -Continue mucus clearance techniques but acapella device does not seem to be as effective as it was in the past -Repeat chest CT 2. Bronchiectasis with recent exacerbation -See #1 -Chest vest if able to get approved Shamika Balbuena MD [facility] [place] documented in this encounter [facility] 05-16-2022 History of Present illness Narrative CC: Patient presents with: Recheck HPI Mindy Cantu is a 72 year old female who presents today for follow up on shortness of breath. Shortness of breath is improving but still present with minimal exertion and slight nonproductive cough. Still with palpitations but only with exertion as well. Turns in her ZIO patch today. Fatigue is improving but still feels she needs to take naps and rest. Night sweats have also improved and has only had once in the past few days and not to the extent of needing to change her nightgown. Denies fever, chills, chest pain, wheezing, swelling, dizziness, headaches, or syncope. Did have an abnormal CT of chest showing possible atypical infection. Respiratory Culture and 2 acid fast cultures ordered. Respiratory culture show normal cece. Other two have not been completed yet. REVIEW OF SYSTEMS General: no fevers, no chills, no recurrent infections, no change in appetite, and no significant changes in weight HEENT: no frequent or significant headaches, no changes in hearing, no visual changes, no nose bleeds, no sinus or nasal problems Respiratory: no wheezing, no hemoptysis Cardiovascular: no chest pain, no chest pressure, no palpitations, and no swelling GI: No nausea, vomiting, or diarrhea Neurologic: No headache, weakness, numbness, tingling, n dizziness, memory loss, syncope. PAST MEDICAL HISTORY Diagnosis Date Bronchiectasis (HCC) Depression (emotion) GERD (gastroesophageal reflux disease) Hiatal hernia Need for prophylactic hormone replacement therapy (postmenopausal) ESTROPIATE 0.625 Osteoarthritis Pneumonia 04/2018 Von Willebrand's disease 2002 PAST SURGICAL HISTORY Procedure Laterality Date COLONOSCOPY INCISE FINGER TENDON SHEATH Left 05/09/2018 Left ring trigger finger release and prior multiple LAPAROSCOPY SURG CHOLECYSTECTOMY 06/13/2018 Cholecystectomy, lap PAST SURGICAL HISTORY OF trigger finger relase x3 SKIN BX, 1 LESION 2001 AT PELVIC AREA. TOTAL ABDOMINAL HYSTERECT W/WO RMVL TUBE OVARY Hysterectomy, CHAKA left oophorectomy for fibroids ALLERGIES Latex, Penicillins, and Sulfabenzamide MEDICATIONS guaiFENesin (MUCINEX) 600 mg 12 hr tablet^Take 2 tablets by mouth once daily.^Disp: ^Rfl: COLLAGEN MISC^^Disp: ^Rfl: BIOTIN, BULK, MISC^^Disp: ^Rfl: acetaminophen (TYLENOL) 500 mg tablet^Take 500 mg by mouth every 8 hours as needed.^Disp: ^Rfl: turm/ging/mera/yuc/basil/shailesh/hor (TUMERSAID ORAL)^Take 500 mg by mouth twice daily. ^Disp: ^Rfl: DAILY MULTI-VITAMIN ORAL^Take 1 tablet by mouth once daily.^Disp: ^Rfl: Calcium Carb-Cholecalciferol (CALCIUM 600 + D(3)) 600 (1,500)-200 mg-unit ORAL Tab^Take one(1) tablet twice daily.^Disp: 0^Rfl: 0 VITAMIN C 1,000 MG TAB^Take one(1) tablet daily.^Disp: ^Rfl: 0 sertraline (ZOLOFT) 50 mg tablet^DAILY^Disp: ^Rfl: DULoxetine (CYMBALTA) 30 mg capsule^Take 1 capsule by mouth once daily.^Disp: 30 capsule^Rfl: 1 (Patient not taking: Reported on 05/16/2022) VENTOLIN HFA 90 mcg/actuation inhaler^inhale 2 puffs by mouth and INTO THE LUNGS every 4 hours if needed for wheezing (WITH SPACER)^Disp: ^Rfl: FAMILY HISTORY Problem Relation Age of Onset Alzheimer's Disease Mother Heart Attack Mother Cancer Father Right pneumonectomy, 12 year survival. Hypertension Father Stroke Maternal Grandfather Cancer Maternal Grandmother bone cancer COPD Brother Cancer Brother kidney cancer Aneurysm Brother brain Social History Tobacco Use Smoking status: Never Smokeless tobacco: Never Tobacco comments: Father smoked in childhood home. Vaping Use Vaping Use: Never used Substance Use Topics Alcohol use: Yes Comment: wine twice weekly very occ Drug use: No PHYSICAL EXAM BP 112/60 (BP Site: Left Arm, BP Position: Sitting, BP Cuff Size: Regular Adult) Pulse (!) 52 Temp 37.2 C (98.9 F) Resp 16 Wt 43.5 kg (96 lb) SpO2 99% BMI 19.39 kg/m General Appearance: well appearing, in no acute distress, alert Skin: Skin color, texture, turgor normal for age; Eyes: conjunctiva pink and moist, no icterus, sclera white, non-injected Neck: Thyroid normal size and symmetric without palpable nodules, No adenopathy Lymph nodes: No cervical lymphadenopathy and No supraclavicular lymphadenopathy Lungs: Lungs clear to auscultation. No wheezing, rhonchi, rales. Heart: RRR without murmur, gallop, or rubs. No ectopy Health maintenance reviewed with patient: MAMMOGRAM due on 05/12/2022 COVID-19 VACCINE(5 - Booster for Moderna series) due on 05/09/2023 COLORECTAL CANCER SCREENING due on 12/24/2022 DTAP,TDAP,TD(2 - Td or Tdap) due on 04/17/2025 DIABETES SCREEN due on 05/09/2025 LIPID SCREEN due on 09/24/2026 BONE DENSITY Completed INFLUENZA Completed ADVANCE DIRECTIVE DISCUSSION Completed HEPATITIS C SCREENING Completed SHINGRIX VACCINE Completed PNEUMOCOCCAL: 65+ Completed DATA REVIEWED: Most recent labs and imaging results. ASSESSMENT/PLAN: 1. Shortness of breath on exertion - ICD9: 786.05, ICD10: R06.02 (primary diagnosis) Improving, but with the abnormal CT cultures need completed and further evaluation if needed - patient to follow up for any increase in symptoms or fever - go to ER for increased shortness of breath, chest pain, or increase in palpitations. 2. Abnormal CT of the chest - ICD9: 793.2, ICD10: R93.89 As above 3. Palpitations - ICD9: 785.1, ICD10: R00.2 - apical regular without ectopy at this time - will review zio patch when resulted - continue with scheduled appointment to establish with cardiology Prescription instructions reviewed with patient as applicable. Potential red flag symptoms discussed with the patient. Reviewed appropriate action plan to take if red flag symptoms occur. Patient agreeable to treatment plan. Sandra Morales APRN.CNP documented in this encounter [facility] [place] 05-09-2022 History of Present illness Narrative dCC: Patient presents with: Recheck: 2 week follow up HPI Mindy Cantu is a 72 year old female who presents today for pneumonia. Was seen last 18 days ago for palpitations and chest pain, xray showed pneumonia. Was treated with Levaquin and patient completed as prescribed. Was feeling much better after finishing the antibiotic Shortness of breath had resolved and right chest pain also resolved. Was around a friend with cold symptoms last week and ended up with chills, cough, white clear sinus drainage, fatigue, some shortness of breath on exertion, and vomiting 3 days ago but started improving yesterday. Denies any fever, dizziness, weakness, headaches, or wheezing. Does have bronchiectasis which she sees pulmonology for. Still with having palpitations. Is wearing the Zio Patch. Has had on for a week but not been pressing triggered button when she is having palpitations. Denies chest pain, edema, or chest pressure. Is scheduled to leave the state in 2 weeks to see family for the holidays. REVIEW OF SYSTEMS General: no fevers, no chills, no night sweats, no recurrent infections, no change in appetite, and no significant changes in weight Respiratory: See HPI Cardiovascular: See HPI GI: No nausea, vomiting, or diarrhea Neurologic: No headache, weakness, numbness, tingling, dizziness, syncope. PAST MEDICAL HISTORY Diagnosis Date Bronchiectasis (HCC) Depression (emotion) GERD (gastroesophageal reflux disease) Hiatal hernia Need for prophylactic hormone replacement therapy (postmenopausal) ESTROPIATE 0.625 Osteoarthritis Pneumonia 04/2018 Von Willebrand's disease 2002 PAST SURGICAL HISTORY Procedure Laterality Date COLONOSCOPY INCISE FINGER TENDON SHEATH Left 05/09/2018 Left ring trigger finger release and prior multiple LAPAROSCOPY SURG CHOLECYSTECTOMY 06/13/2018 Cholecystectomy, lap PAST SURGICAL HISTORY OF trigger finger relase x3 SKIN BX, 1 LESION 2000 AT PELVIC AREA. TOTAL ABDOMINAL HYSTERECT W/WO RMVL TUBE OVARY Hysterectomy, CHAKA left oophorectomy for fibroids ALLERGIES Latex, Penicillins, and Sulfabenzamide MEDICATIONS sertraline (ZOLOFT) 50 mg tablet^DAILY^Disp: ^Rfl: DULoxetine (CYMBALTA) 30 mg capsule^Take 1 capsule by mouth once daily.^Disp: 30 capsule^Rfl: 1 VENTOLIN HFA 90 mcg/actuation inhaler^inhale 2 puffs by mouth and INTO THE LUNGS every 4 hours if needed for wheezing (WITH SPACER)^Disp: ^Rfl: guaiFENesin (MUCINEX) 600 mg 12 hr tablet^Take 2 tablets by mouth once daily.^Disp: ^Rfl: COLLAGEN MISC^^Disp: ^Rfl: BIOTIN, BULK, MISC^^Disp: ^Rfl: acetaminophen (TYLENOL) 500 mg tablet^Take 500 mg by mouth every 8 hours as needed.^Disp: ^Rfl: turm/ging/mera/yuc/basil/shailesh/hor (TUMERSAID ORAL)^Take 500 mg by mouth twice daily. ^Disp: ^Rfl: DAILY MULTI-VITAMIN ORAL^Take 1 tablet by mouth once daily.^Disp: ^Rfl: Calcium Carb-Cholecalciferol (CALCIUM 600 + D(3)) 600 (1,500)-200 mg-unit ORAL Tab^Take one(1) tablet twice daily.^Disp: 0^Rfl: 0 VITAMIN C 1,000 MG TAB^Take one(1) tablet daily.^Disp: ^Rfl: 0 FAMILY HISTORY Problem Relation Age of Onset Alzheimer's Disease Mother Heart Attack Mother Cancer Father Right pneumonectomy, 12 year survival. Hypertension Father Stroke Maternal Grandfather Cancer Maternal Grandmother bone cancer COPD Brother Cancer Brother kidney cancer Aneurysm Brother brain Social History Tobacco Use Smoking status: Never Smokeless tobacco: Never Tobacco comments: Father smoked in childhood home. Vaping Use Vaping Use: Never used Substance Use Topics Alcohol use: Yes Comment: wine twice weekly very occ Drug use: No PHYSICAL EXAM BP 106/68 Pulse 90 Temp 36.9 C (98.4 F) (Temporal) Resp 16 Wt 44 kg (97 lb) SpO2 97% BMI 19.59 kg/m General Appearance: well appearing, in no acute distress, alert Skin: Skin color, texture, turgor normal for age; Eyes: conjunctiva pink and moist, no icterus, sclera white, non-injected Nose/sinus: Nares normal. Septum midline. Mucosa normal. No drainage., No sinus tenderness Neck: Thyroid normal size and symmetric without palpable nodules, No adenopathy Oropharynx: tongue midline and normal, soft palate, uvula, and tonsils normal, palpation of salivary glands negative Lymph nodes: No cervical lymphadenopathy and No supraclavicular lymphadenopathy Lungs: Lungs clear to auscultation. No wheezing, rhonchi, rales. Heart: Apical irregular without murmur, gallop, or rubs. Health maintenance reviewed with patient: COVID-19 VACCINE(5 - Booster for Moderna series) due on 12/31/2021 MAMMOGRAM due on 05/12/2022 COLORECTAL CANCER SCREENING due on 12/24/2022 DIABETES SCREEN due on 09/24/2024 DTAP,TDAP,TD(2 - Td or Tdap) due on 04/17/2025 LIPID SCREEN due on 09/24/2026 BONE DENSITY Completed INFLUENZA Completed ADVANCE DIRECTIVE DISCUSSION Completed HEPATITIS C SCREENING Completed SHINGRIX VACCINE Completed PNEUMOCOCCAL: 65+ Completed EKG Interpretation: RHYTHM: Normal sinus rhythm at 81 beats per minute AXIS: Normal axis INTERVALS: Normal NE interval QRS COMPLEX: Normal ST SEGMENT: Normal ST-T segments QT INTERVAL: Normal COMPARED WITH PRIOR: changed with frequent PVCs DATA REVIEWED: Most recent labs and imaging results. ASSESSMENT/PLAN: 1. Palpitations - ICD9: 785.1, ICD10: R00.2 (primary diagnosis) - apical irregular today which is new, needs EKG - Echo completed showing Grade 1 diastolic dysfunction. - discussed importance of noting when she is having palpations so it can correlate with zio patch reading - XR CHEST 2V FRONTAL/LAT - CONSULT TO CARDIOLOGY - scheduled with Ana Lewis in June - ECG COMPLETE - XR CHEST 2V FRONTAL/LAT - CBC + DIFF - MAGNESIUM BLD - D-DIMER - follow up next week 2. Shortness of breath on exertion - ICD9: 786.05, ICD10: R06.02 - possible from viral illness vs worsening pneumonia vs other etiology - XR CHEST 2V FRONTAL/LAT - CONSULT TO CARDIOLOGY - ECG COMPLETE - COMP METABOLIC PANEL - CBC + DIFF - MAGNESIUM BLD - D-DIMER 3. Viral upper respiratory illness - ICD9: 465.9, ICD10: J06.9 - Discussed viral etiology and rationale for treatment. - Symptomatic treatment with prn analgesia - Supportive care with fluids and rest - Follow up in 3-5 days if symptoms persist or sooner if worsening of symptoms - discussed possible COVID or Flu, and if positive for COVID would be a candidate for Paxlovid. Patient declined testing at this time and states she would not want paxlovid. 5. Cardiac arrhythmia, unspecified cardiac arrhythmia type - ICD9: 427.9, ICD10: I49.9 - frequent PVCs - ECG COMPLETE - COMP METABOLIC PANEL - CBC + DIFF - MAGNESIUM BLD - TSH BLD - T3 BLD - T4 FREE/FREE THYROX Prescription instructions reviewed with patient as applicable. Potential red flag symptoms discussed with the patient. Reviewed appropriate action plan to take if red flag symptoms occur. Patient agreeable to treatment plan. Sandra Morales APRN.CNP documented in this encounter [facility] [place] 05-02-2022 History of Present illness Narrative EVENT MONITOR DISPOSABLE PATCH INSTRUCTIONS Patient Name: Mindy Levy [facility] Number: [id number] Skin prepped and cleansed with alcohol Patch secured to prepped area Monitor Activated Serial #: [id number] Patient Instructed: Prescribed order timeframe Bathing guidelines Usage of event button and diary documentation Return of monitor at the end of prescribed order Call with problems [phone] or [phone]. [phone] Patient expresses a good understanding of instructions Faina Che documented in this encounter [facility] [place] 04-21-2022 Miscellaneous Notes Patient was made aware of the results. Patient verbalizes understanding. Brianne Jay Ma Please let patient know that her xray is suspicious of pneumonia in her right lung. With her bronchiectasis and allergies, I am placing her on levofloxacin which is what she was on in 2019 when she had pneumonia. She needs to hold her calcium and vitamin D while on this antibiotic. Thank you Sandra Morales APRN.YELENA documented in this encounter [facility] [place] 04-21-2022 History of Present illness Narrative CC: Patient presents with: ED Follow-up: [facility] 04/20/22 PVC's HPI Mindy Cantu is a 72 year old female who presents today for ER follow-up. Was changed from zoloft to duloxetine a few weeks ago and then was seen by PCP on 04/19 for palpitations and switched back to Zoloft. New symptoms started on 04/20 so went to [facility] then sent to Er. Facility: [facility] ER Date of visit: 04/20/22 Reason for visit: bradycardia - went to urgent care with starting to not feel well and was found to have HR in the 40s so sent to ER. Hospital course: WBC slightly elevated at 13.6 TSH troponin UA and other labs normal. EKG showed SR Diagnosis: palpitations possibly caused by PVCs of unknown origin. Discharge: home to establish with cardiology Current symptoms: Only has had palpitations when she had the COVID vaccine and with pneumonia. Still having intermittent palpitations where she feels like her chest is fluttering which are self resolving. No identifiable cause. Denies chest pain and has chronic shoulder pain which has not changed. Had increased cough last night with clear sputum, slight shortness of breath on exertion, intermittent nausea, is tired, and feels weak with and had chills. Has a history of bronchiectasis and feels these have increased from her chronic symptoms. Had an Echo in 2018 for preoperative clearance which was normal. Has appointment with [facility] Dr. Perez in June and would like all echo and heart monitor results sent to them. REVIEW OF SYSTEMS General: no fevers, no night sweats, no recurrent infections, no change in appetite, and no significant changes in weight HEENT: no frequent or significant headaches, no changes in hearing, no visual changes, no nose bleeds, no sinus or nasal problems Respiratory: no wheezing, no hemoptysis Cardiovascular: no chest pain, no chest pressure, and no swelling GI: no vomiting, diarrhea, or abdominal pain : No history of dysuria, frequency or incontinence Neurologic: No weakness, numbness, tingling, dizziness, syncope. PAST MEDICAL HISTORY Diagnosis Date Bronchiectasis (HCC) Depression (emotion) GERD (gastroesophageal reflux disease) Hiatal hernia Need for prophylactic hormone replacement therapy (postmenopausal) ESTROPIATE 0.625 Osteoarthritis Pneumonia 04/2018 Von Willebrand's disease 2002 PAST SURGICAL HISTORY Procedure Laterality Date COLONOSCOPY INCISE FINGER TENDON SHEATH Left 05/09/2018 Left ring trigger finger release and prior multiple LAPAROSCOPY SURG CHOLECYSTECTOMY 06/13/2018 Cholecystectomy, lap PAST SURGICAL HISTORY OF trigger finger relase x3 SKIN BX, 1 LESION 2000 AT PELVIC AREA. TOTAL ABDOMINAL HYSTERECT W/WO RMVL TUBE OVARY Hysterectomy, CHAKA left oophorectomy for fibroids ALLERGIES Latex, Penicillins, and Sulfabenzamide MEDICATIONS sertraline (ZOLOFT) 50 mg tablet DAILY VENTOLIN HFA 90 mcg/actuation inhaler inhale 2 puffs by mouth and INTO THE LUNGS every 4 hours if needed for wheezing (WITH SPACER) guaiFENesin (MUCINEX) 600 mg 12 hr tablet Take 2 tablets by mouth once daily. COLLAGEN MISC BIOTIN, BULK, MISC acetaminophen (TYLENOL) 500 mg tablet Take 500 mg by mouth every 8 hours as needed. turm/ging/mera/yuc/basil/shailesh/hor (TUMERSAID ORAL) Take 500 mg by mouth twice daily. DAILY MULTI-VITAMIN ORAL Take 1 tablet by mouth once daily. Calcium Carb-Cholecalciferol (CALCIUM 600 + D(3)) 600 (1,500)-200 mg-unit ORAL Tab Take one(1) tablet twice daily. VITAMIN C 1,000 MG TAB Take one(1) tablet daily. DULoxetine (CYMBALTA) 30 mg capsule Take 1 capsule by mouth once daily. FAMILY HISTORY Problem Relation Age of Onset Alzheimer's Disease Mother Heart Attack Mother Cancer Father Right pneumonectomy, 12 year survival. Hypertension Father Stroke Maternal Grandfather Cancer Maternal Grandmother bone cancer COPD Brother Cancer Brother kidney cancer Aneurysm Brother brain Social History Tobacco Use Smoking status: Never Smokeless tobacco: Never Tobacco comments: Father smoked in childhood home. Vaping Use Vaping Use: Never used Substance Use Topics Alcohol use: Yes Comment: wine twice weekly very occ Drug use: No PHYSICAL EXAM BP 144/60 Pulse (!) 53 Resp 14 Wt 43.5 kg (96 lb) SpO2 98% BMI 19.39 kg/m General Appearance: well appearing, in no acute distress, alert Skin: Skin color, texture, turgor normal for age; Eyes: conjunctiva pink and moist, no icterus, sclera white, non-injected Lungs: Lungs clear to auscultation. No wheezing, rhonchi, rales. Heart: RRR without murmur, gallop, or rubs. No ectopy Abdomen: Abdomen soft, non-tender. Bowel sounds normal. No masses, organomegaly BUE Extremities: No deformities, edema, skin discoloration, clubbing or cyanosis. Good capillary refill. COVID-19 VACCINE(5 - Booster for Moderna series) due on 12/31/2021 MAMMOGRAM due on 05/12/2022 COLORECTAL CANCER SCREENING due on 12/24/2022 DIABETES SCREEN due on 09/24/2024 DTAP,TDAP,TD(2 - Td or Tdap) due on 04/17/2025 LIPID SCREEN due on 09/24/2026 BONE DENSITY Completed INFLUENZA Completed ADVANCE DIRECTIVE DISCUSSION Completed HEPATITIS C SCREENING Completed SHINGRIX VACCINE Completed PNEUMOCOCCAL: 65+ Completed DATA REVIEWED: Outside chart from [facility] reviewed. ASSESSMENT/PLAN: 1. Palpitations - ICD9: 785.1, ICD10: R00.2 (primary diagnosis) - unsure on cause - no magnesium drawn in ER so will draw today - will continue with patient on zoloft in case all symptoms result of duloxetine. - continue with plans to establish with cardiology - ECHO - PERFLUTREN LIPID MICROSPHERES 1.1 MG/ML INJECTION IN NS 10 ML - SODIUM CHLORIDE 0.9 % (FLUSH) INJECTION SYRINGE - MAGNESIUM BLD - OUTSIDE VENDOR CARDIAC OUTPATIENT EXTENDED RHYTHM RECORDING (WITHOUT TELEMETRY) 2. Leukocytosis, unspecified type - ICD9: 288.60, ICD10: D72.829 - no recent steroid injection - will check for underlying virus or possible pneumonia. - XR CHEST 2V FRONTAL/LAT - COVID WITH FLUA+B, ROUTINE 3. Acute cough - ICD9: 786.2, ICD10: R05.1 As above - XR CHEST 2V FRONTAL/LAT - COVID WITH FLUA+B, ROUTINE 4. Shortness of breath on exertion - ICD9: 786.05, ICD10: R06.02 As above - ECHO - PERFLUTREN LIPID MICROSPHERES 1.1 MG/ML INJECTION IN NS 10 ML - SODIUM CHLORIDE 0.9 % (FLUSH) INJECTION SYRINGE - OUTSIDE VENDOR CARDIAC OUTPATIENT EXTENDED RHYTHM RECORDING (WITHOUT TELEMETRY) - COVID WITH FLUA+B, ROUTINE 5. Other fatigue - ICD9: 780.79, ICD10: R53.83 - see #2 - XR CHEST 2V FRONTAL/LAT - COVID WITH FLUA+B, ROUTINE 6. Nausea - ICD9: 787.02, ICD10: R11.0 - COVID WITH FLUA+B, ROUTINE Prescription instructions reviewed with patient as applicable. Potential red flag symptoms discussed with the patient. Reviewed appropriate action plan to take if red flag symptoms occur. Patient agreeable to treatment plan. Sandra Morales APRN.CNP documented in this encounter [facility] [place] 04-20-2022 Miscellaneous Notes I think this is duplicate Pt calling to get her mammogram scheduled. Need order placed. Will need to have this scheduled after 05/12/22 documented in this encounter [facility] [place] 04-19-2022 History of Present illness Narrative Reason for Visit Patient presents with: Same Day Appointment: discuss cymbalta side effects- 18 days on med Mindy Cantu is a 72 year old female who presents here today for Above Complaints.. Health Maintenance COVID-19 VACCINE(5 - Booster for Moderna series) MAMMOGRAM HPI Patient was recently put on cymbalta for the shoulder pain, but she has been feeling palpitations, last night. Never had this before with zoloft which was recently switched, 18 days ago. We reviewed the side effects which include palpitations. She should go back on the zoloft, regular dose. Having shoulder surgery in 4 months, currently does not want anything for her shoulder pain/ Patient was asked to restart the zoloft at 74. No problem-specific Assessment & Plan notes found for this encounter. PAST MEDICAL HISTORY Diagnosis Date Bronchiectasis (HCC) Depression (emotion) GERD (gastroesophageal reflux disease) Hiatal hernia Need for prophylactic hormone replacement therapy (postmenopausal) ESTROPIATE 0.625 Osteoarthritis Pneumonia 04/2018 Von Willebrand's disease 2002 PAST SURGICAL HISTORY Procedure Laterality Date COLONOSCOPY INCISE FINGER TENDON SHEATH Left 05/09/2018 Left ring trigger finger release and prior multiple LAPAROSCOPY SURG CHOLECYSTECTOMY 06/13/2018 Cholecystectomy, lap PAST SURGICAL HISTORY OF trigger finger relase x3 SKIN BX, 1 LESION 2000 AT PELVIC AREA. TOTAL ABDOMINAL HYSTERECT W/WO RMVL TUBE OVARY Hysterectomy, CHAKA left oophorectomy for fibroids FAMILY HISTORY Problem Relation Age of Onset Alzheimer's Disease Mother Heart Attack Mother Cancer Father Right pneumonectomy, 12 year survival. Hypertension Father Stroke Maternal Grandfather Cancer Maternal Grandmother bone cancer COPD Brother Cancer Brother kidney cancer Aneurysm Brother brain Social History Tobacco Use Smoking status: Never Smokeless tobacco: Never Tobacco comments: Father smoked in childhood home. Vaping Use Vaping Use: Never used Substance Use Topics Alcohol use: Yes Comment: wine twice weekly very occ Drug use: No Past medical history, appointments, medications, allergies reviewed. Pertinent Lab/Diagnostic Studies are reviewed and discussed today Current Outpatient Medications: DULoxetine (CYMBALTA) 30 mg capsule VENTOLIN HFA 90 mcg/actuation inhaler guaiFENesin (MUCINEX) 600 mg 12 hr tablet COLLAGEN MISC BIOTIN, BULK, MISC acetaminophen (TYLENOL) 500 mg tablet turm/ging/mera/yuc/basil/shailesh/hor (TUMERSAID ORAL) DAILY MULTI-VITAMIN ORAL Calcium Carb-Cholecalciferol (CALCIUM 600 + D(3)) 600 (1,500)-200 mg-unit ORAL Tab VITAMIN C 1,000 MG TAB Review of Systems CONSTITUTIONAL: No fevers, chills night sweats, unintended weight loss CARDIOVASCULAR: No chest pain, dyspnea, palpitations, orthopnea, PND, ankle edema. PULM: No dyspnea, unexplained cough. GI: No dysphagia/odynophagia, problematic reflux, constipation, diarrhea, changes in stool habits, hematochezia, melena. : No new urinary complaints, including dysuria, gross hematuria or pyuria. NEURO: No new balance problems, peripheral weakness/paresthesias or numbness of concern. Physical Exam BP 120/56 (BP Site: Left Arm, BP Position: Sitting, BP Cuff Size: Regular Adult) Pulse (!) 54 Resp 12 Ht 149.9 cm (4' 11 ) Wt 43.5 kg (96 lb) SpO2 97% BMI 19.39 kg/m General appearance: Well appearing, alert, in no acute distress, well nourished. Skin: Skin color, texture, turgor normal, no suspicious rashes or lesions Head: Normocephalic, no masses, lesions, tenderness or abnormalities Eyes: Anicteric sclera. Pupils are equally round and reactive to light. Extraocular movements are intact. Lungs: Lungs clear to auscultation. No wheezing, rhonchi, rales Heart: RRR without murmur, gallop, or rubs. Extremities: No deformities, edema, skin discoloration, clubbing or cyanosis. Good capillary refill. ASSESSMENT/PLAN: 1. Palpitation - ICD9: 785.1, ICD10: R00.2 (primary diagnosis) Stop the cymbalta and restart the zoloft 2. Breast cancer screening by mammogram - ICD9: V76.12, ICD10: Z12.31 - Completed pelvic and breast exam - Encouraged monthly BSE - Follow up for annual exam in one year. - KRISTINA SCREENING W NIESHA 3. Anxiety and depression - ICD9: 300.00, 311, ICD10: F41.9, F32.A Cont the zoloft Christ Solorio MD documented in this encounter [facility] [place] 04-13-2022 History of Present illness Narrative CC: Patient presents with: Recheck: Follow up HPI Mindy Cantu is a 72 year old female who presents today for routine follow up. At last appointment patient was weaned off zoloft and started on duloxetine to help with depression and chronic pain. Has just started cymbalta 2 weeks ago. States she is tolerating it well but is unsure if she has had any improvement to her chronic pain. Sleep: is described as normal except with her shoulder discomfort it is sometimes is difficult Alcohol use: drinks less than one drink a day Drug use: No Appetite: good Stresses: Major stressor: shoulder surgery Suicidal Thoughts: No suicidal ideation, intent or plan Support: Comes from multiple sources including friends and family Saw 2 orthopedic surgeons. Trying to decide which surgeon to choose for her right shoulder reverse arthroplasty. Currently is scheduled with Dr. Guerrero in mid July, so if she chooses to keep that, will need a preop appointment shortly prior to that. Has bronchiectasis that she follows with pulmonology and takes mucinex for. Denies any increase in chronic cough or shortness of breath. Denies any wheezing, fever, chills, or chest pain. REVIEW OF SYSTEMS General: no fevers, no chills, no night sweats, no recurrent infections, no change in appetite, no change in energy, and no significant changes in weight Respiratory: See HPI Cardiovascular: no chest pain, no chest pressure, no palpitations, and no swelling Neurologic: No headache, weakness, dizziness, syncope. PAST MEDICAL HISTORY Diagnosis Date Bronchiectasis (HCC) Depression (emotion) GERD (gastroesophageal reflux disease) Hiatal hernia Need for prophylactic hormone replacement therapy (postmenopausal) ESTROPIATE 0.625 Osteoarthritis Pneumonia 04/2018 Von Willebrand's disease (HCC) 2002 PAST SURGICAL HISTORY Procedure Laterality Date COLONOSCOPY INCISE FINGER TENDON SHEATH Left 05/09/2018 Left ring trigger finger release and prior multiple LAPAROSCOPY SURG CHOLECYSTECTOMY 06/13/2018 Cholecystectomy, lap PAST SURGICAL HISTORY OF trigger finger relase x3 SKIN BX, 1 LESION 2000 AT [facility]ELVIC AREA. TOTAL ABDOMINAL HYSTERECT W/WO RMVL TUBE OVARY Hysterectomy, CHAKA left oophorectomy for fibroids ALLERGIES Latex, Penicillins, and Sulfabenzamide MEDICATIONS DULoxetine (CYMBALTA) 30 mg capsule Take 1 capsule by mouth once daily. VENTOLIN HFA 90 mcg/actuation inhaler inhale 2 puffs by mouth and INTO THE LUNGS every 4 hours if needed for wheezing (WITH SPACER) guaiFENesin (MUCINEX) 600 mg 12 hr tablet Take 2 tablets by mouth once daily. COLLAGEN MISC BIOTIN, BULK, MISC acetaminophen (TYLENOL) 500 mg tablet Take 500 mg by mouth every 8 hours as needed. turm/ging/mera/yuc/basil/shailesh/hor (TUMERSAID ORAL) Take 500 mg by mouth twice daily. DAILY MULTI-VITAMIN ORAL Take 1 tablet by mouth once daily. Calcium Carb-Cholecalciferol (CALCIUM 600 + D(3)) 600 (1,500)-200 mg-unit ORAL Tab Take one(1) tablet twice daily. VITAMIN C 1,000 MG TAB Take one(1) tablet daily. FAMILY HISTORY Problem Relation Age of Onset Alzheimer's Disease Mother Heart Attack Mother Cancer Father Right pneumonectomy, 12 year survival. Hypertension Father Stroke Maternal Grandfather Cancer Maternal Grandmother bone cancer COPD Brother Cancer Brother kidney cancer Aneurysm Brother brain Social History Tobacco Use Smoking status: Never Smokeless tobacco: Never Tobacco comments: Father smoked in childhood home. Vaping Use Vaping Use: Never used Substance Use Topics Alcohol use: Yes Comment: wine twice weekly very occ Drug use: No PHYSICAL EXAM BP 132/72 Pulse 60 Resp 16 Wt 43.5 kg (96 lb) BMI 19.39 kg/m General Appearance: well appearing, in no acute distress, alert Lungs: Lungs clear to auscultation. No wheezing, rhonchi, rales. Heart: RRR without murmur, gallop, or rubs. No ectopy well dressed well groomed, cooperative, and pleasant Behavior: good eye contact Speech: fluent and coherent Mood: happy Affect: appropriate Perceptions: none Thought process: normal Thought Content: normal Intelligence level: normal Insight: good Judgment: good Health maintenance reviewed with patient: COVID-19 VACCINE(5 - Booster for Moderna series) due on 12/31/2021 MAMMOGRAM due on 05/12/2022 COLORECTAL CANCER SCREENING due on 12/24/2022 DIABETES SCREEN due on 09/24/2024 DTAP,TDAP,TD(2 - Td or Tdap) due on 04/17/2025 LIPID SCREEN due on 09/24/2026 BONE DENSITY Completed INFLUENZA Completed ADVANCE DIRECTIVE DISCUSSION Completed HEPATITIS C SCREENING Completed SHINGRIX VACCINE Completed PNEUMOCOCCAL: 65+ Completed DATA REVIEWED: No new labs ASSESSMENT/PLAN: 1. Episode of recurrent major depressive disorder, unspecified depression episode severity (HCC) - ICD9: 296.30, ICD10: F33.9 (primary diagnosis) - controlled at this time. Will continue with cymbalta at current dose - Reviewed concept of neurochemical imbalance wt depression/anxiety, treatment options and benefits of counseling in combination with medication. Also reviewed benefits of sleep hygeine, diet and exercise - Instructed patient to contact office or [id number] after-hours promptly should condition worsen or any new symptoms appear. - Counseling Center [facility] and after hours crisis line 2. Other chronic pain - ICD9: 338.29, ICD10: G89.29 - only started cymbalta a few weeks ago, will continue with current dose for the next few months and then re-evaluate. 3. Bronchiectasis without complication (HCC) - ICD9: 494.0, ICD10: J47.9 - controlled - continue with mucinex and other recommendations made by pulmonology. 4. Annual physical exam - ICD9: V70.0, ICD10: Z00.00 - will need these labs drawn prior to next appointment for pre-operative assessment - CBC + DIFF - COMP METABOLIC PANEL - LIPID PANEL BASIC Prescription instructions reviewed with patient as applicable. Potential red flag symptoms discussed with the patient. Reviewed appropriate action plan to take if red flag symptoms occur. Patient agreeable to treatment plan. Sandra Morales APRN.CNP documented in this encounter [facility] [place] 04-12-2022 Miscellaneous Notes Spoke with patient she is scheduled for 04/20 I received a request from [facility] for surgical clearance. Please schedule her to see me for next available established complex patient appointment. Will Stein DO documented in this encounter [facility] [place] 03-11-2022 History of Present illness Narrative Images from the original note were not included. . [facility] [place] Note Patient name: Mindy Cantu PCP: Christ Solorio MD CC: Bronchiectasis HPI: iMndy Cantu 71 year old female non-smoker with PMH significant for GERD/hiatal hernia, Von Willebrand's disease, bronchiectasis previous patient of Dr. Cornejo. Bronchiectasis treated with mucus clearance techniques. First discovered to have bronchiectasis in 2018 when she was was ill with pneumonia and gallbladder attack. She has had several bouts of pneumonia in the past. Current treatment consists of mucus clearance techniques only. She is not on chronic inhaled therapy. Has daily cough with clear mucus production after she performs her mucus clearance techniques. No significant wheezing, chest pain, fevers, night sweats. Had recent bronchiectasis exacerbation where her mucous changed color to yellow with green tinge, no hemoptysis, no infectious symptoms. Symptoms resolved with increase in mucus clearance technique. DATA: PFT: Review pulmonary function tests show normal spirometry PFT 04/2021: Review of pulmonary function test show normal spirometry Imaging: Reviewed images of previous chest CTs which show focal bronchiectasis in her right middle lobe and scattered stable pulmonary nodularity PAST MEDICAL HISTORY Diagnosis Date Bronchiectasis (HCC) Depression (emotion) GERD (gastroesophageal reflux disease) Hiatal hernia Need for prophylactic hormone replacement therapy (postmenopausal) ESTROPIATE 0.625 Osteoarthritis Pneumonia 04/2018 Von Willebrand's disease (HCC) 2002 ALLERGIES Allergen Reactions Latex Rash Dermatitis rash Penicillins Rash Sulfabenzamide Rash DULoxetine (CYMBALTA) 30 mg capsule Take 1 capsule by mouth once daily. VENTOLIN HFA 90 mcg/actuation inhaler inhale 2 puffs by mouth and INTO THE LUNGS every 4 hours if needed for wheezing (WITH SPACER) guaiFENesin (MUCINEX) 600 mg 12 hr tablet Take 2 tablets by mouth once daily. COLLAGEN MISC BIOTIN, BULK, MISC acetaminophen (TYLENOL) 500 mg tablet Take 500 mg by mouth every 8 hours as needed. turm/ging/mera/yuc/basil/shailesh/hor (TUMERSAID ORAL) Take 500 mg by mouth twice daily. DAILY MULTI-VITAMIN ORAL Take 1 tablet by mouth once daily. Calcium Carb-Cholecalciferol (CALCIUM 600 + D(3)) 600 (1,500)-200 mg-unit ORAL Tab Take one(1) tablet twice daily. VITAMIN C 1,000 MG TAB Take one(1) tablet daily. Social History Tobacco Use Smoking status: Never Smokeless tobacco: Never Tobacco comments: Father smoked in childhood home. Vaping Use Vaping Use: Never used Substance Use Topics Alcohol use: Yes Comment: wine twice weekly very occ Drug use: No FAMILY HISTORY Problem Relation Age of Onset Alzheimer's Disease Mother Heart Attack Mother Cancer Father Right pneumonectomy, 12 year survival. Hypertension Father Stroke Maternal Grandfather Cancer Maternal Grandmother bone cancer COPD Brother Cancer Brother kidney cancer Aneurysm Brother brain PAST SURGICAL HISTORY Procedure Laterality Date COLONOSCOPY INCISE FINGER TENDON SHEATH Left 05/09/2018 Left ring trigger finger release and prior multiple LAPAROSCOPY SURG CHOLECYSTECTOMY 06/13/2018 Cholecystectomy, lap PAST SURGICAL HISTORY OF trigger finger relase x3 SKIN BX, 1 LESION 2001 AT [facility]A. TOTAL ABDOMINAL HYSTERECT W/WO RMVL TUBE OVARY Hysterectomy, CHAKA left oophorectomy for fibroids PMH, Social history, family history and surgical history reviewed and updated in EMR REVIEW OF SYSTEMS: CONSTITUTIONAL: No fevers, chills, nightsweats, unintended weight loss HEENT: Denies nasal congestion/sinus symptoms, allergy problems. CARDIOVASCULAR: No chest pain, dyspnea, palpitations, orthopnea, PND, edema. PULM: See HPI GI: No dysphagia/odynophagia, problematic reflux INTEGUMENTARY: No new skin changes or rashes PHYSICAL EXAMINATION: BP 132/76 Pulse 50 Resp 12 Wt 96 lb (43.5kg) SpO2 96% General Appearance: Thin elderly female, NAD Skin: Skin color, texture, turgor normal, no suspicious rashes or lesions. Head: Normocephalic, no masses, lesions, tenderness or abnormalities. Eyes: Sclera, conjunctiva normal Oropharynx: Adequate dentition, no oral lesions or thrush Neck: No JVD or adenopathy Lungs: Not labored, normal percussion, no wheezes or crackles Heart: Regular rate and rhythm, no murmurs gallops Extremities: No edema or clubbing Assessment/Plan: 1. Bronchiectasis, uncomplicated -She will continue on current bronchopulmonary hygiene regimen -She was given a sputum cup to obtain sputum sample if she has recurrence and change in the character of her sputum -RTC 6 months or sooner with problems Shamika Balbuena MD [facility] [place] documented in this encounter [facility] [place] 03-11-2022 Nurse Note Intake information documented in the prior visit with SOPHIA Gray today. documented in this encounter [facility] [place] 03-11-2022 History of Present illness Narrative PULM FUNCTION SMARTBLOCK: Provider: Yessi Fine PA-C Assisting Tech: SOPHIA Gray Spirometry: 1 documented in this encounter [facility] [place] 03-11-2022 Instructions Sandra Morales APRN.CNP - 03/11/2022 10:29 AM EDT Wean off zoloft: Take 50mg once daily for the next week, then 25mg once daily for the following week, then 25mg every other day for a week then start the duloxetine documented in this encounter [facility] [place] 03-11-2022 History of Present illness Narrative CC: Patient presents with: Recheck: 6 month follow up Immunizations: Flu vaccination HPI Mindy Cantu is a 71 year old female who presents today for follow up on elevated blood pressure but also wants to discuss a fall and medication for chronic pain. Fell 2 weeks ago down 5 steps when her foot got caught. Did hit head but no loss of counsciousness also hit right hip and right shoulder. Saw orthoipedics for joint pain related to this. States bruising swelling and increase in chronic shoulder pain has resolved. Did have some dizziness and felt off after the fall but this completely resolved within 2 days. Denies any change in vision, headaches, dizziness, weakness, numbness, or tingling. Elevated Blood Pressure: Ms. Cantu indicates that she is feeling well and denies any symptoms referable to elevated blood pressure. Specifically denies headache, chest pain, palpitations, dyspnea, and peripheral edema. Not on medications and feels the slight elevation is related to her chronic pain. She does check BP's away from this office with average BP's in the 130s/70s range. Last 3 Encounter BP Readings: Date: BP: 03/11/2022 132/76 09/09/2021 128/72 09/06/2021 158/70 Chronic right shoulder pain: Has had steroid injections without improvement and has been told she needs shoulder replacement surgery but does not want to have that done at this time. Is wondering if there is something I could prescribe and is unable to tolerate NSAIDS as this increases bleeding and bruising for her with just one dose due to her history of Von Willebrand disease. REVIEW OF SYSTEMS General: no fevers, no chills, no night sweats, no recurrent infections, no change in appetite, no change in energy, and no significant changes in weight HEENT: no frequent or significant headaches, no changes in hearing, no visual changes, no nose bleeds, no sinus or nasal problems Respiratory: no cough, no wheezing, no shortness of breath, no hemoptysis Cardiovascular: no chest pain, no chest pressure, no palpitations, and no swelling Neurologic: No headache, weakness, numbness, tingling, dizziness, memory loss, syncope. CP PHQ9 03/11/2022 Little interest or pleasure 0 - Not at all Feeling down, depressed, hopeless 0 - Not at all Trouble falling or staying asleep, sleeping too much 2 - More than half the days Feeling tired, having little energy 0 - Not at all Poor appetite or overeating 1 - Several days Feeling bad about yourself, failure or you have let yourself/family down 0 - Not at all Trouble concentrating on things 0 - Not at all Moving or speaking so slowly, or fidgety or restless 0 - Not at all Thoughts that you would be better off , or of hurting yourself in some way 0 - Not at all How difficult have these problems made things Not difficult at all Interpretation of Total Score 1-4 Minimal depression MAR-7 ANXIETY SCALE 03/11/2022 FEELING NERVOUS,ANXIOUS,OR ON EDGE 2 Over half the days NOT BEING ABLE TO STOP OR CONTROL WORRYING 0 Not at all sure WORRYING TOO MUCH ABOUT DIFFERENT THINGS 0 Not at all sure TROUBLE RELAXING 1 Several days BEING SO RESTLESS THAT IT'S HARD TO SIT STILL 0 Not at all sure BEING EASILY ANNOYED OR IRRITABLE 0 Not at all sure FEELING AFRAID IF SOMETHING AWFUL MIGHT HAPPEN 0 Not at all sure GAD7 SCORE 3 IF YOU CHECKED OFF ANY PROBLEMS Not difficult at all PAST MEDICAL HISTORY Diagnosis Date Bronchiectasis (HCC) Depression (emotion) GERD (gastroesophageal reflux disease) Hiatal hernia Need for prophylactic hormone replacement therapy (postmenopausal) ESTROPIATE 0.625 Osteoarthritis Pneumonia 04/2018 Von Willebrand's disease (HCC) 2001 PAST SURGICAL HISTORY Procedure Laterality Date COLONOSCOPY INCISE FINGER TENDON SHEATH Left 05/09/2018 Left ring trigger finger release and prior multiple LAPAROSCOPY SURG CHOLECYSTECTOMY 06/13/2018 Cholecystectomy, lap PAST SURGICAL HISTORY OF trigger finger relase x3 SKIN BX, 1 LESION 2000 AT [facility]A. TOTAL ABDOMINAL HYSTERECT W/WO RMVL TUBE OVARY Hysterectomy, CHAKA left oophorectomy for fibroids ALLERGIES Latex, Penicillins, and Sulfabenzamide MEDICATIONS sertraline (ZOLOFT) 25 mg tablet TAKE 1 TABLET BY MOUTH ONCE DAILY IN ADDITION TO 50MG TABLET FOR A TOTAL OF 75MG sertraline (ZOLOFT) 50 mg tablet TAKE 1 TABLET BY MOUTH ONCE DAILY VENTOLIN HFA 90 mcg/actuation inhaler inhale 2 puffs by mouth and INTO THE LUNGS every 4 hours if needed for wheezing (WITH SPACER) guaiFENesin (MUCINEX) 600 mg 12 hr tablet Take 2 tablets by mouth once daily. COLLAGEN MISC BIOTIN, BULK, MISC acetaminophen (TYLENOL) 500 mg tablet Take 500 mg by mouth every 8 hours as needed. turm/ging/mera/yuc/basil/shailesh/hor (TUMERSAID ORAL) Take 500 mg by mouth twice daily. DAILY MULTI-VITAMIN ORAL Take 1 tablet by mouth once daily. Calcium Carb-Cholecalciferol (CALCIUM 600 + D(3)) 600 (1,500)-200 mg-unit ORAL Tab Take one(1) tablet twice daily. VITAMIN C 1,000 MG TAB Take one(1) tablet daily. FAMILY HISTORY Problem Relation Age of Onset Alzheimer's Disease Mother Heart Attack Mother Cancer Father Right pneumonectomy, 12 year survival. Hypertension Father Stroke Maternal Grandfather Cancer Maternal Grandmother bone cancer COPD Brother Cancer Brother kidney cancer Aneurysm Brother brain Social History Tobacco Use Smoking status: Never Smokeless tobacco: Never Tobacco comments: Father smoked in childhood home. Vaping Use Vaping Use: Never used Substance Use Topics Alcohol use: Yes Comment: wine twice weekly very occ Drug use: No PHYSICAL EXAM BP 132/76 Pulse 68 Resp 16 Wt 43.5 kg (96 lb) BMI 19.39 kg/m General Appearance: well appearing, in no acute distress, alert Skin: Skin color, texture, turgor normal for age; Eyes: PERRLA, EOM's intact, conjunctiva pink and moist, no icterus, sclera white, non-injected Neck: Thyroid normal size and symmetric without palpable nodules, No adenopathy Lymph nodes: No cervical lymphadenopathy, No supraclavicular lymphadenopathy. Lungs: Lungs clear to auscultation. No wheezing, rhonchi, rales. Heart: RRR without murmur, gallop, or rubs. No ectopy Extremities: No deformities, edema, skin discoloration, clubbing or cyanosis. Good capillary refill. Musculoskeletal: No joint swelling, deformity, or tenderness Neurological: Gait normal. Reflexes normal and symmetric. Sensation grossly intact. speech normal, mental status intact Health maintenance reviewed with patient: COVID-19 VACCINE(5 - Booster for Moderna series) due on 12/31/2021 INFLUENZA(1) due on 02/10/2022 MAMMOGRAM due on 05/12/2022 COLORECTAL CANCER SCREENING due on 12/24/2022 DIABETES SCREEN due on 09/24/2024 DTAP,TDAP,TD(2 - Td or Tdap) due on 04/17/2025 LIPID SCREEN due on 09/24/2026 BONE DENSITY Completed ADVANCE DIRECTIVE DISCUSSION Completed HEPATITIS C SCREENING Completed SHINGRIX VACCINE Completed PNEUMOCOCCAL: 65+ Completed DATA REVIEWED: No new labs ASSESSMENT/PLAN: 1. Elevated blood pressure reading in office without diagnosis of hypertension - ICD9: 796.2, ICD10: R03.0 (primary diagnosis) - will be at goal if pain would be better controlled - Encouraged dietary sodium restriction/DASH diet - Recommended regular aerobic exercise. - Recommend home blood pressure monitoring, to bring results in on next visit - Goal of BP <130/80 2. Fall, initial encounter - ICD9: E888.9, ICD10: W19.XXXA - injuries resolved - neuro exam normal - need to wear good supportive shoes and go slowly up and down stairs and hold hand rails - fall prevention discussed 3. Other chronic pain - ICD9: 338.29, ICD10: G89.29 - after discussion will switch from Zoloft to duloxetine in hopes to help with this. 4. Episode of recurrent major depressive disorder, unspecified depression episode severity (HCC) - ICD9: 296.30, ICD10: F33.9 Controlled currently but will wean off Zoloft and trial duloxetine. - Reviewed concept of neurochemical imbalance wth depression/anxiety, treatment options and benefits of counseling in combination with medication. Also reviewed benefits of sleep hygeine, diet and exercise - Instructed patient to contact office or [id number] after-hours promptly should condition worsen or any new symptoms appear. - Counseling Center [facility] and after hours crisis line 5. Need for influenza vaccination - ICD9: V04.81, ICD10: Z23 - INFLUENZA SEASONAL QUADRIVALENT HIGH DOSE AGE 65+ Prescription instructions reviewed with patient as applicable. Potential red flag symptoms discussed with the patient. Reviewed appropriate action plan to take if red flag symptoms occur. Patient agreeable to treatment plan. Sandra Morales APRN.CNP documented in this encounter [facility] [place] 03-08-2022 History of Present illness Narrative ORTHOPAEDIC SHOULDER & ELBOW SERVICE HISTORY & PHYSICAL EXAM REFERRING PROVIDER: Cristi Escamilla [address] [facility] [id number] CHIEF COMPLAINT: Bilateral shoulder pain PAIN EVALUATION 03/08/2022 1412 Pain Level: 4 Description: Aching;Sore;Sharp Frequency: Intermittent Intervention/Comfort measure: Medication Mindy Cantu is a 71 year old woman who presents today for evaluation of bilateral shoulder pain due to osteoarthritis. She is interested in discussing surgical options after failure of conservative treatment including corticosteroid injections and activity modification. She is referred by my partner Dr. Escamilla for discussion about shoulder arthroplasty today. PAST MEDICAL HISTORY: PAST MEDICAL HISTORY Diagnosis Date Bronchiectasis (HCC) Depression (emotion) GERD (gastroesophageal reflux disease) Hiatal hernia Need for prophylactic hormone replacement therapy (postmenopausal) ESTROPIATE 0.625 Osteoarthritis Pneumonia 04/2018 Von Willebrand's disease (HCC) 2001 PAST SURGICAL HISTORY: PAST SURGICAL HISTORY Procedure Laterality Date COLONOSCOPY INCISE FINGER TENDON SHEATH Left 05/09/2018 Left ring trigger finger release and prior multiple LAPAROSCOPY SURG CHOLECYSTECTOMY 06/13/2018 Cholecystectomy, lap PAST SURGICAL HISTORY OF trigger finger relase x3 SKIN BX, 1 LESION 2000 AT [facility] AREA. TOTAL ABDOMINAL HYSTERECT W/WO RMVL TUBE OVARY Hysterectomy, CHAKA left oophorectomy for fibroids SOCIAL HISTORY: Social History Tobacco Use Smoking status: Never Smokeless tobacco: Never Tobacco comments: Father smoked in childhood home. Vaping Use Vaping Use: Never used Substance Use Topics Alcohol use: Yes Comment: wine twice weekly very occ Drug use: No ALLERGIES: ALLERGIES Allergen Reactions Latex Rash Dermatitis rash Penicillins Rash Sulfabenzamide Rash MEDICATIONS: Current Outpatient Medications on File Prior to Visit Medication Sig VENTOLIN HFA 90 mcg/actuation inhaler inhale 2 puffs by mouth and INTO THE LUNGS every 4 hours if needed for wheezing (WITH SPACER) COLLAGEN MISC BIOTIN, BULK, MISC acetaminophen (TYLENOL) 500 mg tablet Take 500 mg by mouth every 8 hours as needed. turm/ging/mera/yuc/basil/shailesh/hor (TUMERSAID ORAL) Take 500 mg by mouth twice daily. DAILY MULTI-VITAMIN ORAL Take 1 tablet by mouth once daily. VITAMIN C 1,000 MG TAB Take one(1) tablet daily. guaiFENesin (MUCINEX) 600 mg 12 hr tablet Take 2 tablets by mouth once daily. Calcium Carb-Cholecalciferol (CALCIUM 600 + D(3)) 600 (1,500)-200 mg-unit ORAL Tab Take one(1) tablet twice daily. No current facility-administered medications on file prior to visit. PHYSICAL EXAMINATION: Temp 36.8 C (98.2 F) Ht 149.9 cm (4' 11 ) Wt 44.5 kg (98 lb) BMI 19.79 kg/m EXAM: Shoulder Musculoskeletal Exam Inspection Right Ecchymosis: none Peripheral edema: none Atrophy: none Symmetry: symmetric Masses: none Skin tenting: none Prior incision: none Left Ecchymosis: none Peripheral edema: none Atrophy: none Symmetry: symmetric Masses: none Skin tenting: none Prior incision: none Palpation Right Crepitus: mild Increased warmth: none Tenderness: present Anterior shoulder: moderate Posterior shoulder: moderate Clavicle: none AC joint: none Sternoclavicular joint: none Rotator cuff: mild Greater tuberosity: mild Trapezius: mild Medial scapula: none Superior pole of scapula: none Inferior pole of scapula: none Bicipital groove: mild Proximal biceps: mild Left Crepitus: mild Increased warmth: none Tenderness: present Anterior shoulder: mild Posterior shoulder: mild Clavicle: none AC joint: none Sternoclavicular joint: none Rotator cuff: mild Greater tuberosity: none Trapezius: mild Medial scapula: none Superior pole of scapula: none Inferior pole of scapula: none Bicipital groove: moderate Proximal biceps: moderate Distal biceps: none Lateral arm: none Elbow: none Range of Motion Right Active ROM: abnormal and pain. Passive ROM: abnormal and pain. Active forward elevation: 140. Passive forward elevation: 150. Shoulder active abduction: 90. Passive abduction: 90. Active external rotation at side: 60. Passive external rotation at side: 60. Active external rotation in abduction: 60. Passive external rotation in abduction: 60. Active internal rotation in abduction: 40. Passive internal rotation in abduction: 40. Internal rotation: T12. Left Active forward elevation: 150. Passive forward elevation: 150. Shoulder active abduction: 150. Passive abduction: 150. Active external rotation at side: 60. Active external rotation in abduction: 80. Passive external rotation in abduction: 80. Active internal rotation in abduction: 60. Passive internal rotation in abduction: 60. Internal rotation: T12. Strength Right External rotation: 5/5. Internal rotation: 5/5. Abduction: 5/5. Left External rotation: 5/5. Internal rotation: 5/5. Abduction: 5/5. Neurovascular Right Right shoulder nerve sensation is normal. Axillary nerve sensory distribution: normal Left Left shoulder nerve sensation is normal. Scapula Right Position: normal Dyskinesia: none Winging: none Left Left shoulder scapula is normal. Special Tests Right Rotator Cuff Signs Neer's test: positive Lorenzo test: positive Supraspinatus: negative Belly press test: negative Painful arc test: negative Lift-off sign: negative Drop arm test: negative Biceps/natalia Signs De Kalb's test: positive Clicking/popping: positive Speed's test: positive AC Joint Signs Active horizontal adduction pain: negative Single finger test: negative Left Rotator Cuff Signs Neer's test: negative Lorenzo test: positive External rotation lag sign: negative Supraspinatus: negative Belly press test: negative Painful arc test: negative Lift-off sign: negative Bear hug test: negative Drop arm test: negative Biceps/natalia Signs De Kalb's test: positive Clicking/popping: positive Speed's test: positive AC Joint Signs Active horizontal adduction pain: negative Single finger test: negative General Constitutional: appears stated age Labored breathing: no Psychiatric: normal mood and affect and no acute distress Neurological: alert and oriented x3 Skin: intact Lymphadenopathy: none IMAGING: Reviewed radiographs of the bilateral shoulders today showing advanced osteoarthritis with loss of joint space and osteophyte formation on the inferior humeral sclerosis and osteophyte formation on the glenoid. MEDICAL DECISION MAKING: (M19.011) Primary osteoarthritis of right shoulder (primary encounter diagnosis) Comment: Plan: (M19.012) Primary osteoarthritis of left shoulder Comment: Plan: Today we discussed shoulder arthroplasty and I feel this would be an appropriate treatment given her failure of conservative management. She would like a second opinion about her options as well. I gave her the names of some local providers that I would recommend, and she will make arrangements for the consultation. If she would like to proceed with surgery, I invited her to call Brianne Rosario to schedule at [place]. Medical decision making for today's visit was conducted with review of the following data sources: History, exam, imaging REFERRING PHYSICIAN: The patient was referred to me for consultation by the following physician. This consultation note will be sent to the following physician by either mail or electronic medical record. Cristi Escamilla [address] [facility] [id number] Rhonda Erwin MD Shoulder & Elbow Surgeon Department of Orthopaedic Surgery [facility] documented in this encounter [facility] 02-28-2022 History of Present illness Narrative Cristi Escamilla MD Department of Orthopaedics Orthopaedics [address] [facility] [address] Dept: [phone] Dept February 28, 2022 CHIEF COMPLAINT: Established Patient and Pain of the Left Shoulder and Established Patient and Pain of the Right Shoulder HPI Patient here today for 4 month post visit OA right shoulder with injection given. Today has pain in both shoulders. Reports injections are not helping as well as they have in the past. ASSESSMENT: M19.011 Primary osteoarthritis of right shoulder (primary encounter diagnosis) M19.012 Primary osteoarthritis of left shoulder PLAN: She would like to talk with Dr. Erwin to at least review her options. Ms. Mindy Cantu was advised as to contrast therapies and/or to take analgesics/anti-inflammatories as needed and all contraindications were reviewed. OBJECTIVE: Ms. Mindy Cantu is a pleasant 71 year old in no apparent distress. Gen:There were no vitals taken for this visit. nl development, thin appearing , no deformities ENT: Normocephalic, normal hearing, moist mucosa CV: Pulses:Radial= 2+ and symmetric, capillary refill < 2 secs, no peripheral edema/varicosities Skin: no rash, bruising or lesions. Good turgor. Psych: cooperative and appropriate, alert and oriented x 3, good mood and affect. Musculoskeletal: She has good yet slightly limited motion with forward elevation of both shoulders. Mild pain on terminal end range at about 165 or 70 degrees. She is lacking some external rotation with about 45 degrees at each shoulder. Imaging: IMPRESSION: Findings are suggestive of degenerative changes in the bilateral shoulders, primary versus secondary. Inspector: PILO Transcribe Date/Time: Aug 12 2021 2:52P Dictated by : VIRIDIANA GAMBOA MD This examination was interpreted and the report reviewed and electronically signed by: VIRIDIANA GAMBOA MD on Aug 12 2021 2:56PM EST Results-Findings * * *Final Report* * * DATE OF EXAM: Aug 12 2021 2:42PM [id number] - XR SHLDR >/=3V AP/CHRISTY AP/OTHR RT / PROCEDURE REASON: multiple diagnoses * * * * Physician Interpretation * * * * EXAM TITLE: XR SHLDR >/=3V AP/CHRISTY AP/OTHR RT, XR SHLDR >/=3V AP/CHRISTY AP/OTHR LT EXAM DATE/TIME: 08/12/2021 2:42 PM COMPARISON: None. CLINICAL INDICATION/HISTORY: Bilateral shoulder pain. TECHNIQUE: AP, true AP and axillary views of both shoulders are presented FINDINGS: No acute fractures or subluxations are noted. The bilateral acromioclavicular joint spaces are maintained however osteophyte formation and subchondral bony sclerosis noted. There is left greater than right bilateral glenohumeral joint space narrowing, with associated osteophyte formation, subchondral bony sclerosis and cystic formation. The acromiohumeral interval is maintained. The mineralization of the bones is normal. There is no significant soft tissue swelling. Supporting Subjective Information Below: Past Surgical History: PAST SURGICAL HISTORY Procedure Laterality Date COLONOSCOPY INCISE FINGER TENDON SHEATH Left 05/09/2018 Left ring trigger finger release and prior multiple LAPAROSCOPY SURG CHOLECYSTECTOMY 06/13/2018 Cholecystectomy, lap PAST SURGICAL HISTORY OF trigger finger relase x3 SKIN BX, 1 LESION 2000 AT PELVIC AREA. TOTAL ABDOMINAL HYSTERECT W/WO RMVL TUBE OVARY Hysterectomy, CHAKA left oophorectomy for fibroids Medications: Current Outpatient Medications Medication Sig sertraline (ZOLOFT) 25 mg tablet TAKE 1 TABLET BY MOUTH ONCE DAILY IN ADDITION TO 50MG TABLET FOR A TOTAL OF 75MG sertraline (ZOLOFT) 50 mg tablet TAKE 1 TABLET BY MOUTH ONCE DAILY VENTOLIN HFA 90 mcg/actuation inhaler inhale 2 puffs by mouth and INTO THE LUNGS every 4 hours if needed for wheezing (WITH SPACER) guaiFENesin (MUCINEX) 600 mg 12 hr tablet Take 2 tablets by mouth once daily. COLLAGEN MISC BIOTIN, BULK, MISC acetaminophen (TYLENOL) 500 mg tablet Take 500 mg by mouth every 8 hours as needed. turm/ging/mera/yuc/basil/shailesh/hor (TUMERSAID ORAL) Take 500 mg by mouth twice daily. DAILY MULTI-VITAMIN ORAL Take 1 tablet by mouth once daily. Calcium Carb-Cholecalciferol (CALCIUM 600 + D(3)) 600 (1,500)-200 mg-unit ORAL Tab Take one(1) tablet twice daily. VITAMIN C 1,000 MG TAB Take one(1) tablet daily. No current facility-administered medications for this visit. Allergies: Latex, Penicillins, and Sulfabenzamide ROS: General (negative for fatigue, malaise, weight loss/gain) HEENT (negative for headache, earache, recent vision changes, sinus pain, sore throat) Respiratory (no recent shortness of breath, hemoptysis) CV (negative for chest tightness, palpitations) Musculoskeletal (see HPI) Psych (no depression, anxiety) Consult Time: I spent 20 minutes in this visit, with more than 50% of the time devoted to patient counseling. Cristi Escamilla MD documented in this encounter [facility] 11-04-2021 Miscellaneous Notes Pharmacy electronically sent a request for the following prescription(s) Pending Prescriptions Disp Refills SERTRALINE 25 MG TABLET 90 tablet 3 Sig: TAKE 1 TABLET BY MOUTH ONCE DAILY IN ADDITION TO 50MG TABLET FOR A TOTAL OF 75MG LISA: No SERTRALINE 50 MG TABLET 90 tablet 3 Sig: TAKE 1 TABLET BY MOUTH ONCE DAILY LISA: Yes Patient aware RX will be sent to pharmacy. No need to notify patient. Last Office Visit: 09/09/2021 with Sandra Morales CNP Next Office Visit: 03/11/2022 with Sandra Morales CNP Please review. Anastacia Birmingham documented in this encounter [facility] 11-03-2021 Miscellaneous Notes Discussed in [employer] message. Thank you Sandra Morales APRN.CNP Please see [employer] message. Please call patient and let her know platelets are still elevated. I ordered another lab study to be evaluated. Thank you Sandra Morales APRN.CNP documented in this encounter [facility] 10-21-2021 History of Present illness Narrative Associated Order(s): Large Joint Arthro/Inj: R glenohumeral Cristi Escamilla MD Department of Orthopaedics Orthopaedics [address] [place] [id number] Dept: [phone] Dept October 21, 2021 CHIEF COMPLAINT: Follow Up and Pain of the Right Shoulder and Follow Up, Pain, and Injections of the Left Shoulder. HPI Patient presents with: Right Shoulder - Follow Up, Pain Left Shoulder - Follow Up, Pain, Injections AMB ROOMING INTAKE FLOWSHEET DATA Risk Screening Do you have concerns about personal safety or safety in the home?: No Pain Pain Level: 9 Pain Location: Shoulder-Right (bilateral shoulder) Description: Sharp Duration Units: Unknown Frequency: Continuous Intervention/Comfort measure: Medication (tylenol), Cold, Heat Comments: follow up injection given in left shoulder 10 weeks ago. Pt. reports some pain relief following injection. Still signfigant pain in right shoulder and mild/ moderate pain in left. ASSESSMENT: M19.011 Primary osteoarthritis of right shoulder (primary encounter diagnosis) SUMMARY/PLAN: She has had an injection in the past for the left shoulder. She is hoping for injection on the right. Exam: 170, 20-30 Large Joint Arthro/Inj: R glenohumeral Informed Consent Consent Obtained: Verbal Jerome Protocol A moment to CARE was completed. SIGN IN Personnel directly involved with the procedure wore the appropriate PPE. Special Equipment: N/A Patient/Surrogate Stated/Verified: Patient name, Date of , Relevant allergies and Intended procedure TIME OUT Intended patient and procedure match the source document(s). Consent documented and matches the intended procedure. Relevant labs, photos, and/or imaging studies have been reviewed. Correct side/site marked and visible. Medications required for procedure verified. No fire risk assessment and interventions applicable. No implant(s) inserted. 10/21/2021 1:14 PM The procedure site was prepped in the usual sterile fashion. Site: R glenohumeral Medications: 6 mg betamethasone acetate-betamethasone sodium phosphate 6 mg/mL Anesthetics: 4 mL lidocaine (PF) 10 mg/mL (1 %) Outcome: Tolerated well, no immediate complications Post-injection instructions were reviewed with the patient and the patient voiced understanding of these instructions. SIGN OUT No specimen collected. All instruments, equipment, possible retained foreign bodies accounted for. Post-procedure follow-up management communicated and Plan of Care Visit completed when applicable Supporting Information Below: Medications: Current Outpatient Medications Medication Sig VENTOLIN HFA 90 mcg/actuation inhaler inhale 2 puffs by mouth and INTO THE LUNGS every 4 hours if needed for wheezing (WITH SPACER) guaiFENesin (MUCINEX) 600 mg 12 hr tablet Take 2 tablets by mouth once daily. sertraline (ZOLOFT) 25 mg tablet To take this in addition to his 50 mgs. For a total of 75 sertraline (ZOLOFT) 50 mg tablet Take 1 tablet by mouth once daily. COLLAGEN MISC BIOTIN, BULK, MISC acetaminophen (TYLENOL EXTRA STRENGTH) 500 mg tablet Take 500 mg by mouth every 8 hours as needed. turm/ging/mera/yuc/basil/shailesh/hor (TUMERSAID ORAL) Take 500 mg by mouth twice daily. DAILY MULTI-VITAMIN ORAL Take 1 tablet by mouth once daily. Calcium Carb-Cholecalciferol (CALCIUM 600 + D(3)) 600 (1,500)-200 mg-unit ORAL Tab Take one(1) tablet twice daily. VITAMIN C 1,000 MG TAB Take one(1) tablet daily. No current facility-administered medications for this visit. Allergies: Latex, Penicillins, and Sulfabenzamide Cristi Escamilla MD documented in this encounter [facility] 09-06-2021 History of Present illness Narrative [facility] Respiratory [place], 09/06/2021: Name: Mindy Cantu : 1950 The patient is here today with by herself. HPI: Mindy Cantu is a 71 yo female with pmh significant for depression, diaphragmatic hernia, OA, Von Willebrand's disease and bronchiectasis. Never smoker. The patient is here for ED follow up. Patient presented to on 08/29/2021 secondary to cough and chills x 1.5 weeks. Patient also developed body aches and fevers. Patient was referred to [place] ED for further recommendations. Today, patient states she is feeling better. Continues with coughing, however, it is significantly improving. Clear sputum. No hemoptysis. Using Accapella 2-3 times daily. Taking Mucinex as needed. No wheezing. No dyspnea at rest. Exertional dyspnea with over exertion. States she is trying to push herself to get back to her baseline. No fevers or chills. PMH: Updated with patient today. FAMH: Updated with patient today. SOCH: Updated with patient today. IMMUNIZATIONS Prevnar - 02/27/2015 Pneumovax - 04/20/2016 Influenza - 03/06/2021 COVID-19 - 04/14/2021, 08/13/2020, 07/16/2020 ROS: See HPI. Allergies were reviewed and updated, and medications were reconciled with the patient. PHYSICAL EXAMINATION: BP 158/70 (BP Site: Right Arm, BP Position: Sitting, BP Cuff Size: Regular Adult) Pulse 101 Temp 36.7 C (98 F) (Temporal) Wt 44 kg (97 lb) SpO2 97% BMI 19.59 kg/m Gen: No acute distress. Cooperative with examination. ENT: Oral hygeine and dentition good. Pharynx clear. No halitosis. Resp: No stridor, accessory respiratory muscle use, supra-sternal or intercostal retractions. No wheezes, crackles. CV: Regular rythm. Heart tones normal. Radial pulses normal. Abd: Non distended. MSK: No kyphoscoliosis. Ext: Warm and well perfused. No clubbing, cyanosis, edema. Skin: No rash, ecchymoses. Neuro: Mental status normal. Affect normal. No tremor. DATA REVIEW: CXR, 08/29/2021 [place] ED read only FINDINGS: The lungs are clear and expanded. There is no demonstrated pleural abnormality. Normal size heart. Normal mediastinum and katherin. Normal visualized pulmonary arteries. Normal visualized aortic arch and descending thoracic aorta. Normal visualized thoracic spine. Normal visualized ribs, clavicles, and shoulders. There is no demonstrated abnormality of the visualized soft tissue structures of the upper abdomen. IMPRESSION: Normal x-ray examination of the chest. ASSESSMENT/PLAN: 1. Bronchiectasis without complication (HCC) - ICD9: 494.0, ICD10: J47.9 (primary diagnosis) Recently evaluated in ED for pneumonia versus bronchiectasis exacerbation. Completing course of Doxycycline and feeling improved. Reviewed CXR. Continued Mucinex as needed to thin secretions. Up to date on annual influenza, pneumococcal and Covid 19 vaccines. - SPIROMETRY BASELINE ONLY I addressed the questions of the patient, and she expressed understanding and acceptance of my answers. Yessi Fine PA-C documented in this encounter [facility] documented as of this encounter (statuses as of 09/06/2021) [facility]09-10-2021 History of Past illness Narrative* Problem Noted Date Resolved Date Primary osteoarthritis of right hip 02/19/2021 06/17/2021 Biliary colic 05/25/2018 10/16/2018 Overview: Added automatically from request for surgery [id number] Trigger ring finger of left hand 04/16/2018 10/16/2018 Overview: Added automatically from request for surgery [id number] Trigger finger of right hand 06/17/2016 Von Willebrand disease 03/03/2014 9 Urge incontinence of urine 03/03/201410/16 Von Willebrand's disease 12/20/2005 019 Overview: Dx 2001 MENOPAUSE MENOPAUSAL SYMPTOMS 12/20/2005 documented as of this encounter (statuses as of 11/03/2021) [facility]-10-2021 History of Past illness Narrative* Problem Noted Date Resolved Date Primary osteoarthritis of right hip 02/19/2021 06/17/2021 Biliary colic 05/25/2018 10/16/2018 Overview: Added automatically from request for surgery [id number] Trigger ring finger of left hand 04/16/2018 10/16/2018 Overview: Added automatically from request for surgery [id number] Trigger finger of right hand 06/17/2016 Von Willebrand disease 03/03/2014 9 Urge incontinence of urine 03/03/201410/16 Von Willebrand's disease 12/20/2005 019 Overview: Dx 2001 MENOPAUSE MENOPAUSAL SYMPTOMS 12/20/2005 documented as of this encounter (statuses as of 11/03/2021) [facility]-10-2021 History of Past illness Narrative* Problem Noted Date Resolved Date Primary osteoarthritis of right hip 02/19/2021 06/17/2021 Biliary colic 05/25/2018 10/16/2018 Overview: Added automatically from request for surgery [id number] Trigger ring finger of left hand 04/16/2018 10/16/2018 Overview: Added automatically from request for surgery [id number] Trigger finger of right hand 06/17/2016 Von Willebrand disease 03/03/2014 9 Urge incontinence of urine 03/03/201410/16 Von Willebrand's disease 12/20/2005 019 Overview: Dx 2001 MENOPAUSE MENOPAUSAL SYMPTOMS 12/20/2005 documented as of this encounter (statuses as of 11/05/2021) [facility]-10-2021 History of Past illness Narrative* Problem Noted Date Resolved Date Primary osteoarthritis of right hip 02/19/2021 06/17/2021 Biliary colic 05/25/2018 10/16/2018 Overview: Added automatically from request for surgery [id number] Trigger ring finger of left hand 04/16/2018 10/16/2018 Overview: Added automatically from request for surgery [id number] Trigger finger of right hand 06/17/2016 Von Willebrand disease 03/03/2014 9 Urge incontinence of urine 03/03/201410/16 Von Willebrand's disease 12/20/2005 019 Overview: Dx 2001 MENOPAUSE MENOPAUSAL SYMPTOMS 12/20/2005 documented as of this encounter (statuses as of 11/05/2021) [facility]-10-2021 History of Past illness Narrative* Problem Noted Date Resolved Date Primary osteoarthritis of right hip 02/19/2021 06/17/2021 Biliary colic 05/25/2018 10/16/2018 Overview: Added automatically from request for surgery [id number] Trigger ring finger of left hand 04/16/2018 10/16/2018 Overview: Added automatically from request for surgery [id number] Trigger finger of right hand 06/17/2016 Von Willebrand disease 03/03/2014 9 Urge incontinence of urine 03/03/201410/16 Von Willebrand's disease 12/20/2005 019 Overview: Dx 2001 MENOPAUSE MENOPAUSAL SYMPTOMS 12/20/2005 documented as of this encounter (statuses as of 11/29/2021) [facility]-10-2021 History of Past illness Narrative* Problem Noted Date Resolved Date Primary osteoarthritis of right hip 02/19/2021 06/17/2021 Biliary colic 05/25/2018 10/16/2018 Overview: Added automatically from request for surgery [id number] Trigger ring finger of left hand 04/16/2018 10/16/2018 Overview: Added automatically from request for surgery [id number] Trigger finger of right hand 06/17/2016 Von Willebrand disease 03/03/2014 9 Urge incontinence of urine 03/03/201410/16 Von Willebrand's disease 12/20/2005 019 Overview: Dx 2002 MENOPAUSE MENOPAUSAL SYMPTOMS 12/20/2005 documented as of this encounter (statuses as of 02/28/2022) [facility]-10-2021 History of Past illness Narrative* Problem Noted Date Resolved Date Primary osteoarthritis of right hip 02/19/2021 06/17/2021 Biliary colic 05/25/2018 10/16/2018 Overview: Added automatically from request for surgery [id number] Trigger ring finger of left hand 04/16/2018 10/16/2018 Overview: Added automatically from request for surgery [id number] Trigger finger of right hand 06/17/2016 Von Willebrand disease 03/03/2014 9 Urge incontinence of urine 03/03/201410/16 Von Willebrand's disease 12/20/2005 019 Overview: Dx 2001 MENOPAUSE MENOPAUSAL SYMPTOMS 12/20/2005 documented as of this encounter (statuses as of 03/11/2022) [facility]-10-2021 History of Past illness Narrative* Problem Noted Date Resolved Date Primary osteoarthritis of right hip 02/19/2021 06/17/2021 Biliary colic 05/25/2018 10/16/2018 Overview: Added automatically from request for surgery [id number] Trigger ring finger of left hand 04/16/2018 10/16/2018 Overview: Added automatically from request for surgery [id number] Trigger finger of right hand 06/17/2016 Von Willebrand disease 03/03/2014 9 Urge incontinence of urine 03/03/201410/16 Von Willebrand's disease 12/20/2005 019 Overview: Dx 2001 MENOPAUSE MENOPAUSAL SYMPTOMS 12/20/2005 documented as of this encounter (statuses as of 03/11/2022) [facility]-10-2021 History of Past illness Narrative* Problem Noted Date Resolved Date Primary osteoarthritis of right hip 02/19/2021 06/17/2021 Biliary colic 05/25/2018 10/16/2018 Overview: Added automatically from request for surgery [id number] Trigger ring finger of left hand 04/16/2018 10/16/2018 Overview: Added automatically from request for surgery [id number] Trigger finger of right hand 06/17/2016 Von Willebrand disease 03/03/2014 9 Urge incontinence of urine 03/03/201410/16 Von Willebrand's disease 12/20/2005 019 Overview: Dx 2002 MENOPAUSE MENOPAUSAL SYMPTOMS 12/20/2005 documented as of this encounter (statuses as of 03/11/2022) [facility]-10-2021 History of Past illness Narrative* Problem Noted Date Resolved Date Primary osteoarthritis of right hip 02/19/2021 06/17/2021 Biliary colic 05/25/2018 10/16/2018 Overview: Added automatically from request for surgery [id number] Trigger ring finger of left hand 04/16/2018 10/16/2018 Overview: Added automatically from request for surgery [id number] Trigger finger of right hand 06/17/2016 Von Willebrand disease 03/03/2014 9 Urge incontinence of urine 03/03/201410/16 Von Willebrand's disease 12/20/2005 019 Overview: Dx 2001 MENOPAUSE MENOPAUSAL SYMPTOMS 12/20/2005 documented as of this encounter (statuses as of 03/25/2022) [facility]-10-2021 History of Past illness Narrative* Problem Noted Date Resolved Date Primary osteoarthritis of right hip 02/19/2021 06/17/2021 Biliary colic 05/25/2018 10/16/2018 Overview: Added automatically from request for surgery [id number] Trigger ring finger of left hand 04/16/2018 10/16/2018 Overview: Added automatically from request for surgery [id number] Trigger finger of right hand 06/17/2016 Von Willebrand disease 03/03/2014 9 Urge incontinence of urine 03/03/201410/16 Von Willebrand's disease 12/20/2005 019 Overview: Dx 2001 MENOPAUSE MENOPAUSAL SYMPTOMS 12/20/2005 documented as of this encounter (statuses as of 04/12/2022) [facility]-10-2021 History of Past illness Narrative* Problem Noted Date Resolved Date Primary osteoarthritis of right hip 02/19/2021 06/17/2021 Biliary colic 05/25/2018 10/16/2018 Overview: Added automatically from request for surgery [id number] Trigger ring finger of left hand 04/16/2018 10/16/2018 Overview: Added automatically from request for surgery [id number] Trigger finger of right hand 06/17/2016 Von Willebrand disease 03/03/2014 9 Urge incontinence of urine 03/03/201410/16 Von Willebrand's disease 12/20/2005 019 Overview: Dx 2001 MENOPAUSE MENOPAUSAL SYMPTOMS 12/20/2005 documented as of this encounter (statuses as of 04/13/2022) [facility] [place]10[facility]21 History of Past illness Narrative* Problem Noted Date Resolved Date Primary osteoarthritis of right hip 02/19/2021 06/17/2021 Biliary colic 05/25/2018 10/16/2018 Overview: Added automatically from request for surgery [id number] Trigger ring finger of left hand 04/16/2018 10/16/2018 Overview: Added automatically from request for surgery [id number] Trigger finger of right hand 06/17/2016 Von Willebrand disease 03/03/2014 9 Urge incontinence of urine 03/03/201410/16 Von Willebrand's disease 12/20/2005 019 Overview: Dx 2002 MENOPAUSE MENOPAUSAL SYMPTOMS 12/20/2005 documented as of this encounter (statuses as of 04/20/2022) [facility] [place]21 History of Past illness Narrative* Problem Noted Date Resolved Date Primary osteoarthritis of right hip 02/19/2021 06/17/2021 Biliary colic 05/25/2018 10/16/2018 Overview: Added automatically from request for surgery [id number] Trigger ring finger of left hand 04/16/2018 10/16/2018 Overview: Added automatically from request for surgery [id number] Trigger finger of right hand 06/17/2016 Von Willebrand disease 03/03/2014 9 Urge incontinence of urine 03/03/201410/16 Von Willebrand's disease 12/20/2005 019 Overview: Dx 2002 MENOPAUSE MENOPAUSAL SYMPTOMS 12/20/2005 documented as of this encounter (statuses as of 04/20/2022) [facility] [place]21 History of Past illness Narrative* Problem Noted Date Resolved Date Primary osteoarthritis of right hip 02/19/2021 06/17/2021 Biliary colic 05/25/2018 10/16/2018 Overview: Added automatically from request for surgery [id number] Trigger ring finger of left hand 04/16/2018 10/16/2018 Overview: Added automatically from request for surgery [id number] Trigger finger of right hand 06/17/2016 Von Willebrand disease 03/03/2014 9 Urge incontinence of urine 03/03/201410/16 Von Willebrand's disease 12/20/2005 019 Overview: Dx 2002 MENOPAUSE MENOPAUSAL SYMPTOMS 12/20/2005 documented as of this encounter (statuses as of 04/21/2022) [facility] [place]21 History of Past illness Narrative* Problem Noted Date Resolved Date Primary osteoarthritis of right hip 02/19/2021 06/17/2021 Biliary colic 05/25/2018 10/16/2018 Overview: Added automatically from request for surgery [id number] Trigger ring finger of left hand 04/16/2018 10/16/2018 Overview: Added automatically from request for surgery [id number] Trigger finger of right hand 06/17/2016 Von Willebrand disease 03/03/2014 9 Urge incontinence of urine 03/03/201410/16 Von Willebrand's disease 12/20/2005 019 Overview: Dx 2002 MENOPAUSE MENOPAUSAL SYMPTOMS 12/20/2005 documented as of this encounter (statuses as of 04/21/2022) [facility] [place]21 History of Past illness Narrative* Problem Noted Date Resolved Date Primary osteoarthritis of right hip 02/19/2021 06/17/2021 Biliary colic 05/25/2018 10/16/2018 Overview: Added automatically from request for surgery [id number] Trigger ring finger of left hand 04/16/2018 10/16/2018 Overview: Added automatically from request for surgery [id number] Trigger finger of right hand 06/17/2016 Von Willebrand disease 03/03/2014 9 Urge incontinence of urine 03/03/201410/16 Von Willebrand's disease 12/20/2005 019 Overview: Dx 2002 MENOPAUSE MENOPAUSAL SYMPTOMS 12/20/2005 documented as of this encounter (statuses as of 05/02/2022) [facility] [place]21 History of Past illness Narrative* Problem Noted Date Resolved Date Primary osteoarthritis of right hip 02/19/2021 06/17/2021 Biliary colic 05/25/2018 10/16/2018 Overview: Added automatically from request for surgery [id number] Trigger ring finger of left hand 04/16/2018 10/16/2018 Overview: Added automatically from request for surgery [id number] Trigger finger of right hand 06/17/2016 Von Willebrand disease 03/03/2014 9 Urge incontinence of urine 03/03/201410/16 Von Willebrand's disease 12/20/2005 019 Overview: Dx 2002 MENOPAUSE MENOPAUSAL SYMPTOMS 12/20/2005 documented as of this encounter (statuses as of 05/09/2022) [facility] [place]21 History of Past illness Narrative* Problem Noted Date Resolved Date Primary osteoarthritis of right hip 02/19/2021 06/17/2021 Biliary colic 05/25/2018 10/16/2018 Overview: Added automatically from request for surgery [id number] Trigger ring finger of left hand 04/16/2018 10/16/2018 Overview: Added automatically from request for surgery [id number] Trigger finger of right hand 06/17/2016 Von Willebrand disease 03/03/2014 9 Urge incontinence of urine 03/03/201410/16 Von Willebrand's disease 12/20/2005 019 Overview: Dx 2001 MENOPAUSE MENOPAUSAL SYMPTOMS 12/20/2005 documented as of this encounter (statuses as of 05/16/2022) [facility] [place]2021 History of Past illness Narrative* Problem Noted Date Resolved Date Primary osteoarthritis of right hip 02/19/2021 06/17/2021 Biliary colic 05/25/2018 10/16/2018 Overview: Added automatically from request for surgery [id number] Trigger ring finger of left hand 04/16/2018 10/16/2018 Overview: Added automatically from request for surgery [id number] Trigger finger of right hand 06/17/2016 Von Willebrand disease 03/03/2014 9 Urge incontinence of urine 03/03/201410/16 Von Willebrand's disease 12/20/2005 019 Overview: Dx 2001 MENOPAUSE MENOPAUSAL SYMPTOMS 12/20/2005 documented as of this encounter (statuses as of 05/19/2022) [facility] [place] History of Past illness Narrative* Problem Noted Date Resolved Date Primary osteoarthritis of right hip 02/19/2021 06/17/2021 Biliary colic 05/25/2018 10/16/2018 Overview: Added automatically from request for surgery [id number] Trigger ring finger of left hand 04/16/2018 10/16/2018 Overview: Added automatically from request for surgery [id number] Trigger finger of right hand 06/17/2016 Von Willebrand disease 03/03/2014 9 Urge incontinence of urine 03/03/201410/16 Von Willebrand's disease 12/20/2005 019 Overview: Dx 2001 MENOPAUSE MENOPAUSAL SYMPTOMS 12/20/2005 documented as of this encounter (statuses as of 06/16/2022) [facility] [place]21 History of Past illness Narrative* Problem Noted Date Resolved Date Primary osteoarthritis of right hip 02/19/2021 06/17/2021 Biliary colic 05/25/2018 10/16/2018 Overview: Added automatically from request for surgery [id number] Trigger ring finger of left hand 04/16/2018 10/16/2018 Overview: Added automatically from request for surgery [id number] Trigger finger of right hand 06/17/2016 Von Willebrand disease 03/03/2014 9 Urge incontinence of urine 03/03/201410/16 Von Willebrand's disease 12/20/2005 019 Overview: Dx 2002 MENOPAUSE MENOPAUSAL SYMPTOMS 12/20/2005 documented as of this encounter (statuses as of 06/17/2022) [facility] [place]21 History of Past illness Narrative* Problem Noted Date Resolved Date Primary osteoarthritis of right hip 02/19/2021 06/17/2021 Biliary colic 05/25/2018 10/16/2018 Overview: Added automatically from request for surgery [id number] Trigger ring finger of left hand 04/16/2018 10/16/2018 Overview: Added automatically from request for surgery [id number] Trigger finger of right hand 06/17/2016 Von Willebrand disease 03/03/2014 9 Urge incontinence of urine 03/03/201410/16 Von Willebrand's disease 12/20/2005 019 Overview: Dx 2002 MENOPAUSE MENOPAUSAL SYMPTOMS 12/20/2005 documented as of this encounter (statuses as of 06/28/2022) [facility] [place] History of Past illness Narrative* Problem Noted Date Resolved Date Primary osteoarthritis of right hip 02/19/2021 06/17/2021 Biliary colic 05/25/2018 10/16/2018 Overview: Added automatically from request for surgery [id number] Trigger ring finger of left hand 04/16/2018 10/16/2018 Overview: Added automatically from request for surgery [id number] Trigger finger of right hand 06/17/2016 Von Willebrand disease 03/03/2014 9 Urge incontinence of urine 03/03/201410/16 Von Willebrand's disease 12/20/2005 019 Overview: Dx 2002 MENOPAUSE MENOPAUSAL SYMPTOMS 12/20/2005 documented as of this encounter (statuses as of 07/11/2022) [facility] [place] History of Past illness Narrative* Problem Noted Date Resolved Date Primary osteoarthritis of right hip 02/19/2021 06/17/2021 Biliary colic 05/25/2018 10/16/2018 Overview: Added automatically from request for surgery [id number] Trigger ring finger of left hand 04/16/2018 10/16/2018 Overview: Added automatically from request for surgery [id number] Trigger finger of right hand 06/17/2016 Von Willebrand disease 03/03/2014 9 Urge incontinence of urine 03/03/201410/16 Von Willebrand's disease 12/20/2005 019 Overview: Dx 2002 MENOPAUSE MENOPAUSAL SYMPTOMS 12/20/2005 documented as of this encounter (statuses as of 07/12/2022) [facility] [place] History of Past illness Narrative* Problem Noted Date Resolved Date Primary osteoarthritis of right hip 02/19/2021 06/17/2021 Biliary colic 05/25/2018 10/16/2018 Overview: Added automatically from request for surgery [id number] Trigger ring finger of left hand 04/16/2018 10/16/2018 Overview: Added automatically from request for surgery [id number] Trigger finger of right hand 06/17/2016 Von Willebrand disease 03/03/2014 9 Urge incontinence of urine 03/03/201410/16 Von Willebrand's disease 12/20/2005 019 Overview: Dx 2001 MENOPAUSE MENOPAUSAL SYMPTOMS 12/20/2005 documented as of this encounter (statuses as of 08/04/2022) [facility] [place]21 History of Past illness Narrative* Problem Noted Date Resolved Date Primary osteoarthritis of right hip 02/19/2021 06/17/2021 Biliary colic 05/25/2018 10/16/2018 Overview: Added automatically from request for surgery [id number] Trigger ring finger of left hand 04/16/2018 10/16/2018 Overview: Added automatically from request for surgery [id number] Trigger finger of right hand 06/17/2016 Von Willebrand disease 03/03/2014 9 Urge incontinence of urine 03/03/201410/16 Von Willebrand's disease 12/20/2005 019 Overview: Dx 2001 MENOPAUSE MENOPAUSAL SYMPTOMS 12/20/2005 documented as of this encounter (statuses as of 08/08/2022) [facility] [place]21 History of Past illness Narrative* Problem Noted Date Resolved Date Primary osteoarthritis of right hip 02/19/2021 06/17/2021 Biliary colic 05/25/2018 10/16/2018 Overview: Added automatically from request for surgery [id number] Trigger ring finger of left hand 04/16/2018 10/16/2018 Overview: Added automatically from request for surgery [id number] Trigger finger of right hand 06/17/2016 Von Willebrand disease 03/03/2014 9 Urge incontinence of urine 03/03/201410/16 Von Willebrand's disease 12/20/2005 019 Overview: Dx 2001 MENOPAUSE MENOPAUSAL SYMPTOMS 12/20/2005 documented as of this encounter (statuses as of 08/19/2022) [facility] [place]21 History of Past illness Narrative* Problem Noted Date Resolved Date Primary osteoarthritis of right hip 02/19/2021 06/17/2021 Biliary colic 05/25/2018 10/16/2018 Overview: Added automatically from request for surgery [id number] Trigger ring finger of left hand 04/16/2018 10/16/2018 Overview: Added automatically from request for surgery [id number] Trigger finger of right hand 06/17/2016 Von Willebrand disease 03/03/2014 9 Urge incontinence of urine 03/03/201410/16 Von Willebrand's disease 12/20/2005 019 Overview: Dx 2002 MENOPAUSE MENOPAUSAL SYMPTOMS 12/20/2005 documented as of this encounter (statuses as of 09/21/2022) [facility] [place] History of Past illness Narrative* Problem Noted Date Resolved Date Primary osteoarthritis of right hip 02/19/2021 06/17/2021 Biliary colic 05/25/2018 10/16/2018 Overview: Added automatically from request for surgery [id number] Trigger ring finger of left hand 04/16/2018 10/16/2018 Overview: Added automatically from request for surgery [id number] Trigger finger of right hand 06/17/2016 Von Willebrand disease 03/03/2014 9 Urge incontinence of urine 03/03/201410/16 Von Willebrand's disease 12/20/2005 019 Overview: Dx 2002 MENOPAUSE MENOPAUSAL SYMPTOMS 12/20/2005 documented as of this encounter (statuses as of 10/04/2022) [facility] [place] History of Past illness Narrative* Problem Noted Date Resolved Date Primary osteoarthritis of right hip 02/19/2021 06/17/2021 Biliary colic 05/25/2018 10/16/2018 Overview: Added automatically from request for surgery [id number] Trigger ring finger of left hand 04/16/2018 10/16/2018 Overview: Added automatically from request for surgery [id number] Trigger finger of right hand 06/17/2016 Von Willebrand disease 03/03/2014 3 Urge incontinence of urine 03/03/201410/16 Von Willebrand's disease 12/20/2005 019 Overview: Dx 2002 MENOPAUSE MENOPAUSAL SYMPTOMS 12/20/2005 documented as of this encounter (statuses as of 10/12/2022) [facility] [place] History of Past illness Narrative* Problem Noted Date Resolved Date Primary osteoarthritis of right hip 02/19/2021 06/17/2021 Biliary colic 05/25/2018 10/16/2018 Overview: Added automatically from request for surgery [id number] Trigger ring finger of left hand 04/16/2018 10/16/2018 Overview: Added automatically from request for surgery [id number] Trigger finger of right hand 06/17/2016 Von Willebrand disease 03/03/2014 3 Urge incontinence of urine 03/03/201410/16 Von Willebrand's disease 12/20/2005 019 Overview: Dx 2002 MENOPAUSE MENOPAUSAL SYMPTOMS 12/20/2005 documented as of this encounter (statuses as of 10/14/2022) [facility] [place] History of Past illness Narrative* Problem Noted Date Resolved Date Primary osteoarthritis of right hip 02/19/2021 06/17/2021 Biliary colic 05/25/2018 10/16/2018 Overview: Added automatically from request for surgery [id number] Trigger ring finger of left hand 04/16/2018 10/16/2018 Overview: Added automatically from request for surgery [id number] Trigger finger of right hand 06/17/2016 Von Willebrand disease 03/03/2014 3 Urge incontinence of urine 03/03/201410/16 Von Willebrand's disease 12/20/2005 019 Overview: Dx 2001 MENOPAUSE MENOPAUSAL SYMPTOMS 12/20/2005 documented as of this encounter (statuses as of 10/19/2022) [facility] [place] History of Past illness Narrative* Problem Noted Date Resolved Date Primary osteoarthritis of right hip 02/19/2021 06/17/2021 Biliary colic 05/25/2018 10/16/2018 Overview: Added automatically from request for surgery [id number] Trigger ring finger of left hand 04/16/2018 10/16/2018 Overview: Added automatically from request for surgery [id number] Trigger finger of right hand 06/17/2016 Von Willebrand disease 03/03/2014 3 Urge incontinence of urine 03/03/201410/16 Von Willebrand's disease 12/20/2005 019 Overview: Dx 2002 MENOPAUSE MENOPAUSAL SYMPTOMS 12/20/2005 documented as of this encounter (statuses as of 10/20/2022) [facility] [place]2021 History of Past illness Narrative* Problem Noted Date Resolved Date Primary osteoarthritis of right hip 02/19/2021 06/17/2021 Biliary colic 05/25/2018 10/16/2018 Overview: Added automatically from request for surgery [id number] Trigger ring finger of left hand 04/16/2018 10/16/2018 Overview: Added automatically from request for surgery [id number] Trigger finger of right hand 06/17/2016 Von Willebrand disease 03/03/2014 3 Urge incontinence of urine 03/03/201410/16 Von Willebrand's disease 12/20/2005 019 Overview: Dx 2001 MENOPAUSE MENOPAUSAL SYMPTOMS 12/20/2005 documented as of this encounter (statuses as of 10/21/2022) [facility] [place] History of Past illness Narrative* Problem Noted Date Resolved Date Primary osteoarthritis of right hip 02/19/2021 06/17/2021 Biliary colic 05/25/2018 10/16/2018 Overview: Added automatically from request for surgery [id number] Trigger ring finger of left hand 04/16/2018 10/16/2018 Overview: Added automatically from request for surgery [id number] Trigger finger of right hand 06/17/2016 Von Willebrand disease 03/03/2014 3 Urge incontinence of urine 03/03/201410/16 Von Willebrand's disease 12/20/20052 019 Overview: Dx 2002 MENOPAUSE MENOPAUSAL SYMPTOMS 12/20/2005 documented as of this encounter (statuses as of 10/25/2022) [facility] [place] History of Past illness Narrative* Problem Noted Date Resolved Date Primary osteoarthritis of right hip 02/19/2021 06/17/2021 Biliary colic 05/25/2018 10/16/2018 Overview: Added automatically from request for surgery [id number] Trigger ring finger of left hand 04/16/2018 10/16/2018 Overview: Added automatically from request for surgery [id number] Trigger finger of right hand 06/17/2016 Von Willebrand disease 03/03/2014 3 Urge incontinence of urine 03/03/201410/16 Von Willebrand's disease 12/20/2005 019 Overview: Dx 2002 MENOPAUSE MENOPAUSAL SYMPTOMS 12/20/2005 documented as of this encounter (statuses as of 11/09/2022) [facility] [place] History of Past illness Narrative* Problem Noted Date Resolved Date Primary osteoarthritis of right hip 02/19/2021 06/17/2021 Biliary colic 05/25/2018 10/16/2018 Overview: Added automatically from request for surgery [id number] Trigger ring finger of left hand 04/16/2018 10/16/2018 Overview: Added automatically from request for surgery [id number] Trigger finger of right hand 06/17/2016 Von Willebrand disease 03/03/2014 3 Urge incontinence of urine 03/03/201410/16 Von Willebrand's disease 12/20/2005 019 Overview: Dx 2002 MENOPAUSE MENOPAUSAL SYMPTOMS 12/20/2005 documented as of this encounter (statuses as of 11/10/2022) [facility] [place] History of Past illness Narrative* Problem Noted Date Resolved Date Primary osteoarthritis of right hip 02/19/2021 06/17/2021 Biliary colic 05/25/2018 10/16/2018 Overview: Added automatically from request for surgery [id number] Trigger ring finger of left hand 04/16/2018 10/16/2018 Overview: Added automatically from request for surgery [id number] Trigger finger of right hand 06/17/2016 Von Willebrand disease 03/03/2014 3 Urge incontinence of urine 03/03/201410/16 Von Willebrand's disease 12/20/2005 019 Overview: Dx 2002 MENOPAUSE MENOPAUSAL SYMPTOMS 12/20/2005 documented as of this encounter (statuses as of 11/17/2022) [facility] [place] History of Past illness Narrative* Problem Noted Date Resolved Date Primary osteoarthritis of right hip 02/19/2021 06/17/2021 Biliary colic 05/25/2018 10/16/2018 Overview: Added automatically from request for surgery [id number] Trigger ring finger of left hand 04/16/2018 10/16/2018 Overview: Added automatically from request for surgery [id number] Trigger finger of right hand 06/17/2016 Von Willebrand disease 03/03/2014 3 Urge incontinence of urine 03/03/201410/16 Von Willebrand's disease 12/20/2005 019 Overview: Dx 2001 MENOPAUSE MENOPAUSAL SYMPTOMS 12/20/2005 documented as of this encounter (statuses as of 11/24/2022) [facility] [place] History of Past illness Narrative* Problem Noted Date Resolved Date Primary osteoarthritis of right hip 02/19/2021 06/17/2021 Biliary colic 05/25/2018 10/16/2018 Overview: Added automatically from request for surgery [id number] Trigger ring finger of left hand 04/16/2018 10/16/2018 Overview: Added automatically from request for surgery [id number] Trigger finger of right hand 06/17/2016 Von Willebrand disease 03/03/2014 3 Urge incontinence of urine 03/03/201410/16 Von Willebrand's disease 12/20/2005 019 Overview: Dx 2002 MENOPAUSE MENOPAUSAL SYMPTOMS 12/20/2005 documented as of this encounter (statuses as of 11/25/2022) [facility] [place] History of Past illness Narrative* Problem Noted Date Resolved Date Primary osteoarthritis of right hip 02/19/2021 06/17/2021 Biliary colic 05/25/2018 10/16/2018 Overview: Added automatically from request for surgery [id number] Trigger ring finger of left hand 04/16/2018 10/16/2018 Overview: Added automatically from request for surgery [id number] Trigger finger of right hand 06/17/2016 Von Willebrand disease 03/03/2014 3 Urge incontinence of urine 03/03/201410/16 Von Willebrand's disease 12/20/2005 019 Overview: Dx 2001 MENOPAUSE MENOPAUSAL SYMPTOMS 12/20/2005 documented as of this encounter (statuses as of 11/29/2022) [facility] [place] History of Past illness Narrative* Problem Noted Date Resolved Date Primary osteoarthritis of right hip 02/19/2021 06/17/2021 Biliary colic 05/25/2018 10/16/2018 Overview: Added automatically from request for surgery [id number] Trigger ring finger of left hand 04/16/2018 10/16/2018 Overview: Added automatically from request for surgery [id number] Trigger finger of right hand 06/17/2016 Von Willebrand disease 03/03/2014 3 Urge incontinence of urine 03/03/201410/16 Von Willebrand's disease 12/20/2005 019 Overview: Dx 2001 MENOPAUSE MENOPAUSAL SYMPTOMS 12/20/2005 documented as of this encounter (statuses as of 11/30/2022) [facility] [place] History of Past illness Narrative* Problem Noted Date Resolved Date Primary osteoarthritis of right hip 02/19/2021 06/17/2021 Biliary colic 05/25/2018 10/16/2018 Overview: Added automatically from request for surgery [id number] Trigger ring finger of left hand 04/16/2018 10/16/2018 Overview: Added automatically from request for surgery [id number] Trigger finger of right hand 06/17/2016 Von Willebrand disease 03/03/2014 3 Urge incontinence of urine 03/03/201410/16 Von Willebrand's disease 12/20/2005 019 Overview: Dx 2001 MENOPAUSE MENOPAUSAL SYMPTOMS 12/20/2005 documented as of this encounter (statuses as of 12/01/2022) [facility] [place] History of Past illness Narrative* Problem Noted Date Resolved Date Primary osteoarthritis of right hip 02/19/2021 06/17/2021 Biliary colic 05/25/2018 10/16/2018 Overview: Added automatically from request for surgery [id number] Trigger ring finger of left hand 04/16/2018 10/16/2018 Overview: Added automatically from request for surgery [id number] Trigger finger of right hand 06/17/2016 Von Willebrand disease 03/03/2014 3 Urge incontinence of urine 03/03/201410/16 Von Willebrand's disease 12/20/2005 019 Overview: Dx 2002 MENOPAUSE MENOPAUSAL SYMPTOMS 12/20/2005 documented as of this encounter (statuses as of 12/02/2022) [facility] [place] History of Past illness Narrative* Problem Noted Date Resolved Date Primary osteoarthritis of right hip 02/19/2021 06/17/2021 Biliary colic 05/25/2018 10/16/2018 Overview: Added automatically from request for surgery [id number] Trigger ring finger of left hand 04/16/2018 10/16/2018 Overview: Added automatically from request for surgery [id number] Trigger finger of right hand 06/17/2016 Von Willebrand disease 03/03/2014 3 Urge incontinence of urine 03/03/201410/16 Von Willebrand's disease 12/20/2005 019 Overview: Dx 2001 MENOPAUSE MENOPAUSAL SYMPTOMS 12/20/2005 documented as of this encounter (statuses as of 12/07/2022) [facility] [place]21 History of Past illness Narrative* Problem Noted Date Resolved Date Primary osteoarthritis of right hip 02/19/2021 06/17/2021 Biliary colic 05/25/2018 10/16/2018 Overview: Added automatically from request for surgery [id number] Trigger ring finger of left hand 04/16/2018 10/16/2018 Overview: Added automatically from request for surgery [id number] Trigger finger of right hand 06/17/2016 Von Willebrand disease 03/03/2014 3 Urge incontinence of urine 03/03/201410/16 Von Willebrand's disease 12/20/2005 019 Overview: Dx 2001 MENOPAUSE MENOPAUSAL SYMPTOMS 12/20/2005 documented as of this encounter (statuses as of 12/09/2022) [facility] [place]10[facility]2021 History of Past illness Narrative* Problem Noted Date Resolved Date Primary osteoarthritis of right hip 02/19/2021 06/17/2021 Biliary colic 05/25/2018 10/16/2018 Overview: Added automatically from request for surgery [id number] Trigger ring finger of left hand 04/16/2018 10/16/2018 Overview: Added automatically from request for surgery [id number] Trigger finger of right hand 06/17/2016 Von Willebrand disease 03/03/2014 3 Urge incontinence of urine 03/03/201410/16 Von Willebrand's disease 12/20/2005 019 Overview: Dx 2002 MENOPAUSE MENOPAUSAL SYMPTOMS 12/20/2005 documented as of this encounter (statuses as of 12/14/2022) [facility] [place]10[facility]2021 History of Past illness Narrative* Problem Noted Date Diagnosed Date Resolved Date Primary osteoarthritis of right hip 02/19/2021 06/17/2021 Biliary colic 05/25/2018 10/16/2018 Overview: Added automatically from request for surgery [id number] Trigger ring finger of left hand 04/16/2018 10/16/2018 Overview: Added automatically from request for surgery [id number] Trigger finger of right hand 06/17/2016 07/01/2016 Von Willebrand disease 03/03/201410/07 Urge incontinence of urine 03/03/2014 0 10/16/2018 Von Willebrand's disease 12/20/200507/2018 Overview: Dx 2001 MENOPAUSE MENOPAUSAL SYMPTOMS 12/20/2005 10/16/2018 documented as of this encounter (statuses as of 12/22/2022) [facility] [place]10[facility]2021 History of Past illness Narrative* Problem Noted Date Diagnosed Date Resolved Date Primary osteoarthritis of right hip 02/19/2021 06/17/2021 Biliary colic 05/25/2018 10/16/2018 Overview: Added automatically from request for surgery [id number] Trigger ring finger of left hand 04/16/2018 10/16/2018 Overview: Added automatically from request for surgery [id number] Trigger finger of right hand 06/17/2016 07/01/2016 Von Willebrand disease 03/03/201410/07 Urge incontinence of urine 03/03/2014 0 10/16/2018 Von Willebrand's disease 12/20/200507/2018 Overview: Dx 2002 MENOPAUSE MENOPAUSAL SYMPTOMS 12/20/2005 10/16/2018 documented as of this encounter (statuses as of 12/23/2022) [facility] [place]10[facility]2021 History of Past illness Narrative* Problem Noted Date Diagnosed Date Resolved Date Primary osteoarthritis of right hip 02/19/2021 06/17/2021 Biliary colic 05/25/2018 10/16/2018 Overview: Added automatically from request for surgery [id number] Trigger ring finger of left hand 04/16/2018 10/16/2018 Overview: Added automatically from request for surgery [id number] Trigger finger of right hand 06/17/2016 07/01/2016 Von Willebrand disease 03/03/201410/07 Urge incontinence of urine 03/03/2014 0 10/16/2018 Von Willebrand's disease 12/20/200507/2018 Overview: Dx 2001 MENOPAUSE MENOPAUSAL SYMPTOMS 12/20/2005 10/16/2018 documented as of this encounter (statuses as of 12/27/2022) [facility] [place]10[facility]2021 History of Past illness Narrative* Problem Noted Date Diagnosed Date Resolved Date Primary osteoarthritis of right hip 02/19/2021 06/17/2021 Biliary colic 05/25/2018 10/16/2018 Overview: Added automatically from request for surgery [id number] Trigger ring finger of left hand 04/16/2018 10/16/2018 Overview: Added automatically from request for surgery [id number] Trigger finger of right hand 06/17/2016 07/01/2016 Von Willebrand disease 03/03/201410/07 Urge incontinence of urine 03/03/2014 0 10/16/2018 Von Willebrand's disease 12/20/200507/2018 Overview: Dx 2002 MENOPAUSE MENOPAUSAL SYMPTOMS 12/20/2005 10/16/2018 documented as of this encounter (statuses as of 12/28/2022) [facility] [place]10[facility]2021 History of Past illness Narrative* Problem Noted Date Diagnosed Date Resolved Date Primary osteoarthritis of right hip 02/19/2021 06/17/2021 Biliary colic 05/25/2018 10/16/2018 Overview: Added automatically from request for surgery [id number] Trigger ring finger of left hand 04/16/2018 10/16/2018 Overview: Added automatically from request for surgery [id number] Trigger finger of right hand 06/17/2016 07/01/2016 Von Willebrand disease 03/03/201410/07 Urge incontinence of urine 03/03/2014 0 10/16/2018 Von Willebrand's disease 12/20/200507/2018 Overview: Dx 2002 MENOPAUSE MENOPAUSAL SYMPTOMS 12/20/2005 10/16/2018 documented as of this encounter (statuses as of 01/05/2023) [facility] [place]10[facility]2021 History of Past illness Narrative* Problem Noted Date Diagnosed Date Resolved Date Primary osteoarthritis of right hip 02/19/2021 06/17/2021 Biliary colic 05/25/2018 10/16/2018 Overview: Added automatically from request for surgery [id number] Trigger ring finger of left hand 04/16/2018 10/16/2018 Overview: Added automatically from request for surgery [id number] Trigger finger of right hand 06/17/2016 07/01/2016 Von Willebrand disease 03/03/201410/07 Urge incontinence of urine 03/03/2014 0 10/16/2018 Von Willebrand's disease 12/20/200507/2018 Overview: Dx 2002 MENOPAUSE MENOPAUSAL SYMPTOMS 12/20/2005 10/16/2018 documented as of this encounter (statuses as of 01/06/2023) [facility] [place]10[facility]2021 History of Past illness Narrative* Problem Noted Date Diagnosed Date Resolved Date Primary osteoarthritis of right hip 02/19/2021 06/17/2021 Biliary colic 05/25/2018 10/16/2018 Overview: Added automatically from request for surgery [id number] Trigger ring finger of left hand 04/16/2018 10/16/2018 Overview: Added automatically from request for surgery [id number] Trigger finger of right hand 06/17/2016 07/01/2016 Von Willebrand disease 03/03/201410/07 Urge incontinence of urine 03/03/2014 0 10/16/2018 Von Willebrand's disease 12/20/200507/2018 Overview: Dx 2002 MENOPAUSE MENOPAUSAL SYMPTOMS 12/20/2005 10/16/2018 documented as of this encounter (statuses as of 01/10/2023) [facility] [place]-10[facility]2021 History of Past illness Narrative* Problem Noted Date Diagnosed Date Resolved Date Primary osteoarthritis of right hip 02/19/2021 06/17/2021 Biliary colic 05/25/2018 10/16/2018 Overview: Added automatically from request for surgery [id number] Trigger ring finger of left hand 04/16/2018 10/16/2018 Overview: Added automatically from request for surgery [id number] Trigger finger of right hand 06/17/2016 07/01/2016 Von Willebrand disease 03/03/201410/07 Urge incontinence of urine 03/03/2014 0 10/16/2018 Von Willebrand's disease 12/20/200507/2018 Overview: Dx 2001 MENOPAUSE MENOPAUSAL SYMPTOMS 12/20/2005 10/16/2018 documented as of this encounter (statuses as of 01/12/2023) [facility] [place]10[facility]2021 History of Past illness Narrative* Problem Noted Date Diagnosed Date Resolved Date Primary osteoarthritis of right hip 02/19/2021 06/17/2021 Biliary colic 05/25/2018 10/16/2018 Overview: Added automatically from request for surgery [id number] Trigger ring finger of left hand 04/16/2018 10/16/2018 Overview: Added automatically from request for surgery [id number] Trigger finger of right hand 06/17/2016 07/01/2016 Von Willebrand disease 03/03/201410/07 Urge incontinence of urine 03/03/2014 0 10/16/2018 Von Willebrand's disease 12/20/200507/2018 Overview: Dx 2002 MENOPAUSE MENOPAUSAL SYMPTOMS 12/20/2005 10/16/2018 documented as of this encounter (statuses as of 01/13/2023) [facility] [place]10[facility]2021 History of Past illness Narrative* Problem Noted Date Diagnosed Date Resolved Date Primary osteoarthritis of right hip 02/19/2021 06/17/2021 Biliary colic 05/25/2018 10/16/2018 Overview: Added automatically from request for surgery [id number] Trigger ring finger of left hand 04/16/2018 10/16/2018 Overview: Added automatically from request for surgery [id number] Trigger finger of right hand 06/17/2016 07/01/2016 Von Willebrand disease 03/03/201410/07 Urge incontinence of urine 03/03/2014 0 10/16/2018 Von Willebrand's disease 12/20/200507/2018 Overview: Dx 2001 MENOPAUSE MENOPAUSAL SYMPTOMS 12/20/2005 10/16/2018 documented as of this encounter (statuses as of 01/13/2023) [facility] [place]10[facility]2021 History of Past illness Narrative* Problem Noted Date Diagnosed Date Resolved Date Primary osteoarthritis of right hip 02/19/2021 06/17/2021 Biliary colic 05/25/2018 10/16/2018 Overview: Added automatically from request for surgery [id number] Trigger ring finger of left hand 04/16/2018 10/16/2018 Overview: Added automatically from request for surgery [id number] Trigger finger of right hand 06/17/2016 07/01/2016 Von Willebrand disease 03/03/201410/07 Urge incontinence of urine 03/03/2014 0 10/16/2018 Von Willebrand's disease 12/20/200507/2018 Overview: Dx 2001 MENOPAUSE MENOPAUSAL SYMPTOMS 12/20/2005 10/16/2018 documented as of this encounter (statuses as of 01/18/2023) [facility] [place]-10[facility]2021 History of Past illness Narrative* Problem Noted Date Diagnosed Date Resolved Date Primary osteoarthritis of right hip 02/19/2021 06/17/2021 Biliary colic 05/25/2018 10/16/2018 Overview: Added automatically from request for surgery [id number] Trigger ring finger of left hand 04/16/2018 10/16/2018 Overview: Added automatically from request for surgery [id number] Trigger finger of right hand 06/17/2016 07/01/2016 Von Willebrand disease 03/03/201410/07 Urge incontinence of urine 03/03/2014 0 10/16/2018 Von Willebrand's disease 12/20/200507/2018 Overview: Dx 2001 MENOPAUSE MENOPAUSAL SYMPTOMS 12/20/2005 10/16/2018 documented as of this encounter (statuses as of 01/27/2023) [facility] [place]-10[facility]2021 History of Past illness Narrative* Problem Noted Date Diagnosed Date Resolved Date Primary osteoarthritis of right hip 02/19/2021 06/17/2021 Biliary colic 05/25/2018 10/16/2018 Overview: Added automatically from request for surgery [id number] Trigger ring finger of left hand 04/16/2018 10/16/2018 Overview: Added automatically from request for surgery [id number] Trigger finger of right hand 06/17/2016 07/01/2016 Von Willebrand disease 03/03/201410/07 Urge incontinence of urine 03/03/2014 0 10/16/2018 Von Willebrand's disease 12/20/200507/2018 Overview: Dx 2002 MENOPAUSE MENOPAUSAL SYMPTOMS 12/20/2005 10/16/2018 documented as of this encounter (statuses as of 02/01/2023) [facility] [place]-10-2021 History of Past illness Narrative* Problem Noted Date Diagnosed Date Resolved Date Primary osteoarthritis of right hip 02/19/2021 06/17/2021 Biliary colic 05/25/2018 10/16/2018 Overview: Added automatically from request for surgery [id number] Trigger ring finger of left hand 04/16/2018 10/16/2018 Overview: Added automatically from request for surgery [id number] Trigger finger of right hand 06/17/2016 07/01/2016 Von Willebrand disease 03/03/201410/07 Urge incontinence of urine 03/03/2014 0 10/16/2018 Von Willebrand's disease 12/20/200507/2018 Overview: Dx 2002 MENOPAUSE MENOPAUSAL SYMPTOMS 12/20/2005 10/16/2018 documented as of this encounter (statuses as of 02/02/2023) [facility] [place]-10-2021 History of Past illness Narrative* Problem Noted Date Diagnosed Date Resolved Date Primary osteoarthritis of right hip 02/19/2021 06/17/2021 Biliary colic 05/25/2018 10/16/2018 Overview: Added automatically from request for surgery [id number] Trigger ring finger of left hand 04/16/2018 10/16/2018 Overview: Added automatically from request for surgery [id number] Trigger finger of right hand 06/17/2016 07/01/2016 Von Willebrand disease 03/03/201410/07 Urge incontinence of urine 03/03/2014 0 10/16/2018 Von Willebrand's disease 12/20/200507/2018 Overview: Dx 2002 MENOPAUSE MENOPAUSAL SYMPTOMS 12/20/2005 10/16/2018 documented as of this encounter (statuses as of 02/03/2023) [facility] [place]-10-2021 History of Past illness Narrative* Problem Noted Date Diagnosed Date Resolved Date Primary osteoarthritis of right hip 02/19/2021 06/17/2021 Biliary colic 05/25/2018 10/16/2018 Overview: Added automatically from request for surgery [id number] Trigger ring finger of left hand 04/16/2018 10/16/2018 Overview: Added automatically from request for surgery [id number] Trigger finger of right hand 06/17/2016 07/01/2016 Von Willebrand disease 03/03/201410/07 Urge incontinence of urine 03/03/2014 0 10/16/2018 Von Willebrand's disease 12/20/200507/2018 Overview: Dx 2002 MENOPAUSE MENOPAUSAL SYMPTOMS 12/20/2005 10/16/2018 documented as of this encounter (statuses as of 02/07/2023) [facility] [place]10[facility]2021 History of Past illness Narrative* Problem Noted Date Diagnosed Date Resolved Date Primary osteoarthritis of right hip 02/19/2021 06/17/2021 Biliary colic 05/25/2018 10/16/2018 Overview: Added automatically from request for surgery [id number] Trigger ring finger of left hand 04/16/2018 10/16/2018 Overview: Added automatically from request for surgery [id number] Trigger finger of right hand 06/17/2016 07/01/2016 Von Willebrand disease 03/03/201410/07 Urge incontinence of urine 03/03/2014 0 10/16/2018 Von Willebrand's disease 12/20/200507/2018 Overview: Dx 2002 MENOPAUSE MENOPAUSAL SYMPTOMS 12/20/2005 10/16/2018 documented as of this encounter (statuses as of 02/14/2023) [facility] [place]10[facility]2021 History of Past illness Narrative* Problem Noted Date Diagnosed Date Resolved Date Primary osteoarthritis of right hip 02/19/2021 06/17/2021 Biliary colic 05/25/2018 10/16/2018 Overview: Added automatically from request for surgery [id number] Trigger ring finger of left hand 04/16/2018 10/16/2018 Overview: Added automatically from request for surgery [id number] Trigger finger of right hand 06/17/2016 07/01/2016 Von Willebrand disease 03/03/201410/07 Urge incontinence of urine 03/03/2014 0 10/16/2018 Von Willebrand's disease 12/20/200507/2018 Overview: Dx 2002 MENOPAUSE MENOPAUSAL SYMPTOMS 12/20/2005 10/16/2018 documented as of this encounter (statuses as of 02/17/2023) [facility] [place]-10-2021 History of Past illness Narrative* Problem Noted Date Diagnosed Date Resolved Date Primary osteoarthritis of right hip 02/19/2021 06/17/2021 Biliary colic 05/25/2018 10/16/2018 Overview: Added automatically from request for surgery [id number] Trigger ring finger of left hand 04/16/2018 10/16/2018 Overview: Added automatically from request for surgery [id number] Trigger finger of right hand 06/17/2016 07/01/2016 Von Willebrand disease 03/03/201410/07 Urge incontinence of urine 03/03/2014 0 10/16/2018 Von Willebrand's disease 12/20/200507/2018 Overview: Dx 2001 MENOPAUSE MENOPAUSAL SYMPTOMS 12/20/2005 10/16/2018 documented as of this encounter (statuses as of 02/21/2023) [facility] [place]10[facility]2021 History of Past illness Narrative* Problem Noted Date Diagnosed Date Resolved Date Primary osteoarthritis of right hip 02/19/2021 06/17/2021 Biliary colic 05/25/2018 10/16/2018 Overview: Added automatically from request for surgery [id number] Trigger ring finger of left hand 04/16/2018 10/16/2018 Overview: Added automatically from request for surgery [id number] Trigger finger of right hand 06/17/2016 07/01/2016 Von Willebrand disease 03/03/201410/07 Urge incontinence of urine 03/03/2014 0 10/16/2018 Von Willebrand's disease 12/20/200507/2018 Overview: Dx 2001 MENOPAUSE MENOPAUSAL SYMPTOMS 12/20/2005 10/16/2018 documented as of this encounter (statuses as of 02/24/2023) [facility] [place]10[facility]2021 History of Past illness Narrative* Problem Noted Date Diagnosed Date Resolved Date Primary osteoarthritis of right hip 02/19/2021 06/17/2021 Biliary colic 05/25/2018 10/16/2018 Overview: Added automatically from request for surgery [id number] Trigger ring finger of left hand 04/16/2018 10/16/2018 Overview: Added automatically from request for surgery [id number] Trigger finger of right hand 06/17/2016 07/01/2016 Von Willebrand disease 03/03/201410/07 Urge incontinence of urine 03/03/2014 0 10/16/2018 Von Willebrand's disease 12/20/200507/2018 Overview: Dx 2001 MENOPAUSE MENOPAUSAL SYMPTOMS 12/20/2005 10/16/2018 documented as of this encounter (statuses as of 02/24/2023) [facility] [place]10[facility]2021 History of Past illness Narrative* Problem Noted Date Diagnosed Date Resolved Date Primary osteoarthritis of right hip 02/19/2021 06/17/2021 Biliary colic 05/25/2018 10/16/2018 Overview: Added automatically from request for surgery [id number] Trigger ring finger of left hand 04/16/2018 10/16/2018 Overview: Added automatically from request for surgery [id number] Trigger finger of right hand 06/17/2016 07/01/2016 Von Willebrand disease 03/03/201410/07 Urge incontinence of urine 03/03/2014 0 10/16/2018 Von Willebrand's disease 12/20/200507/2018 Overview: Dx 2001 MENOPAUSE MENOPAUSAL SYMPTOMS 12/20/2005 10/16/2018 documented as of this encounter (statuses as of 02/28/2023) [facility] [place]10[facility]2021 History of Past illness Narrative* Problem Noted Date Diagnosed Date Resolved Date Primary osteoarthritis of right hip 02/19/2021 06/17/2021 Biliary colic 05/25/2018 10/16/2018 Overview: Added automatically from request for surgery [id number] Trigger ring finger of left hand 04/16/2018 10/16/2018 Overview: Added automatically from request for surgery [id number] Trigger finger of right hand 06/17/2016 07/01/2016 Von Willebrand disease 03/03/201410/07 Urge incontinence of urine 03/03/2014 0 10/16/2018 Von Willebrand's disease 12/20/200507/2018 Overview: Dx 2001 MENOPAUSE MENOPAUSAL SYMPTOMS 12/20/2005 10/16/2018 documented as of this encounter (statuses as of 03/03/2023) [facility] [place]10[facility]2021 History of Past illness Narrative* Problem Noted Date Diagnosed Date Resolved Date Primary osteoarthritis of right hip 02/19/2021 06/17/2021 Biliary colic 05/25/2018 10/16/2018 Overview: Added automatically from request for surgery [id number] Trigger ring finger of left hand 04/16/2018 10/16/2018 Overview: Added automatically from request for surgery [id number] Trigger finger of right hand 06/17/2016 07/01/2016 Von Willebrand disease 03/03/201410/07 Urge incontinence of urine 03/03/2014 0 10/16/2018 Von Willebrand's disease 12/20/200507/2018 Overview: Dx 2001 MENOPAUSE MENOPAUSAL SYMPTOMS 12/20/2005 10/16/2018 documented as of this encounter (statuses as of 03/08/2023) [facility] [place]2021 History of Past illness Narrative* Problem Noted Date Diagnosed Date Resolved Date Primary osteoarthritis of right hip 02/19/2021 06/17/2021 Biliary colic 05/25/2018 10/16/2018 Overview: Added automatically from request for surgery [id number] Trigger ring finger of left hand 04/16/2018 10/16/2018 Overview: Added automatically from request for surgery [id number] Trigger finger of right hand 06/17/2016 07/01/2016 Von Willebrand disease 03/03/201410/07 Urge incontinence of urine 03/03/2014 0 10/16/2018 Von Willebrand's disease 12/20/200507/2018 Overview: Dx 2002 MENOPAUSE MENOPAUSAL SYMPTOMS 12/20/2005 10/16/2018 documented as of this encounter (statuses as of 03/08/2023) [facility] [place]2021 History of Past illness Narrative* Problem Noted Date Diagnosed Date Resolved Date Primary osteoarthritis of right hip 02/19/2021 06/17/2021 Biliary colic 05/25/2018 10/16/2018 Overview: Added automatically from request for surgery [id number] Trigger ring finger of left hand 04/16/2018 10/16/2018 Overview: Added automatically from request for surgery [id number] Trigger finger of right hand 06/17/2016 07/01/2016 Von Willebrand disease 03/03/201410/07 Urge incontinence of urine 03/03/2014 0 10/16/2018 Von Willebrand's disease 12/20/200507/2018 Overview: Dx 2001 MENOPAUSE MENOPAUSAL SYMPTOMS 12/20/2005 10/16/2018 documented as of this encounter (statuses as of 03/15/2023) [facility] [place]2021 History of Past illness Narrative* Problem Noted Date Diagnosed Date Resolved Date Primary osteoarthritis of right hip 02/19/2021 06/17/2021 Biliary colic 05/25/2018 10/16/2018 Overview: Added automatically from request for surgery [id number] Trigger ring finger of left hand 04/16/2018 10/16/2018 Overview: Added automatically from request for surgery [id number] Trigger finger of right hand 06/17/2016 07/01/2016 Von Willebrand disease 03/03/201410/07 Urge incontinence of urine 03/03/2014 0 10/16/2018 Von Willebrand's disease 12/20/200507/2018 Overview: Dx 2002 MENOPAUSE MENOPAUSAL SYMPTOMS 12/20/2005 10/16/2018 documented as of this encounter (statuses as of 03/21/2023) [facility] [place]2021 History of Past illness Narrative* Problem Noted Date Diagnosed Date Resolved Date Primary osteoarthritis of right hip 02/19/2021 06/17/2021 Biliary colic 05/25/2018 10/16/2018 Overview: Added automatically from request for surgery [id number] Trigger ring finger of left hand 04/16/2018 10/16/2018 Overview: Added automatically from request for surgery [id number] Trigger finger of right hand 06/17/2016 07/01/2016 Von Willebrand disease 03/03/201410/07 Urge incontinence of urine 03/03/2014 0 10/16/2018 Von Willebrand's disease 12/20/200507/2018 Overview: Dx 2001 MENOPAUSE MENOPAUSAL SYMPTOMS 12/20/2005 10/16/2018 documented as of this encounter (statuses as of 03/24/2023) [facility] [place]2021 History of Past illness Narrative* Problem Noted Date Diagnosed Date Resolved Date Primary osteoarthritis of right hip 02/19/2021 06/17/2021 Biliary colic 05/25/2018 10/16/2018 Overview: Added automatically from request for surgery [id number] Trigger ring finger of left hand 04/16/2018 10/16/2018 Overview: Added automatically from request for surgery [id number] Trigger finger of right hand 06/17/2016 07/01/2016 Von Willebrand disease 03/03/201410/07 Urge incontinence of urine 03/03/2014 0 10/16/2018 Von Willebrand's disease 12/20/200507/2018 Overview: Dx 2002 MENOPAUSE MENOPAUSAL SYMPTOMS 12/20/2005 10/16/2018 documented as of this encounter (statuses as of 03/30/2023) [facility] [place]2021 History of Past illness Narrative* Problem Noted Date Diagnosed Date Resolved Date Primary osteoarthritis of right hip 02/19/2021 06/17/2021 Biliary colic 05/25/2018 10/16/2018 Overview: Added automatically from request for surgery [id number] Trigger ring finger of left hand 04/16/2018 10/16/2018 Overview: Added automatically from request for surgery [id number] Trigger finger of right hand 06/17/2016 07/01/2016 Von Willebrand disease 03/03/201410/07 Urge incontinence of urine 03/03/2014 0 10/16/2018 Von Willebrand's disease 12/20/200507/2018 Overview: Dx 2002 MENOPAUSE MENOPAUSAL SYMPTOMS 12/20/2005 10/16/2018 documented as of this encounter (statuses as of 04/07/2023) [facility] [place]21 History of Past illness Narrative* Problem Noted Date Diagnosed Date Resolved Date Primary osteoarthritis of right hip 02/19/2021 06/17/2021 Biliary colic 05/25/2018 10/16/2018 Overview: Added automatically from request for surgery [id number] Trigger ring finger of left hand 04/16/2018 10/16/2018 Overview: Added automatically from request for surgery [id number] Trigger finger of right hand 06/17/2016 07/01/2016 Von Willebrand disease 03/03/201410/07 Urge incontinence of urine 03/03/2014 0 10/16/2018 Von Willebrand's disease 12/20/200507/2018 Overview: Dx 2002 MENOPAUSE MENOPAUSAL SYMPTOMS 12/20/2005 10/16/2018 documented as of this encounter (statuses as of 04/14/2023) [facility] [place]10[facility]2021 History of Past illness Narrative* Problem Noted Date Diagnosed Date Resolved Date Primary osteoarthritis of right hip 02/19/2021 06/17/2021 Biliary colic 05/25/2018 10/16/2018 Overview: Added automatically from request for surgery [id number] Trigger ring finger of left hand 04/16/2018 10/16/2018 Overview: Added automatically from request for surgery [id number] Trigger finger of right hand 06/17/2016 07/01/2016 Von Willebrand disease 03/03/201410/07 Urge incontinence of urine 03/03/2014 0 10/16/2018 Von Willebrand's disease 12/20/200507/2018 Overview: Dx 2002 MENOPAUSE MENOPAUSAL SYMPTOMS 12/20/2005 10/16/2018 documented as of this encounter (statuses as of 04/18/2023) [facility] [place]2021 History of Past illness Narrative* Problem Noted Date Diagnosed Date Resolved Date Primary osteoarthritis of right hip 02/19/2021 06/17/2021 Biliary colic 05/25/2018 10/16/2018 Overview: Added automatically from request for surgery [id number] Trigger ring finger of left hand 04/16/2018 10/16/2018 Overview: Added automatically from request for surgery [id number] Trigger finger of right hand 06/17/2016 07/01/2016 Von Willebrand disease 03/03/201410/07 Urge incontinence of urine 03/03/2014 0 10/16/2018 Von Willebrand's disease 12/20/200507/2018 Overview: Dx 2001 MENOPAUSE MENOPAUSAL SYMPTOMS 12/20/2005 10/16/2018 documented as of this encounter (statuses as of 04/26/2023) [facility] [place]2021 History of Past illness Narrative* Problem Noted Date Diagnosed Date Resolved Date Primary osteoarthritis of right hip 02/19/2021 06/17/2021 Biliary colic 05/25/2018 10/16/2018 Overview: Added automatically from request for surgery [id number] Trigger ring finger of left hand 04/16/2018 10/16/2018 Overview: Added automatically from request for surgery [id number] Trigger finger of right hand 06/17/2016 07/01/2016 Von Willebrand disease 03/03/201410/07 Urge incontinence of urine 03/03/2014 0 10/16/2018 Von Willebrand's disease 12/20/200507/2018 Overview: Dx 2002 MENOPAUSE MENOPAUSAL SYMPTOMS 12/20/2005 10/16/2018 documented as of this encounter (statuses as of 05/03/2023) [facility] [place]2021 History of Past illness Narrative* Problem Noted Date Diagnosed Date Resolved Date Primary osteoarthritis of right hip 02/19/2021 06/17/2021 Biliary colic 05/25/2018 10/16/2018 Overview: Added automatically from request for surgery [id number] Trigger ring finger of left hand 04/16/2018 10/16/2018 Overview: Added automatically from request for surgery [id number] Trigger finger of right hand 06/17/2016 07/01/2016 Von Willebrand disease 03/03/201410/07 Urge incontinence of urine 03/03/2014 0 10/16/2018 Von Willebrand's disease 12/20/200507/2018 Overview: Dx 2001 MENOPAUSE MENOPAUSAL SYMPTOMS 12/20/2005 10/16/2018 documented as of this encounter (statuses as of 05/09/2023) [facility] [place]-10-2021 History of Past illness Narrative* Problem Noted Date Diagnosed Date Resolved Date Primary osteoarthritis of right hip 02/19/2021 06/17/2021 Biliary colic 05/25/2018 10/16/2018 Overview: Added automatically from request for surgery [id number] Trigger ring finger of left hand 04/16/2018 10/16/2018 Overview: Added automatically from request for surgery [id number] Trigger finger of right hand 06/17/2016 07/01/2016 Von Willebrand disease 03/03/201410/07 Urge incontinence of urine 03/03/2014 0 10/16/2018 Von Willebrand's disease 12/20/200507/2018 Overview: Dx 2001 MENOPAUSE MENOPAUSAL SYMPTOMS 12/20/2005 10/16/2018 documented as of this encounter (statuses as of 05/19/2023) [facility] [place]-10-2021 History of Past illness Narrative* Problem Noted Date Diagnosed Date Resolved Date Primary osteoarthritis of right hip 02/19/2021 06/17/2021 Biliary colic 05/25/2018 10/16/2018 Overview: Added automatically from request for surgery [id number] Trigger ring finger of left hand 04/16/2018 10/16/2018 Overview: Added automatically from request for surgery [id number] Trigger finger of right hand 06/17/2016 07/01/2016 Von Willebrand disease 03/03/201410/07 Urge incontinence of urine 03/03/2014 0 10/16/2018 Von Willebrand's disease 12/20/200507/2018 Overview: Dx 2001 MENOPAUSE MENOPAUSAL SYMPTOMS 12/20/2005 10/16/2018 documented as of this encounter (statuses as of 05/22/2023) [facility] [place]-10-2021 History of Past illness Narrative* Problem Noted Date Diagnosed Date Resolved Date Primary osteoarthritis of right hip 02/19/2021 06/17/2021 Biliary colic 05/25/2018 10/16/2018 Overview: Added automatically from request for surgery [id number] Trigger ring finger of left hand 04/16/2018 10/16/2018 Overview: Added automatically from request for surgery [id number] Trigger finger of right hand 06/17/2016 07/01/2016 Von Willebrand disease 03/03/201410/07 Urge incontinence of urine 03/03/2014 0 10/16/2018 Von Willebrand's disease 12/20/200507/2018 Overview: Dx 2001 MENOPAUSE MENOPAUSAL SYMPTOMS 12/20/2005 10/16/2018 documented as of this encounter (statuses as of 07/24/2023) [facility] note* Diagnosis Bronchiectasis without complication (HCC)- Primary Bronchiectasis without acute exacerbation Lung nodules Other nonspecific abnormal finding of lung field [facility] Diagnosis Elevated platelet count- Primary Essential thrombocythemia [facility]* Diagnosis Primary osteoarthritis of right shoulder- Primary Primary localized osteoarthrosis, shoulder region [facility] Diagnosis Adjustment disorder with depressed mood documented in this encounter [facility] note* Diagnosis Adjustment disorder with depressed mood [facility] Diagnosis Primary osteoarthritis of right shoulder- Primary Primary localized osteoarthrosis, shoulder region Primary osteoarthritis of left shoulder Primary localized osteoarthrosis, shoulder region [facility] Diagnosis Elevated blood pressure reading in office without diagnosis of hypertension- Primary Fall, initial encounter Other chronic pain Episode of recurrent major depressive disorder, unspecified depression episode severity (HCC) Need for influenza vaccination Need for prophylactic vaccination and inoculation against influenza [facility] Diagnosis Bronchiectasis without complication (HCC) Bronchiectasis without acute exacerbation [facility] this [facility] Diagnosis Bronchiectasis without complication (HCC)- Primary Bronchiectasis without acute exacerbation [facility] this [facility] Diagnosis Primary osteoarthritis of right shoulder- Primary Primary localized osteoarthrosis, shoulder region Primary osteoarthritis of left shoulder Primary localized osteoarthrosis, shoulder region [facility] Diagnosis Episode of recurrent major depressive disorder, unspecified depression episode severity (HCC)- Primary Other chronic pain Bronchiectasis without complication (HCC) Bronchiectasis without acute exacerbation Annual physical exam Routine general medical examination at a health care facility [facility] Diagnosis Palpitation- Primary Palpitations Breast cancer screening by mammogram Anxiety and depression Dysthymic disorder [facility] Diagnosis Dense breast tissue- Primary [facility] Palpitations- Primary Leukocytosis, unspecified type Acute cough Shortness of breath on exertion Shortness of breath Other fatigue Nausea Nausea alone [facility] this [facility] Diagnosis Palpitations- Primary Shortness of breath on exertion Shortness of breath [facility] Diagnosis Palpitations- Primary Shortness of breath on exertion Shortness of breath Viral upper respiratory illness Acute upper respiratory infections of unspecified site History of recent pneumonia Cardiac arrhythmia, unspecified cardiac arrhythmia type [facility]* Diagnosis Shortness of breath on exertion- Primary Shortness of breath Abnormal CT of the chest Nonspecific (abnormal) findings on radiological and other examination of other intrathoracic organs Palpitations documented [facility]* Diagnosis Pneumonia of right middle lobe due to infectious organism- Primary Bronchiectasis with acute exacerbation (HCC) Bronchiectasis with acute exacerbation [facility] Diagnosis Bronchiectasis without complication (HCC)- Primary Bronchiectasis without acute exacerbation PVC's (premature ventricular contractions) Other premature beats Essential hypertension Unspecified essential hypertension Episode of recurrent major depressive disorder, unspecified depression episode severity (HCC) documented [facility] this [facility]* Diagnosis Hypertension, essential- Primary Unspecified essential hypertension [facility]* Diagnosis Primary osteoarthritis of right shoulder- Primary Primary localized osteoarthrosis, shoulder region Primary osteoarthritis of left shoulder Primary localized osteoarthrosis, shoulder region S/P reverse total shoulder arthroplasty, right Primary osteoarthritis of right shoulder Primary localized osteoarthrosis, shoulder region documented [facility]* Diagnosis Preop exam for internal medicine- Primary Other specified pre-operative examination Bronchiectasis without complication (HCC) Bronchiectasis without acute exacerbation PVC's (premature ventricular contractions) Other premature beats Von Willebrand disease (HCC) Von Willebrand's disease Essential hypertension Unspecified essential hypertension Vitamin D deficiency Unspecified vitamin D deficiency Primary osteoarthritis of right shoulder Primary localized osteoarthrosis, shoulder region [facility] Diagnosis S/P reverse total shoulder arthroplasty, right- Primary [facility] Diagnosis S/P reverse total shoulder arthroplasty, right- Primary documented [facility]* Diagnosis S/P reverse total shoulder arthroplasty, right- Primary documented [facility]* Diagnosis S/P reverse total shoulder arthroplasty, right- Primary documented [facility]* Diagnosis S/P reverse total shoulder arthroplasty, right- Primary [facility] Diagnosis S/P reverse total shoulder arthroplasty, right- Primary [facility] Diagnosis Lung nodules- Primary Other nonspecific abnormal finding of lung field Primary osteoarthritis of left shoulder Primary localized osteoarthrosis, shoulder region [facility] Diagnosis S/P reverse total shoulder arthroplasty, right- Primary Primary osteoarthritis of left shoulder Primary localized osteoarthrosis, shoulder region [facility] Diagnosis S/P reverse total shoulder arthroplasty, right- Primary Primary osteoarthritis of left shoulder Primary localized osteoarthrosis, shoulder region documented [facility]* Diagnosis S/P reverse total shoulder arthroplasty, right- Primary Primary osteoarthritis of left shoulder Primary localized osteoarthrosis, shoulder region documented in this encounter [facility] note* Diagnosis S/P reverse total shoulder arthroplasty, right- Primary Primary osteoarthritis of left shoulder Primary localized osteoarthrosis, shoulder region documented [facility]* Diagnosis S/P reverse total shoulder arthroplasty, right- Primary Primary osteoarthritis of left shoulder Primary localized osteoarthrosis, shoulder region documented [facility]* Diagnosis S/P reverse total shoulder arthroplasty, right- Primary Primary osteoarthritis of left shoulder Primary localized osteoarthrosis, shoulder region documented [facility]* Diagnosis S/P reverse total shoulder arthroplasty, right- Primary Primary osteoarthritis of left shoulder Primary localized osteoarthrosis, shoulder region documented [facility]* Diagnosis S/P reverse total shoulder arthroplasty, right- Primary Primary osteoarthritis of left shoulder Primary localized osteoarthrosis, shoulder region documented [facility]* Diagnosis S/P reverse total shoulder arthroplasty, right- Primary Primary osteoarthritis of left shoulder Primary localized osteoarthrosis, shoulder region documented [facility]* Diagnosis S/P reverse total shoulder arthroplasty, right- Primary Primary osteoarthritis of left shoulder Primary localized osteoarthrosis, shoulder region documented [facility]* Diagnosis S/P reverse total shoulder arthroplasty, right- Primary Primary osteoarthritis of left shoulder Primary localized osteoarthrosis, shoulder region documented in this encounter [facility] note* Diagnosis S/P reverse total shoulder arthroplasty, right- Primary Primary osteoarthritis of left shoulder Primary localized osteoarthrosis, shoulder region documented [facility]* Diagnosis Preoperative examination- Primary Preoperative examination, unspecified Aneurysm of splenic artery (HCC) Aneurysm of splenic artery Bronchiectasis without complication (HCC) Bronchiectasis without acute exacerbation Palpitations Von Willebrand disease (HCC) Von Willebrand's disease Underweight Primary osteoarthritis of left shoulder Primary localized osteoarthrosis, shoulder region documented [facility]* Diagnosis Cough, unspecified type- Primary Bronchiectasis without complication (HCC) Bronchiectasis without acute exacerbation Primary osteoarthritis of left shoulder Primary localized osteoarthrosis, shoulder region documented in this encounter [facility] note* Diagnosis S/P reverse total shoulder arthroplasty, right- Primary Primary osteoarthritis of left shoulder Primary localized osteoarthrosis, shoulder region documented in this encounter [facility] note* Diagnosis S/P reverse total shoulder arthroplasty, right- Primary Primary osteoarthritis of left shoulder Primary localized osteoarthrosis, shoulder region documented in this encounter [facility] note* Diagnosis Primary osteoarthritis of left shoulder- Primary Primary localized osteoarthrosis, shoulder region Preoperative clearance Preoperative examination, unspecified Primary osteoarthritis of left shoulder Primary localized osteoarthrosis, shoulder region documented in this encounter [facility] note* Diagnosis S/P reverse total shoulder arthroplasty, right- Primary Primary osteoarthritis of left shoulder Primary localized osteoarthrosis, shoulder region documented in this encounter [facility] note* Diagnosis Primary osteoarthritis of left shoulder- Primary Primary localized osteoarthrosis, shoulder region S/P reverse total shoulder arthroplasty, right Primary osteoarthritis of left shoulder Primary localized osteoarthrosis, shoulder region documented in this encounter [facility] note* Diagnosis S/P reverse total shoulder arthroplasty, left- Primary documented in this encounter [facility] note* Diagnosis S/P reverse total shoulder arthroplasty, left- Primary documented in this encounter [facility] note* Diagnosis S/P reverse total shoulder arthroplasty, left- Primary documented in this encounter [facility] note* Diagnosis S/P reverse total shoulder arthroplasty, left- Primary documented in this encounter [facility] note* Diagnosis S/P reverse total shoulder arthroplasty, left- Primary documented in this encounter [facility] note* Diagnosis S/P reverse total shoulder arthroplasty, left- Primary documented in this encounter [facility] note* Diagnosis S/P reverse total shoulder arthroplasty, left- Primary documented in this encounter [facility] note* Diagnosis Bronchiectasis without complication (HCC)- Primary Bronchiectasis without acute exacerbation Need for vaccination Need for prophylactic vaccination and inoculation against unspecified single disease documented in this encounter [facility] note* Diagnosis S/P reverse total shoulder arthroplasty, left- Primary documented [facility]* Diagnosis S/P reverse total shoulder arthroplasty, left- Primary documented in this encounter [facility] note* Diagnosis S/P reverse total shoulder arthroplasty, left- Primary [facility] Diagnosis S/P reverse total shoulder arthroplasty, left- Primary documented [facility]* Diagnosis S/P reverse total shoulder arthroplasty, left- Primary documented in this encounter [facility] note* Diagnosis S/P reverse total shoulder arthroplasty, left- Primary documented in this encounter [facility] note* Diagnosis Encounter for screening mammogram for malignant neoplasm of breast- Primary Other screening mammogram documented in this encounter [facility] note* Diagnosis Upper respiratory tract infection, unspecified type- Primary Bronchiectasis without complication (HCC) Bronchiectasis without acute exacerbation documented in this encounter [facility] note* Diagnosis Sore throat- Primary Acute pharyngitis Exposure to strep throat Contact with or exposure to other communicable diseases documented in this encounter [facility] for referral (narrative)* Outpatient Procedure (Routine) - Authorized Specialty Diagnoses / Procedures Referred By Contac t Referred To Contact [facility] Diagnoses Bronchiectasis without complication (HCC) Procedures SPIROMETRY BASELINE ONLY SPMTRY W/VC EXPIRATORY BAKARI W/WO MXML VOL VNTJ Yessi Fine PA-C [address] [address] [facility] [place] [address] [place] [address] Referral ID Status Reason Start Date Expiration Date Visits Requested Visits Authorized [id number] Authorized Auto-Generat ed Referral 09/06/2021 10/06/2022 1 1 [facility] for referral (narrative)* Diagnostic Procedure Only (Routine) - Authorized Specialty Diagnoses / Procedures Referred By Contac t Referred To Contact [facility] Diagnoses Breast cancer screening by mammogram Procedures KRISTINA SCREENING W NIESHA SCREENING DIGITAL BREAST TOMOSYNTHESIS BI SCREENING MAMMOGRAPHY BI 2-VIEW BREAST INC Christ España MD [address] [place] [address] [facility] [address] [place] [address] Referral ID Status Reason Start Date Expiration Date Visits Requested Visits Authorized [id number] Authorized Auto-Generat ed Referral 04/19/2022 05/19/2023 1 1 [facility] for referral (narrative)* Diagnostic Procedure Only (Routine) - Pending Review Specialty Diagnoses / Procedures Referred By Alberto sullivan Referred To Contact [facility] Diagnoses Dense breast tissue Breast cancer screening by mammogram Procedures KRISTINA SCREENING W NIESHA SCREENING DIGITAL BREAST TOMOSYNTHESIS BI SCREENING MAMMOGRAPHY BI 2-VIEW BREAST INC Christ España MD [address] [place] [address] [facility] [address] [place] [address] Referral ID Status Reason Start Date Expiration Date Visits Requested Visits Authorized [id number] Pending Review Auto-Generat ed Referral 04/20/2022 05/20/2023 1 1 [facility] for referral (narrative)* Outpatient Procedure (Routine) - Authorized Specialty Diagnoses / Procedures Referred By Alberto sullivan Referred To [facility] Diagnoses Shortness of breath on exertion Palpitations Procedures ECHO ECHO TTHRC R-T 2D W/WOM-MODE COMPL SPEC&COLR D Sandra Morales APRN.CNP [address] [place] [address] [facility] [place] [address] [place] [address] Referral ID Status Reason Start Date Expiration Date Visits Requested Visits Authorized [id number] Authorized Auto-Generat ed Referral 2 04/21/2023 1 1 [facility] Outpatient Procedure (Routine) - Authorized Specialty Diagnoses / Procedures [facility] Referred To [facility] Diagnoses Palpitations Shortness of breath on exertion Cardiac arrhythmia, unspecified cardiac arrhythmia type Procedures ECG COMPLETE ECG ROUTINE ECG W/LEAST 12 LDS W/I&R Sandra Morales APRN.CNP [address] [place] [address] [facility] [place] [address] [place] [address] Referral ID Status Reason Start Date Expiration Date Visits Requested Visits Authorized [id number] Authorized Auto-Generat ed Referral 2 05/09/2023 1 1 * Consult, Test, Treat (Routine) - Authorized Specialty Diagnoses / Procedures Referred By Contac t Referred To Contact Cardiology Diagnoses Palpitations Shortness of breath on exertion Procedures CONSULT TO CARDIOLOGY OFFICE/OUTPATIENT [facility] MDM 60-74 MINUTES Sandra Morales APRN.BUDGET OFFICER [address] [place] [address] Referral ID Status Reason Start Date Expiration Date Visits Requested Visits Authorized [id number] Authorized PCP Requested Referral 2 05/09/2023 1 1 [facility] Outpatient Procedure (Routine) - Pending Review Specialty Diagnoses / Procedures Referred By Contac t Referred To Contact [facility] Diagnoses Preop exam for internal medicine PVC's (premature ventricular contractions) Procedures ECG COMPLETE ECG ROUTINE ECG W/LEAST 12 LDS W/I&R Sandra Morales APRN.BUDGET OFFICER [address] [place] [address] [facility] [place] [address] [place] [address] Referral ID Status Reason Start Date Expiration Date Visits Requested Visits Authorized [id number] Pending Review Auto-Generat ed Referral 09/16/2022 09/16/2023 1 1 [facility] for referral (narrative)* Diagnostic Procedure Only (Routine) - Pending Review Specialty Diagnoses / Procedures Referred By Contac t Referred To Contact XR IMAGING Diagnoses S/P reverse total shoulder arthroplasty, right Procedures XR SHOULDER 3V AP/Y VIEW/AXILLARY RIGHT (AK) RADEX SHOULDER COMPLETE MINIMUM 2 VIEWS Adriana Franco PA-C [address] [place] [address] Xr Imaging Referral ID Status Reason Start Date Expiration Date Visits Requested Visits Authorized [id number] Pending Review Auto-Generat ed Referral 11/29/2022 12/29/2023 1 1 [facility] for referral (narrative)* Diagnostic Procedure Only (Routine) - Pending Review Specialty Diagnoses / Procedures Referred By Contac t Referred To Contact XR IMAGING Diagnoses S/P reverse total shoulder arthroplasty, left Procedures XR SHOULDER 3V AP/Y VIEW/AXILLARY LEFT (AK) RADEX SHOULDER COMPLETE MINIMUM 2 VIEWS Rhonda Erwin MD [address] [facility] [address] [place] [address] Xr Imaging [facility] Referral ID Status Reason Start Date Expiration Date Visits Requested Visits Authorized [id number] Pending Review Auto-Generat ed Referral 02/02/2023 03/03/2024 1 1 [facility] for referral (narrative)* Diagnostic Procedure Only (Routine) - Pending Review Specialty Diagnoses / Procedures Referred By Contac t Referred To Contact XR IMAGING Diagnoses S/P reverse total shoulder arthroplasty, left Procedures XR SHOULDER 3V AP/Y VIEW/AXILLARY LEFT (AK) RADEX SHOULDER COMPLETE MINIMUM 2 VIEWS Adriana Franco PA-C [address] [place] [address] [place] [address] Referral ID Status Reason Start Date Expiration Date Visits Requested Visits Authorized [id number] Pending Review Auto-Generat ed Referral 03/07/2023 04/05/2024 1 1 [facility] for referral (narrative)* Diagnostic Procedure Only (Routine) - Pending Review Specialty Diagnoses / Procedures Referred By Contac t Referred To Contact XR IMAGING Diagnoses S/P reverse total shoulder arthroplasty, left Procedures XR SHOULDER 3V AP/Y VIEW/AXILLARY LEFT (AK) RADEX SHOULDER COMPLETE MINIMUM 2 VIEWS Rhonda Erwin MD [address] [place] [address] [place] [address] Referral ID Status Reason Start Date Expiration Date Visits Requested Visits Authorized [id number] Pending Review Auto-Generat ed Referral 04/18/2023 05/17/2024 [facility] Procedure Only (Routine) - Pending Review Specialty Diagnoses / Procedures Referred By Contbrandan t Referred To Contact BR IMAGING Diagnoses Encounter for screening mammogram for malignant neoplasm of breast Procedures KRISTINA SCREENING W NIESHA SCREENING DIGITAL BREAST TOMOSYNTHESIS BI SCREENING MAMMOGRAPHY BI 2-VIEW BREAST INC Sandra Tuttle APRN.CNP [address] [place] [address] [facility] [address] [place] [address] Referral ID Status Reason Start Date Expiration Date Visits Requested Visits Authorized [id number] Pending Review Auto-Generat ed Referral 05/19/2023 06/17/2024 1 1 [facility] Advance Directives No Advanced Directives Records FoundDocuments on File Type Date 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 Advance Directive(s) 06/13/2018 11:26 AM Advance Directive(s) 05/09/2018 8:15 AM Advance Directive(s) 04/20/2018 9:12 AM Documents on File Type Date Recorded 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 Advance Directive(s) 06/13/2018 11:26 AM Advance Directive(s) 05/09/2018 8:15 AM Advance Directive(s) 04/20/2018 9:12 AM Documents on File Type Date Recorded 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 Advance Directive(s) 12/29/2022 9:06 AM Documents on File Type Date Recorded 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 Advance Directive(s) 12/29/2022 9:06 AM Medications Administered Section Inactive Administered Medications - up to 3 most recent administrations Medication Order MAR Action Action Date Dose Rate Site betamethasone acetate-betamethasone sodium phosphate 6 mg injection (CELESTONE) 6 mg, Injection - FOR ORTHO USE ONLY, ONE TIME INJECTION, 1 dose, Starting on Kaycee 10/21/21 at 1314, Until Kaycee 10/21/21 at 1314 Given 10/21/2021 1:14 PM EDT 6 mg lidocaine (PF) 10 mg/mL (1 %) 4 mL injection (XYLOCAINE) 4 mL, Injection - FOR ORTHO USE ONLY, ONE TIME INJECTION, 1 dose, Starting on Kaycee 10/21/21 at 1314, Until Kaycee 10/21/21 at 1314 Given 10/21/2021 1:14 PM EDT 4 mL Reason for Referral Specialty Diagnoses / Procedures Referred By Contac t Referred To Contact CT IMAGING Diagnoses Pneumonia of right middle lobe due to infectious organism Bronchiectasis with acute exacerbation (HCC) Procedures CT CHEST WO IVCON DIAGNOSTIC COMPUTED TOMOGRAPHY THORAX W/O Shamika Pastrana MD [address] [facility] [place] [address] Ct Imaging Referral ID Status Reason Start Date Expiration Date Visits Requested Visits Authorized [id number] Authorized Auto-Generat ed Referral 07/11/2022 06/18/2023 1 1 Specialty Diagnoses / Procedures Referred By Contac t Referred To Contact [facility] Diagnoses S/P reverse total shoulder arthroplasty, right Procedures CONSULT TO PHYSICAL THERAPY PHYSICAL THERAPY EVALUATION HIGH COMPLEX 45 MINS Rhonda Erwin MD [address] [place] [address] [facility] [address] [address] Referral ID Status Reason Start Date Expiration Date Visits Requested Visits Authorized [id number] Authorized PCP Requested Referral Auto-Generate d Referral 08/02/2022 08/02/2023 99 99 Specialty Diagnoses / Procedures Referred By Contac t Referred To Contact XR IMAGING Diagnoses Primary osteoarthritis of right shoulder Procedures XR SHOULDER 3V AP/Y VIEW/AXILLARY RIGHT (AK) RADEX SHOULDER COMPLETE MINIMUM 2 VIEWS Rhonda Erwin MD [address] [place] [address] Xr Imaging Referral ID Status Reason Start Date Expiration Date Visits Requested Visits Authorized [id number] Pending Review Auto-Generat ed Referral 08/02/2022 09/01/2023 1 1 Specialty Diagnoses / Procedures Referred By Contac t Referred To Contact XR IMAGING Diagnoses Primary osteoarthritis of left shoulder Procedures XR SHOULDER 3V AP/Y VIEW/AXILLARY LEFT (AK) RADEX SHOULDER COMPLETE MINIMUM 2 VIEWS Rhonda Erwin MD [address] [facility] [place] [address] Xr Imaging Referral ID Status Reason Start Date Expiration Date Visits Requested Visits Authorized [id number] Pending Review Auto-Generat ed Referral 08/02/2022 09/01/2023 1 1 Specialty Diagnoses / Procedures Referred By Contac t Referred To Contact [facility] Diagnoses S/P reverse total shoulder arthroplasty, right Procedures PT REHAB FOLLOW UP ORDER THERAPEUTIC EXERCISES RE, EA 15 MIN. Arabella'Adrianne Howard, PT [facility] [place] [address] [place] [address] Referral ID Status Reason Start Date Expiration Date Visits Requested Visits Authorized [id number] Pending Review PCP Requested Referral Auto-Generate d Referral 10/14/2022 01/12/2023 1 1 Specialty Diagnoses / Procedures Referred By Contac t Referred To Contact CT IMAGING Diagnoses Lung nodules Procedures CT CHEST WO IVCON DIAGNOSTIC COMPUTED TOMOGRAPHY THORAX W/O Shamika Pastrana MD [address] [facility] [address] Ct Imaging Referral ID Status Reason Start Date Expiration Date Visits Requested Visits Authorized [id number] Authorized Auto-Generat ed Referral 02/09/2023 12/09/2023 1 1 Referral ID Status Reason Start Date Expiration Date Visits Requested Visits Authorized [id number] Pending Review PCP Requested Referral Auto-Generate d Referral 11/10/2022 02/08/2023 1 1 Referral ID Status Reason Start Date Expiration Date Visits Requested Visits Authorized [id number] Pending Review PCP Requested Referral Auto-Generate d Referral 12/09/2022 03/09/2023 1 1 Specialty Diagnoses / Procedures Referred By Contac t Referred To Contact [facility] Diagnoses S/P reverse total shoulder arthroplasty, left Procedures CONSULT TO PHYSICAL THERAPY PHYSICAL THERAPY EVALUATION HIGH COMPLEX 45 MINS Rhonda Erwin MD [address] [place] [address] [facility] [place] [address] [place] [address] Referral ID Status Reason Start Date Expiration Date Visits Requested Visits Authorized [id number] Authorized PCP Requested Referral Auto-Generate d Referral 01/10/2023 01/10/2024 99 99 Specialty Diagnoses / Procedures Referred By Contac t Referred To Contact XR IMAGING Diagnoses S/P reverse total shoulder arthroplasty, right Procedures XR SHOULDER GENERAL 3V OR MORE AP/TRUE AP/OTHER RIGHT RADEX SHOULDER COMPLETE MINIMUM 2 VIEWS Rhonda Erwin MD [address] [place] [address] Xr Imaging Referral ID Status Reason Start Date Expiration Date Visits Requested Visits Authorized [id number] Pending Review Auto-Generat ed Referral 01/10/2023 02/09/2024 1 1 Summary Purpose Family History No Family History Records FoundNo Family History Records FoundNo Family History Records Found Additional Source Comments Source Comments (unrecognize d section and content) In the event this informatio n is protected by the Federal Confidentiality of Alcohol and Drug Abuse Patient Records regulations: The Federal rules restrict any use of the information to criminally investigate or prosecute any alcohol or drug abuse patient.[facility] event this information is protected by the Federal Confidentiality of Alcohol and Drug Abuse Patient Records regulations: The Federal rules restrict any use of the information to criminally investigate or prosecute any alcohol or drug abuse patient.[facility] the event this information is protected by the Federal Confidentiality of Alcohol and Drug Abuse Patient Records regulations: The Federal rules restrict any use of the information to criminally investigate or prosecute any alcohol or drug abuse patient.[facility] the event this information is protected by the Federal Confidentiality of Alcohol and Drug Abuse Patient Records regulations: The Federal rules restrict any use of the information to criminally investigate or prosecute any alcohol or drug abuse patient.[facility] the event this information is protected by the Federal Confidentiality of Alcohol and Drug Abuse Patient Records regulations: The Federal rules restrict any use of the information to criminally investigate or prosecute any alcohol or drug abuse patient.[facility] the event this information is protected by the Federal Confidentiality of Alcohol and Drug Abuse Patient Records regulations: The Federal rules restrict any use of the information to criminally investigate or prosecute any alcohol or drug abuse patient.[facility] the event this information is protected by the Federal Confidentiality of Alcohol and Drug Abuse Patient Records regulations: The Federal rules restrict any use of the information to criminally investigate or prosecute any alcohol or drug abuse patient.[facility] the event this information is protected by the Federal Confidentiality of Alcohol and Drug Abuse Patient Records regulations: The Federal rules restrict any use of the information to criminally investigate or prosecute any alcohol or drug abuse patient.[facility] the event this information is protected by the Federal Confidentiality of Alcohol and Drug Abuse Patient Records regulations: The Federal rules restrict any use of the information to criminally investigate or prosecute any alcohol or drug abuse patient.[facility] the event this information is protected by the Federal Confidentiality of Alcohol and Drug Abuse Patient Records regulations: The Federal rules restrict any use of the information to criminally investigate or prosecute any alcohol or drug abuse patient.[facility] the event this information is protected by the Federal Confidentiality of Alcohol and Drug Abuse Patient Records regulations: The Federal rules restrict any use of the information to criminally investigate or prosecute any alcohol or drug abuse patient.[facility] the event this information is protected by the Federal Confidentiality of Alcohol and Drug Abuse Patient Records regulations: The Federal rules restrict any use of the information to criminally investigate or prosecute any alcohol or drug abuse patient.[facility] the event this information is protected by the Federal Confidentiality of Alcohol and Drug Abuse Patient Records regulations: The Federal rules restrict any use of the information to criminally investigate or prosecute any alcohol or drug abuse patient.[facility] the event this information is protected by the Federal Confidentiality of Alcohol and Drug Abuse Patient Records regulations: The Federal rules restrict any use of the information to criminally investigate or prosecute any alcohol or drug abuse patient.[facility] the event this information is protected by the Federal Confidentiality of Alcohol and Drug Abuse Patient Records regulations: The Federal rules restrict any use of the information to criminally investigate or prosecute any alcohol or drug abuse patient.[facility] the event this information is protected by the Federal Confidentiality of Alcohol and Drug Abuse Patient Records regulations: The Federal rules restrict any use of the information to criminally investigate or prosecute any alcohol or drug abuse patient.[facility] the event this information is protected by the Federal Confidentiality of Alcohol and Drug Abuse Patient Records regulations: The Federal rules restrict any use of the information to criminally investigate or prosecute any alcohol or drug abuse patient.[facility] the event this information is protected by the Federal Confidentiality of Alcohol and Drug Abuse Patient Records regulations: The Federal rules restrict any use of the information to criminally investigate or prosecute any alcohol or drug abuse patient.[facility] the event this information is protected by the Federal Confidentiality of Alcohol and Drug Abuse Patient Records regulations: The Federal rules restrict any use of the information to criminally investigate or prosecute any alcohol or drug abuse patient.[facility] the event this information is protected by the Federal Confidentiality of Alcohol and Drug Abuse Patient Records regulations: The Federal rules restrict any use of the information to criminally investigate or prosecute any alcohol or drug abuse patient.[facility] the event this information is protected by the Federal Confidentiality of Alcohol and Drug Abuse Patient Records regulations: The Federal rules restrict any use of the information to criminally investigate or prosecute any alcohol or drug abuse patient.[facility] the event this information is protected by the Federal Confidentiality of Alcohol and Drug Abuse Patient Records regulations: The Federal rules restrict any use of the information to criminally investigate or prosecute any alcohol or drug abuse patient.[facility] the event this information is protected by the Federal Confidentiality of Alcohol and Drug Abuse Patient Records regulations: The Federal rules restrict any use of the information to criminally investigate or prosecute any alcohol or drug abuse patient.[facility] the event this information is protected by the Federal Confidentiality of Alcohol and Drug Abuse Patient Records regulations: The Federal rules restrict any use of the information to criminally investigate or prosecute any alcohol or drug abuse patient.[facility] the event this information is protected by the Federal Confidentiality of Alcohol and Drug Abuse Patient Records regulations: The Federal rules restrict any use of the information to criminally investigate or prosecute any alcohol or drug abuse patient.[facility] the event this information is protected by the Federal Confidentiality of Alcohol and Drug Abuse Patient Records regulations: The Federal rules restrict any use of the information to criminally investigate or prosecute any alcohol or drug abuse patient.[facility] the event this information is protected by the Federal Confidentiality of Alcohol and Drug Abuse Patient Records regulations: The Federal rules restrict any use of the information to criminally investigate or prosecute any alcohol or drug abuse patient.[facility] the event this information is protected by the Federal Confidentiality of Alcohol and Drug Abuse Patient Records regulations: The Federal rules restrict any use of the information to criminally investigate or prosecute any alcohol or drug abuse patient.[facility] the event this information is protected by the Federal Confidentiality of Alcohol and Drug Abuse Patient Records regulations: The Federal rules restrict any use of the information to criminally investigate or prosecute any alcohol or drug abuse patient.[facility] the event this information is protected by the Federal Confidentiality of Alcohol and Drug Abuse Patient Records regulations: The Federal rules restrict any use of the information to criminally investigate or prosecute any alcohol or drug abuse patient.[facility] the event this information is protected by the Federal Confidentiality of Alcohol and Drug Abuse Patient Records regulations: The Federal rules restrict any use of the information to criminally investigate or prosecute any alcohol or drug abuse patient.[facility] the event this information is protected by the Federal Confidentiality of Alcohol and Drug Abuse Patient Records regulations: The Federal rules restrict any use of the information to criminally investigate or prosecute any alcohol or drug abuse patient.[facility] the event this information is protected by the Federal Confidentiality of Alcohol and Drug Abuse Patient Records regulations: The Federal rules restrict any use of the information to criminally investigate or prosecute any alcohol or drug abuse patient.[facility] the event this information is protected by the Federal Confidentiality of Alcohol and Drug Abuse Patient Records regulations: The Federal rules restrict any use of the information to criminally investigate or prosecute any alcohol or drug abuse patient.[facility] the event this information is protected by the Federal Confidentiality of Alcohol and Drug Abuse Patient Records regulations: The Federal rules restrict any use of the information to criminally investigate or prosecute any alcohol or drug abuse patient.[facility] the event this information is protected by the Federal Confidentiality of Alcohol and Drug Abuse Patient Records regulations: The Federal rules restrict any use of the information to criminally investigate or prosecute any alcohol or drug abuse patient.[facility] the event this information is protected by the Federal Confidentiality of Alcohol and Drug Abuse Patient Records regulations: The Federal rules restrict any use of the information to criminally investigate or prosecute any alcohol or drug abuse patient.[facility] the event this information is protected by the Federal Confidentiality of Alcohol and Drug Abuse Patient Records regulations: The Federal rules restrict any use of the information to criminally investigate or prosecute any alcohol or drug abuse patient.[facility] the event this information is protected by the Federal Confidentiality of Alcohol and Drug Abuse Patient Records regulations: The Federal rules restrict any use of the information to criminally investigate or prosecute any alcohol or drug abuse patient.[facility]In the event this information is protected by the Federal Confidentiality of Alcohol and Drug Abuse Patient Records regulations: The Federal rules restrict any use of the information to criminally investigate or prosecute any alcohol or drug abuse patient.[facility]In the event this information is protected by the Federal Confidentiality of Alcohol and Drug Abuse Patient Records regulations: The Federal rules restrict any use of the information to criminally investigate or prosecute any alcohol or drug abuse patient.[facility]In the event this information is protected by the Federal Confidentiality of Alcohol and Drug Abuse Patient Records regulations: The Federal rules restrict any use of the information to criminally investigate or prosecute any alcohol or drug abuse patient.[facility]In the event this information is protected by the Federal Confidentiality of Alcohol and Drug Abuse Patient Records regulations: The Federal rules restrict any use of the information to criminally investigate or prosecute any alcohol or drug abuse patient.[facility]In the event this information is protected by the Federal Confidentiality of Alcohol and Drug Abuse Patient Records regulations: The Federal rules restrict any use of the information to criminally investigate or prosecute any alcohol or drug abuse patient.[facility], [place]onIn the event this information is protected by the Federal Confidentiality of Alcohol and Drug Abuse Patient Records regulations: The Federal rules restrict any use of the information to criminally investigate or prosecute any alcohol or drug abuse patient.[facility], [place]onIn the event this information is protected by the Federal Confidentiality of Alcohol and Drug Abuse Patient Records regulations: The Federal rules restrict any use of the information to criminally investigate or prosecute any alcohol or drug abuse patient.[facility], [place]onIn the event this information is protected by the Federal Confidentiality of Alcohol and Drug Abuse Patient Records regulations: The Federal rules restrict any use of the information to criminally investigate or prosecute any alcohol or drug abuse patient.[facility], [place]onIn the event this information is protected by the Federal Confidentiality of Alcohol and Drug Abuse Patient Records regulations: The Federal rules restrict any use of the information to criminally investigate or prosecute any alcohol or drug abuse patient.[facility], [place]onIn the event this information is protected by the Federal Confidentiality of Alcohol and Drug Abuse Patient Records regulations: The Federal rules restrict any use of the information to criminally investigate or prosecute any alcohol or drug abuse patient.[facility], [place]onIn the event this information is protected by the Federal Confidentiality of Alcohol and Drug Abuse Patient Records regulations: The Federal rules restrict any use of the information to criminally investigate or prosecute any alcohol or drug abuse patient.[facility], [place]onIn the event this information is protected by the Federal Confidentiality of Alcohol and Drug Abuse Patient Records regulations: The Federal rules restrict any use of the information to criminally investigate or prosecute any alcohol or drug abuse patient.[facility], [place]onIn the event this information is protected by the Federal Confidentiality of Alcohol and Drug Abuse Patient Records regulations: The Federal rules restrict any use of the information to criminally investigate or prosecute any alcohol or drug abuse patient.[facility], [place]onIn the event this information is protected by the Federal Confidentiality of Alcohol and Drug Abuse Patient Records regulations: The Federal rules restrict any use of the information to criminally investigate or prosecute any alcohol or drug abuse patient.[facility], [place]onIn the event this information is protected by the Federal Confidentiality of Alcohol and Drug Abuse Patient Records regulations: The Federal rules restrict any use of the information to criminally investigate or prosecute any alcohol or drug abuse patient.[facility], [place]onIn the event this information is protected by the Federal Confidentiality of Alcohol and Drug Abuse Patient Records regulations: The Federal rules restrict any use of the information to criminally investigate or prosecute any alcohol or drug abuse patient.[facility], [place]onIn the event this information is protected by the Federal Confidentiality of Alcohol and Drug Abuse Patient Records regulations: The Federal rules restrict any use of the information to criminally investigate or prosecute any alcohol or drug abuse patient.[facility], [place]onIn the event this information is protected by the Federal Confidentiality of Alcohol and Drug Abuse Patient Records regulations: The Federal rules restrict any use of the information to criminally investigate or prosecute any alcohol or drug abuse patient.[facility], [place]onIn the event this information is protected by the Federal Confidentiality of Alcohol and Drug Abuse Patient Records regulations: The Federal rules restrict any use of the information to criminally investigate or prosecute any alcohol or drug abuse patient.[facility], [place]onIn the event this information is protected by the Federal Confidentiality of Alcohol and Drug Abuse Patient Records regulations: The Federal rules restrict any use of the information to criminally investigate or prosecute any alcohol or drug abuse patient.[facility], [place]onIn the event this information is protected by the Federal Confidentiality of Alcohol and Drug Abuse Patient Records regulations: The Federal rules restrict any use of the information to criminally investigate or prosecute any alcohol or drug abuse patient.[facility], [place]onIn the event this information is protected by the Federal Confidentiality of Alcohol and Drug Abuse Patient Records regulations: The Federal rules restrict any use of the information to criminally investigate or prosecute any alcohol or drug abuse patient.[facility], [place]onIn the event this information is protected by the Federal Confidentiality of Alcohol and Drug Abuse Patient Records regulations: The Federal rules restrict any use of the information to criminally investigate or prosecute any alcohol or drug abuse patient.[facility], [place]onIn the event this information is protected by the Federal Confidentiality of Alcohol and Drug Abuse Patient Records regulations: The Federal rules restrict any use of the information to criminally investigate or prosecute any alcohol or drug abuse patient.[facility], [place]onIn the event this information is protected by the Federal Confidentiality of Alcohol and Drug Abuse Patient Records regulations: The Federal rules restrict any use of the information to criminally investigate or prosecute any alcohol or drug abuse patient.[facility], [place]onIn the event this information is protected by the Federal Confidentiality of Alcohol and Drug Abuse Patient Records regulations: The Federal rules restrict any use of the information to criminally investigate or prosecute any alcohol or drug abuse patient.[facility], [place]onIn the event this information is protected by the Federal Confidentiality of Alcohol and Drug Abuse Patient Records regulations: The Federal rules restrict any use of the information to criminally investigate or prosecute any alcohol or drug abuse patient.[facility], [place]onIn the event this information is protected by the Federal Confidentiality of Alcohol and Drug Abuse Patient Records regulations: The Federal rules restrict any use of the information to criminally investigate or prosecute any alcohol or drug abuse patient.[facility], [place]onIn the event this information is protected by the Federal Confidentiality of Alcohol and Drug Abuse Patient Records regulations: The Federal rules restrict any use of the information to criminally investigate or prosecute any alcohol or drug abuse patient.[facility], [place]onIn the event this information is protected by the Federal Confidentiality of Alcohol and Drug Abuse Patient Records regulations: The Federal rules restrict any use of the information to criminally investigate or prosecute any alcohol or drug abuse patient.[facility], [place]onIn the event this information is protected by the Federal Confidentiality of Alcohol and Drug Abuse Patient Records regulations: The Federal rules restrict any use of the information to criminally investigate or prosecute any alcohol or drug abuse patient.[facility], [place]onIn the event this information is protected by the Federal Confidentiality of Alcohol and Drug Abuse Patient Records regulations: The Federal rules restrict any use of the information to criminally investigate or prosecute any alcohol or drug abuse patient.[facility], [place]onIn the event this information is protected by the Federal Confidentiality of Alcohol and Drug Abuse Patient Records regulations: The Federal rules restrict any use of the information to criminally investigate or prosecute any alcohol or drug abuse patient.[facility], [place]onIn the event this information is protected by the Federal Confidentiality of Alcohol and Drug Abuse Patient Records regulations: The Federal rules restrict any use of the information to criminally investigate or prosecute any alcohol or drug abuse patient.[facility], [place]onIn the event this information is protected by the Federal Confidentiality of Alcohol and Drug Abuse Patient Records regulations: The Federal rules restrict any use of the information to criminally investigate or prosecute any alcohol or drug abuse patient.[facility], [place]onIn the event this information is protected by the Federal Confidentiality of Alcohol and Drug Abuse Patient Records regulations: The Federal rules restrict any use of the information to criminally investigate or prosecute any alcohol or drug abuse patient.[facility], [place]onIn the event this information is protected by the Federal Confidentiality of Alcohol and Drug Abuse Patient Records regulations: The Federal rules restrict any use of the information to criminally investigate or prosecute any alcohol or drug abuse patient.[facility], [place]onIn the event this information is protected by the Federal Confidentiality of Alcohol and Drug Abuse Patient Records regulations: The Federal rules restrict any use of the information to criminally investigate or prosecute any alcohol or drug abuse patient.[facility], [place]onIn the event this information is protected by the Federal Confidentiality of Alcohol and Drug Abuse Patient Records regulations: The Federal rules restrict any use of the information to criminally investigate or prosecute any alcohol or drug abuse patient.[facility], [place]onIn the event this information is protected by the Federal Confidentiality of Alcohol and Drug Abuse Patient Records regulations: The Federal rules restrict any use of the information to criminally investigate or prosecute any alcohol or drug abuse patient.[facility], [place]onIn the event this information is protected by the Federal Confidentiality of Alcohol and Drug Abuse Patient Records regulations: The Federal rules restrict any use of the information to criminally investigate or prosecute any alcohol or drug abuse patient.[facility], [place]onIn the event this information is protected by the Federal Confidentiality of Alcohol and Drug Abuse Patient Records regulations: The Federal rules restrict any use of the information to criminally investigate or prosecute any alcohol or drug abuse patient.[facility], [place]onIn the event this information is protected by the Federal Confidentiality of Alcohol and Drug Abuse Patient Records regulations: The Federal rules restrict any use of the information to criminally investigate or prosecute any alcohol or drug abuse patient.[facility], [place]onIn the event this information is protected by the Federal Confidentiality of Alcohol and Drug Abuse Patient Records regulations: The Federal rules restrict any use of the information to criminally investigate or prosecute any alcohol or drug abuse patient.[facility], [place]onIn the event this information is protected by the Federal Confidentiality of Alcohol and Drug Abuse Patient Records regulations: The Federal rules restrict any use of the information to criminally investigate or prosecute any alcohol or drug abuse patient.[facility], [place]onIn the event this information is protected by the Federal Confidentiality of Alcohol and Drug Abuse Patient Records regulations: The Federal rules restrict any use of the information to criminally investigate or prosecute any alcohol or drug abuse patient.[facility], [place]onIn the event this information is protected by the Federal Confidentiality of Alcohol and Drug Abuse Patient Records regulations: The Federal rules restrict any use of the information to criminally investigate or prosecute any alcohol or drug abuse patient.[facility], [place]onIn the event this information is protected by the Federal Confidentiality of Alcohol and Drug Abuse Patient Records regulations: The Federal rules restrict any use of the information to criminally investigate or prosecute any alcohol or drug abuse patient.[facility], [place]onIn the event this information is protected by the Federal Confidentiality of Alcohol and Drug Abuse Patient Records regulations: The Federal rules restrict any use of the information to criminally investigate or prosecute any alcohol or drug abuse patient.[facility] [place] Reason for Visit (unrecogniz ed section and content) Specialty Diagnoses / Procedures Referred By Contac t Referred To Contact [facility] Diagnoses S/P reverse total shoulder arthroplasty, left Procedures CONSULT TO PHYSICAL THERAPY PHYSICAL THERAPY EVALUATION HIGH COMPLEX 45 MINS Rhonda Erwin MD [address] [place] [address] [place] [id number] [facility] [address] [address] Referral ID Status Reason Start Date Expiration Date Visits Requested Visits Authorized [id number] Authorized PCP Requested Referral Auto-Generate d Referral 01/10/2023 01/10/2024 99 99 Reason Comments PT Discharge Specialty Diagnoses / Procedures Referred By Contac t Referred To Contact [facility] Diagnoses S/P reverse total shoulder arthroplasty, right Procedures CONSULT TO PHYSICAL THERAPY PHYSICAL THERAPY EVALUATION HIGH COMPLEX 45 MINS Rhonda Erwin MD [address] [place] [address], [place] [address] [facility] [address] [address] Referral ID Status Reason Start Date Expiration Date Visits Requested Visits Authorized [id number] Authorized PCP Requested Referral Auto-Generate d Referral 08/02/2022 08/02/2023 99 99 Reason Comments PT Progress Note Specialty Diagnoses / Procedures Referred By Contac t Referred To Contact [facility] Diagnoses S/P reverse total shoulder arthroplasty, right Procedures CONSULT TO PHYSICAL THERAPY PHYSICAL THERAPY EVALUATION HIGH COMPLEX 45 MINS Rhonda Erwin MD [address] [facility] [place] [address] [facility] [address] [address] Reason Comments Established Patient Reason Comments Results Reason Comments Follow Up Pain Injections Reason Comments Refill Request Reason Onset Date Comments Refill Request 11/29/2021 Reason Comments Established Patient Pain Reason Onset Date Comments Recheck 6 month follow u p Immunizations 03/11/2022 Flu vaccination Reason Comments Spirometry Specialty Diagnoses / Procedures [facility] Diagnoses Bronchiectasis without complication (HCC) Procedures SPIROMETRY BASELINE ONLY SPMTRY W/VC EXPIRATORY BAKARI W/WO MXML VOL VNTJ Yessi Fine, YOLA [address] [place] [address] [facility] [address] [place] [id number] Referral ID Status Reason Start Date Expiration Date V isits Requested Visits Authorized [id number] Closed Auto-Generate d Referral 09/06/2021 10/06/2022 1 1 Reason Comments Established Patient 6 month follow up br onchiectasis Reason Comments New Pain Reason Comments Appointment Reason Comments Recheck Follow up Reason Comments Same Day Appointment discuss cymbalta si de effects- 18 days on med Reason Comments Orders Reason Comments ED Follow-up [facility] 04/20/22 PVC's Reason Comments Zio Application Reason Comments Recheck 2 week follow up Reason Comments Recheck Reason Comments Established Patient abnormal CT chest. p neumonia Reason Comments zio monitor results Reason Comments Follow Up questions about shou lder surgery Reason Comments Blood Pressure Check Reason Comments Blood Pressure Check Reason Onset Date Comments Refill Request 08/04/2022 Reason Comments Follow Up Pain Reason Onset Date Comments Refill Request 08/19/2022 Reason Comments Pre-Op Exam Pre- Op Clearance Reason Comments Preparations For Surgery Reason Comments PT Eval Reason Comments PT Progress Note Reason Comments Post Op Pain Reason Comments Consult Reason Comments Pre-Op Exam surgery on left shou lder 01/20/23 at [facility] Reason Comments Post Op Pain New Pre-Op Visit Reason Comments PT Eval Reason Comments Post Op Reason Comments Shortness of Breath 6 month follow-up Reason Onset Date Comments Refill Request 04/14/2023 Reason Comments Medication Problem Reason Comments Follow Up Post Op Reason Comments Established Patient Reason Comments Sore Throat left ear pain x 3 da ys, strep exposure Care Teams (unrecognized sec tion and content) Home Care Associate Relationship Specialty Start Date End Date Christ Solorio MD [address] [place] [address] PCP - General Internal Medicine 04/20/16 Home Care Associate Relationship Specialty Start Date End Date Christ Solorio MD [address] [place] [address] PCP - General Internal Medicine 04/20/16 Home Care Associate Relationship Specialty Start Date End Date Christ Solorio MD [address] [place] [address] PCP - General Internal Medicine 04/20/16 Home Care Associate Relationship Specialty Start Date End Date Christ Solorio MD [address] [place] [address] PCP - General Internal Medicine 04/20/16 Home Care Associate Relationship Specialty Start Date End Date Christ Solorio MD [address] [place] [address] PCP - General Internal Medicine 04/20/16 Home Care Associate Relationship Specialty Start Date End Date Christ Solorio MD [address] [place] [address] PCP - General Internal Medicine 04/20/16 Home Care Associate Relationship Specialty Start Date End Date Christ Solorio MD [address] [place] [address] PCP - General Internal Medicine 04/20/16 Home Care Associate Relationship Specialty Start Date End Date Christ Solorio MD [address] [place] [address] PCP - General Internal Medicine 04/20/16 Home Care Associate Relationship Specialty Start Date End Date Christ Solorio MD [address] [place] [address] PCP - General Internal Medicine 04/20/16 Home Care Associate Relationship Specialty Start Date End Date Christ Solorio MD [address] [facility] [place] [address] PCP - General Internal Medicine 04/20/16 Home Care Associate Relationship Specialty Start Date End Date Christ Solorio MD [address] [facility] [place] [address] PCP - General Internal Medicine 04/20/16 Home Care Associate Relationship Specialty Start Date End Date Christ Solorio MD [address] [facility] [place] [address] PCP - General Internal Medicine 04/20/16 Home Care Associate Relationship Specialty Start Date End Date Christ Sloorio MD [address] [facility] [place] [address] PCP - General Internal Medicine 04/20/16 Home Care Associate Relationship Specialty Start Date End Date Christ Solorio MD [address] [facility] [place] [address] PCP - General Internal Medicine 04/20/16 Home Care Associate Relationship Specialty Start Date End Date Christ Solorio MD [address] [facility] [place] [address] PCP - General Internal Medicine 04/20/16 Home Care Associate Relationship Specialty Start Date End Date Christ Solorio MD [address] [place] [address] PCP - General Internal Medicine 04/20/16 Home Care Associate Relationship Specialty Start Date End Date Christ Solorio MD [address] [place] [address] PCP - General Internal Medicine 04/20/16 Home Care Associate Relationship Specialty Start Date End Date Christ Solorio MD [address] [place] [address] PCP - General Internal Medicine 04/20/16 Home Care Associate Relationship Specialty Start Date End Date Christ Solorio MD [address] [place] [address] PCP - General Internal Medicine 04/20/16 Home Care Associate Relationship Specialty Start Date End Date Christ Solorio MD [address] [place] [address] PCP - General Internal Medicine 04/20/16 Home Care Associate Relationship Specialty Start Date End Date Christ Solorio MD [address] [place] [address] PCP - General Internal Medicine 04/20/16 Home Care Associate Relationship Specialty Start Date End Date Christ Solorio MD [address] [place] [address] PCP - General Internal Medicine 04/20/16 Home Care Associate Relationship Specialty Start Date End Date Christ Solorio MD [address] [place] [address] PCP - General Internal Medicine 04/20/16 Home Care Associate Relationship Specialty Start Date End Date Christ Solorio MD [address] [place] [address] PCP - General Internal Medicine 04/20/16 Home Care Associate Relationship Specialty Start Date End Date Christ Solorio MD [address] [place] [address] PCP - General Internal Medicine 04/20/16 Home Care Associate Relationship Specialty Start Date End Date Christ Solorio MD [address] [place] [address] PCP - General Internal Medicine 04/20/16 Home Care Associate Relationship Specialty Start Date End Date Christ Solorio MD [address] [place] [address] PCP - General Internal Medicine 04/20/16 Home Care Associate Relationship Specialty Start Date End Date Christ Solorio MD [address] [facility] [place] [address] PCP - General Internal Medicine 04/20/16 Home Care Associate Relationship Specialty Start Date End Date Christ Solorio MD [address] [facility] [place] [address] PCP - General Internal Medicine 04/20/16 Home Care Associate Relationship Specialty Start Date End Date Christ Solorio MD [address] [facility] [place] [address] PCP - General Internal Medicine 04/20/16 Home Care Associate Relationship Specialty Start Date End Date Christ Solorio MD [address] [facility] [place] [address] PCP - General Internal Medicine 04/20/16 Home Care Associate Relationship Specialty Start Date End Date Christ Solorio MD [address] [facility] [place] [address] PCP - General Internal Medicine 04/20/16 Home Care Associate Relationship Specialty Start Date End Date Christ Solorio MD [address] [facility] [place] [address] PCP - General Internal Medicine 04/20/16 Home Care Associate Relationship Specialty Start Date End Date Christ Solorio MD [address] [facility] [place] [address] PCP - General Internal Medicine 04/20/16 Home Care Associate Relationship Specialty Start Date End Date Christ Solorio MD [address] [place] [address] PCP - General Internal Medicine 04/20/16 Home Care Associate Relationship Specialty Start Date End Date Christ Solorio MD [address] [place] [address] PCP - General Internal Medicine 04/20/16 Home Care Associate Relationship Specialty Start Date End Date Christ Soloiro MD [address] [place] [address] PCP - General Internal Medicine 04/20/16 Home Care Associate Relationship Specialty Start Date End Date Christ Solorio MD [address] [place] [address] PCP - General Internal Medicine 04/20/16 Home Care Associate Relationship Specialty Start Date End Date Christ Solorio MD [address] [place] [address] PCP - General Internal Medicine 04/20/16 Home Care Associate Relationship Specialty Start Date End Date Christ Solorio MD [address] [place] [address] PCP - General Internal Medicine 04/20/16 Home Care Associate Relationship Specialty Start Date End Date Christ Solorio MD [address] [place] [address] PCP - General Internal Medicine 04/20/16 Home Care Associate Relationship Specialty Start Date End Date Christ Solorio MD [address] [place] [address] PCP - General Internal Medicine 04/20/16 Home Care Associate Relationship Specialty Start Date End Date Christ Solorio MD [address] [place] [address] PCP - General Internal Medicine 04/20/16 Home Care Associate Relationship Specialty Start Date End Date Christ Solorio MD [address] [place] [address] PCP - General Internal Medicine 04/20/16 Home Care Associate Relationship Specialty Start Date End Date Christ Solorio MD [address] [place] [address] PCP - General Internal Medicine 04/20/16 Home Care Associate Relationship Specialty Start Date End Date Christ Solorio MD [address] [place] [address] PCP - General Internal Medicine 04/20/16 Home Care Associate Relationship Specialty Start Date End Date Christ Solorio MD [address] [place] [address] PCP - General Internal Medicine 04/20/16 Home Care Associate Relationship Specialty Start Date End Date Christ Solorio MD [address] [place] [address] PCP - General Internal Medicine 04/20/16 Home Care Associate Relationship Specialty Start Date End Date Christ Solorio MD [address] [place] [address] PCP - General Internal Medicine 04/20/16 Home Care Associate Relationship Specialty Start Date End Date Christ Solorio MD [address] [place] [address] PCP - General Internal Medicine 04/20/16 Home Care Associate Relationship Specialty Start Date End Date Christ Solorio MD [address] [place] [address] PCP - General Internal Medicine 04/20/16 Home Care Associate Relationship Specialty Start Date End Date Christ Solorio MD [address] [place] [address] PCP - General Internal Medicine 04/20/16 Home Care Associate Relationship Specialty Start Date End Date Christ Solorio MD [address] [place] [address] PCP - General Internal Medicine 04/20/16 Home Care Associate Relationship Specialty Start Date End Date Christ Solorio MD [address] [place] [address] PCP - General Internal Medicine 04/20/16 Home Care Associate Relationship Specialty Start Date End Date Christ Solorio MD [address] [place] [address] PCP - General Internal Medicine 04/20/16 INFORMATION SOURCE (unrecogn ized section and content) DATE CREATED AUTHOR AUTHOR'S ORGANIZ ATION 05/11/2023 [facility] DATE CREATED AUTHOR AUTHOR'S ORGANIZ ATION 07/24/2023 [facility] FOR RECORDS PERTAINING TO PATIENTS WHO ARE OR HAVE BEEN ENROLLED IN A CHEMICAL DEPENDENCY/SUBSTANCEABUSE PROGRAM, SOME INFORMATION MAY BE OMITTED. This clinical summary was aggregated from multiple sources. Caution should be exercised in using it in the provision of clinical care. This summary normalizes information from multiple sources, and as a consequence, information in this document may materially change the coding, format and clinical context of patient data. In addition, data may be omitted in some cases. CLINICAL DECISIONS SHOULD BE BASED ON THE PRIMARY CLINICAL RECORDS. [facility]. provides no warranty or guarantee of the accuracy or completeness of information in this document.
[2023-07-27 09:14] LABS: AST(SGOT) 28 U/L (15-37); Alanine Aminotransfer ALT/SGPT 29 U/L (13-56); Alkaline Phosphatase 76 U/L (45-117); Bilirubin, Direct 0.14 mg/dL (0.00-0.30); Cholesterol 193 mg/dL (200); Globulin 3.2 g/dL (2.2-4.2); High Density Lipoprotein 67 mg/dL; Protein, Total 7.2 g/dL (6.4-8.2); Triglycerides 123 mg/dL; Very Low Density Lipoprotein 25 mg/dL (5-40)
== END | disposition home or self-care (01) ==
LOC: LAB 08:10
PROVIDERS: PCP Internal Medicine; Referring Provider Internal Medicine Cardiovascular Disease; Visit Provider Internal Medicine Cardiovascular Disease
DX: I25.10 Atherosclerotic heart disease of native coronary artery without angina pectoris (principal); I25.84 Coronary atherosclerosis due to calcified coronary lesion
CPT/HCPCS: 36415; 80061; 80076

== ENCOUNTER 2024-09-16 20:51 | Emergency (ER) | payer MEDICARE, OTHER, SELFPAY ==
[2024-09-16 20:52] VITALS: BP 202/86; PULSE 106; RESP 18; TEMP 36.7; O2SAT 98; BMI 20.2
[2024-09-16 20:54] VITALS: BP 178/80; BP 202/86; PULSE 106; RESP 18; TEMP 36.7; O2SAT 98
--- NOTE | 2024-09-16 22:25 | CT_ITS ---
PROCEDURE: CTA CHEST W/WO CONTRAST 09/16/2024 REASON FOR EXAM: HEMOPTYSIS TECHNIQUE: CTA axial imaging of the chest with intravenous contrast. Coronal and Sagittal reconstruction series were provided. 3D, 3D post processing, 3D reconstructions, Maximum intensity projection (MIPs) Volume rendering and Shaded surface rendering was provided. PATIENT PREPARATION: Per protocol CONTRAST: Isovue 370 VOLUME: 40 mL 18 gauge IV One or more dose reduction techniques were used (e.g., Automated exposure control, adjustment of the mA and/or kV according to patient size, use of iterative reconstruction technique). CONTRAST: 75 VOLUME: Isovue 370 mL 18 gauge IV RADIATION DOSE SUMMARY: CTDlvol: 5.32 mGy DLP: 189 mGycm COMPARISON: None available FINDINGS: Hardware: Bilateral shoulder arthroplasty. Lymph nodes: No lymphadenopathy. Heart: Heart is normal in size and caliber. Pericardial effusion. RV/LV Diameter Ratio: Less than 1:1 Thoracic Aorta: Normal in size and caliber. Pulmonary Vessels: No evidence of acute pulmonary emboli through the major subsegmental branches. Most Proximal Level of Embolus (if embolus present): Lungs and Airways: Central airways are patent. Focal area of bronchiectasis within right middle lobe, and left upper lobe, likely corresponding to a longstanding infectious/inflammatory process. Otherwise no suspicious parenchymal abnormality. No dominant masses. Pleura: No pleural effusion pneumothorax. Upper Abdomen: Partially visualized upper abdomen demonstrates no acute abnormality. Bones: No aggressive osseous lesions. No acute fractures. Heart: The heart is normal in size. The great vessels are normal in size and caliber. Pulmonary Vessels: No definite filling defects up to the level of the segmental arterial branches. More peripheral vessels are difficult to visualized. Arch Vessels: Normal in size and caliber. Thoracic Aorta: Normal in size and caliber Abdominal Aorta: Normal in size and caliber CT/CTA Chest W/WO Contrast IMPRESSION: 1. No definite filling defects up to the level of the segmental arterial branch es. More peripheral vessels are difficult to visualize. 2. Focal area of bronchiectasis within the right middle lobe, and left upper lo be, likely corresponding to a longstanding infectious/inflammatory process. Reading Location: [facility]
[2024-09-16 22:44] VITALS: BP 159/100; PULSE 79; RESP 18; TEMP 36.6; O2SAT 96
[2024-09-16] MEDS: 0.9% Normal Saline (1000mL) 1,000 ML 999 ML IV (22:47)
[2024-09-16 22:50] LABS: Absolute Lymphocyte Count 2.49 X10^3/uL (0.83-4.51); Absolute Neutrophil Count 4.8 X10^3/uL (2.0-7.7); Basophil# 0.08 X10^3/uL; Eosinophil# 0.18 X10^3/uL; Eosinophils% 2.2 % (0-5); Hematocrit 42.8 % (37-47); Lymphocyte # 2.49 X10^3/ul (0.83-4.51); Lymphocyte % 30.4 % (19-41); Mean Corp Hgb Conc 32.7 g/dL (32-36); Mean Corpuscular Hgb 31.1 pg (27.0-32.0); Mean Corpuscular Volume 95.1 fL (81-99); Mean Platelet Vol. 9.1 fl (6.2-12.0); Monocyte# 0.66 X10^3/uL; Monocyte% 8.1 % (0-10); NRBC Flagged by Analyzer 0 % (0-5); Neutrophil # 4.75 X10^3/uL (2.7-7.7); Neutrophil % 58.1 % (47-70); Platelet Count 555 K/mm3 (150-450); RBC Distribution Width CV 13.2 % (11.6-14.6); RBC Distribution Width SD 46.8 fl (35.1-43.9); White Blood Count 8.2 K/mm3 (4.4-11.0)
[2024-09-16 23:00] VITALS: BP 180/76; PULSE 83; RESP 18; TEMP 36.6; O2SAT 97
[2024-09-16 23:04] LABS: Partial Thromboplast Time 29.4 Seconds (24.1-36.2); Prothrombin Time (Protime)PT. 13.2 SECONDS (11.7-14.9)
[2024-09-16 23:15] LABS: Anion Gap 11 (5-15); BUN 14 mg/dL (4-19); BUN/Creat Ratio 27.8 RATIO (10-20); Calcium,Total 9.6 mg/dL (7.6-11.0); Carbon Dioxide 24.4 mmol/L (21.0-32.0); Chloride 103 mmol/L (98-108); Creatinine, Serum 0.49 mg/dL (0.70-1.20); EST Glomerular Filtration Rate 98 (>60); Estimated Creatinine Clearance 43.64 ml/min (50-250); Glucose 100 mg/dL (70-99); Potassium 4.3 mmol/L (3.3-5.1); Sodium Level 138 mmol/L (133-145)
[2024-09-17] VITALS: BP 168/77; PULSE 79; RESP 18; TEMP 36.6; O2SAT 97
--- NOTE | 2024-09-17 00:38 | EX.ED.DYSGE1 ---
HPI History of Present Illness Chief Complaint: Cough Informant: patient Narrative Narrative: Patient is a 74-year-old female with past medical history of hypertension hyperlipidemia and von Willebrand's disease. She also reports a chronic history of bronchiectasis. She states secondary to her bronchiectasis she uses a percussion vest frequently and also has a chronic/recurrent productive cough. However this evening she started coughing and developed jessica hemoptysis. She reports a past medical history of von Willebrand's disease and states that she will typically bleed easily but does not cough this type of bloody sputum up on a regular basis. She denies any recent travel surgery or history of DVT/PE. However based on the new symptoms she presents for evaluation [facility] Medical History Arthritis Cataracts, bilateral Chronic bronchiectasis not affecting current episode of care Coronary atherosclerosis due to severely calcified coronary lesion Depression GERD (gastroesophageal reflux disease) Hiatal hernia Kidney stones Osteopenia Pneumonia Ventricular ectopy Von Willebrand disease Home Medications ?Medication ?Instructions ?Recorded ?Last Taken ?Type calcium carbonate 600 mg PO DAILY 01/22/21 Unknown History multivitamin 1 tab PO DAILY 01/22/21 Unknown History Lactobacillus cap PO DAILY 01/25/21 Unknown History acidophil,plantar-Bifido no.7 25 billion cell capsule (up4 Probiotics Adult 50 Plus) acetaminophen 500 mg tablet 500 mg PO Q6H PRN Pain 01/25/21 Unknown History (Tylenol Extra Strength) sertraline 50 mg tablet (Zoloft) 75 mg PO DAILY 01/25/21 Unknown History ascorbic acid (vitamin C) 1,000 mg 1 g PO DAILY 06/16/22 Unknown History tablet naproxen sodium 220 mg tablet 220 mg PO BID PRN 06/16/22 Unknown History tumeric curcumin 1,500 mg PO DAILY 06/16/22 Unknown History biotin 2,500 mcg capsule 2,500 mcg PO DAILY 07/18/23 Unknown History guaifenesin 600 mg tablet, 600 mg PO DAILY 07/18/23 Unknown History extended release 12 hr (Mucinex) diltiazem HCl 120 mg 120 mg PO QAM please use generic 04/18/24 Unknown Rx capsule,extended release 24 hr #90 caps diltiazem HCl 120 mg 120 mg PO DAILY #90 caps 05/20/24 Unknown Rx capsule,extended release 24 hr (Cartia XT) doxycycline monohydrate 100 mg 100 mg PO BID #20 CAPSULES 09/17/24 Unknown Rx capsule Allergy/AdvReac Type Severity Reaction Status Date / Time latex Allergy unknown Verified 09/16/24 20:52 Penicillins Allergy Unknown Verified 09/16/24 20:52 Sulfa (Sulfonamide Allergy unknown Verified 09/16/24 20:52 Antibiotics) rosuvastatin AdvReac Intermediate Myalgias Verified 09/16/24 20:52 and fatigue Family History Father Cancer Hypertension Brother CVA (cerebral vascular accident) Cancer Mother H/O ulcer disease Alzheimer disease Myocardial infarction Grandfather CVA (cerebral vascular accident) Other Bleeding disorder COPD (chronic obstructive pulmonary disease) Cancer of bone Osteoporosis Surgical History H/O hysterectomy with unilateral oophorectomy Hx of cholecystectomy Status post trigger finger release Social History Smoking Status: Never smoker alcohol intake: current substance use type: does not use caffeine: Yes (2 decaf) what type of physical activity do you participate in: walking frequency: 5-6 times per week ROS ROS ED Constitutional Constitutional ED: Denies chills or fever(s) Eyes Eyes: Denies blurry vision or change in vision ENT ENT ED: Denies sore throat Cardiovascular Cardiovascular: Denies chest pain, palpitations or racing heartbeat Respiratory/Chest Respiratory/Chest: Reports cough and other Details: Positive hemoptysis ; Denies dyspnea Gastrointestinal Gastrointestinal: Denies abdominal pain, diarrhea, nausea or vomiting Genitourinary Genitourinary ED: Denies dysuria Musculoskeletal Musculoskeletal: Denies back pain or myalgias Integumentary Denies rash Neurologic Neurologic: Denies headache(s) Hematologic/Lymphatic Hematologic/Lymphatic: Reports easy bleeding and easy bruising Allergic/Immunologic Allergic/Immunologic ED: Denies mouth swelling or tongue swelling EXAM Physical Exam Const Vital Signs: 09/16/24 20:52 09/16/24 20:54 09/16/24 20:54 Temperature 98.1 F 98.1 F Temperature Source Oral Oral Pulse Rate 106 H 106 H Respiratory Rate 18 18 Respiratory Effort Respiratory Depth Respiratory Pattern Blood Pressure 202/86 H 178/80 H 202/86 H Blood Pressure Mean 124 112 124 Pulse Ox 98 98 Oxygen Delivery Method Room Air Room Air 09/16/24 22:44 09/16/24 22:48 09/16/24 23:00 Temperature 97.9 F 97.9 F Temperature Source Oral Oral Pulse Rate 79 83 Respiratory Rate 18 18 Respiratory Effort Normal Non-Labored Respiratory Depth Normal Respiratory Pattern Normal Blood Pressure 159/100 H 180/76 H Blood Pressure Mean 119 106 Pulse Ox 96 97 Oxygen Delivery Method Room Air Room Air 09/17/24 00:00 09/17/24 00:51 Temperature 97.9 F 98 F Temperature Source Oral Pulse Rate 79 66 Respiratory Rate 18 15 Respiratory Effort Respiratory Depth Respiratory Pattern Blood Pressure 168/77 H 160/77 H Blood Pressure Mean 101 104 Pulse Ox 97 100 Oxygen Delivery Method Room Air Positive well nourished and well developed General Appearance ED: well developed; Negative for pallor HEENT Reports moist mucous membranes HEENT Narrative: No tongue or lip swelling no oral lesions no airway edema or compromise No active bleeding or dried blood noted in the posterior pharynx Eyes PERRL and EOMs intact bilaterally General Eye ED: Negative for pale conjunctiva or scleral icterus Neck supple and no JVD Chest Wall palpation of chest normal Resp normal respiratory effort Resp Narrative: Breath sounds are diminished throughout with rhonchi noted in the bilateral lower lobes However no nasal flaring retractions tachypnea or accessory muscle use Cardio regular rate and regular rhythm Rate: other Other Details: Radial and carotid pulses are equal and symmetric Extremity normal to inspection Extremity Narrative: No asymmetric edema no pitting edema negative Homans' sign bilaterally Neuro oriented x3, CN's II-XII intact bilaterally and no sensory deficits noted Sensorium / Orientation: alert Motor Exam: strength 5/5 throughout Psych mental status grossly normal Skin no rashes or lesions noted General Skin Exam: Negative for jaundice or pallor MDM MDM MDM Narrative Medical decision making narrative: Patient presented to the ER hypertensive but has a past medical history of this. Otherwise she is in no acute respiratory distress and satting 100% on room air. With her report of hemoptysis there is concern for bronchitis versus pneumonia versus pulmonary embolus. Patient also could have acute blood loss anemia or thrombocytopenia and therefore basic labs were obtained as well as a CT of the chest. Blood work revealed no acute findings blood work revealed no acute findings and CTA of the chest revealed no PE but did show areas of chronic inflammation versus infection consistent with her history of bronchiectasis. However the CT talked about areas of inflammation/infection in the right middle and the left upper and patient denies any known history of the left upper region being affected by her bronchiectasis and therefore with this finding and her hemoptysis there is concern it is infection related. As she does not have signs of sepsis she is not in respiratory distress she is not having acute blood loss anemia I do not feel there is need for admission. I will start her on antibiotics secondary to concern for infection but otherwise she is safe for discharge and can follow-up on an outpatient basis History & Record Review Discussion w/independent historian: Patient Lab Data Attestation: I reviewed the patient's lab results. Labs: Laboratory Results - last 24 hr 09/16/24 22:40 WBC 8.2 RBC 4.50 Hgb 14.0 Hct 42.8 MCV 95.1 MCH 31.1 MCHC 32.7 RDW Std Deviation 46.8 H RDW Coeff of Darin 13.2 Plt Count 555 H MPV 9.1 Immature Gran % (Auto) 0.200 Neut % (Auto) 58.1 Lymph % (Auto) 30.4 [place] % (Auto) 8.1 Eos % (Auto) 2.2 Baso % (Auto) 1.0 Absolute Neuts (auto) 4.8 Absolute Lymphs (auto) 2.49 Nucleated RBC % 0 PT 13.2 INR 1.0 APTT 29.4 Sodium 138 Potassium 4.3 Chloride 103 Carbon Dioxide 24.4 Anion Gap 11 BUN 14 Creatinine 0.49 L Estim Creat Clear Calc 43.64 L Est GFR (MDRD) Non-Af 98 BUN/Creatinine Ratio 27.8 H Glucose 100 H Calcium 9.6 Radiography Diagnostic Testing: Clinical Impression(s) from Imaging Studies Chest CTA 09/16/24 22:25 IMPRESSION: 1. No definite filling defects up to the level of the segmental arterial branches. More peripheral vessels are difficult to visualize. 2. Focal area of bronchiectasis within the right middle lobe, and left upper lobe, likely corresponding to a longstanding infectious/inflammatory process. Reading Location: [facility] Discharge Plan Triage Chief Complaint: Cough ED Provider: Shun Phillips Dx/Rx/DC Orders Clinical Impression: Hemoptysis, Von Willebrand disease, Hypertension Instructions: ED Hemoptysis Prescriptions: New doxycycline monohydrate 100 mg capsule 100 mg PO BID Qty: 20 0RF No Action calcium carbonate 600 mg calcium (1,500 mg) tablet 600 mg PO DAILY multivitamin Tablet 1 tab PO DAILY sertraline [Zoloft] 50 mg tablet 75 mg PO DAILY acetaminophen [Tylenol Extra Strength] 500 mg tablet 500 mg PO Q6H PRN (Reason: Pain) up4 Probiotics Adult 50 Plus 25 billion cell capsule PO DAILY tumeric curcumin 500 mg tablet 1,500 mg PO DAILY guaifenesin [Mucinex] 600 mg tablet extended release 12hr 600 mg PO DAILY ascorbic acid (vitamin C) 1,000 mg tablet 1 g PO DAILY naproxen sodium 220 mg tablet 220 mg PO BID PRN biotin 2,500 mcg capsule 2,500 mcg PO DAILY diltiazem HCl 120 mg capsule,extended release 24hr 120 mg PO QAM Qty: 90 3RF diltiazem HCl [Cartia XT] 120 mg capsule,extended release 24hr 120 mg PO DAILY Qty: 90 3RF Primary Care Provider: Jennifer Solorio Referrals: Jennifer Solorio MD [Primary Care Provider] - Activity Restrictions/Additional Instructions: Your CTA does not reveal a blood clot but it does show areas of bronchiectasis in your right middle lobe and left upper lobe which could be due to inflammation or infection. Since the left upper lobe is new I have high concerns for infection and therefore take the antibiotic as directed. Follow-up with your negative checker for repeat evaluation and return to the ER should you have any further concerns Print Language: Georgian Disposition Disposition: Home, Self Care Discharge Date/Time: 09/17/24 00:51
[2024-09-17] MEDS: Doxycycline monohydrate 25 MG/5 ML SUSP. 100 MG PO (00:49)
[2024-09-17 00:51] VITALS: BP 160/77; PULSE 66; RESP 15; TEMP 36.6; O2SAT 100
== END 2024-09-17 00:51 | disposition home or self-care (01) ==
PROVIDERS: Emergency Provider Emergency Medicine; PCP Internal Medicine; Visit Provider Emergency Medicine
DX: R04.2 Hemoptysis (principal); D68.00 Von Willebrand disease, unspecified; I10 Essential (primary) hypertension; I25.10 Atherosclerotic heart disease of native coronary artery without angina pectoris
CPT/HCPCS: 71275; 80048; 85025; 85610; 85730; 87631; 96360; 99282; Q9967; A4216

== ENCOUNTER → 2024-11-12 | Outpatient (CLI) | payer MEDICARE, OTHER, SELFPAY ==
[2024-11-12 13:39] LABS: AST(SGOT) 30 U/L (<=31); Alanine Aminotransfer ALT/SGPT 22 U/L (<=34); Albumin, Serum 4.5 g/dL (3.4-4.8); Alkaline Phosphatase 79 U/L (35-104); Bilirubin, Direct 0.18 mg/dL (0.00-0.30); Cholesterol 166 mg/dL (<=200); Globulin 2.3 g/dL (2.2-4.2); High Density Lipoprotein 63 mg/dL; Low Density Lipoprotein Calc. 86 mg/dL; Protein, Total 6.8 g/dL (5.9-8.4); Total Bilirubin 0.41 mg/dL (0.00-1.30); Triglycerides 81 mg/dL; Very Low Density Lipoprotein 16 mg/dL (5-40); cholesterol:hdl ratio screen 2.62
== END | disposition home or self-care (01) ==
LOC: LAB 11:20
PROVIDERS: PCP Internal Medicine; Referring Provider Physician Assistant Medical; Visit Provider Physician Assistant Medical
DX: I25.10 Atherosclerotic heart disease of native coronary artery without angina pectoris (principal); I25.84 Coronary atherosclerosis due to calcified coronary lesion
CPT/HCPCS: 36415; 80061; 80076